=== PATIENT | male | born 1970 | race Caucasian/White ===

== ENCOUNTER 2024-02-17 16:04 | Emergency (ER) | payer MEDICAID, SELFPAY ==
[2024-02-17 16:09] VITALS: PULSE 81
[2024-02-17 16:36] VITALS: BP 128/75; PULSE 90; RESP 18; TEMP 37; O2SAT 98; BMI 16.7
--- NOTE | 2024-02-17 17:04 | EDRME_ITS ---
Rapid Medical Screening Exam [facility] Arrival date/time: 02/17/24 16:04 53-year-old female with past medical history of nephrostomy tube presents emergency department complaining of acute urinary retention and hematuria after accidentally removed Dumont catheter that was placed yesterday. Chief Complaint: Urogenital-Male Time Seen by Provider: 02/17/24 17:01 Vital signs: Vital Signs Temperature 98.6 F 02/17/24 16:36 Pulse Rate 90 02/17/24 16:36 Respiratory Rate 18 02/17/24 16:36 Blood Pressure 128/75 02/17/24 16:36 Pulse Oximetry (%) 98 02/17/24 16:36 Oxygen Delivery Method Room Air 02/17/24 16:36
[2024-02-17 17:33] LABS: Basophils % (Auto) 1 % (0-2.5); Eosinophils # (Auto) 0.3 Thou/mm3 (0.0-0.5); Eosinophils % (Auto) 5 % (0-10); Hematocrit 35.7 % (41.0-53.0); Hemoglobin 11.9 g/dL (13.5-16.0); Immature Granulocytes % (Auto) 0 % (0-0); Lymphocytes # (Auto) 2.5 Thou/mm3 (1.0-4.8); Lymphocytes % (Auto) 41 % (10-50); Mean Corpuscular HGB Conc 33.3 g/dl (31.0-37.0); Mean Corpuscular Hemoglobin 30.9 pg (25.0-35.0); Mean Corpuscular Volume 93 fL (80-100); Monocytes # (Auto) 0.7 Thou/mm3 (0.0-0.8); Monocytes % (Auto) 12 % (0-12); Neutrophils # (Auto) 2.6 Thou/mm3 (1.8-7.7); Neutrophils % (Auto) 43 % (37-80); Nucleated Red Blood Cell % 0 /100 WBC (0); Platelet Count 157 Thou/mm3 (140-440); RDW Standard Deviation 47.5 fL (35.1-43.9); Red Blood Count 3.85 Miln/mm3 (4.50-5.90); White Blood Count 6.2 Thou/mm3 (3.8-10.6)
[2024-02-17 17:48] LABS: Alanine Aminotransferase 15 U/L (10-49); Albumin, Serum 4.4 gm/dL (3.5-5.0); Albumin/Globulin Ratio 1.9 (1.2-2.2); Alkaline Phosphatase 84 U/L (46-116); Anion Gap 5 (7-16); Aspartate Amino Transferase 26 U/L (0-34); BUN/Creatinine Ratio 12 Ratio (12-20); Bilirubin,Total 0.3 mg/dL (0.3-1.2); Blood Urea Nitrogen 11 mg/dL (9-23); Calcium 9.1 mg/dL (8.3-10.6); Calcium (Corrected) 9.1 mg/dL (8.5-10.1); Carbon Dioxide 29.5 mMol/L (20.0-31.0); Chloride 108 mMol/L (98-107); Creatinine (Component) 0.9 mg/dL (0.6-1.3); Estimated Creatinine Clearance 72.2 mL/min (>60); Globulin 2.3 gm/dL (2.3-3.5); Glucose 93 mg/dL (74-106); Osmolality,Calculated 282 (275-295); Potassium 3.8 mMol/L (3.4-5.1); Sodium 142 mMol/L (136-145); Total Protein 6.7 gm/dL (5.7-8.2); eGFR > 60 See Note
[2024-02-17 17:58] LABS: Partial Thromboplastin Time 27.9 Seconds (22.0-36.0); Prothrombin Time 10.6 Seconds (9.0-12.2)
--- NOTE | 2024-02-17 23:05 | PC.NURSE ---
CALLED PATIENT IN THE LOBBY AND OUTSIDE, NO ANSWER RECEIVED.
--- NOTE | 2024-02-18 00:11 | PC.NURSE ---
PT CALLED BACK FROM LOBBY NO ANSWER
--- NOTE | 2024-02-18 00:50 | PC.NURSE ---
No answer when called from triage.
== END 2024-02-17 23:05 | disposition left against medical advice (07) ==
PROVIDERS: Emergency Provider Emergency Medicine; PCP Nurse Practitioner
DX: R33.9 Retention of urine, unspecified (principal); R31.9 Hematuria, unspecified; Z53.29 Procedure and treatment not carried out because of patient's decision for other reasons
CPT/HCPCS: 36415; 80053; 81001; 85025; 85610; 85730; 99281

== ENCOUNTER 2024-03-07 11:12 | Emergency (ER) | payer MEDICAID, SELFPAY ==
[2024-03-07 11:14] VITALS: BMI 18.1
[2024-03-07 11:23] VITALS: BP 113/75; PULSE 77; RESP 19; TEMP 36.8; O2SAT 97
--- NOTE | 2024-03-07 11:58 | EDNOTE_ITS ---
ED Back Injury Pain RME/HPI General Chief Complaint: Back Pain/Injury Stated Complaint: PAIN/SWELLING KIDNEY S/P SURGERY 02/12 Time Seen by Provider: 03/07/24 11:29 Arrival date/time: 03/07/24 11:12 RME / HPI RME / HPI Narrative: 54-year-old male patient with recent placement of ureteral stent came in for evaluation regarding pain to the right flank area for several days, associated with bilateral lower leg +1 edema. Patient denies any fever denies any vomiting. Patient also is asking if he can give him a dose of Ativan since he ran out of it and cannot refill the medication until March 12. He told me that he is feeling very anxious now. Denies any other complaints no medications taken prior travel. Related Data Home Medications ?Medication ?Instructions ?Recorded ?Confirmed lorazepam 2 mg tablet mg 12/10/23 12/10/23 Previous Rx's ?Medication ?Instructions ?Recorded naloxone 4 mg/actuation nasal 4 mg intranasal Q3M PRN opioid 11/30/23 spray (Narcan) overdose #2 ea cefdinir 300 mg capsule 300 mg PO BID #20 caps 01/11/24 ciprofloxacin HCl 500 mg tablet 500 mg PO BID #14 tabs 01/25/24 (Cipro) linezolid 600 mg tablet (Zyvox) 600 mg PO BID #14 tabs 02/15/24 lorazepam 2 mg tablet (Ativan) 2 mg PO BID PRN anxiety #10 tabs 03/07/24 nitrofurantoin 100 mg PO Q12H 7 days #14 caps 03/07/24 monohydrate/macrocrystals 100 mg capsule (Macrobid) Allergies Allergy/AdvReac Type Severity Reaction Status Date / Time onion Allergy Severe Vomiting Verified 03/07/24 11:16 Review of Systems Review of Systems Narrative Review of Systems: Review of system reviewed and within normal limits except mentioned in HPI ED Exam Narrative Physical exam: VITAL SIGNS: Reviewed. GENERAL APPEARANCE: Alert and interactive, follows commands, no acute distress, HEAD AND FACE: Non-traumatic. ENT: PERRL, pink conjunctivitis, eyelid no trauma, Mucous membrane moist. NECK: Supple, nontender, no nuchal rigidity. CHEST: No tenderness, no crepitus, no paradoxical movement, no retractions. LUNGS: Clear, well ventilated, symmetric, no rales, no wheezing, no ronchi, no stridor, good breath sounds bilaterally. HEART: Regular rate, regular rhythm, no murmur, no gallops. ABDOMEN: Soft, positive bowel sounds, nondistended, no guarding, nontender, no rebound, no masses, right flank tenderness RECTAL: Deferred. GENITAL: Deferred. NEUROLOGICAL: Gross motor function intact sensory function intact, Appropriate for age. MUSCULOSKELETAL: low back nontender, full range of motion. EXTREMITIES: Nontender, full range of motion. SKIN: Color pink, dry, no rash, no lacerations, no abrasions, no contusions. LYMPHATICS: Deferred. Course Quality Measures none Orders Category Date Time Status CBC [CBC] Stat Lab 03/07/24 12:40 Completed CMP [Comprehensive Metabolic Panel] Stat Lab 03/07/24 12:40 Completed UA, C/S IF [Urinalysis, C/S if Indicated] Stat Lab 03/07/24 13:55 Completed Urine Culture Stat Lab 03/07/24 13:55 Received Furosemide [Lasix] Med 03/07/24 12:15 Discontinued 20 mg PO X1 ONE LORazepam [Ativan] Med 03/07/24 11:57 Discontinued 2 mg PO X1 ONE Nitrofurantoin Macro [Macrobid] Med 03/07/24 15:49 Discontinued 100 mg PO X1 ONE Sodium Chloride 0.9% 1000 ml [Ns] 1,000 ml Med 03/07/24 15:04 Active IV 999 mls/hr Vital Signs Vital signs: Vital Signs Temperature 98.3 F 03/07/24 11:23 Pulse Rate 77 03/07/24 11:23 Respiratory Rate 19 03/07/24 11:23 Blood Pressure 113/75 03/07/24 11:23 Pulse Oximetry (%) 97 03/07/24 11:23 Oxygen Delivery Method Room Air 03/07/24 11:23 Back Pain / Injury MDM Narrative MDM Narrative:: 54-year-old male patient with recent placement of ureteral stent came in for evaluation regarding pain to the right flank area for several days, associated with bilateral lower leg +1 edema. Patient denies any fever denies any vomiting. Patient also is asking if he can give him a dose of Ativan since he ran out of it and cannot refill the medication until March 12. He told me that he is feeling very anxious now. Denies any other complaints no medications taken prior travel. Laboratory workup significant for mild UTI the rest of the labs unremarkable. Patient received IV fluids for hydration and p.o. Ativan. Currently patient is verbalized significant improvement of his anxiety. Patient was also given Macrobid. I gave him Macrobid since patient had multiple resistance of previous culture and sensitivity that was done in less than 1 month ago. Patient data External records reviewed:: None Clinical information provided by:: none Social determinants that could affect healthcare access:: none Patient has the following chronic illnesses:: anxiety How is presenting disease/condition affected by chronic disease/condition?: exacerbated by Evaluation data The following diagnostics were reviewed and interpreted by me:: lab results Lab and/or radiology exams considered but not ordered:: None Interpretation Summary: Laboratory workup significant for UTI. The rest of the labs unremarkable. Medications / Prescriptions Medications or Prescriptions considered but not ordered:: None Medication administrations:: Medication Administration History Sodium Chloride (Ns) 1,000 mls @ 999 mls/hr IV .Q1H1M ONE Stop: 03/07/24 16:04 Last Admin: 03/07/24 15:09 Dose: 999 mls/hr Documented By: EF Discontinued Medications Furosemide (Furosemide 20 Mg Tablet) 20 mg PO X1 ONE Stop: 03/07/24 12:16 Last Admin: 03/07/24 13:22 Dose: 20 mg Documented By: EF Lorazepam (Lorazepam 0.5 Mg Tablet) 2 mg PO X1 ONE Stop: 03/07/24 11:58 Last Admin: 03/07/24 12:47 Dose: 2 mg Documented By: EF Nitrofurantoin Macrocrystals (Nitrofurantoin Macro 100 Mg Capsule) 100 mg PO X1 ONE Stop: 03/07/24 15:50 IV fluids for hydration Macrobid, Ativan and Lasix Consultations Consultation(s) initiated? (list below): No Diagnosis Differential diagnosis back pain/injury: sciatica, pyelonephritis and other (UTI, anxiety) Most likely diagnosis given after review of the tests above:: UTI, anxiety Admission Indicated Admission indicated?: not indicated Explain why admission is indicated or not indicated:: Stable for discharge Admission Request Was there a request for admission?: No Disposition Plan Disposition Plan: Discharge Discharge Attestation Discharge Attestation: The patient was given an opportunity to ask questions and understood the discharge instructions. Discharge instructions specifically effects, indication s for sooner follow up or return to the emergency department, and the expected course of current diagnosis. Patient condition: Stable Discharge Plan Plan Patient Disposition: HOME (Self Care) Disposition Comment: stable Prescriptions/Referrals Prescriptions/Med Rec: New nitrofurantoin monohyd/m-cryst [Macrobid] 100 mg capsule 100 mg PO Q12H 7 Days Qty: 14 0RF Rx Instructions: must administer with a meal/food lorazepam [Ativan] 2 mg tablet 2 mg PO BID PRN (Reason: anxiety) Qty: 10 0RF No Action naloxone [Narcan] 4 mg/actuation spray,non-aerosol 4 mg intranasal Q3M PRN (Reason: opioid overdose) Qty: 2 0RF Rx Instructions: spray 1 dose into ONE nostril; alternate nostrils w each dose until help arrives lorazepam 2 mg tablet Patient Comments: 2 mg orally daily As Needed for anxiety for 5 days, Max Daily Dose: 2 tablets cefdinir 300 mg capsule 300 mg PO BID Qty: 20 0RF ciprofloxacin HCl [Cipro] 500 mg tablet 500 mg PO BID Qty: 14 0RF linezolid [Zyvox] 600 mg tablet 600 mg PO BID Qty: 14 0RF Referrals: Ana Tidwell FNP [Primary Care Provider] - In 1 week Problem List Clinical Impression: Anxiety, UTI (urinary tract infection) Patient/Caregiver Discharge Instructions Discharge Activity: activity as tolerated Education Materials: Understanding Urinary Tract ... Additional Instructions: Thank you for the opportunity for serving you today. You are stable for discharged . You are advised to: Follow-up with your PCP in 1 to 2 days Return to ED for worsening of symptoms Increase oral fluids Take medication as prescribed Print Language: Romanian Stand Alone Forms: Mena Award Info., Patient Portal Info Letter KAREN/FERNANDO Supervising Physician KAREN/FERNANDO Supervising Physician: MD Bautista
--- NOTE | 2024-03-07 12:22 | PC.NURSE ---
patient came in today for right sided flank pain patient mentioned he had a stent placed 02/13/24 and has been hurting ever since. patient states he has pain during voiding and feels he constantly has the urge to pee.
[2024-03-07 12:24] VITALS: BP 114/76; PULSE 71; RESP 16; TEMP 37.1; O2SAT 97
[2024-03-07] MEDS: LORazepam 0.5 MG TABLET 2 MG PO (12:47)
--- NOTE | 2024-03-07 12:51 | PC.NURSE ---
pharmacy called for lasix
[2024-03-07 12:54] LABS: Basophils % (Auto) 1 % (0-2.5); Eosinophils # (Auto) 0.2 Thou/mm3 (0.0-0.5); Eosinophils % (Auto) 4 % (0-10); Hematocrit 34.1 % (41.0-53.0); Hemoglobin 11.6 g/dL (13.5-16.0); Immature Granulocytes % (Auto) 0 % (0-0); Lymphocytes # (Auto) 1.2 Thou/mm3 (1.0-4.8); Lymphocytes % (Auto) 29 % (10-50); Mean Corpuscular Hemoglobin 30.6 pg (25.0-35.0); Mean Corpuscular Volume 90 fL (80-100); Monocytes # (Auto) 0.3 Thou/mm3 (0.0-0.8); Monocytes % (Auto) 7 % (0-12); Neutrophils # (Auto) 2.4 Thou/mm3 (1.8-7.7); Neutrophils % (Auto) 59 % (37-80); Nucleated Red Blood Cell % 0 /100 WBC (0); Platelet Count 198 Thou/mm3 (140-440); RDW Standard Deviation 45.6 fL (35.1-43.9); Red Blood Count 3.79 Miln/mm3 (4.50-5.90); White Blood Count 4.1 Thou/mm3 (3.8-10.6)
[2024-03-07 13:10] LABS: Alanine Aminotransferase 12 U/L (10-49); Albumin, Serum 4.3 gm/dL (3.5-5.0); Alkaline Phosphatase 85 U/L (46-116); Anion Gap 3 (7-16); Aspartate Amino Transferase 18 U/L (0-34); BUN/Creatinine Ratio 13 Ratio (12-20); Bilirubin,Total 0.6 mg/dL (0.3-1.2); Blood Urea Nitrogen 12 mg/dL (9-23); Calcium 9.5 mg/dL (8.3-10.6); Calcium (Corrected) 9.5 mg/dL (8.5-10.1); Carbon Dioxide 29.9 mMol/L (20.0-31.0); Chloride 107 mMol/L (98-107); Creatinine (Component) 0.9 mg/dL (0.6-1.3); Estimated Creatinine Clearance 77.3 mL/min (>60); Globulin 2.1 gm/dL (2.3-3.5); Glucose 103 mg/dL (74-106); Osmolality,Calculated 279 (275-295); Potassium 4.2 mMol/L (3.4-5.1); Sodium 140 mMol/L (136-145); Total Protein 6.4 gm/dL (5.7-8.2); eGFR > 60 See Note
[2024-03-07 13:22] VITALS: BP 97/68; PULSE 69
[2024-03-07] MEDS: Furosemide 20 MG TABLET PO (13:22)
[2024-03-07 14:00] VITALS: BP 103/71; PULSE 67; RESP 18; TEMP 36.4; O2SAT 98
[2024-03-07 14:01] LABS: Collection Type, Urine Clean Catch; Squamous Epithelial Cell,Urine 0 /hpf (0-5)
[2024-03-07 14:05] LABS: Bilirubin,Urine Negative (Negative); Blood,Urine 3+ (Negative); Color,Urine Lt-Yellow (Lt Yel-Yel); Glucose, Urine Negative (Negative); Ketones,Urine Negative (Negative); Leukocyte Esterase,Urine Positive (Negative); Nitrite,Urine Negative (Negative); PH,Urine 6.5 (5.0-7.0); Protein,Urine 1+ (Neg - Trace); RBC,Urine 110 /hpf (0-3); Specific Gravity,Urine 1.011 (1.001-1.035); Urobilinogen,Urine Negative mg/dL (0.0-1.0); WBC,Urine 13 /hpf (0-5)
[2024-03-07] MEDS: SODIUM CHLORIDE 0.9% 1000 ML 1,000 ML 999 ML IV (15:09)
[2024-03-07 15:31] LABS: Clarity,Urine Hazy (Clear/Hazy); Culture Indicated,Urine Yes
[2024-03-07] MEDS: NITROFURANTOIN MACRO 100 MG CAPSULE PO (15:56)
[2024-03-07 15:57] VITALS: BP 103/74; PULSE 73; RESP 16; TEMP 36.6; O2SAT 99
== END 2024-03-07 16:06 | disposition home or self-care (01) ==
PROVIDERS: Nurse Practitioner Family; Emergency Provider Emergency Medicine; PCP Nurse Practitioner
DX: N39.0 Urinary tract infection, site not specified (principal); F41.9 Anxiety disorder, unspecified
CPT/HCPCS: 36415; 80053; 81001; 85025; 87086; 96360; 99284; J7030; A9270

== ENCOUNTER 2024-03-09 05:01 | Emergency (ER) | payer MEDICAID, SELFPAY ==
[2024-03-09 05:32] VITALS: PULSE 76; RESP 16; O2SAT 98; BMI 17.8
[2024-03-09 05:57] VITALS: BP 124/80; PULSE 66; RESP 18; TEMP 36.7; O2SAT 99
--- NOTE | 2024-03-09 06:36 | PD.EDADULT ---
ED General RME/HPI General Chief complaint: General Adult/Misc Complain Stated complaint: LEFT SIDE NUMBNESS Time Seen by Provider: 03/09/24 06:33 Arrival date/time: 03/09/24 05:01 RME / HPI RME / HPI narrative: Patient is a 54 year old male presenting to the ED because ran out of his prescription Ativan 2mg 2 days ago and states he is feeling nervous, no reported withdrawal symptoms. Denies fevers, chills, nausea, vomiting, diarrhea, constipation. Denies pain at this time. History includes AFIB. Related Data Home Medications ?Medication ?Instructions ?Recorded ?Confirmed lorazepam 2 mg tablet mg 12/10/23 12/10/23 Previous Rx's ?Medication ?Instructions ?Recorded naloxone 4 mg/actuation nasal 4 mg intranasal Q3M PRN opioid 11/30/23 spray (Narcan) overdose #2 ea cefdinir 300 mg capsule 300 mg PO BID #20 caps 01/11/24 ciprofloxacin HCl 500 mg tablet 500 mg PO BID #14 tabs 01/25/24 (Cipro) linezolid 600 mg tablet (Zyvox) 600 mg PO BID #14 tabs 02/15/24 lorazepam 2 mg tablet (Ativan) 2 mg PO BID PRN anxiety #10 tabs 03/07/24 nitrofurantoin 100 mg PO Q12H 7 days #14 caps 03/07/24 monohydrate/macrocrystals 100 mg capsule (Macrobid) lorazepam 2 mg capsule,extended 2 mg PO QDAY #3 caps 03/09/24 release 24 hr Allergies Allergy/AdvReac Type Severity Reaction Status Date / Time onion Allergy Severe Vomiting Verified 03/07/24 11:16 Review of Systems Review of Systems Narrative Review of Systems: Gen: No fever, no chills, no weight loss EYES: No discharge, no visual changes, no pain HEENT: No ear pain, no congestion, no sore throat PULM: No shortness of breath, no cough, no congestion CV: No chest pain, no dyspnea on exertion, no palpitations GI: No nausea, no vomiting, no diarrhea, no pain, no constipation : No frequency, no urgency, no dysuria Musc/skel: No joint pain, no back pain Skin: No rash Psyc: +nervus. No hallucinations, no depression Heme/Lymph: No easy bleeding or bruising tendencies Neuro: No weakness, no headache Past Medical History Past Medical History NEUROLOGIC: Positive Migraine CARDIAC: Positive Atrial Fibrillation GASTROINTESTINAL: Positive Gastrointestinal Disorders and Crohn's Disease GENITOURINARY: Positive Genitourinary Disorders and Renal Disease PSYCHO/SOCIAL: Positive Depression and Anxiety OTHER HISTORY: Positive Autoimmune Disease and Down Syndrome Surgical History SURGICAL: Negative Cardiac Surgery, Endocrine Surgery, Thyroidectomy, Ear Surgery, Abdominal Surgery, Nephrectomy, Joint Replacement, Neurologic Surgery or Mastectomy Social History SMOKING STATUS: Current every day smoker SUBSTANCE USE: does not use ED Exam Narrative Physical exam: GEN. APPEARANCE: The patient is alert awake oriented X-3 in minimal distress, lying down comfortably, does not look ill/toxic. Patient has good eye contact. Patient is cooperative. VITALS: All vitals were reviewed and the pulse ox is 99% on room air which is normal according to my interpretation. HEENT: Normocephalic, atraumatic. Pupils are equal and reactive. Oral mucosa is moist. Patent Nares NECK: Supple, nontender, no thyromegaly, no meningismus, no JVD, no step offs CHEST: Symmetrical, atraumatic, and with equal expansion , Nontender on palpation no deformity and no crepitus. CARDIOVASCULAR: Heart regular rhythm no murmur or gallop rub or extra beats. LUNGS: Clear to auscultation bilaterally with symmetrical chest rise. No laboring tachypnea or wheezing. No intercostal subcostal retraction. No rales and no rhonchi. ABDOMEN: Soft, flat, nontender to palpation, no guarding or rebound tenderness. There are no abnormal masses palpated. Active and normal bowel sounds. EXTREMITIES: Nontender. No edema. No cyanosis. Patient is able to move all 4 extremities well, with full ROM and good CSM. SKIN: Warm and dry, no jaundice or rashes noted. MUSCULOSKELETAL: No lubar or midline bony tenderness. There is no CVA tenderness. No paraspinal muscle spasm or tenderness. NEURO: Patient is KELLEY x 4, Cranial nerves II through XII grossly intact. There is no focal neurologic deficits noted. GCS is 15, PNS and [employer] appear grossly intact. PSYCHIATRIC: Patient is in normal mood and affect, cooperative, no SI or HI or hallucinations. Course Quality Measures none Orders Category Date Time Status LORazepam [Ativan] Med 03/09/24 06:36 Discontinued 1 mg PO X1 ONE Vital Signs Vital signs: Vital Signs Temperature 98.1 F 03/09/24 05:57 Pulse Rate 66 03/09/24 05:57 Respiratory Rate 18 03/09/24 05:57 Blood Pressure 124/80 03/09/24 05:57 Pulse Oximetry (%) 99 03/09/24 05:57 Oxygen Delivery Method Room Air 03/09/24 05:57 [facility] Patient data External records reviewed:: [facility] previous records Clinical information provided by:: patient Social determinants that could affect healthcare access:: none Patient has the following chronic illnesses:: AFIB How is presenting disease/condition affected by chronic disease/condition?: uneffected by Evaluation data The following diagnostics were reviewed and interpreted by me:: other (specify) (no testing currently indicated) Lab and/or radiology exams considered but not ordered:: Basic lab work Interpretation Summary: see above Medications Medications considered but not ordered:: none Medication administrations:: Medication Administration History Discontinued Medications Lorazepam (Lorazepam 0.5 Mg Tablet) 1 mg PO X1 ONE Stop: 03/09/24 06:37 see above Consultations Consultation(s) initiated? (list below): No Diagnosis Differential Diagnosis ED Complaint MDM: anxiety, medication refill Most likely diagnosis given after review of the tests above:: Anxiety. Medication refill Admission Indicated Admission indicated?: not indicated Explain why admission is indicated or not indicated:: see above Admission Request Was there a request for admission?: No Disposition Plan Disposition Plan: Discharge Discharge Attestation Discharge Attestation: The patient and all family members were given an opportunity to ask questions and understood the discharge instructions. Discharge instructions specifically effects, indications for sooner follow up or return to the emergency department, and the expected course of current diagnosis. Patient condition: Stable Medical Decision Making Differential Diagnosis Differential Diagnosis: anxiety, medication refill Discharge Plan Plan Patient Disposition: HOME (Self Care) Patient condition on transfer: Stable Prescriptions/Referrals Prescriptions/Med Rec: New lorazepam 2 mg capsule,extended release 24hr 2 mg PO QDAY Qty: 3 0RF No Action naloxone [Narcan] 4 mg/actuation spray,non-aerosol 4 mg intranasal Q3M PRN (Reason: opioid overdose) Qty: 2 0RF Rx Instructions: spray 1 dose into ONE nostril; alternate nostrils w each dose until help arrives lorazepam 2 mg tablet Patient Comments: 2 mg orally daily As Needed for anxiety for 5 days, Max Daily Dose: 2 tablets cefdinir 300 mg capsule 300 mg PO BID Qty: 20 0RF ciprofloxacin HCl [Cipro] 500 mg tablet 500 mg PO BID Qty: 14 0RF linezolid [Zyvox] 600 mg tablet 600 mg PO BID Qty: 14 0RF nitrofurantoin monohyd/m-cryst [Macrobid] 100 mg capsule 100 mg PO Q12H 7 Days Qty: 14 0RF Rx Instructions: must administer with a meal/food lorazepam [Ativan] 2 mg tablet 2 mg PO BID PRN (Reason: anxiety) Qty: 10 0RF Problem List Clinical Impression: Medication refill Patient/Caregiver Discharge Instructions Discharge Activity: activity as tolerated Print Language: Italian Stand Alone Forms: [facility]ena Award Info., Patient Portal Info Letter
[2024-03-09 07:14] VITALS: BP 115/77; PULSE 63; RESP 18; TEMP 36.7; O2SAT 100
[2024-03-09] MEDS: LORazepam 0.5 MG TABLET 1 MG PO (07:15)
== END 2024-03-09 07:22 | disposition home or self-care (01) ==
LOC: SERX 07:35
PROVIDERS: Emergency Provider Emergency Medicine
DX: Z76.0 Encounter for issue of repeat prescription (principal); R45.0 Nervousness
CPT/HCPCS: 99283; A9270

== ENCOUNTER 2024-03-17 21:56 | Emergency (ER) | payer MEDICAID, SELFPAY ==
[2024-03-17 21:57] VITALS: BMI 18.1
[2024-03-17 22:22] VITALS: BP 113/78; PULSE 106; RESP 20; TEMP 37; O2SAT 98
--- NOTE | 2024-03-17 22:34 | PD.EDRME ---
Rapid Medical Screening Exam RME Arrival date/time: 03/17/24 21:56 54-year-old male with past medical history of kidney stones presents emergency department complaining of right flank pain that is been ongoing for several months. Chief Complaint: Back Pain/Injury Time Seen by Provider: 03/17/24 22:30 Vital signs: Vital Signs Temperature 98.6 F 03/17/24 22:22 Pulse Rate 106 H 03/17/24 22:22 Respiratory Rate 20 03/17/24 22:22 Blood Pressure 113/78 03/17/24 22:22 Pulse Oximetry (%) 98 03/17/24 22:22 Oxygen Delivery Method Room Air 03/17/24 22:22 Vital signs reviewed by provider: Yes
[2024-03-17] MEDS: HYDROcodone/APAP 5/325 TABLET 1 TAB PO (22:37)
[2024-03-17 23:19] LABS: Basophils % (Auto) 1 % (0-2.5); Eosinophils # (Auto) 0.5 Thou/mm3 (0.0-0.5); Eosinophils % (Auto) 8 % (0-10); Hematocrit 35.7 % (41.0-53.0); Hemoglobin 11.8 g/dL (13.5-16.0); Immature Granulocytes % (Auto) 0 % (0-0); Immature Granulocytes Auto 0.01 Thou/mm3 (0.00-0.00); Lymphocytes # (Auto) 1.8 Thou/mm3 (1.0-4.8); Lymphocytes % (Auto) 30 % (10-50); Mean Corpuscular HGB Conc 33.1 g/dl (31.0-37.0); Mean Corpuscular Hemoglobin 30.1 pg (25.0-35.0); Mean Corpuscular Volume 91 fL (80-100); Monocytes # (Auto) 0.6 Thou/mm3 (0.0-0.8); Monocytes % (Auto) 9 % (0-12); Neutrophils # (Auto) 3.1 Thou/mm3 (1.8-7.7); Neutrophils % (Auto) 52 % (37-80); Nucleated Red Blood Cell % 0 /100 WBC (0); Platelet Count 145 Thou/mm3 (140-440); RDW Standard Deviation 48.1 fL (35.1-43.9); Red Blood Count 3.92 Miln/mm3 (4.50-5.90)
[2024-03-17 23:41] LABS: Alanine Aminotransferase 18 U/L (10-49); Albumin, Serum 4.4 gm/dL (3.5-5.0); Albumin/Globulin Ratio 1.8 (1.2-2.2); Alkaline Phosphatase 92 U/L (46-116); Anion Gap 5 (7-16); Aspartate Amino Transferase 54 U/L (0-34); BUN/Creatinine Ratio 11 Ratio (12-20); Bilirubin,Total 0.3 mg/dL (0.3-1.2); Blood Urea Nitrogen 9 mg/dL (9-23); Calcium 9.8 mg/dL (8.3-10.6); Calcium (Corrected) 9.8 mg/dL (8.5-10.1); Carbon Dioxide 28.6 mMol/L (20.0-31.0); Chloride 106 mMol/L (98-107); Creatinine (Component) 0.8 mg/dL (0.6-1.3); Globulin 2.4 gm/dL (2.3-3.5); Glucose 92 mg/dL (74-106); Lipase 29 U/L (12-53); Osmolality,Calculated 278 (275-295); Potassium 4.3 mMol/L (3.4-5.1); Sodium 140 mMol/L (136-145); Total Protein 6.8 gm/dL (5.7-8.2); eGFR > 60 See Note
[2024-03-18] LABS: Collection Type, Urine Clean Catch; Squamous Epithelial Cell,Urine 0 /hpf (0-5)
[2024-03-18 00:28] LABS: Bilirubin,Urine Negative (Negative); Blood,Urine 3+ (Negative); Clarity,Urine Turbid (Clear/Hazy); Color,Urine Yellow (Lt Yel-Yel); Culture Indicated,Urine Yes; Glucose, Urine Negative (Negative); Ketones,Urine Negative (Negative); Leukocyte Esterase,Urine Positive (Negative); Nitrite,Urine Negative (Negative); PH,Urine 6.5 (5.0-7.0); Protein,Urine 2+ (Neg - Trace); RBC,Urine 2978 /hpf (0-3); Specific Gravity,Urine 1.024 (1.001-1.035); Urobilinogen,Urine Negative mg/dL (0.0-1.0); WBC,Urine 52 /hpf (0-5)
[2024-03-18 00:41] VITALS: BP 126/80; PULSE 96; RESP 17; TEMP 36.6; O2SAT 100
--- NOTE | 2024-03-18 01:25 | PC.NURSE ---
Assume care for this 54 year old male with chief of RLQ pain with hematuria x1 day. Pt reports that he got a right ureteric stent and a history of kindney stones. On assessment there is McBurney's point noted to the RLQ with active BS noted to all 4 quadrant. Pt is a GCS of 15, A&O X4. Pt was given update on plan of care, Call light within reach.
[2024-03-18 01:59] VITALS: BP 97/63; PULSE 72; RESP 18; TEMP 36.8; O2SAT 99
--- NOTE | 2024-03-18 02:05 | PD.EDBACK ---
ED Back Injury Pain RME/HPI General Chief Complaint: Back Pain/Injury Stated Complaint: RIGHT SIDE KIDNEY PAIN Time Seen by Provider: 03/17/24 22:30 Arrival date/time: 03/17/24 21:56 Limitations: no limitations RME / HPI RME / HPI Narrative: 03/17/24 21:56 54-year-old male with past medical history of kidney stones presents emergency department complaining of right flank pain that is been ongoing for several months. ----- Dr. Fam's Main ED Evaluation: 54yo male with a history of kidney stones with recent stent placement, aFib presents to the ED for a chief complaint of right-sided flank pain. He states his pain is stabbing in nature and rates it to his RUQ. He reports associated nausea and hematuria. He denies any vomiting, fever, chills, diarrhea or any other associated symptoms. He states he is here due to wanting his stent out. Patient states he is due soon to have his stent removed by Dr. Sutton. Related Data Home Medications ?Medication ?Instructions ?Recorded ?Confirmed lorazepam 2 mg tablet mg 12/10/23 12/10/23 Previous Rx's ?Medication ?Instructions ?Recorded naloxone 4 mg/actuation nasal 4 mg intranasal Q3M PRN opioid 11/30/23 spray (Narcan) overdose #2 ea cefdinir 300 mg capsule 300 mg PO BID #20 caps 01/11/24 ciprofloxacin HCl 500 mg tablet 500 mg PO BID #14 tabs 01/25/24 (Cipro) linezolid 600 mg tablet (Zyvox) 600 mg PO BID #14 tabs 02/15/24 lorazepam 2 mg tablet (Ativan) 2 mg PO BID PRN anxiety #10 tabs 03/07/24 lorazepam 2 mg capsule,extended 2 mg PO QDAY #3 caps 03/09/24 release 24 hr Allergies Allergy/AdvReac Type Severity Reaction Status Date / Time onion Allergy Severe Vomiting Verified 03/07/24 11:16 Review of Systems Review of Systems Systems Reviewed: All systems reviewed, normal except as documented Past Medical History Past Medical History NEUROLOGIC: Positive Migraine; Negative Neurological Disorders, Transient Ischemic Attacks (TIA) or Seizures CARDIAC: Positive Atrial Fibrillation; Negative Cardiac Disorders, Congestive Heart Failure or Hypertension RESPIRATORY: Negative Chronic Obstructive Pulmonary Disease (COPD) or Asthma GASTROINTESTINAL: Positive Gastrointestinal Disorders and Crohn's Disease GENITOURINARY: Positive Genitourinary Disorders, Renal Disease (right ureteral stent on 03/14/24) and Kidney Stones MUSCULOSKELETAL: Negative Musculoskeletal Disorders ENDOCRINE: Negative Diabetes Mellitus Type 1 or Diabetes Mellitus Type 2 HEMATOLOGIC: Negative Sickle Cell Disease PSYCHO/SOCIAL: Positive Depression and Anxiety OTHER HISTORY: Positive Autoimmune Disease and Down Syndrome; Negative Blood Transfusions, Anesthesia Reactions, Organ Transplant, MRSA or Cancer Surgical History SURGICAL: Negative Cardiac Surgery, Endocrine Surgery, Thyroidectomy, Ear Surgery, Abdominal Surgery, Nephrectomy, Joint Replacement, Neurologic Surgery, Mastectomy or Organ Transplant Social History SMOKING STATUS: Current every day smoker SUBSTANCE USE: does not use ED Exam General Limitations: Present no limitations General appearance: Present alert, in no apparent distress, cachectic and other (is initially resting comfortably, and is awaken easily) Head Head exam: Present atraumatic Eye Eye exam: Present normal appearance, PERRL and EOMI ENT ENT exam: Present normal exam, normal oropharynx and mucous membranes moist Neck Neck exam: Present normal inspection, full ROM and trachea midline Chest Chest inspection: Present normal inspection and symmetric chest wall rise Respiratory Respiratory exam: Present normal lung sounds bilaterally Cardiovascular Cardiovascular exam: Present regular rate, normal rhythm and normal heart sounds Abdominal Exam Abdominal exam: Present soft (when he puts his head back), guarding and normal bowel sounds; Absent rebound Extremities Exam Extremities exam: Present normal inspection and full ROM; Absent pedal edema Back Exam Back exam: Present normal inspection and full ROM; Absent CVA tenderness (R) or CVA tenderness (L) Neurological Exam Neurological exam: Present alert, oriented X3 and CN II-XII intact Psychiatric Psychiatric exam: Present normal affect and normal mood Skin Skin exam: Present warm, dry, intact and normal color Course Course Course Narrative: 0600: Care signed out to Dr. Mack (emergency physician). Past medical, surgical, social and family history reviewed. Vitals and home medications reviewed. Results and treatment plan discussed. They will assume the care of the patient at this time and will follow the patient, pending Dr. Walter's evaluation. Quality Measures none Orders Category Date Time Status Insert IV NOW Care 03/18/24 02:19 Active MRI Screening NOW Care 03/18/24 03:45 Completed MRI Screening NOW Care 03/18/24 03:46 Completed NPO NOW Care 03/18/24 05:11 Active Diet NPO (NOW) Diet 03/18/24 05:[address] abdomen pelvis w con Stat Exams 03/18/24 03:[address] abdomen pelvis wo con Stat Exams 03/18/24 02:13 Taken MR abdomen wo con Stat Exams 03/18/24 Stop Req CBC Stat Lab 03/17/24 22:40 Completed CMP [Comprehensive Metabolic Panel] Stat Lab 03/17/24 22:40 Completed Lipase Stat Lab 03/17/24 22:40 Completed Urinalysis, C/S if Indicated Stat Lab 03/17/24 23:22 Completed Urine Culture Stat Lab 03/17/24 23:22 Received HYDROcodone*/APAP 5/325 [[place] 5/325] Med 03/17/24 22:34 Discontinued 1 tab PO X1 ONE Piper/Tazo Inj [Zosyn Inj] 3.375 gm Med 03/18/24 05:01 Pending Sodium Chloride 0.9% (P) [Ns 0.9% (P)] 50 ml IV Q6HR Piper/Tazo Inj [Zosyn Inj] 3.375 gm Med 03/18/24 05:15 Active Sodium Chloride 0.9% (P) [Ns 0.9% (P)] 50 ml IV X1 Sodium Chloride 0.9% 1000 ml [Ns] 1,000 ml Med 03/18/24 02:06 Discontinued IV 999 mls/hr Sodium Chloride 0.9% 1000 ml [Ns] 1,000 ml Med 03/18/24 05:09 Active IV 999 mls/hr Vital Signs Vital signs: Vital Signs Temperature 98.6 F 03/17/24 22:22 Pulse Rate 106 H 03/17/24 22:22 Respiratory Rate 20 03/17/24 22:22 Blood Pressure 113/78 03/17/24 22:22 Pulse Oximetry (%) 98 03/17/24 22:22 Oxygen Delivery Method Room Air 03/17/24 22:22 Pulse ox is 98% on room air, which is normal according to my interpretation. Back Pain / Injury MDM Narrative MDM Narrative:: 0345: Patient has a hx of hydronephrosis and obstructive uropathy and is concerned for additional contrast. MRI ordered. However after the engineering technician parking came to evaluate the patient agrees to CT scan with contrast. Review of his chart shows that he has no previous history of renal insufficiency. 0500: Teleradiology called to report acute appendicitis. 0507: BP is currently 115/76. 0600: Signed out to Dr. Mack pending evaluation by Dr. Walter for acute appendicitis. Zosyn is ordered. Blood pressure 115/70. Patient is hemodynamically stable Patient data External records reviewed:: [facility] previous records (Per chart review, patient was seen here on 03/09/24 for a medication refill.) Clinical information provided by:: patient Social determinants that could affect healthcare access:: none Patient has the following chronic illnesses:: kidney stones, aFib How is presenting disease/condition affected by chronic disease/condition?: caused by Evaluation data The following diagnostics were reviewed and interpreted by me:: lab results and radiology exam(s) Lab and/or radiology exams considered but not ordered:: none Interpretation Summary: CBC is normal, CMP is normal, Lipase is normal, UA is positive for a UTI, according to my interpretation. ----- I have personally reviewed the radiology data and agree with the radiologist's interpretation below: [facility] Preliminary Report Draft Patient: LIONEL GARZA. Record#: [id number] Birthdate: 1970 Age/Sex: 54 / M [facility] Attending Dr: Ordering Physician: Date of Service: Procedure(s): Accession Number(s): cc: ~ CT scan of the abdomen and pelvis without intravenous contrast (axial sections with sagittal and coronal reformats) March 18, 2024 at 0241 hours Clinical History: History of right renal stent. Comparison: CT of November 28, 2023. Findings: The lung bases are clear. The liver, gallbladder, pancreas, spleen, and adrenals are unremarkable on this noncontrast study. Right JJ catheter from the renal pelvis to the urinary bladder. Mildly prominent right ureter wall. No evidence of hydronephrosis. No evidence of kidney or ureteral stones. No evidence of bowel obstruction. Thickening of the appendix measuring up to 0.8 cm associated with mild peripheral fat stranding, limited evaluation at this noncontrast study. There is no mesenteric or retroperitoneal adenopathy. The urinary bladder is unremarkable. There is no free fluid or free air. The osseous structures are unremarkable. Severe fecal loading throughout the colon. Pelvic phleboliths. No evidence of appendicitis. Impression: 1. Possible acute appendicitis, limited evaluation of this noncontrast study. Please, correlate clinically. 2. Severe fecal loading throughout the colon. 3. No evidence of kidney or ureteral stones. 4. Possible right ureteritis. Discussion Details: Results verbally communicated to : Dr Noris Benton at 03:32 AM 03/18/2024 Report Electronically Signed By: Anthony Cueto 03/18/2024 3:47:16 AM [EST] ----- [facility] Preliminary Report Draft Patient: LIONEL GARZA [facility]. Record#: [id number] Birthdate: 1970 Age/Sex: 54 / M Location: [facility] Attending Dr: Ordering Physician: Date of Service: Procedure(s): Accession Number(s): cc: ~ CT scan of the abdomen and pelvis with intravenous contrast (axial sections with sagittal and coronal reformats) March 18, 2024 0359 hours Clinical History: 54-yo possible appendicitis on CT w/o contrast Comparison: CT of March 18, 2024. Findings: The lung bases are clear. The liver, gallbladder, pancreas, spleen, and adrenals are unremarkable. Right JJ catheter from the renal pelvis to the urinary bladder. Mild thickening of the right ureter wall. No evidence of kidney or ureteral stones. No evidence of bowel obstruction. Thickening of the appendix measuring up to 1.1 cm associated with peripheral fat stranding, no perforation, no collections. There is no mesenteric or retroperitoneal adenopathy. The urinary bladder is unremarkable. There is no free fluid or free air. The osseous structures are unremarkable. Fecal loading. Impression: Acute appendicitis. Surgical consult is recommended. Fecal loading throughout the colon. Possible right ureteritis. Discussion Details: Results verbally communicated to : Dr. Roque at 04:55 AM 03/18/2024 Report Electronically Signed By: Anthony Cueto 03/18/2024 5:02:52 AM [EST] Medications / Prescriptions Medications or Prescriptions considered but not ordered:: none Medication administrations:: Medication Administration History Piperacillin Sod/Tazobactam (Sod 3.375 gm/ Sodium Chloride) 50 mls @ 100 mls/hr IV Q6HR MARILYNN Stop: 03/25/24 05:00 Piperacillin Sod/Tazobactam (Sod 3.375 gm/ Sodium Chloride) 50 mls @ 100 mls/hr IV X1 ONE Stop: 03/18/24 05:44 Last Admin: 03/18/24 05:23 Dose: 100 mls/hr Documented By: HANSEL Sodium Chloride (Ns) 1,000 mls @ 999 mls/hr IV .Q1H1M ONE Stop: 03/18/24 06:09 Last Admin: 03/18/24 05:23 Dose: 999 mls/hr Documented By: DB Discontinued Medications Hydrocodone Bitart/Acetaminophen (Hydrocodone/Apap 5/325 Tablet) 1 tab PO X1 ONE Stop: 03/17/24 22:35 Last Admin: 03/17/24 22:37 Dose: 1 tab Documented By: OA Sodium Chloride (Ns) 1,000 mls @ 999 mls/hr IV .Q1H1M ONE Stop: 03/18/24 03:06 Last Infusion: 03/18/24 03:54 Dose: Infused Documented By: Admin: 03/18/24 02:33 Dose: 999 mls/hr Documented By: HANSEL see above Consultations Consultation(s) initiated? (list below): No Diagnosis Differential diagnosis back pain/injury: other (acute on chronic persistent kidney stone, hematuria, complicated UTI, pain from anxiety, complication of Crohn's disease) Most likely diagnosis given after review of the tests above:: see below Admission Indicated Admission indicated?: not indicated Admission Request Was there a request for admission?: No Disposition Plan Disposition Plan: other (specify) (Signed out to Dr. Mack at [address] Walter's evaluation.) Critical Care Time Critical Care Time Critical Care Time: Yes Total Critical Care Time (min.): 35 Attestation: The high probability of sudden, clinically significant deterioration in the patient?s condition required the highest level of my preparedness to intervene urgently. The services I provided to this patient were to treat and/or prevent clinically significant deterioration. Services included the following: chart data review, reviewing nursing notes and/or old charts, documentation time, custom decorating consultant collaboration regarding findings and treatment options, medication orders and management, direct patient care, vital sign assessments and ordering, interpreting and reviewing diagnostic studies and lab tests. Aggregate critical care time includes only time during which I was engaged in work directly related to the patient?s care, as described above, whether at bedside or elsewhere in the Emergency Department. It did not include time spent performing other reported procedures or the services of residents, students, nurses or physician assistants. Discharge Plan Plan Patient Disposition: Admit Acute Care w/in Hospital Patient condition on transfer: Stable Prescriptions/Referrals Prescriptions/Med Rec: No Action naloxone [Narcan] 4 mg/actuation spray,non-aerosol 4 mg intranasal Q3M PRN (Reason: opioid overdose) Qty: 2 0RF Rx Instructions: spray 1 dose into ONE nostril; alternate nostrils w each dose until help arrives lorazepam 2 mg tablet Patient Comments: 2 mg orally daily As Needed for anxiety for 5 days, Max Daily Dose: 2 tablets cefdinir 300 mg capsule 300 mg PO BID Qty: 20 0RF ciprofloxacin HCl [Cipro] 500 mg tablet 500 mg PO BID Qty: 14 0RF linezolid [Zyvox] 600 mg tablet 600 mg PO BID Qty: 14 0RF lorazepam [Ativan] 2 mg tablet 2 mg PO BID PRN (Reason: anxiety) Qty: 10 0RF lorazepam 2 mg capsule,extended release 24hr 2 mg PO QDAY Qty: 3 0RF Referrals: No Primary/Family,Physician [Primary Care Provider] - In 1 week Problem List Clinical Impression: Acute appendicitis Patient/Caregiver Discharge Instructions Print Language: Stateless Stand Alone Forms: [facility]ena Award Info., Patient Portal Info Letter
--- NOTE | 2024-03-18 02:13 | XR_ITS ---
Examination: CT abdomen and pelvis without contrast. Coronal 3-D reconstructions. Sagittal 2-D reconstructions. Date and time of exam:March 18, 2024 0241 hrs. Comparison February 15, 2024 Indications: Right-sided flank pain today, stent placement February 13, 2024 Comparison: February 25, 2024 CTDI: vol (mGy): 4.49 DLP: (mGycm): 262 Technique: Axial images of the abdomen have been obtained, 3 mm slice thickness Intravenous contrast material has not been administered. Low dose protocols were performed. One or more of the following dose reduction techniques were used; automated exposure control, adjustment of the mA and/or KV according to patient size, use of iterative reconstruction technique. Findings: No focal liver or splenic lesions Contracted gallbladder No pancreatic mass Right ureteral stent satisfactory position with no significant hydronephrosis I do not visualize a definite inflamed appendix, no pericecal inflammatory change No bowel obstruction Intact urinary bladder No significant prostatomegaly Advanced degenerative disc disease L5-S1 Impression: Right ureteral stent satisfactory position with no significant hydronephrosis I do not visualize a definite inflamed appendix
[2024-03-18] MEDS: SODIUM CHLORIDE 0.9% 1000 ML 1,000 ML 999 ML IV ×2 (02:33→05:23)
--- NOTE | 2024-03-18 03:42 | XR_ITS ---
Examination: CT abdomen with intravenous contrast CT pelvis with intravenous contrast 2-D coronal reconstructions 2-D sagittal reconstructions Date and time of exam:March 18, 2024 at 0359 hrs. Comparison March 18, 2024 0242 hrs. Indications: Right lower abdominal pain beginning today. CTDI: vol (mGy) 134 DLP: (mGycm) 250 Technique: Multiple axial sections of the abdomen and pelvis have been obtained. 64 slice high-resolution scanner used. 3 mm axial sections have been obtained, post intravenous injection 60 cc Isovue-370 2-D sagittal, coronal reconstructions obtained. Low dose protocols were performed. One or more of the following dose reduction techniques were used; automated exposure control, adjustment of the mA and/or KV according to patient size, use of iterative reconstruction technique. Findings: No focal liver or splenic lesion No gallstones Right ureteral stent satisfactory position with no significant hydronephrosis Aorta normal size Abundant stool in the colon The appendix is partially visualized medial to the cecum, I cannot confirm definite periappendiceal inflammatory change I cannot confirm definite periappendiceal inflammatory change No bowel obstruction Moderate stool throughout the colon Intact urinary bladder No prostatomegaly Impression: Right ureteral stent satisfactory position The appendix is partially visualized medial to the cecum, I cannot confirm definite periappendiceal inflammatory change, the appearance should be clinically correlated
--- NOTE | 2024-03-18 03:48 | PRELIM_ITS ---
CT scan of the abdomen and pelvis without intravenous contrast (axial sections with sagittal and lili nal reformats) March 18, 2024 at 0241 hours Clinical History: History of right renal stent.Compari son: CT of November 28, 2023.Findings:The lung bases are clear.The liver, gallbladder, pancreas, spleen , and adrenals are unremarkable on this noncontrast study.Right JJ catheter from the renal pelvis to the urinary bladder. Mildly prominent right ureter wall.No evidence of hydronephrosis.No evidence of kidney or ureteral stones.No evidence of bowel obstruction. Thickening of the appendix measuring up t o 0.8 cm associated with mild peripheral fat stranding, limited evaluation at this noncontrast study. There is no mesenteric or retroperitoneal adenopathy.The urinary bladder is unremarkable. There is n o free fluid or free air.The osseous structures are unremarkable.Severe fecal loading throughout the colon.Pelvic phleboliths. No evidence of appendicitis.Impression:1. Possible acute appendicitis, limi karthikeyan evaluation of this noncontrast study. Please, correlate clinically.2. Severe fecal loading throug hout the colon.3. No evidence of kidney or ureteral stones.4. Possible right ureteritis.Discussion De tails: Results verbally communicated to : Dr Noris Benton at 03:32 AM 03/18/2024 Report Electronically Signed By: Anthony Cueto 03/18/2024 3:47:16 AM [EST]
[2024-03-18 04:00] VITALS: BP 109/72; PULSE 67; RESP 16; TEMP 37; O2SAT 99
--- NOTE | 2024-03-18 05:03 | PRELIM_ITS ---
CT scan of the abdomen and pelvis with intravenous contrast (axial sections with sagittal and coronal reformats) March 18, 2024 0359 hoursClinical History: 54-yo possible appendicitis on CT w/o contr astComparison: CT of March 18, 2024.Findings:The lung bases are clear.The liver, gallbladder, panc reas, spleen, and adrenals are unremarkable.Right JJ catheter from the renal pelvis to the urinary b ladder. Mild thickening of the right ureter wall. No evidence of kidney or ureteral stones.No evide nce of bowel obstruction.Thickening of the appendix measuring up to 1.1 cm associated with peripheral fat stranding, no perforation, no collections.There is no mesenteric or retroperitoneal adenopathy.T he urinary bladder is unremarkable. There is no free fluid or free air.The osseous structures are unr emarkable.Fecal loading.Impression:Acute appendicitis. Surgical consult is recommended.Fecal loading throughout the colon.Possible right ureteritis.Discussion Details: Results verbally communicated to : Dr. Roque at 04:55 AM 03/18/2024 Report Electronically Signed By: Anthony Cueto 03/18/2024 5: 02:52 AM [EST]
[2024-03-18] MEDS: PIPER/TAZO INJ 3.375 GM in SODIUM CHLORIDE 0.9% (P) 50 ML IV (05:23)
[2024-03-18 06:00] VITALS: BP 114/72; PULSE 76; RESP 17; TEMP 36.6; O2SAT 98
--- NOTE | 2024-03-18 06:39 | EDNOTE_ITS ---
Emergency Room Addendum Addendum Narrative: 0600: Care assumed from Dr. Roque, the previous shift emergency physician. Past medical, surgical, social and family history reviewed. Vitals and home medications reviewed. I will assume the care of the patient at this time, pending surgeon Dr. Walter to evaluate. Please refer to the emergency department record for history and examination from initial visit.? Nursing notes reviewed by me. Vital signs reviewed by me. [place] medical records reviewed by me. 0720: I spoke with radiologist Dr. Coronado. States CT's do not show acute appendicitis. 0800: Patient reports abdominal pain, mostly in the right upper to right lower quadrant, rating 4-6 out of 10. Reports history of Crohn's disease. On my examination, patient has mild-moderate tenderness to the RLQ with rebound, involuntary guarding. 0806: I called surgeon Dr. Walter, no answer. Left a voicemail. 0822: Surgeon Dr. Walter has evaluated the patient in the ED. States he reviewed the CT and his exam findings are not suggestive of appendicitis. Will order 2mg of Morphine and DC home.
[2024-03-18] MEDS: MORPHINE SULF INJ 10 MG/ML VIAL 2 MG IVP (08:29)
== END 2024-03-18 09:53 | disposition home or self-care (01) ==
PROVIDERS: Emergency Provider Emergency Medicine
DX: K35.80 Unspecified acute appendicitis (principal)
CPT/HCPCS: 36415; 74176; 74177; 80053; 81001; 83690; 85025; 87086; 96361; 96365; 99285; A4649; J2270; J2543; J7030; J7050; Q9967; A9270

== ENCOUNTER 2024-04-01 06:36 | Emergency (ER) | payer MEDICAID, SELFPAY ==
[2024-04-01 06:46] VITALS: BP 134/86; PULSE 63; RESP 17; TEMP 36.7; O2SAT 100
[2024-04-01 06:50] VITALS: PULSE 72; RESP 18; O2SAT 99; BMI 17.4
--- NOTE | 2024-04-01 06:58 | EKG_ITS ---
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
--- NOTE | 2024-04-01 08:34 | PD.EDRME ---
Rapid Medical Screening Exam RME Arrival date/time: 04/01/24 06:36 54-year-old male presents to the emergency dept today with complaints of palpitations today patient believes is secondary to being out of his Ativan Chief Complaint: Chest Pain Time Seen by Provider: 04/01/24 07:01 Vital signs: Vital Signs Temperature 98.0 F 04/01/24 06:46 Pulse Rate 63 04/01/24 06:46 Respiratory Rate 17 04/01/24 06:46 Blood Pressure 134/86 H 04/01/24 06:46 Pulse Oximetry (%) 100 04/01/24 06:46 Oxygen Delivery Method Room Air 04/01/24 06:46
== END 2024-04-01 09:03 | disposition left against medical advice (07) ==
PROVIDERS: Emergency Provider Emergency Medicine; PCP Nurse Practitioner Family
DX: R07.9 Chest pain, unspecified (principal); R00.2 Palpitations; Z53.29 Procedure and treatment not carried out because of patient's decision for other reasons
CPT/HCPCS: 80053; 84484; 85025; 93005; 99283

== ENCOUNTER 2024-06-13 19:55 | Emergency (ER) | payer MEDICAID, SELFPAY ==
[2024-06-13] VITALS (7 sets, daily range): BP systolic 130–146; BP diastolic 78–97; PULSE 68–90; RESP 10–18; TEMP 37.1; O2SAT 97–100; BMI 16.0
--- NOTE | 2024-06-13 20:12 | EKG_ITS ---
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
--- NOTE | 2024-06-13 20:25 | XR_ITS ---
Examination: CTA chest with intravenous contrast 2-D reconstructions 3-D reconstructions, vascular Date and time of exam: June 13, 2024 10:50 PM Indications: Onset chest pain today CTDI: vol (mGy) : 29th 2 DLP: (mGycm) 196 Technique: Multiple axial sections of the thorax have been obtained. 3 mm slice thickness, from below the hemidiaphragms to above the apices of the lungs. Mediastinal and lung density settings have been obtained. 2-D sagittal and coronal reconstructions. 3-D angiographic renderings, 3-D volume renderings, 3D post processing, vascular maximum intensity projections obtained. Contrast administered is 100 cc Isovue-370. Low dose protocols were performed. One or more of the following dose reduction techniques were used; automated exposure control, adjustment of the mA and/or KV according to patient size, use of iterative reconstruction technique. Findings: AP dimension ascending thoracic aorta 3.3 cm No pulmonary artery filling defects No paratracheal tracheobronchial or bronchopulmonary adenopathy No pneumonia or pulmonary edema or pleural disease No visualized liver or splenic lesion Contracted gallbladder Kidneys partially visualized no hydronephrosis Impression: Negative for pulmonary artery emboli No mediastinal lymphadenopathy,no pulmonary edema, pneumonia or pleural disease
--- NOTE | 2024-06-13 20:25 | XR_ITS ---
Examination: Duplex scan of the lower extremity, unilateral left Date and time of exam: June 13, [id number] hrs. Indications: Left leg swelling and pain 5 years renal stent 4 months ago Technique: Duplex scan of the extremity veins using B-mode/grayscale imaging and Doppler spectral analysis and color flow Attention is directed to internal echogenicity, compression and augmentation involving these veins, color flow assessment, spectral analysis Findings: Positive for acute deep vein thrombus left common femoral left popliteal left peroneal veins Impression: Positive for acute deep vein thrombus left common femoral left popliteal left peroneal veins
--- NOTE | 2024-06-13 20:25 | XR_ITS ---
Examination: AP chest single view Technique: AP portable upright chest single view Exam date and time: June 13, [id number] hrs. Indications: Chest pain today. Findings: Normal heart size Lungs are clear. The osseous structures are intact Impression: No active disease
--- NOTE | 2024-06-13 20:28 | EDNOTE_ITS ---
ED General RME/HPI General Chief complaint: Chest Pain Stated complaint: CHEST PAIN Time Seen by Provider: 06/13/24 20:14 Arrival date/time: 06/13/24 19:55 RME / HPI RME / HPI narrative: Patient is 54 years old male with past medical history of kidney stones with recent stent placement, aFib presented to the ED due to chest pain. He reports the pain started acutely today after ingestion of amphetamine. He reports that chest pain located in the middle of the chest and is dull in nature, reproduced by deep breathing or movement. He reports no drug abuse, alcohol use or tobacco smoking. He denies any fever, chills, shortness of breath, abdominal pain, difficulty urinating, blood per rectum or melena. He also reports severe anxiety and is chronically on Ativan at home. Related Data Home Medications ?Medication ?Instructions ?Recorded ?Confirmed lorazepam 2 mg tablet mg 12/10/23 12/10/23 Previous Rx's ?Medication ?Instructions ?Recorded naloxone 4 mg/actuation nasal 4 mg intranasal Q3M PRN opioid 11/30/23 spray (Narcan) overdose #2 ea cefdinir 300 mg capsule 300 mg PO BID #20 caps 01/10 ciprofloxacin HCl 500 mg tablet 500 mg PO BID #14 tabs 01/25/24 (Cipro) linezolid 600 mg tablet (Zyvox) 600 mg PO BID #14 tabs 02/15/24 lorazepam 2 mg tablet (Ativan) 2 mg PO BID PRN anxiety #10 tabs 03/07/24 lorazepam 2 mg capsule,extended 2 mg PO QDAY #3 caps 1 05/09/23 release 24 hr apixaban 5 mg (74 tabs) tablets in 5 mg PO BID #74 tab s 06/13/24 a dose pack (Eliquis DVT-PE Treat 30D Start) Allergies Allergy/AdvReac Type Severity Reaction Status Date / Time onion Allergy Severe Vomiting Verified 04/01/24 06:58 Review of Systems Review of Systems Systems Reviewed: All systems reviewed, normal except as documented ED Exam Narrative Physical exam: Gen: Well-developed disheveled male. HEENT: NCAT, PERRLA, EOMI, MMM, anicteric conjunctivae. CVS: normal S1 and S2. Regular tachycardia. No M/R/G. Resp: CTA B/L. No rhonchi, rales, crackles or wheezing. Abd: soft, non-tender, non-distended. BS+ in all 4 quadrants. MSK: Good ROM in BUE & BLE. No rash. Nonpitting edema BLE, Lt>Rt. chest is tender to palpation throughout. Neuro: CN II-XII grossly intact. Strength 5/5 in BUE & BLE. Alert and oriented x3. Psych: Appears anxious. Course Course Course Narrative: 2029 US was Positive for acute deep vein thrombus left common femoral left popliteal left peroneal veins. Enoxaparin 50 mg SC given. 2299 CTA showed no DVT. Quality Measures none Orders Category Date Time Status Bedside COVID-19 Antigen Test NOW Care 06/13/24 21:25 Active Bedside Influenza A&B Antigen Test NOW Care 06/13/24 21:[address] Screening NOW Care 06/13/24 20:26 Active EKG (ED ONLY) *Do not use* NOW Care 06/13/24 20:12 Completed IV [Insert IV] NOW Care 06/13/24 20:28 Active Notify provider NOW Care 06/13/24 21:[address] angio chest Stat Exams 06/13/24 20:25 Completed CXRP [XR chest 1V portable] Stat Exams 06/13/24 20:25 Completed EKG (ED Only) Stat Exams 06/13/24 20:12 Draft US venous duplex LE LT Stat Exams 06/13/24 20:25 Completed BNP [B-Type Natriuretic Peptide] Stat Lab 06/13/24 20:20 Completed CBC Stat Lab 06/13/24 20:20 Completed CMP [Comprehensive Metabolic Panel] Stat Lab 06/13/24 20:20 Completed D-Dimer Stat Lab 06/13/24 20:20 Completed Drug Screen,Urine Stat Lab 06/13/24 23:25 Completed Magnesium Stat Lab 06/13/24 20:20 Completed Partial Thromboplastin Time AM DRAW Lab 06/15/24 05:00 Ordered Phosphorous Stat Lab 06/13/24 20:20 Completed Prothrombin Time with INR AM DRAW Lab 06/15/24 05:00 Ordered TSH [Thyroid Stimulating Hormone] Stat Lab 06/13/24 20:20 Completed Troponin I Stat Lab 06/13/24 20:20 Completed Urinalysis Stat Lab 06/13/24 23:25 Completed Enoxaparin [Lovenox] Med 06/13/24 22:00 Active 50 mg SC BID Heparin Inj Med 06/13/24 21:47 Discontinued 4,150 unit IV X1 ONE Heparin/D5w 25K 250 ML Ivpb [Heparin in D5w Ivpb] Med 06/13/24 22:00 Discontinued 25,000 unit in 250 ml IV 18 units/kg/hr Vital Signs Vital signs: Vital Signs Temperature 98.7 F 06/13/24 19:57 Pulse Rate 85 06/13/24 19:57 Respiratory Rate 17 06/13/24 19:57 Blood Pressure 146/97 H 06/13/24 19:57 Pulse Oximetry (%) 99 06/13/24 19:57 Oxygen Delivery Method Room Air 06/13/24 19:57 Procedures -ED EKG Interpretation Sinus tachycardia: Date of EK06/13/24 Time of EK:16 Rate: 98 Interpretation: Reviewed by me EKG Impression: Sinus tachycardia MDM Patient data External records reviewed:: [facility] previous records and EMS form Clinical information provided by:: patient and EMS Social determinants that could affect healthcare access:: substance use Patient has the following chronic illnesses:: kidney stones with recent stent placement, aFib How is presenting disease/condition affected by chronic disease/condition?: u neffected by Evaluation data The following diagnostics were reviewed and interpreted by me:: lab results, radiology exam(s) and EKG tracing(s) Lab and/or radiology exams considered but not ordered:: CTAP Interpretation Summary: US was Positive for acute deep vein thrombus left common femoral left popliteal left peroneal veins. CTA showed no PE. Medications Medications considered but not ordered:: aspirin, statins Medication administrations:: Medication Administration History Enoxaparin Sodium (Enoxaparin Sod Inj 100 Mg/Ml Syringe) 50 mg SC BID [facility]; Protocol Stop: 06/27/24 21:59 Last Admin: 06/13/24 22:27 Dose: 50 mg Documented By: EDIL Discontinued Medications Heparin Sodium (Porcine) (Heparin Sod Inj 5000 Unit/Ml Vial) 4,150 unit 80 unit/kg (4150 unit) IV X1 ONE; Protocol Stop: 06/13/24 21:48 Last Admin: 06/13/24 22:31 Dose: Not Given Documented By: EDIL Non-Admin Reason: Discontinued Heparin Sodium/Dextrose (Heparin In D5w Ivpb) 25,000 unit in 250 mls @ 9.389 mls/hr IV .Q24H [facility]; Protocol Stop: 06/27/24 21:59 Enoxaparin 50 mg SC. Consultations Consultation(s) initiated? (list below): No Diagnosis Differential Diagnosis ED Complaint MDM: ACS, PE, anxiety reaction due to substance Most likely diagnosis given after review of the tests above:: Anxiety reaction Admission Indicated Admission indicated?: not indicated Explain why admission is indicated or not indicated:: Patient has DVT, PE was ruled out. He can continue treatment home. Admission Request Was there a request for admission?: No Disposition Plan Disposition Plan: Discharge Discharge Attestation Discharge Attestation: The patient and all family members were given an opportunity to ask questions and understood the discharge instructions. Discharge instructions specifically effects, indications for sooner follow up or return to the emergency department, and the expected course of current diagnosis. Patient condition: Stable Medical Decision Making MDM Narrative MDM Narrative: Patient presented complaining of anxiety and chest pain after ingesting of amphetamine. He was also found swelling of his left lower extremity which later was positive for DVT. Due to complaint of chest pain the workup was done including CTA and were negative. Patient will be discharged with [facility] outpatient. ACS was ruled out. Differential Diagnosis Differential Diagnosis: ACS, PE, anxiety reaction due to substance Lab Data 06/13/24 20:20 06/13/24 20:20 Labs: Lab Results 06/13/24 06/13/24 Range/Units 20:20 23:25 WBC 5.3 (3.8-10.6) Thou/mm3 RBC 3.74 L (4.50-5.90) Miln/mm3 Hgb 11.7 L (13.5-16.0) g/dL Hct 33.5 L (41.0-53.0) % MCV 90 (80-100) fL MCH 31.3 (25.0-35.0) pg MCHC 34.9 (31.0-37.0) g/dl RDW Std Deviation 46.3 H (35.1-43.9) fL Plt Count 153 (140-440) Thou/mm3 Neut % (Auto) 65 (37-80) % Lymph % (Auto) 20 (10-50) % [place] % (Auto) 13 H (0-12) % Eos % (Auto) 2 (0-10) % Baso % (Auto) 1 (0-2.5) % Neut # (Auto) 3.4 (1.8-7.7) Thou/mm3 Lymph # (Auto) 1.1 (1.0-4.8) Thou/mm3 [place] # (Auto) 0.7 (0.0-0.8) Thou/mm3 Eos # (Auto) 0.1 (0.0-0.5) Thou/mm3 Baso # (Auto) 0.0 (0.0-0.2) Thou/mm3 Immature Gran # (Auto) 0.01 H (0.00-0.00) Thou/mm3 Absolute Nucleated RBC 0.00 (0.00-0.00) Thou/mm3 Immature Gran % 0 (0-0) % Nucleated RBC % 0 (0) /100 WBC D-Dimer 516 (<600) ng/mL Sodium 144 (136-145) mMol/L Potassium 4.4 (3.4-5.1) mMol/L Chloride 107 (98-107) mMol/L Carbon Dioxide 26.1 (20.0-31.0) mMol/L Anion Gap 11 (7-16) BUN 11 (9-23) mg/dL Creatinine 0.8 (0.6-1.3) mg/dL Estim Creat Clear Calc 77.0 (>60) mL/min eGFR > 60 (60 - ) See Note BUN/Creatinine Ratio 14 (12-20) Ratio Glucose 98 (74-106) mg/dL Calculated Osmolality 286 (275-295) Calcium 9.3 (8.3-10.6) mg/dL Corrected Calcium 9.3 (8.5-10.1) mg/dL Phosphorus 2.7 (2.4-5.1) mg/dL Magnesium 2.0 (1.6-2.6) mg/dL Total Bilirubin 0.5 (0.3-1.2) mg/dL AST 65 H (0-34) U/L ALT 52 H (10-49) U/L Alkaline Phosphatase 143 H (46-116) U/L Troponin I < 0.002 (0.0-0.045) ng/mL B-Natriuretic Peptide < 20 (0-100) pg/mL Total Protein 6.7 (5.7-8.2) gm/dL Albumin 4.4 (3.5-5.0) gm/dL Globulin 2.3 (2.3-3.5) gm/dL Albumin/Globulin Ratio 1.9 (1.2-2.2) TSH 2.27 (0.55-4.78) uIU/mL Ur Collection Type Clean Catch Urine Color Yellow (Lt Yel-Yel) Urine Clarity Clear (Clear/Hazy) Urine pH 6.5 (5.0-7.0) Ur Specific [place] 1.038 H (1.001-1.035) Urine Protein Trace (Neg - Trace) Urine Glucose (UA) Negative (Negative) Urine Ketones 2+ A (Negative) Urine Blood 1+ A (Negative) Urine Nitrite Negative (Negative) Urine Bilirubin Negative (Negative) Urine Urobilinogen (Auto) Negative (0.0-1.0) mg/dL Ur Leukocyte Esterase Negative (Negative) Urine RBC 32 H (0-3) /hpf Urine WBC 1 (0-5) /hpf Ur Squamous Epith Cells < 1 (0-5) /hpf Urine Bacteria None (None) Urine Opiates Screen Negative (Negative) Urine Fentanyl Screen Negative (Negative) Ur Barbiturates Screen Negative (Negative) U Amphetamin/Meth Scrn Positive A (Negative) U Benzodiazepines Scrn Negative (Negative) U Cocaine Metab Screen Negative (Negative) U Marijuana (THC) Screen Negative (Negative) Discharge Plan Plan Patient Disposition: HOME (Self Care) Patient condition on transfer: Stable Prescriptions/Referrals Prescriptions/Med Rec: Perry Buckley DVT-PE Treat 30D Start 5 mg (74 tabs) tablets,dose pack 5 mg PO BID Qty: 74 0RF No Action naloxone [Narcan] 4 mg/actuation spray,non-aerosol 4 mg intranasal Q3M PRN (Reason: opioid overdose) Qty: 2 0RF Rx Instructions: spray 1 dose into ONE nostril; alternate nostrils w each dose until help arrives lorazepam 2 mg tablet Patient Comments: 2 mg orally daily As Needed for anxiety for 5 days, Max Daily Dose: 2 tablets cefdinir 300 mg capsule 300 mg PO BID Qty: 20 0RF ciprofloxacin HCl [Cipro] 500 mg tablet 500 mg PO BID Qty: 14 0RF linezolid [Zyvox] 600 mg tablet 600 mg PO BID Qty: 14 0RF lorazepam [Ativan] 2 mg tablet 2 mg PO BID PRN (Reason: anxiety) Qty: 10 0RF lorazepam 2 mg capsule,extended release 24hr 2 mg PO QDAY Qty: 3 0RF Referrals: No Primary/Family,Physician [Primary Care Provider] - In 1 week Problem List Clinical Impression: Anxiety, DVT (deep venous thrombosis) Patient/Caregiver Discharge Instructions Education Materials: ED Anxiety Reaction, ED Deep Vein Thrombosis (DVT) Additional Instructions: ED visit discharge recommendation: -avoid all illicit drugs including amphetamine. -start taking Eliquis as instructed for DVT. -Follow up with PCP within 1 week of discharge. Follow up liver function test with PCP. -return to the ED if symptoms recur or worsen. Print Language: Icelandic Stand Alone Forms: [facility] Award Info., Patient Portal Info Letter
[2024-06-13 21:04] LABS: Basophils % (Auto) 1 % (0-2.5); Eosinophils # (Auto) 0.1 Thou/mm3 (0.0-0.5); Eosinophils % (Auto) 2 % (0-10); Hematocrit 33.5 % (41.0-53.0); Hemoglobin 11.7 g/dL (13.5-16.0); Immature Granulocytes % (Auto) 0 % (0-0); Immature Granulocytes Auto 0.01 Thou/mm3 (0.00-0.00); Lymphocytes # (Auto) 1.1 Thou/mm3 (1.0-4.8); Lymphocytes % (Auto) 20 % (10-50); Mean Corpuscular HGB Conc 34.9 g/dl (31.0-37.0); Mean Corpuscular Hemoglobin 31.3 pg (25.0-35.0); Mean Corpuscular Volume 90 fL (80-100); Monocytes # (Auto) 0.7 Thou/mm3 (0.0-0.8); Monocytes % (Auto) 13 % (0-12); Neutrophils # (Auto) 3.4 Thou/mm3 (1.8-7.7); Neutrophils % (Auto) 65 % (37-80); Nucleated Red Blood Cell % 0 /100 WBC (0); Platelet Count 153 Thou/mm3 (140-440); RDW Standard Deviation 46.3 fL (35.1-43.9); Red Blood Count 3.74 Miln/mm3 (4.50-5.90); White Blood Count 5.3 Thou/mm3 (3.8-10.6)
[2024-06-13 21:53] LABS: Thyroid Stimulating Hormone 2.27 uIU/mL (0.55-4.78)
[2024-06-13 21:54] LABS: D-Dimer 516 ng/mL (<600)
[2024-06-13 21:55] LABS: B-Type Natriuretic Peptide < 20 pg/mL (0-100)
[2024-06-13 22:15] LABS: Anion Gap 11 (7-16); Blood Urea Nitrogen 11 mg/dL (9-23); Carbon Dioxide 26.1 mMol/L (20.0-31.0); Chloride 107 mMol/L (98-107); Creatinine (Component) 0.8 mg/dL (0.6-1.3); Potassium 4.4 mMol/L (3.4-5.1); Sodium 144 mMol/L (136-145)
[2024-06-13 22:16] LABS: Alanine Aminotransferase 52 U/L (10-49); Albumin, Serum 4.4 gm/dL (3.5-5.0); Albumin/Globulin Ratio 1.9 (1.2-2.2); Alkaline Phosphatase 143 U/L (46-116); Aspartate Amino Transferase 65 U/L (0-34); BUN/Creatinine Ratio 14 Ratio (12-20); Bilirubin,Total 0.5 mg/dL (0.3-1.2); Calcium 9.3 mg/dL (8.3-10.6); Calcium (Corrected) 9.3 mg/dL (8.5-10.1); Globulin 2.3 gm/dL (2.3-3.5); Glucose 98 mg/dL (74-106); Osmolality,Calculated 286 (275-295); Phosphorous 2.7 mg/dL (2.4-5.1); Total Protein 6.7 gm/dL (5.7-8.2); eGFR > 60 See Note
[2024-06-13] MEDS: ENOXAPARIN SOD INJ 100 MG/ML SYRINGE 50 MG SC (22:27)
[2024-06-13 22:31] LABS: Troponin I < 0.002 ng/mL (0.0-0.045)
[2024-06-13 23:36] LABS: Collection Type, Urine Clean Catch
--- NOTE | 2024-06-13 23:40 | PC.NURSE ---
Pt ambulated to BR without assistance. Steady gait. UA obtained.
[2024-06-13 23:46] LABS: Bilirubin,Urine Negative (Negative); Blood,Urine 1+ (Negative); Clarity,Urine Clear (Clear/Hazy); Color,Urine Yellow (Lt Yel-Yel); Glucose, Urine Negative (Negative); Ketones,Urine 2+ (Negative); Leukocyte Esterase,Urine Negative (Negative); Nitrite,Urine Negative (Negative); PH,Urine 6.5 (5.0-7.0); Protein,Urine Trace (Neg - Trace); RBC,Urine 32 /hpf (0-3); Specific Gravity,Urine 1.038 (1.001-1.035); Squamous Epithelial Cell,Urine < 1 /hpf (0-5); Urobilinogen,Urine Negative mg/dL (0.0-1.0); WBC,Urine 1 /hpf (0-5)
[2024-06-13 23:57] LABS: Amphetamine/Methamp Scrn,U Positive (Negative); Barbiturate Screen,Urine Negative (Negative); Benzodiazepines Screen,Urine Negative (Negative); Benzoylecgonine Screen, Ur Negative (Negative); Fentanyl Screen,Urine Negative (Negative); Opiate Screen,Urine Negative (Negative); THC Screen,Urine Negative (Negative)
[2024-06-14] VITALS: BP 142/90; PULSE 79; RESP 18; TEMP 36.8; O2SAT 99
== END 2024-06-14 00:21 | disposition home or self-care (01) ==
PROVIDERS: Emergency Medicine; Emergency Provider Student in an Organized Health Care Education/Training Program
DX: I82.412 Acute embolism and thrombosis of left femoral vein (principal); F41.9 Anxiety disorder, unspecified; R07.9 Chest pain, unspecified; R94.31 Abnormal electrocardiogram [ECG] [EKG]; I48.91 Unspecified atrial fibrillation
CPT/HCPCS: 36415; 71045; 71275; 80053; 80307; 81001; 83735; 83880; 84100; 84443; 84484; 85025; 85379; 87400; 87811; 93005; 93971; 96372; 99285; A4649; J1650; Q9967

== ENCOUNTER 2024-06-16 04:15 | Emergency (ER) | payer MEDICAID, SELFPAY ==
[2024-06-16] VITALS (10 sets, daily range): BP systolic 90–120; BP diastolic 58–80; PULSE 77–121; RESP 14–18; TEMP 36.4–37.1; O2SAT 95–100
--- NOTE | 2024-06-16 04:22 | EKG_ITS ---
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: : 1970 Requested By: Germán Yoo Order Number: [id number] Reading MD: Germán Yoo Measurements Intervals [place] Rate: 120 P: 75 IL: 155 QRS: 74 QRSD: 88 T: 265 QT: 282 QTc: 400 Interpretive Statements SINUS TACHYCARDIA ST DEVIATION AND MODERATE T-WAVE ABNORMALITY, CONSIDER ANTEROLATERAL ISCHEMIA [-0.1+ mV T-WAVE IN V3-V6] ST DEVIATION AND MODERATE T-WAVE ABNORMALITY, CONSIDER INFERIOR ISCHEMIA [-0.1+ mV T-WAVE IN II/aVF] Compared to ECG 06/13/2024 20:16:11 Possible ischemia now present Sinus rhythm no longer present T-wave abnormality still present /store/S0/[id number]/ecg/[id number].pdf
--- NOTE | 2024-06-16 04:23 | PD.EDRME ---
Rapid Medical Screening Exam RME Arrival date/time: 06/16/24 04:15 54-year-old male reports with complaints of taking an overdose amount of methamphetamines this afternoon Chief Complaint: Back Pain/Injury Vital signs: Vital Signs Temperature 97.6 F 06/16/24 04:19 Pulse Rate 121 H 06/16/24 04:19 Respiratory Rate 18 06/16/24 04:19 Blood Pressure 96/64 06/16/24 04:19 Pulse Oximetry (%) 96 06/16/24 04:19 Oxygen Delivery Method Room Air 06/16/24 04:19
--- NOTE | 2024-06-16 05:07 | EDNOTE_ITS ---
ED General RME/HPI General Chief complaint: Psychiatric Symptoms Stated complaint: BACK PAIN Time Seen by Provider: 06/16/24 04:32 Arrival date/time: 06/16/24 04:15 RME / HPI RME / HPI narrative: Patient is a 54 years old male reports with PMH of kidney stones with recent stent placement, Afib, meth use, recent diagnosis of DVT on Eliquis presented to the ED reporting he overdosed on methamphetamines this afternoon as an attempt to kill himself. He is not cooperative and declines work up. He reports ongoing back pain. No other history is obtainable from the patient. Related Data Home Medications ?Medication ?Instructions ?Recorded ?Confirmed lorazepam 2 mg tablet mg 12/10/23 12/10/23 Previous Rx's ?Medication ?Instructions ?Recorded naloxone 4 mg/actuation nasal 4 mg intranasal Q3M PRN opioid 11/30/23 spray (Narcan) overdose #2 ea cefdinir 300 mg capsule 300 mg PO BID #20 caps 01/10 ciprofloxacin HCl 500 mg tablet 500 mg PO BID #14 tabs 01/25/24 (Cipro) linezolid 600 mg tablet (Zyvox) 600 mg PO BID #14 tabs 02/15/24 lorazepam 2 mg tablet (Ativan) 2 mg PO BID PRN anxiety #10 tabs 03/07/24 lorazepam 2 mg capsule,extended 2 mg PO QDAY #3 caps 1 05/09/23 release 24 hr apixaban 5 mg (74 tabs) tablets in 5 mg PO BID #74 tab s 06/13/24 a dose pack (Eliquis DVT-PE Treat 30D Start) Allergies Allergy/AdvReac Type Severity Reaction Status Date / Time onion Allergy Severe Vomiting Verified 04/01/24 06:58 Review of Systems Review of Systems Systems Reviewed: All systems reviewed, normal except as documented ED Exam Narrative Physical exam: Gen: Well-developed disheveled male. HEENT: NCAT, PERRLA, EOMI, MMM, anicteric conjunctivae. CVS: normal S1 and S2. Regular tachycardia. No M/R/G. Resp: CTA B/L. No rhonchi, rales, crackles or wheezing. Abd: soft, non-tender, non-distended. BS+ in all 4 quadrants. MSK: Good ROM in BUE & BLE. No rash. Nonpitting edema BLE, Lt>Rt. Neuro: CN II-XII grossly intact. Strength 5/5 in BUE & BLE. Alert and oriented x3. Psych: Appears anxious. Course Quality Measures none Orders Category Date Time Status 179 Psychiatric Hold NOW Care 06/16/24 05:30 Ordered EKG (ED ONLY) *Do not use* NOW Care 06/16/24 04:22 Completed Consult to Cardiology Stat Cons 06/16/24 05:50 Ordered EKG (ED Only) Stat Exams 06/16/24 04:22 Draft Alcohol, Blood Medical Stat Lab 06/16/24 04:57 Received CBC Stat Lab 06/16/24 04:57 Completed CMP [Comprehensive Metabolic Panel] Stat Lab 06/16/24 04:57 Received Drug Screen,Urine Stat Lab 06/16/24 04:22 Ordered Mag [Magnesium] Stat Lab 06/16/24 04:57 Received Troponin I Stat Lab 06/16/24 04:57 Received Aspirin Med 06/16/24 05:48 Discontinued 325 mg PO X1 ONE Vital Signs Vital signs: Vital Signs Temperature 97.6 F 06/16/24 04:19 Pulse Rate 121 H 06/16/24 04:19 Respiratory Rate 18 06/16/24 04:19 Blood Pressure 96/64 06/16/24 04:19 Pulse Oximetry (%) 96 06/16/24 04:19 Oxygen Delivery Method Room Air 06/16/24 04:19 Procedures -ED EKG Interpretation #1: Date of EK06/16/24 Time of EK:58 Rate: 120 Interpretation: Reviewed by me EKG Impression: Sinus tachycardia Additional EKG comment: ST depression in II, III, aVF, V3, V4, V5, V6. [facility] Patient data External records reviewed:: [facility] previous records and EMS form Clinical information provided by:: patient and EMS Social determinants that could affect healthcare access:: substance use Patient has the following chronic illnesses:: kidney stones with recent stent placement, Afib, meth use How is presenting disease/condition affected by chronic disease/condition?: c aused by Evaluation data The following diagnostics were reviewed and interpreted by me:: lab results, radiology exam(s) and EKG tracing(s) Lab and/or radiology exams considered but not ordered:: CTA. Interpretation Summary: ST segment depression on EKG Medications Medications considered but not ordered:: heparin Medication administrations:: Medication Administration History Discontinued Medications Aspirin (Aspirin 325 Mg Tablet) 325 mg PO X1 ONE Stop: 06/16/24 05:49 Aspirin 325 mg Consultations Consultation(s) initiated? (list below): Yes Consultation #1 (Physician, Specialty, Details): Dr. Mojica, cardiology, NSTEMI Diagnosis Differential Diagnosis ED Complaint MDM: overdose, ACS, NSTEMI, trauma Most likely diagnosis given after review of the tests above:: Meth overdose, suicide attempt. Admission Indicated Admission indicated?: not indicated (pending work up) Explain why admission is indicated or not indicated:: Pending work up Admission Request Was there a request for admission?: No Disposition Plan Disposition Plan: other (specify) (passed to day shift) Medical Decision Making Differential Diagnosis Differential Diagnosis: overdose, ACS, NSTEMI, trauma Lab Data 06/16/24 04:57 06/16/24 04:57 Labs: Lab Results 06/16/24 Range/Units 04:57 WBC 3.1 L D (3.8-10.6) Thou/mm3 RBC 4.18 L (4.50-5.90) Miln/mm3 Hgb 12.7 L (13.5-16.0) g/dL Hct 37.6 L (41.0-53.0) % MCV 90 (80-100) fL MCH 30.4 (25.0-35.0) pg MCHC 33.8 (31.0-37.0) g/dl RDW Std Deviation 45.3 H (35.1-43.9) fL Plt Count 159 (140-440) Thou/mm3 Neut % (Auto) 92 H (37-80) % Lymph % (Auto) 5 L (10-50) % [place] % (Auto) 1 (0-12) % Eos % (Auto) 1 (0-10) % Baso % (Auto) 0 (0-2.5) % Neut # (Auto) 2.8 (1.8-7.7) Thou/mm3 Lymph # (Auto) 0.2 L (1.0-4.8) Thou/mm3 [place] # (Auto) 0.0 (0.0-0.8) Thou/mm3 Eos # (Auto) 0.0 (0.0-0.5) Thou/mm3 Baso # (Auto) 0.0 (0.0-0.2) Thou/mm3 Immature Gran # (Auto) 0.01 H (0.00-0.00) Thou/mm3 Absolute Nucleated RBC 0.00 (0.00-0.00) Thou/mm3 Immature Gran % 0 (0-0) % Nucleated RBC % 0 (0) /100 WBC Discharge Plan Prescriptions/Referrals Prescriptions/Med Rec: No Action naloxone [Narcan] 4 mg/actuation spray,non-aerosol 4 mg intranasal Q3M PRN (Reason: opioid overdose) Qty: 2 0RF Rx Instructions: spray 1 dose into ONE nostril; alternate nostrils w each dose until help arrives lorazepam 2 mg tablet Patient Comments: 2 mg orally daily As Needed for anxiety for 5 days, Max Daily Dose: 2 tablets cefdinir 300 mg capsule 300 mg PO BID Qty: 20 0RF ciprofloxacin HCl [Cipro] 500 mg tablet 500 mg PO BID Qty: 14 0RF linezolid [Zyvox] 600 mg tablet 600 mg PO BID Qty: 14 0RF lorazepam [Ativan] 2 mg tablet 2 mg PO BID PRN (Reason: anxiety) Qty: 10 0RF lorazepam 2 mg capsule,extended release 24hr 2 mg PO QDAY Qty: 3 0RF Eliquis DVT-PE Treat 30D Start 5 mg (74 tabs) tablets,dose pack 5 mg PO BID Qty: 74 0RF Referrals: No Primary/Family,Physician [Primary Care Provider] - In 1 week Problem List Clinical Impression: Methamphetamine intoxication, Suicidal overdose Patient/Caregiver Discharge Instructions Print Language: Iraqi Attestation Attestation At 6 AM on 06/16/2024, the care of the patient was transferred to Dr. MOORE. Ricardo Randall MD
[2024-06-16 05:09] LABS: Basophils % (Auto) 0 % (0-2.5); Eosinophils % (Auto) 1 % (0-10); Hematocrit 37.6 % (41.0-53.0); Hemoglobin 12.7 g/dL (13.5-16.0); Immature Granulocytes % (Auto) 0 % (0-0); Immature Granulocytes Auto 0.01 Thou/mm3 (0.00-0.00); Lymphocytes # (Auto) 0.2 Thou/mm3 (1.0-4.8); Lymphocytes % (Auto) 5 % (10-50); Mean Corpuscular HGB Conc 33.8 g/dl (31.0-37.0); Mean Corpuscular Hemoglobin 30.4 pg (25.0-35.0); Mean Corpuscular Volume 90 fL (80-100); Monocytes % (Auto) 1 % (0-12); Neutrophils # (Auto) 2.8 Thou/mm3 (1.8-7.7); Neutrophils % (Auto) 92 % (37-80); Nucleated Red Blood Cell % 0 /100 WBC (0); Platelet Count 159 Thou/mm3 (140-440); RDW Standard Deviation 45.3 fL (35.1-43.9); Red Blood Count 4.18 Miln/mm3 (4.50-5.90); White Blood Count 3.1 Thou/mm3 (3.8-10.6)
--- NOTE | 2024-06-16 05:55 | XR_ITS ---
Examination: AP chest single view Technique: AP portable upright chest single view Exam date and time: June 16, 2024 0506 hrs. Comparison June 13, 2024 Indications: Chest pain today. Findings: Normal heart size Mild vascular congestion. No lobar pneumonia or pulmonary edema Impression: Mild vascular congestion
[2024-06-16 06:07] LABS: Alanine Aminotransferase 36 U/L (10-49); Albumin, Serum 4.4 gm/dL (3.5-5.0); Albumin/Globulin Ratio 1.8 (1.2-2.2); Alcohol, Blood Medical < 3.0 mg/dL (0-10.0); Alkaline Phosphatase 153 U/L (46-116); Anion Gap 9 (7-16); Aspartate Amino Transferase 35 U/L (0-34); BUN/Creatinine Ratio 9 Ratio (12-20); Blood Urea Nitrogen 12 mg/dL (9-23); Calcium 9.8 mg/dL (8.3-10.6); Calcium (Corrected) 9.8 mg/dL (8.5-10.1); Carbon Dioxide 29.6 mMol/L (20.0-31.0); Chloride 103 mMol/L (98-107); Creatinine (Component) 1.3 mg/dL (0.6-1.3); Globulin 2.5 gm/dL (2.3-3.5); Glucose 113 mg/dL (74-106); Magnesium 1.6 mg/dL (1.6-2.6); Osmolality,Calculated 283 (275-295); Potassium 3.4 mMol/L (3.4-5.1); Sodium 142 mMol/L (136-145); Total Protein 6.9 gm/dL (5.7-8.2); Troponin I < 0.002 ng/mL (0.0-0.045); eGFR > 60 See Note
[2024-06-16] MEDS: Aspirin 325 MG TABLET PO (06:18)
[2024-06-16] MEDS: MAGNESIUM OXIDE 400 MG TABLET PO (06:26)
--- NOTE | 2024-06-16 07:24 | EDNOTE_ITS ---
Emergency Room Addendum Addendum Narrative: 0600: Care assumed from Dr. Randall, the previous shift emergency physician. Past medical, surgical, social and family history reviewed. Vitals and home medications reviewed. I will assume the care of the patient at this time, pending mental health evaluation. Please refer to the emergency department record for history and examination from initial visit.? Physical exam by me shows patient under no acute distress at this time. 0953: Mental health placed the patient on a 5150-hold, pending psychiatric placement. The patient was placed in ED observation care at 06/16/2024 at 0600 hours. The patient was placed in ED observation care initially pending pending mental health evaluation but now because of undifferentiated decompensated behavioral health evaluation, no behavioral health bed available. The patients past medical history, social history, and family history were reviewed. The plan of care will include serial examinations. While in ED observation the patient will have access to water, food, and p ersonal hygiene. If the patient takes home medication(s), they will be continued in ED observation. 1800: Patient was signed out to Dr. Roque. Past medical, surgical, social and family history reviewed. Vitals and home medications reviewed. Results and treatment plan discussed. They will assume the care of the patient at this time and will follow the patient, pending psychiatric placement. ED observation care ended at 06/16/2024 at 1800 hours.
--- NOTE | 2024-06-16 07:40 | PC.NURSE ---
PHARMACY CALLED REGARDING PT'S KCL LIQUID PO MEDICATION; ED PYXIS CURRENTLY OUT OF STOVK; PER PHARMACY, WILL COME RESTOCK IT SOON.
[2024-06-16] MEDS: POTASSIUM CHLORIDE 10% 20 MEQ/15 ML UDC 40 MEQ PO (08:05)
[2024-06-16 09:29] LABS: Troponin I < 0.020 ng/mL (0.0-0.045)
[2024-06-16 09:42] LABS: Amphetamine/Methamp Scrn,U Positive (Negative); Barbiturate Screen,Urine Negative (Negative); Benzodiazepines Screen,Urine Negative (Negative); Benzoylecgonine Screen, Ur Negative (Negative); Fentanyl Screen,Urine Negative (Negative); Opiate Screen,Urine Negative (Negative); THC Screen,Urine Negative (Negative)
--- NOTE | 2024-06-16 09:59 | PC.CC ---
Patient is a 54 year-old male BIBA for back pain and mental health evaluation. ASW-Jacqueline made [id number] contact with patient to complete assessment. ASW?s introduced self, role, and reason for assessment to patient. ASW disclosed limits of confidentiality as well. Patient appeared alert and oriented to self, place, and situation. Patient made poor eye contact during assessment. Patient mood appeared depressed throughout assessment; his behavior appeared disinhibited with flat affect. Thought process was linear and organized. Patient reports yesterday he attempted to OD on methamphetamine with the intention of dying. Patient reports he would reattempt as he continues to have suicidal ideations but did not disclose plan. Patient has had several suicide attempts in the past as an adolescent but none as an adult. Patient reports visual and auditory hallucinations on occasion with seeing and hearing ?Director Of Spa And Guest Experience everywhere I go.? Patient is connected to [facility] ([facility]) psychiatrist Dr. Adams. Patient is prescribed Ativan 2mg 3x/day. Patient has a mental health diagnosis of Major Depressive Disorder. Patient stated he has been placed on multiple 5150-holds but was not able to provide the last time he was placed. Patient provided verbal consent to make contact with his , Alanna Uribe for collateral information. Alanna confirmed patient has a diagnosis of Major Depressive Disorder which he has had for multiple years. She reports the patient stays in bed ?most of the time.? She reports that in the 14 years they have been together he had never attempted suicide until yesterday. Per , she feels that patient needs psychiatric help. Patient?s expressed concern of patient?s depression. Alanna reports the patient is connected to Psychiatrist, Dr. Adams at [facility]. Upon clinical consultation with COMMUNITY HEALTH PROGRAM COORDINATOR, Cary Jaeger patient will be placed on a 5150-hold for Danger to Self. Patient's 1798 will be credited. ASW provided update information of discharge plan to LPS facility to Dr. Prado, security guard dispatcher Kathy, and bedside KELLEN Carrington. ASW provided advisement to patient of 5150-hold. ASW to send referral via [facility] to LPS facilities.
--- NOTE | 2024-06-16 19:51 | PD.EDADDENDU ---
Emergency Room Addendum <Colin Javier - Last Filed: 06/16/24 20:14> Addendum Narrative: 1800: Care assumed from the previous shift emergency physician. Past medical, surgical, social and family history reviewed. Vitals and home medications reviewed. I will assume the care of the patient at this time, pending psychiatric placement. Please refer to the emergency department record for history and examination from initial visit. Physical exam by me shows patient under no acute distress at this time. The patient was continues in ED observation care at 06/16/2024 at 1800 hours. The patient was placed in ED observation care initially pending pending mental health evaluation but now because of undifferentiated decompensated behavioral health evaluation, no behavioral health bed available. The patients past medical history, social history, and family history were reviewed. The plan of care will include serial examinations. While in ED observation the patient will have access to water, food, and personal hygiene. If the patient takes home medication(s), they will be continued in ED observation. 0600: Patient was signed out to [facility] provider. Past medical, surgical, social and family history reviewed. Vitals and home medications reviewed. Results and treatment plan discussed. They will assume the care of the patient at this time and will follow the patient, pending psychiatric placement. ED observation care ended at 06/17/2024 at 0600 hours. <Kellen Roque MD - Last Filed: 06/17/24 06:39> Addendum Narrative: 1800: Care assumed from the previous shift emergency physician. Past medical, surgical, social and family history reviewed. Vitals and home medications reviewed. I will assume the care of the patient at this time, pending psychiatric placement. Please refer to the emergency department record for history and examination from initial visit. Physical exam by me shows patient under no acute distress at this time. Patient is resting comfortably. It was noted that the patient's Eliquis had not been restarted for left lower extremity DVT.. I have restarted his Eliquis The patient was continues in ED observation care at 06/16/2024 at 1800 hours. The patient was placed in ED observation care initially pending pending mental health evaluation but now because of undifferentiated decompensated behavioral health evaluation, no behavioral health bed available. The patients past medical history, social history, and family history were reviewed. The plan of care will include serial examinations. While in ED observation the patient will have access to water, food, and personal hygiene. If the patient takes home medication(s), they will be continued in ED observation. 0600: Patient was signed out to [facility]. Past medical, surgical, social and family history reviewed. Vitals and home medications reviewed. Results and treatment plan discussed. They will assume the care of the patient at this time and will follow the patient, pending psychiatric placement. ED observation care ended at 06/17/2024 at 0600 hours. Attestation <Colin Javier - Last Filed: 06/16/24 20:14> Attestation Scribe Attestation: I, Trudy Javier, am scribing for and in the presence of Dr. Roque. Provider Notation: Although this document has been carefully reviewed, there may still be some phonetic and other typographical errors. These errors are purely grammatical due to imperfections in the software program and should not be construed in any way to compromise the substance of the patient's medical care during this visit.
[2024-06-17 03:13] VITALS: BP 108/46; PULSE 85; RESP 18; TEMP 36.9; O2SAT 97
[2024-06-17 05:46] VITALS: BP 101/56; PULSE 115; RESP 17; TEMP 36.7; O2SAT 98
[2024-06-17 06:01] VITALS: BP 101/56; PULSE 115
[2024-06-17] MEDS: METOPROLOL TARTRATE 25 MG TABLET PO (06:01)
[2024-06-17] MEDS: ACETAMINOPHEN 500 MG TABLET 1000 MG PO (06:11)
[2024-06-17] MEDS: APIXABAN 2.5 MG TABLET 10 MG PO (06:12)
--- NOTE | 2024-06-17 10:57 | PD.EDADDENDU ---
Emergency Room Addendum <Eliana Krishna - Last Filed: 06/17/24 10:58> Addendum Narrative: 0600: Care assumed from Dr. Roque , the previous shift emergency physician. Past medical, surgical, social and family history reviewed. Vitals and home medications reviewed. Results and treatment plan discussed. The patient was placed in ED observation care at 0600 06/17/24, pending LPS facility placement. Please refer to the emergency department record for history and examination.? While in ED observation the pt will have access to water, food, and personal hygiene. If the pt takes home medication(s), they will be continued in ED observation. <Brian Flanagan MD - Last Filed: 06/17/24 11:40> Addendum Narrative: 0600: Care assumed from Dr. Roque , the previous shift emergency physician. Past medical, surgical, social and family history reviewed. Vitals and home medications reviewed. Results and treatment plan discussed. The patient was placed in ED observation care at 0600 06/17/24, pending LPS facility placement. Please refer to the emergency department record for history and examination.? While in ED observation the pt will have access to water, food, and personal hygiene. If the pt takes home medication(s), they will be continued in ED observation. This morning patient was reevaluated he is alert awake cooperative he is got no pain in his left leg where the recent DVT was diagnosed. They restarted his Eliquis here and then I am informed that [facility] is just excepted this patient.
--- NOTE | 2024-06-17 11:31 | PC.SS ---
Addendum [facility] by [facility] 06/17/24 13:08: Patient's spouse Alanna Uribe [phone] contacted and informed of patient transporting to [facility]. Addendum entered by [facility] 06/17/24 12:46: KELLEN Laura informed of requested Nurse to Nurse contact to be completed by 1400. [facility] [phone]. Addendum entered by [facility] 06/17/24 12:07: [facility] contacted for transport setup, ETA for transport 1400. Dr. Flanagan and RN Dianne informed. Original Note: SS contacted by [facility], Keisha stated they can accept patient by 1500. Accept[address]. Woodard and patient will be received in the [facility], [address] [place] [address]. Transportation setup pending. Nurse to nurse requested to be completed by 1400 .
[2024-06-17 12:19] VITALS: BP 101/64; PULSE 76; RESP 17; TEMP 36.7; O2SAT 97
== END 2024-06-17 14:04 ==
PROVIDERS: Emergency Medicine; Physician Assistant; Emergency Provider Emergency Medicine
DX: T43.652A Poisoning by methamphetamines intentional self-harm, initial encounter (principal); I48.91 Unspecified atrial fibrillation; F15.129 Other stimulant abuse with intoxication, unspecified
CPT/HCPCS: 51701; 36415; 71045; 80053; 80307; 80320; 83735; 84484; 85025; 90839; 93005; 96127; 99285; A9270; G0480

== ENCOUNTER 2024-07-05 19:47 | Emergency (ER) | payer MEDICAID, SELFPAY ==
[2024-07-05 19:50] VITALS: BP 115/74; PULSE 98; RESP 17; TEMP 37; O2SAT 98
[2024-07-05 20:06] VITALS: PULSE 99; O2SAT 98; BMI 16.0
--- NOTE | 2024-07-05 20:24 | EKG_ITS ---
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
--- NOTE | 2024-07-05 20:31 | XR_ITS ---
Examination: PA chest single view TECHNIQUE: Upright PA chest single view. Some daytime, July 05, [id number] hours INDICATIONS: Chest pain beginning today FINDINGS: Normal heart size Lungs are clear. Osseous structures are intact IMPRESSION: No active disease
--- NOTE | 2024-07-05 20:32 | PD.EDRME ---
Rapid Medical Screening Exam [facility] Arrival date/time: 07/05/24 19:47 54M with history of Crohn's disease (not on medication) and psych/drug use presents to ED with 2 days of generalized weakness, as well as some lower chest/upper ab pain, and possibly L flank pain. Patient recently had a R-sided kidney stone and a DVT diagnosis in E. Chief Complaint: Weakness Vital signs: Vital Signs Temperature 98.6 F 07/05/24 19:50 Pulse Rate 98 07/05/24 19:50 Respiratory Rate 17 07/05/24 19:50 Blood Pressure 115/74 07/05/24 19:50 Pulse Oximetry (%) 98 07/05/24 19:50 Oxygen Delivery Method Room Air 07/05/24 19:50
[2024-07-05 21:05] LABS: Basophils % (Auto) 0 % (0-2.5); Eosinophils # (Auto) 0.2 Thou/mm3 (0.0-0.5); Eosinophils % (Auto) 3 % (0-10); Hematocrit 37.1 % (41.0-53.0); Hemoglobin 12.7 g/dL (13.5-16.0); Immature Granulocytes % (Auto) 0 % (0-0); Immature Granulocytes Auto 0.02 Thou/mm3 (0.00-0.00); Lymphocytes # (Auto) 2.3 Thou/mm3 (1.0-4.8); Lymphocytes % (Auto) 32 % (10-50); Mean Corpuscular HGB Conc 34.2 g/dl (31.0-37.0); Mean Corpuscular Hemoglobin 30.8 pg (25.0-35.0); Mean Corpuscular Volume 90 fL (80-100); Monocytes # (Auto) 0.5 Thou/mm3 (0.0-0.8); Monocytes % (Auto) 7 % (0-12); Neutrophils # (Auto) 4.1 Thou/mm3 (1.8-7.7); Neutrophils % (Auto) 58 % (37-80); Nucleated Red Blood Cell % 0 /100 WBC (0); Platelet Count 247 Thou/mm3 (140-440); RDW Standard Deviation 47.3 fL (35.1-43.9); Red Blood Count 4.13 Miln/mm3 (4.50-5.90); White Blood Count 7.2 Thou/mm3 (3.8-10.6)
[2024-07-05 21:13] LABS: INR 1.1 (0.9-1.3); Partial Thromboplastin Time 25.9 Seconds (22.0-36.0); Prothrombin Time 11.6 Seconds (9.0-12.2)
[2024-07-05 21:15] LABS: B-Type Natriuretic Peptide 27 pg/mL (0-100)
[2024-07-05 21:17] LABS: Alanine Aminotransferase 15 U/L (10-49); Albumin, Serum 4.5 gm/dL (3.5-5.0); Albumin/Globulin Ratio 1.7 (1.2-2.2); Alkaline Phosphatase 84 U/L (46-116); Anion Gap 6 (7-16); Aspartate Amino Transferase 20 U/L (0-34); BUN/Creatinine Ratio 18 Ratio (12-20); Bilirubin,Total 0.5 mg/dL (0.3-1.2); Blood Urea Nitrogen 14 mg/dL (9-23); Calcium 9.8 mg/dL (8.3-10.6); Calcium (Corrected) 9.8 mg/dL (8.5-10.1); Carbon Dioxide 33.2 mMol/L (20.0-31.0); Chloride 102 mMol/L (98-107); Creatinine (Component) 0.8 mg/dL (0.6-1.3); Globulin 2.7 gm/dL (2.3-3.5); Glucose 106 mg/dL (74-106); Lipase 28 U/L (12-53); Magnesium 2.4 mg/dL (1.6-2.6); Osmolality,Calculated 281 (275-295); Potassium 3.8 mMol/L (3.4-5.1); Sodium 141 mMol/L (136-145); Total Protein 7.2 gm/dL (5.7-8.2); Troponin I < 0.002 ng/mL (0.0-0.045); eGFR > 60 See Note
[2024-07-05 22:31] LABS: Collection Type, Urine Clean Catch
[2024-07-05 22:35] LABS: Bilirubin,Urine Negative (Negative); Blood,Urine 2+ (Negative); Clarity,Urine Clear (Clear/Hazy); Color,Urine Yellow (Lt Yel-Yel); Glucose, Urine Negative (Negative); Hyaline Casts,Urine < 1 /hpf (0-1); Ketones,Urine Negative (Negative); Leukocyte Esterase,Urine Negative (Negative); Nitrite,Urine Negative (Negative); PH,Urine 6.5 (5.0-7.0); Protein,Urine Negative (Neg - Trace); RBC,Urine 85 /hpf (0-3); Specific Gravity,Urine 1.021 (1.001-1.035); Squamous Epithelial Cell,Urine < 1 /hpf (0-5); Urobilinogen,Urine Negative mg/dL (0.0-1.0); WBC,Urine 6 /hpf (0-5)
[2024-07-06 01:38] VITALS: BP 102/68; PULSE 115; RESP 18; TEMP 36.6; O2SAT 98
--- NOTE | 2024-07-06 01:39 | EDNOTE_ITS ---
ED Weakness RME/HPI General Chief complaint: Weakness Stated complaint: GENERALIZED WEAKNESS Arrival date/time: 07/05/24 19:47 Limitations: no limitations RME / HPI RME / HPI Narrative: 07/05/24 19:47 54M with history of Crohn's disease (not on medication) and psych/drug use presents to ED with 2 days of generalized weakness, as well as some lower chest/upper ab pain, and possibly L flank pain. Patient recently had a R-sided kidney stone and a DVT diagnosis in E. ------- Dr. Roque's Main ED Evaluation: 54yo male with a history of aFib, chronic pain BIBA from home presents to the ED for a chief complaint of generalized body swelling x 1 day. Patient states he's had generalized swelling thoughout his whole body, reporting he feels twice my size . Patient states he has a history of chronic pain and is being seen by a specialist. He denies any chest pain, shortness of breath or any other associated symptoms. Patient is supposed to be on blood thinners, but never picked up his prescription. Related Data Home Medications ?Medication ?Instructions ?Recorded ?Confirmed lorazepam 2 mg tablet mg 12/10/23 12/10/23 Previous Rx's ?Medication ?Instructions ?Recorded naloxone 4 mg/actuation nasal 4 mg intranasal Q3M PRN opioid 11/30/23 spray (Narcan) overdose #2 ea cefdinir 300 mg capsule 300 mg PO BID #20 caps 01/10 ciprofloxacin HCl 500 mg tablet 500 mg PO BID #14 tabs 01/25/24 (Cipro) linezolid 600 mg tablet (Zyvox) 600 mg PO BID #14 tabs 02/15/24 lorazepam 2 mg tablet (Ativan) 2 mg PO BID PRN anxiety #10 tabs 03/07/24 lorazepam 2 mg capsule,extended 2 mg PO QDAY #3 caps 1 05/09/23 release 24 hr apixaban 5 mg (74 tabs) tablets in 5 mg PO BID #74 tab s 06/13/24 a dose pack (Eliquis DVT-PE Treat 30D Start) Allergies Allergy/AdvReac Type Severity Reaction Status Date / Time onion Allergy Severe Vomiting Verified 04/01/24 06:58 Review of Systems Review of Systems Systems Reviewed: All systems reviewed, normal except as documented Past Medical History Past Medical History NEUROLOGIC: Positive Migraine; Negative Neurological Disorders, Transient Ischemic Attacks (TIA) or Seizures CARDIAC: Positive Cardiac Disorders and Atrial Fibrillation; Negative Congestive Heart Failure or Hypertension RESPIRATORY: Negative Chronic Obstructive Pulmonary Disease (COPD) or Asthma GASTROINTESTINAL: Positive Gastrointestinal Disorders and Crohn's Disease GENITOURINARY: Positive Genitourinary Disorders, Renal Disease and Kidney Stones MUSCULOSKELETAL: Negative Musculoskeletal Disorders ENDOCRINE: Negative Diabetes Mellitus Type 1 or Diabetes Mellitus Type 2 HEMATOLOGIC: Negative Sickle Cell Disease PSYCHO/SOCIAL: Positive Depression and Anxiety OTHER HISTORY: Positive Autoimmune Disease and Down Syndrome; Negative Blood Transfusions, Anesthesia Reactions, Organ Transplant, MRSA or Cancer Surgical History SURGICAL: Negative Cardiac Surgery, Endocrine Surgery, Thyroidectomy, Ear Surgery, Abdominal Surgery, Nephrectomy, Joint Replacement, Neurologic Surgery, Mastectomy or Organ Transplant Social History SMOKING STATUS: Current some day smoker SUBSTANCE USE: does not use ED Exam General Limitations: Present no limitations General appearance: Present alert, in no apparent distress and other (standing, on his phone) Head Head exam: Present atraumatic Eye Eye exam: Present normal appearance, PERRL and EOMI ENT ENT exam: Present normal exam, normal oropharynx and mucous membranes moist Neck Neck exam: Present normal inspection, full ROM and trachea midline Chest Chest inspection: Present normal inspection and symmetric chest wall rise Respiratory Respiratory exam: Present normal lung sounds bilaterally Cardiovascular Cardiovascular exam: Present regular rate, normal rhythm and normal heart sounds Abdominal Exam Abdominal exam: Present soft and normal bowel sounds Extremities Exam Extremities exam: Present normal inspection and full ROM Back Exam Back exam: Present normal inspection and full ROM Neurological Exam Neurological exam: Present alert, oriented X3 and CN II-XII intact Psychiatric Psychiatric exam: Present normal affect and normal mood Skin Skin exam: Present warm, dry, intact and normal color Course Course Course Narrative: CXR is ordered for determining the etiology of weakness. Quality Measures none Orders Category Date Time Status EKG (ED ONLY) *Do not use* NOW Care 07/05/24 20:24 Completed EKG (ED Only) Stat Exams 07/05/24 20:24 Draft XR chest 1V portable Stat Exams 07/05/24 20:31 Completed B-Type Natriuretic Peptide Stat Lab 07/05/24 20:46 Completed CBC Stat Lab 07/05/24 20:46 Completed Comprehensive Metabolic Panel Stat Lab 07/05/24 20:46 Completed Lipase Stat Lab 07/05/24 20:46 Completed Magnesium Stat Lab 07/05/24 20:46 Completed Partial Thromboplastin Time Stat Lab 07/05/24 20:46 Completed Prothrombin Time with INR Stat Lab 07/05/24 20:46 Completed Troponin I Stat Lab 07/05/24 20:46 Completed Urinalysis Stat Lab 07/05/24 22:04 Completed Enoxaparin [Lovenox] Med 07/06/24 02:15 Discontinued 50 mg SC X1 ONE Vital Signs Vital signs: Vital Signs Temperature 98.6 F 07/05/24 19:50 Pulse Rate 98 07/05/24 19:50 Respiratory Rate 17 07/05/24 19:50 Blood Pressure 115/74 07/05/24 19:50 Pulse Oximetry (%) 98 07/05/24 19:50 Oxygen Delivery Method Room Air 07/05/24 19:50 Weakness Patient data External records reviewed:: [facility] previous records (Per chart review, patient was seen here on 06/16/24 for methamphetamine intoxication.) Clinical information provided by:: patient Social determinants that could affect healthcare access:: substance use (history of methamphetamine abuse) Patient has the following chronic illnesses:: aFib How is presenting disease/condition affected by chronic disease/condition?: uneffected by Evaluation data The following diagnostics were reviewed and interpreted by me:: lab results, radiology exam(s) and EKG tracing(s) Lab and/or radiology exams considered but not ordered:: none Interpretation Summary: CBC is normal, PT and INR are normal, PTT is normal, CMP is normal, BNP is no rmal, Troponin is normal, UA is unremarkable, according to my interpretation. EKG done at 2035, NSR, rate of 93, normal axis, normal axis, poor R wave progression in V2 and V3, no acute ST or T wave changes, no STEMI, according to my interpretation. [facility] Report Signed Patient: LIONEL GARZA [facility]. Record#: [id number] Birthdate: 1970 Age/Sex: 54 / M Location: [facility] Attending Dr: Ordering Physician: Naga Bronson PA-C Date of Service: 07/05/24 Procedure(s): XR chest 1V portable Accession Number(s): [id number] cc: Gilson Coronado MD; Naga Bronson PA-C~ Examination: PA chest single view TECHNIQUE: Upright PA chest single view. Some daytime, July 05, 20243 hours INDICATIONS: Chest pain beginning today FINDINGS: Normal heart size Lungs are clear. Osseous structures are intact IMPRESSION: No active disease Dictated By: Gilson Coronado MD Signed By: <Electronically signed by Gilson Coronado MD in OV> 07/05/24 2119 Medications / Prescriptions Medications or Prescriptions considered but not ordered:: none Medication administrations:: Medication Administration History Discontinued Medications Enoxaparin Sodium (Enoxaparin Sod Inj 100 Mg/Ml Syringe) 50 mg SC X1 ONE Stop: 07/06/24 02:16 Last Admin: 07/06/24 02:10 Dose: 50 mg Documented By: AC see above, if any Consultations Consultation(s) initiated? (list below): No Diagnosis Weakness Differential Diagnosis: other (drug use, medication noncompliance, chronic pain syndrome, DVT, psychiatric disorder) Most likely diagnosis given after review of the tests above:: see clinical impression below Admission Indicated Admission indicated?: not indicated Admission Request Was there a request for admission?: No Disposition Plan Disposition Plan: Discharge Discharge Attestation Discharge Attestation: The patient and all family members were given an opportunity to ask questions and understood the discharge instructions. Discharge instructions specifically effects, indications for sooner follow up or return to the emergency department, and the expected course of current diagnosis. Patient condition: Stable Discharge Plan Plan Patient Disposition: HOME (Self Care) Patient condition on transfer: Stable Prescriptions/Referrals Prescriptions/Med Rec: No Action naloxone [Narcan] 4 mg/actuation spray,non-aerosol 4 mg intranasal Q3M PRN (Reason: opioid overdose) Qty: 2 0RF Rx Instructions: spray 1 dose into ONE nostril; alternate nostrils w each dose until help arrives lorazepam 2 mg tablet Patient Comments: 2 mg orally daily As Needed for anxiety for 5 days, Max Daily Dose: 2 tablets cefdinir 300 mg capsule 300 mg PO BID Qty: 20 0RF ciprofloxacin HCl [Cipro] 500 mg tablet 500 mg PO BID Qty: 14 0RF linezolid [Zyvox] 600 mg tablet 600 mg PO BID Qty: 14 0RF lorazepam [Ativan] 2 mg tablet 2 mg PO BID PRN (Reason: anxiety) Qty: 10 0RF lorazepam 2 mg capsule,extended release 24hr 2 mg PO QDAY Qty: 3 0RF Eliquis DVT-PE Treat 30D Start 5 mg (74 tabs) tablets,dose pack 5 mg PO BID Qty: 74 0RF Referrals: Paramjit Alcantara[facility] [Primary Care Provider] - In 1 week Problem List Clinical Impression: Hx of medication noncompliance Patient/Caregiver Discharge Instructions Additional Instructions: We have confirmed that your prescription went to your pharmacy as you requested. Please go and pick it up today and start the medications. Return to emergency department for worsening symptoms, or any other concerns. Print Language: Malagasy Stand Alone Forms: [facility] Award Info., Patient Portal Info Letter
[2024-07-06] MEDS: ENOXAPARIN SOD INJ 100 MG/ML SYRINGE 50 MG SC (02:10)
== END 2024-07-06 02:15 | disposition home or self-care (01) ==
PROVIDERS: Physician Assistant; Emergency Provider Emergency Medicine; PCP Family Medicine
DX: R53.1 Weakness (principal); T45.516A Underdosing of anticoagulants, initial encounter; Z91.148 Patient's other noncompliance with medication regimen for other reason; I48.91 Unspecified atrial fibrillation; R07.9 Chest pain, unspecified; R94.31 Abnormal electrocardiogram [ECG] [EKG]
CPT/HCPCS: 36415; 71045; 80053; 81001; 83690; 83735; 83880; 84484; 85025; 85610; 85730; 96372; 99283; J1650

== ENCOUNTER 2024-07-08 13:42 | Emergency (ER) | payer MEDICAID, SELFPAY ==
[2024-07-08 13:44] VITALS: BMI 16.0
[2024-07-08 13:56] VITALS: BP 113/78; PULSE 110; RESP 18; TEMP 36.9; O2SAT 97
--- NOTE | 2024-07-08 14:12 | PD.EDRME ---
Rapid Medical Screening Exam [facility] Arrival date/time: 07/08/24 13:42 54-year-old male presents to the emergency department today stating that he has not yet picked up his Eliquis patient was here requesting an injection rather than taking the Eliquis Patient reports that he has abdominal pain Explained to the patient that as he does have a prescription for Eliquis he should not have an issue picking this up at the pharmacy Chief Complaint: General Adult/Misc Complain Time Seen by Provider: 07/08/24 13:52 Vital signs: Vital Signs Temperature 98.4 F 07/08/24 13:56 Pulse Rate 110 H 07/08/24 13:56 Respiratory Rate 18 07/08/24 13:56 Blood Pressure 113/78 07/08/24 13:56 Pulse Oximetry (%) 97 07/08/24 13:56 Oxygen Delivery Method Room Air 07/08/24 13:56
== END 2024-07-08 17:25 | disposition left against medical advice (07) ==
LOC: SERX 14:17
PROVIDERS: Emergency Provider Emergency Medicine; PCP Specialist
DX: R10.9 Unspecified abdominal pain (principal); Z53.29 Procedure and treatment not carried out because of patient's decision for other reasons
CPT/HCPCS: 99281

== ENCOUNTER 2024-07-11 23:10 | Emergency (ER) | payer MEDICAID, SELFPAY ==
[2024-07-11 23:21] VITALS: BP 150/89; PULSE 70; RESP 19; TEMP 36.9; O2SAT 99
[2024-07-11 23:22] VITALS: BMI 20.3
[2024-07-12 01:54] VITALS: BP 126/79; PULSE 55; RESP 15; TEMP 36.4; O2SAT 99
--- NOTE | 2024-07-12 04:51 | PD.EDRME ---
Rapid Medical Screening Exam [facility] Arrival date/time: 07/11/24 23:10 Chief Complaint: General Adult/Misc Complain Time Seen by Provider: 07/12/24 02:06 Vital signs: Vital Signs Temperature 98.5 F 07/11/24 23:21 Pulse Rate 70 07/11/24 23:21 Respiratory Rate 19 07/11/24 23:21 Blood Pressure 150/89 H 07/11/24 23:21 Pulse Oximetry (%) 99 07/11/24 23:21 Oxygen Delivery Method Room Air 07/11/24 23:21 RME Narrative: 54yo male BIBA from home presents to the ED for a chief complaint of visual hallucinations. Patient states he was hallucinating police across the street because I was being investigated .
[2024-07-12 05:08] LABS: Basophils % (Auto) 1 % (0-2.5); Eosinophils # (Auto) 0.3 Thou/mm3 (0.0-0.5); Eosinophils % (Auto) 6 % (0-10); Hematocrit 35.6 % (41.0-53.0); Hemoglobin 11.6 g/dL (13.5-16.0); Immature Granulocytes % (Auto) 0 % (0-0); Lymphocytes # (Auto) 2.2 Thou/mm3 (1.0-4.8); Lymphocytes % (Auto) 49 % (10-50); Mean Corpuscular HGB Conc 32.6 g/dl (31.0-37.0); Mean Corpuscular Hemoglobin 30.6 pg (25.0-35.0); Mean Corpuscular Volume 94 fL (80-100); Monocytes # (Auto) 0.6 Thou/mm3 (0.0-0.8); Monocytes % (Auto) 13 % (0-12); Neutrophils # (Auto) 1.5 Thou/mm3 (1.8-7.7); Neutrophils % (Auto) 32 % (37-80); Nucleated Red Blood Cell % 0 /100 WBC (0); Platelet Count 156 Thou/mm3 (140-440); RDW Standard Deviation 49.1 fL (35.1-43.9); Red Blood Count 3.79 Miln/mm3 (4.50-5.90); White Blood Count 4.5 Thou/mm3 (3.8-10.6)
[2024-07-12 06:16] LABS: Acetaminophen < 2.0 mcg/mL (10.0-20.0); Alcohol, Blood Medical < 3.0 mg/dL (0-10.0); Anion Gap 4 (7-16); BUN/Creatinine Ratio 9 Ratio (12-20); Blood Urea Nitrogen 8 mg/dL (9-23); Calcium 8.9 mg/dL (8.3-10.6); Carbon Dioxide 31.6 mMol/L (20.0-31.0); Chloride 104 mMol/L (98-107); Creatinine (Component) 0.9 mg/dL (0.6-1.3); Estimated Creatinine Clearance 89.2 mL/min (>60); Glucose 82 mg/dL (74-106); Osmolality,Calculated 276 (275-295); Potassium 4.1 mMol/L (3.4-5.1); Salicylate < 3.0 mg/dL; Sodium 140 mMol/L (136-145); Thyroid Stimulating Hormone 0.69 uIU/mL (0.55-4.78); eGFR > 60 See Note
--- NOTE | 2024-07-12 07:15 | EDNOTE_ITS ---
ED Psych RME/HPI General Chief Complaint: General Adult/Misc Complain Stated Complaint: AMS, HALLUCINATING Time Seen by Provider: 07/12/24 02:06 Arrival date/time: 07/11/24 23:10 RME / HPI RME / HPI Narrative: 54yo male MARY from home presents to the ED for a chief complaint of visual hallucinations. Patient states he was hallucinating police across the street because I was being investigated . DR. PAZ MAIN ED EVALUATION: 54 year old male with past medical history significant for kidney stones with recent stent placement, atrial fibrillation, DVT on Eliquis, methamphetamine abuse presents to the Emergency Department MARY with complaint of visual hallucinations at home. Patient states he last used methamphetamine yesterday. No suicidal ideation or homicidal ideation. No other complaints at this time. Related Data Home Medications ?Medication ?Instructions ?Recorded ?Confirmed lorazepam 2 mg tablet mg 12/10/23 12/10/23 Previous Rx's ?Medication ?Instructions ?Recorded naloxone 4 mg/actuation nasal 4 mg intranasal Q3M PRN opioid 11/30/23 spray (Narcan) overdose #2 ea cefdinir 300 mg capsule 300 mg PO BID #20 caps 01/10 ciprofloxacin HCl 500 mg tablet 500 mg PO BID #14 tabs 01/25/24 (Cipro) linezolid 600 mg tablet (Zyvox) 600 mg PO BID #14 tabs 02/15/24 lorazepam 2 mg tablet (Ativan) 2 mg PO BID PRN anxiety #10 tabs 03/07/24 lorazepam 2 mg capsule,extended 2 mg PO QDAY #3 caps 1 05/09/23 release 24 hr apixaban 5 mg (74 tabs) tablets in 5 mg PO BID #74 tab s 06/13/24 a dose pack (Eliquis DVT-PE Treat 30D Start) Allergies Allergy/AdvReac Type Severity Reaction Status Date / Time onion Allergy Severe Vomiting Verified 07/12/24 01:00 Review of Systems Review of Systems Systems Reviewed: All systems reviewed, normal except as documented Narrative Review of Systems: GEN: No fever, no chills, no weight loss EYES: No discharge, no visual changes, no pain HEENT: No ear pain, no congestion, no sore throat PULM: No shortness of breath, no cough, no congestion CV: No chest pain, no dyspnea on exertion, no palpitations GI: No nausea, no vomiting, no diarrhea, no pain, no constipation : No frequency, no urgency and no dysuria MUSC/SKEL: No joint pain, no back pain SKIN: No rash PSYCH: + visual hallucinations, no depression, no suicidal ideation, no homicidal ideation HEME/LYMPH: No easy bleeding or bruising tendencies NEURO: No weakness, no headache Past Medical History Past Medical History NEUROLOGIC: Positive Migraine CARDIAC: Positive Cardiac Disorders and Atrial Fibrillation GASTROINTESTINAL: Positive Gastrointestinal Disorders and Crohn's Disease GENITOURINARY: Positive Genitourinary Disorders, Renal Disease and Kidney Stones PSYCHO/SOCIAL: Positive Depression and Anxiety OTHER HISTORY: Positive Autoimmune Disease and Down Syndrome Social History SMOKING STATUS: Unknown if ever smoked SUBSTANCE USE: methamphetamine ALCOHOL: Never ED Exam Narrative Physical exam: GENERAL APPEARANCE: AxOx4, generally well-appearing, no acute distress. HEENT: NC, AT. MMM. EOMI, clear conjunctiva, oropharynx clear. NECK: Supple without lymphadenopathy. No stiffness or restricted ROM. HEART: Normal rate and regular rhythm, normal S1/S1, no m/r/g LUNGS: CTAB, moving air well. No crackles or wheezes are heard. ABDOMEN: Soft, nontender, nondistended with good bowel sounds heard. BACK: No midline C/T/L spine pain or deformity, No CVAT, no obvious deformity. EXTREMITIES: Without cyanosis, clubbing or edema. MUSCULOSKELETAL: FROM of all major joints, no chest tenderness NEUROLOGICAL: Grossly nonfocal. Alert and oriented, moving all 4 extremities. CN not formally tested but appear grossly intact. Observed to ambulate with normal gait. Skin: Warm and dry without any rash. Course Quality Measures none Orders Category Date Time Status Fingerstick [Bedside Blood Glucose] NOW Care 07/12/24 04:18 Active Acetaminophen Stat Lab 07/12/24 04:50 Completed Alcohol, Blood Medical Stat Lab 07/12/24 04:50 Completed Basic Metabolic Panel Stat Lab 07/12/24 04:50 Completed CBC Stat Lab 07/12/24 04:50 Completed Drug Screen,Urine Stat Lab 07/12/24 04:33 Ordered Free T4 (Free Thyroxine) Stat Lab 07/12/24 04:50 Completed Salicylate Stat Lab 07/12/24 04:50 Completed TSH [Thyroid Stimulating Hormone] Stat Lab 07/12/24 04:50 Completed Vital Signs Vital signs: Vital Signs Temperature 98.5 F 07/11/24 23:21 Pulse Rate 70 07/11/24 23:21 Respiratory Rate 19 07/11/24 23:21 Blood Pressure 150/89 H 07/11/24 23:21 Pulse Oximetry (%) 99 07/11/24 23:21 Oxygen Delivery Method Room Air 07/11/24 23:21 Psych MDM Narrative MDM Narrative:: Donna Russell am scribing for and in the presence of Dr. Paz. Patient data External records reviewed:: EMS form Clinical information provided by:: patient and EMS Social determinants that could affect healthcare access:: substance use (methamphetamine) Patient has the following chronic illnesses:: kidney stones with recent stent placement, atrial fibrillation, DVT on Eliquis, methamphetamine abuse How is presenting disease/condition affected by chronic disease/condition?: exacerbated by Evaluation data The following diagnostics were reviewed and interpreted by me:: lab results Lab and/or radiology exams considered but not ordered:: none Interpretation Summary: Positive for methamphetamine. Medications / Prescriptions Medications or Prescriptions considered but not ordered:: none Medication administrations:: see above if any Consultations Consultation(s) initiated? (list below): No Diagnosis Psych Differential Diagnosis: acute psychosis, drug-induced psychotic disorder and other (methamphetamine abuse) Most likely diagnosis given after review of the tests above:: Methamphetamine abuse Admission Indicated Admission indicated?: not indicated Admission Request Was there a request for admission?: No Disposition Plan Disposition Plan: Discharge Discharge Attestation Discharge Attestation: The patient and all family members were given an opportunity to ask questions and understood the discharge instructions. Discharge instructions specifically effects, indications for sooner follow up or return to the emergency department, and the expected course of current diagnosis. Patient condition: Stable Discharge Plan Plan Patient Disposition: HOME (Self Care) Prescriptions/Referrals Prescriptions/Med Rec: No Action naloxone [Narcan] 4 mg/actuation spray,non-aerosol 4 mg intranasal Q3M PRN (Reason: opioid overdose) Qty: 2 0RF Rx Instructions: spray 1 dose into ONE nostril; alternate nostrils w each dose until help arrives lorazepam 2 mg tablet Patient Comments: 2 mg orally daily As Needed for anxiety for 5 days, Max Daily Dose: 2 tablets cefdinir 300 mg capsule 300 mg PO BID Qty: 20 0RF ciprofloxacin HCl [Cipro] 500 mg tablet 500 mg PO BID Qty: 14 0RF linezolid [Zyvox] 600 mg tablet 600 mg PO BID Qty: 14 0RF lorazepam [Ativan] 2 mg tablet 2 mg PO BID PRN (Reason: anxiety) Qty: 10 0RF lorazepam 2 mg capsule,extended release 24hr 2 mg PO QDAY Qty: 3 0RF Eliquis DVT-PE Treat 30D Start 5 mg (74 tabs) tablets,dose pack 5 mg PO BID Qty: 74 0RF Referrals: Katie Schafer PA-C [Primary Care Provider] - In 1 week Problem List Clinical Impression: Methamphetamine abuse Patient/Caregiver Discharge Instructions Education Materials: ED Drug Abuse Additional Instructions: Stop using methamphetamines for better health. You can follow-up with your PMD or [facility] when you feel ready for drug and or alcohol rehabilitation. Print Language: Yoruba Stand Alone Forms: [facility] Award Info., Patient Portal Info Letter
[2024-07-12 08:04] VITALS: BP 119/75; PULSE 72; RESP 18; TEMP 36.7; O2SAT 95
== END 2024-07-12 08:04 | disposition home or self-care (01) ==
PROVIDERS: Emergency Medicine; Emergency Provider Emergency Medicine; PCP Specialist
DX: F15.10 Other stimulant abuse, uncomplicated (principal); Z87.442 Personal history of urinary calculi; I48.91 Unspecified atrial fibrillation
CPT/HCPCS: 36415; 80048; 80307; 80320; 80329; 84439; 84443; 85025; 99283; G0480

== ENCOUNTER 2024-07-15 00:25 | Emergency (ER) | payer MEDICAID, SELFPAY ==
[2024-07-15 00:35] VITALS: BP 154/93; PULSE 67; RESP 16; TEMP 36.4; O2SAT 100
[2024-07-15 00:43] VITALS: PULSE 83; RESP 19; O2SAT 99; BMI 16.0
--- NOTE | 2024-07-15 00:45 | PD.EDPSYCH ---
ED Psych RME/HPI General Chief Complaint: Psychiatric Symptoms Stated Complaint: ANXIETY Time Seen by Provider: 07/15/24 00:45 Arrival date/time: 07/15/24 00:25 RME / HPI RME / HPI Narrative: This section includes all my notes and documentations, including HPI, PE, and ED course. Ricardo Randall MD HPI: 54-year-old male here for psychiatric evaluation. He admits to using intravenous methamphetamine regularly. He called EMS because of the intravenous methamphetamine use. He denies thoughts of hurting himself or others. But he wants help because using intravenous methamphetamine is related to organizations, including possibly FBI, wanting to hurt him. He denies hallucinations. He reports having diagnoses of depression and anxiety and panic disorder. His prescription medications include Ativan. Reports no history of schizophrenia diagnosis. He reports no fever or chills or bodyaches or malaise. No other complaints. ROS: All negative except as documented in HPI. Physical Exam: General: Alert and oriented. Flat affect noted. Eyes: Conjunctivae and lids clear. EOMI. PERRL. ENT: No nasal congestion. Neck: Supple. Heart: RRR. Lungs: No respiratory distress. Good air movement. No rhonchi, wheezing, rales. Abdomen: Soft and nontender. Back: No CVA tenderness. Skin: Warm and dry. Beatty of intravenous drug use noted in both arms, varying in size and shape, with no obvious signs of cellulitis. Neuro: Alert and oriented X 3. Cranial Nerves II-XII grossly intact. No peripheral motor deficits. I reviewed all diagnostic test results. Blood tests and urine tests unremarkable, except positive UDS for methamphetamine. At this point, diagnoses include acute psychosis and intravenous methamphetamine use. Patient is medically cleared for psychiatric evaluation, including by our ED rn progressive care unit. At 6 AM on 07/15/24, the care of the patient was transferred to Dr. MOORE. Ricardo Randall MD Related Data Home Medications ?Medication ?Instructions ?Recorded ?Confirmed lorazepam 2 mg tablet mg 12/10/23 12/10/23 Previous Rx's ?Medication ?Instructions ?Recorded naloxone 4 mg/actuation nasal 4 mg intranasal Q3M PRN opioid 11/30/23 spray (Narcan) overdose #2 ea cefdinir 300 mg capsule 300 mg PO BID #20 caps 01/11/24 ciprofloxacin HCl 500 mg tablet 500 mg PO BID #14 tabs 01/25/24 (Cipro) linezolid 600 mg tablet (Zyvox) 600 mg PO BID #14 tabs 02/15/24 lorazepam 2 mg tablet (Ativan) 2 mg PO BID PRN anxiety #10 tabs 03/07/24 lorazepam 2 mg capsule,extended 2 mg PO QDAY #3 caps 03/09/24 release 24 hr apixaban 5 mg (74 tabs) tablets in 5 mg PO BID #74 tabs 06/13/24 a dose pack (Eliquis DVT-PE Treat 30D Start) Allergies Allergy/AdvReac Type Severity Reaction Status Date / Time onion Allergy Severe Vomiting Verified 07/12/24 01:00 Course Quality Measures none Orders Category Date Time Status 1799 [1799 Psychiatric Hold] NOW Care 07/15/24 01:30 Ordered Referral Psych Eval Stat Cons 07/15/24 03:10 Ordered Acetaminophen Stat Lab 07/15/24 01:46 Completed Alcohol, Blood Medical Stat Lab 07/15/24 01:46 Completed Blood Culture (Lab) Stat Lab 07/15/24 01:40 Received CBC Stat Lab 07/15/24 01:46 Completed CMP [Comprehensive Metabolic Panel] Stat Lab 07/15/24 01:46 Completed CRP [C-Reactive Protein] Stat Lab 07/15/24 01:46 Completed Drug Screen,Urine Stat Lab 07/15/24 02:06 Completed ESR [Sed Rate (ESR)] Stat Lab 07/15/24 01:46 Completed Free T4 (Free Thyroxine) Stat Lab 07/15/24 01:46 Completed Lactate (Lactic Acid) Stat Lab 07/15/24 01:46 Completed Magnesium Stat Lab 07/15/24 01:46 Completed Procalcitonin Stat Lab 07/15/24 01:46 Completed Salicylate Stat Lab 07/15/24 01:46 Completed TSH [Thyroid Stimulating Hormone] Stat Lab 07/15/24 01:46 Completed UA, C/S IF [Urinalysis, C/S if Indicated] Stat Lab 07/15/24 02:06 Completed Vital Signs Vital signs: Vital Signs Temperature 97.6 F 07/15/24 00:35 Pulse Rate 67 07/15/24 00:35 Respiratory Rate 16 07/15/24 00:35 Blood Pressure 154/93 H 07/15/24 00:35 Pulse Oximetry (%) 100 07/15/24 00:35 Oxygen Delivery Method Room Air 07/15/24 00:35 Psych Patient data External records reviewed:: [facility] previous records Clinical information provided by:: patient and EMS Social determinants that could affect healthcare access:: mental health Patient has the following chronic illnesses:: Intravenous methamphetamine use How is presenting disease/condition affected by chronic disease/condition?: exacerbated by Evaluation data The following diagnostics were reviewed and interpreted by me:: lab results Lab and/or radiology exams considered but not ordered:: None Interpretation Summary: Unremarkable except UDS positive for methamphetamine. Medications / Prescriptions Medications or Prescriptions considered but not ordered:: None Medication administrations:: None Consultations Consultation(s) initiated? (list below): No Diagnosis Psych Differential Diagnosis: acute psychosis, chronic schizophrenia, suicidal ideation, bipolar disorder, depression, drug-induced psychotic disorder and acute anxiety Most likely diagnosis given after review of the tests above:: Acute psychosis and intravenous use Admission Indicated Admission indicated?: not indicated Explain why admission is indicated or not indicated:: No psychiatric service here Admission Request Was there a request for admission?: No Disposition Plan Disposition Plan: other (specify) (Care of the patient was transferred to Dr. MOORE.) Discharge Plan Prescriptions/Referrals Prescriptions/Med Rec: No Action naloxone [Narcan] 4 mg/actuation spray,non-aerosol 4 mg intranasal Q3M PRN (Reason: opioid overdose) Qty: 2 0RF Rx Instructions: spray 1 dose into ONE nostril; alternate nostrils w each dose until help arrives lorazepam 2 mg tablet Patient Comments: 2 mg orally daily As Needed for anxiety for 5 days, Max Daily Dose: 2 tablets cefdinir 300 mg capsule 300 mg PO BID Qty: 20 0RF ciprofloxacin HCl [Cipro] 500 mg tablet 500 mg PO BID Qty: 14 0RF linezolid [Zyvox] 600 mg tablet 600 mg PO BID Qty: 14 0RF lorazepam [Ativan] 2 mg tablet 2 mg PO BID PRN (Reason: anxiety) Qty: 10 0RF lorazepam 2 mg capsule,extended release 24hr 2 mg PO QDAY Qty: 3 0RF Eliquis DVT-PE Treat 30D Start 5 mg (74 tabs) tablets,dose pack 5 mg PO BID Qty: 74 0RF Referrals: Ana Tidwell FNP [Primary Care Provider] - In 1 week Problem List Clinical Impression: Acute psychosis, Methamphetamine abuse, IVDU (intravenous drug user) Patient/Caregiver Discharge Instructions Print Language: Nigerien
[2024-07-15 01:53] LABS: Lactate (Lactic Acid) 0.8 mMol/L (0.4-2.0)
[2024-07-15 01:56] LABS: Basophils % (Auto) 0 % (0-2.5); Eosinophils # (Auto) 0.2 Thou/mm3 (0.0-0.5); Eosinophils % (Auto) 2 % (0-10); Hematocrit 35.2 % (41.0-53.0); Hemoglobin 11.8 g/dL (13.5-16.0); Immature Granulocytes % (Auto) 0 % (0-0); Immature Granulocytes Auto 0.02 Thou/mm3 (0.00-0.00); Lymphocytes # (Auto) 0.9 Thou/mm3 (1.0-4.8); Lymphocytes % (Auto) 9 % (10-50); Mean Corpuscular HGB Conc 33.5 g/dl (31.0-37.0); Mean Corpuscular Hemoglobin 30.9 pg (25.0-35.0); Mean Corpuscular Volume 92 fL (80-100); Monocytes # (Auto) 0.5 Thou/mm3 (0.0-0.8); Monocytes % (Auto) 5 % (0-12); Neutrophils # (Auto) 9.4 Thou/mm3 (1.8-7.7); Neutrophils % (Auto) 85 % (37-80); Nucleated Red Blood Cell % 0 /100 WBC (0); Platelet Count 171 Thou/mm3 (140-440); RDW Standard Deviation 48.9 fL (35.1-43.9); Red Blood Count 3.82 Miln/mm3 (4.50-5.90)
[2024-07-15 02:03] LABS: Sed Rate (ESR) 4 mm/hr (0-20)
[2024-07-15 02:21] LABS: Collection Type, Urine Clean Catch; Squamous Epithelial Cell,Urine 0 /hpf (0-5)
[2024-07-15 02:30] LABS: Acetaminophen < 2.0 mcg/mL (10.0-20.0); Alanine Aminotransferase 21 U/L (10-49); Albumin, Serum 4.1 gm/dL (3.5-5.0); Albumin/Globulin Ratio 1.7 (1.2-2.2); Alcohol, Blood Medical < 3.0 mg/dL (0-10.0); Alkaline Phosphatase 86 U/L (46-116); Anion Gap 7 (7-16); Aspartate Amino Transferase 30 U/L (0-34); BUN/Creatinine Ratio 11 Ratio (12-20); Bilirubin,Total 0.5 mg/dL (0.3-1.2); Blood Urea Nitrogen 9 mg/dL (9-23); C-Reactive Protein < 0.5 mg/dL (0.0-0.9); Calcium 8.9 mg/dL (8.3-10.6); Calcium (Corrected) 8.9 mg/dL (8.5-10.1); Chloride 108 mMol/L (98-107); Creatinine (Component) 0.8 mg/dL (0.6-1.3); Free T4 (Free Thyroxine) 1.29 ng/dL (0.89-1.76); Globulin 2.4 gm/dL (2.3-3.5); Glucose 87 mg/dL (74-106); Osmolality,Calculated 286 (275-295); Potassium 4.3 mMol/L (3.4-5.1); Procalcitonin 0.06 ng/ml (0.0-0.49); Salicylate < 3.0 mg/dL; Sodium 145 mMol/L (136-145); Thyroid Stimulating Hormone 0.93 uIU/mL (0.55-4.78); Total Protein 6.5 gm/dL (5.7-8.2); eGFR > 60 See Note
[2024-07-15 02:30] LABS: Bilirubin,Urine Negative (Negative); Blood,Urine Negative (Negative); Clarity,Urine Clear (Clear/Hazy); Color,Urine Yellow (Lt Yel-Yel); Culture Indicated,Urine Not Indicated; Glucose, Urine Negative (Negative); Ketones,Urine Trace (Negative); Leukocyte Esterase,Urine Positive (Negative); Nitrite,Urine Negative (Negative); Protein,Urine Trace (Neg - Trace); RBC,Urine 8 /hpf (0-3); WBC,Urine 9 /hpf (0-5)
[2024-07-15 02:56] LABS: Amphetamine/Methamp Scrn,U Positive (Negative); Barbiturate Screen,Urine Negative (Negative); Benzodiazepines Screen,Urine Negative (Negative); Benzoylecgonine Screen, Ur Negative (Negative); Fentanyl Screen,Urine Negative (Negative); Opiate Screen,Urine Negative (Negative); THC Screen,Urine Negative (Negative)
[2024-07-15 06:01] VITALS: BP 118/67; PULSE 86; RESP 16; TEMP 36.8; O2SAT 99
--- NOTE | 2024-07-15 06:26 | PD.EDADDENDU ---
Emergency Room Addendum Addendum Narrative: 0600: Care assumed from Dr. Randall, the previous shift emergency physician. Past medical, surgical, social and family history reviewed. Vitals and home medications reviewed. I will assume the care of the patient at this time. Please refer to the emergency department record for history and examination from initial visit.? The patient was placed in ED observation care at 07/15/2024 at 0600 hours. The patient was placed in ED observation care pending behavioral health evaluation. The patients past medical history, social history, and family history were reviewed. The plan of care will include serial examinations. While in ED observation the patient will have access to water, food, and personal hygiene. If the patient takes home medication(s), they will be continued in ED observation. Physical exam by me shows patient under no acute distress at this time. 1321: Mental health cleared the patient. Safety plan in place with support from his , Alanna and follow up appointment to mental health services, including resources. Patient will be discharged. 1350: Patient discharged with safety plan. ED observation care ended at 07/15/2024 at 0600 hours. Diagnoses: Acute psychosis Methamphetamine abuse IVDU (intravenous drug user)
[2024-07-15 07:56] VITALS: BP 128/77; PULSE 72; RESP 18; TEMP 36.7; O2SAT 979
[2024-07-15 10:07] VITALS: BP 132/83; PULSE 79; RESP 18; TEMP 36.9; O2SAT 97
[2024-07-15 12:18] VITALS: BP 153/83; PULSE 74; RESP 18; TEMP 36.9; O2SAT 98
--- NOTE | 2024-07-15 13:22 | PC.SS ---
Patient is a 54 year-old male BIBA for a mental health evaluation. Amarilis made [id number] contact with patient to complete assessment. ASW?s introduced self, role, and reason for assessment to patient. ASW disclosed limits of confidentiality to the patient. Patient appeared alert and oriented to self, place, and situation. Patient made proper eye contact during assessment. Patient was able to engage in assessment appropriately. Patient's thought process was linear and organized. Patient appeared well kempt. Patient reports he was BIBA as he was having a reaction and not feeling well. Patient denies that he was using methamphetamine, although toxicology report is positive for methamphetamine. Patient is denying SI and HI. Patient denying audio hallucinations. 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 Patient informs he receives support from his , Alanna who lives in the home with him. Patient informs he is independent with ADL's and reports no use of DME in the home. Additionally, patient's Dubois Scale screening is noted as low risk. Patient is connected to [facility] with psychiatrist Dr. Adams. Patient is prescribed Ativan 2mg 3x/day. Patient reports having a mental health diagnosis of Major Depressive Disorder and Generalized Anxiety Disorder. Patient stated he has been placed on multiple 5150-holds. Most recent in June 2024 for SI. Patient would be willing to safety plan with his Alanna. Patient willing to follow up with mental health provider and reports being receptive to resources. Patient provided verbal consent to make contact with his , Alanna Uribe for collateral information. Alanna confirms the patient has a diagnosis of Major Depressive Disorder which he has had for multiple years. She reports the patient stays in bed most of the day. She reports that in the 15 years they have been together he had never attempted suicide until the last time he was placed on a hold. 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 Alanna informs I'm not sure what drug however is aware there is some kind of substance being taken. Per Alanna, she informs there have been no recent changes in patient's behavior, patient appears to be at baseline, in regards to statements of university president following him. Alanna informs although patient is up at night, he sleeps during the day which is normal behavior from the patient, per . Per Alanna she would be willing to safety plan with the patient if needed. Alanna confirms there are no firearms or accessible weapons in the home. Upon clinical consultation with RAHUL, Megan Galvin, the patient can be cleared with a safety plan with support from his , Alanna and follow up appointment to mental health services, including resources. ASW notified bed side KELLEN Merritt. Patient to follow up with the [facility] on 07/24/24 at 9am. Patient and were both provided with the information and explained the importance of attending the appointment. Patient was provided with resources including crisis contact information, mental health providers, substance use resources and the local authorities contacts in case of an emergency. Patient's , Alanna to provide support for the next 72 hrs and Alanna confirms there are no firearms or accessible weapons in the home. Alanna informs she is able to provide transportation on behalf of the patient upon return home.
--- NOTE | 2024-07-15 14:08 | PC.NURSE ---
CLEARED BY PLANNING ENGINEER AND 1798 HOLD REVOLKED
== END 2024-07-15 14:22 | disposition home or self-care (01) ==
PROVIDERS: Emergency Provider Emergency Medicine; PCP Nurse Practitioner
DX: F23 Brief psychotic disorder (principal); F15.10 Other stimulant abuse, uncomplicated; F41.0 Panic disorder [episodic paroxysmal anxiety]; F32.A Depression, unspecified
CPT/HCPCS: 36415; 80053; 80307; 80320; 80329; 81001; 83605; 83735; 84145; 84439; 84443; 85025; 85652; 86140; 87040; 96127; 99284; G0480

== ENCOUNTER 2024-07-15 20:34 | Inpatient (IN) | payer MEDICAID, SELFPAY ==
[2024-07-15] VITALS (15 sets, daily range): BP systolic 81–161; BP diastolic 48–106; PULSE 74–94; RESP 9–40; TEMP 37.1; O2SAT 95–100; BMI 17.2
--- NOTE | 2024-07-15 20:54 | XR_ITS ---
Examination: AP chest single view Technique one AP portable supine chest single view Exam date and time: July 15, 2024 2151 hrs. Indications: Hypoxic respiratory failure postintubation today. Comparison: June 27, 2024 Findings: Normal heart size No pneumonia or pulmonary edema Tracheal tube tip 7.9 cm above paola Orogastric tube sidehole at the GE junction Impression: Tracheal tube tip 7.9 cm above paola Advance the orogastric tube 7 cm
--- NOTE | 2024-07-15 20:54 | EKG_ITS ---
[facility] Test Date: 2024-07-15 Pat Name: LIONEL GARZA Department: Room: - Gender: Male General Service Officer: : 1970 Requested By: Deshaun Weber Order Number: [id number] Reading MD: Deshaun Weber Measurements Intervals [place] Rate: 82 P: MD: QRS: 80 QRSD: 106 T: 70 QT: 398 QTc: 466 Interpretive Statements SUPRAVENTRICULAR RHYTHM ABNORMAL RHYTHM ECG Compared to ECG 07/05/2024 20:36:05 Supraventricular rhythm now present Sinus rhythm no longer present T-wave abnormality no longer present /store/S0/[id number]/[id number].pdf
[2024-07-15] MEDS: SODIUM CHLORIDE 0.9% 1000 ML 1,000 ML 999 ML IV ×2 (21:00→21:15)
--- NOTE | 2024-07-15 21:07 | EDNOTE_ITS ---
ED Overdose RME/HPI General Chief Complaint: Overdose Stated Complaint: HOLD Time Seen by Provider: 07/15/24 21:07 Arrival date/time: 07/15/24 20:34 RME / HPI RME / HPI Narrative: This section includes all my notes and documentations, including HPI, PE, and ED course. Ricardo Randall MD HPI: 54-year-old male here to be evaluated for possible OD. called EMS reporting he ingested a bottle of amitriptyline, possibly 90 pills. He is a known IV methamphetamine user. I took care of him yesterday. I placed him on emergency hold for acute psychosis. Patient is not able to give us any history due to decreased mental status. is not present. Yesterday, his UDS was negative except for methamphetamine. ROS: Cannot obtain any history from the patient due to current clinical condition. Physical Exam: General: No responsiveness. Eyes: Conjunctivae and lids clear. EOMI. PERRL. ENT: No signs of trauma. Neck: Supple. Heart: RRR. Lungs: No respiratory distress. Good air movement. No rhonchi, wheezing, rales. Abdomen: Soft. Skin: Warm and dry. Beatty of IV usage diffusely in the left arm and right arm, varying in size and shape and age. Neuro: GCS 3. I reviewed all diagnostic test results. My interpretation of the EKG is sinus rhythm with no acute ST?T changes. Trial of Narcan and flumazenil with no improvement. Made decision to intubate, see procedure note. I discussed the case with our ICU service. About the presentation and exam and diagnostics and treatments here. And need of further care in the hospital. Will accept the patient. Ricardo Randall MD Related Data Home Medications ?Medication ?Instructions ?Recorded ?Confirmed lorazepam 2 mg tablet mg 12/10/23 12/10/23 Previous Rx's ?Medication ?Instructions ?Recorded naloxone 4 mg/actuation nasal 4 mg intranasal Q3M PRN opioid 11/30/23 spray (Narcan) overdose #2 ea cefdinir 300 mg capsule 300 mg PO BID #20 caps 01/10 ciprofloxacin HCl 500 mg tablet 500 mg PO BID #14 tabs 01/25/24 (Cipro) linezolid 600 mg tablet (Zyvox) 600 mg PO BID #14 tabs 02/15/24 lorazepam 2 mg tablet (Ativan) 2 mg PO BID PRN anxiety #10 tabs 03/07/24 lorazepam 2 mg capsule,extended 2 mg PO QDAY #3 caps 1 05/09/23 release 24 hr apixaban 5 mg (74 tabs) tablets in 5 mg PO BID #74 tab s 06/13/24 a dose pack (Eliquis DVT-PE Treat 30D Start) Allergies Allergy/AdvReac Type Severity Reaction Status Date / Time onion Allergy Severe Vomiting Verified 07/12/24 01:00 Course Quality Measures none Orders Category Date Time Status COVID-19 Screening Questionnaire NOW Care 07/15/24 21:38 Active Decision to Admit X1 Care 07/15/24 21:38 Active EKG (ED ONLY) *Do not use* NOW Care 07/15/24 20:54 Completed EKG (ED ONLY) *Do not use* NOW Care 07/15/24 22:26 Active [place] to [place] Routine Care 07/15/24 21:21 Ordered Insert NG / OG tube NOW Care 07/15/24 21:21 Active Intubation NOW Care 07/15/24 21:39 Completed Saline [Insert IV] NOW Care 07/15/24 21:21 Active Urinary Catheter QS Care 07/15/24 20:54 Active EKG (ED Only) Stat Exams 07/15/24 20:54 Draft EKG (ED Only) Stat Exams 07/15/24 22:25 Draft XR abdomen 1V Stat Exams 07/15/24 21:52 Taken XR chest 1V post procedure Stat Exams 07/15/24 20:54 Completed ABG [Arterial Blood Gas] Stat Lab 07/15/24 21:39 Completed ABG [Arterial Blood Gas] Stat Lab 07/15/24 21:39 Ordered Acetaminophen Stat Lab 07/15/24 21:37 Completed Alcohol, Blood Medical Stat Lab 07/15/24 21:37 Completed Ammonia Stat Lab 07/15/24 21:37 Completed Amylase Stat Lab 07/15/24 21:37 Completed B-Type Natriuretic Peptide Stat Lab 07/15/24 21:37 Completed Beta Hydroxybutyrate Stat Lab 07/15/24 21:37 Completed Bilirubin,Direct Stat Lab 07/15/24 21:37 Completed CBC Stat Lab 07/15/24 21:37 Completed Comprehensive Metabolic Panel Stat Lab 07/15/24 21:37 Completed Creatine Kinase Stat Lab 07/15/24 21:37 Completed Drug Screen,Urine Stat Lab 07/15/24 20:54 Ordered LDH (Lactate Dehydrogenase) Stat Lab 07/15/24 21:37 Completed Lactate (Lactic Acid) Stat Lab 07/15/24 21:37 Completed Lipase Stat Lab 07/15/24 21:37 Completed Magnesium Stat Lab 07/15/24 21:37 Completed Partial Thromboplastin Time Stat Lab 07/15/24 21:37 Completed Prothrombin Time with INR Stat Lab 07/15/24 21:37 Completed Troponin I Stat Lab 07/15/24 21:37 Completed Urinalysis Stat Lab 07/15/24 20:54 Ordered Etomidate Inj [Amidate Inj] Med 07/15/24 21:28 Discontinued 10 mg IVP X1 ONE Etomidate Inj [Amidate Inj] Med 07/15/24 21:02 Discontinued 20 mg .ROUTE .STK-MED ONE Etomidate Inj [Amidate Inj] Med 07/15/24 21:22 Discontinued 20 mg IVP X1 ONE NALOXONE INJ (Syringe) [Narcan Inj (Syringe)] Med 07/15/24 20:55 Discontinued 2 mg .ROUTE .STK-MED ONE Ondansetron Inj [Zofran Inj] Med 07/15/24 21:23 Discontinued 4 mg IV X1 ONE POTASSIUM CHL 10 mEq IVPB [Kcl Ivpb] Med 07/15/24 22:30 Active 10 meq in 100 ml IV Q1H Pantoprazole Inj [Protonix Inj] Med 07/15/24 22:24 Discontinued 40 mg IV X1 ONE Propofol 1,000 mg Ivpb [Diprivan Ivpb] Med 07/15/24 21:23 Discontinued 1,000 mg in 100 ml IV 5 mcg/kg/min Propofol 1,000 mg Ivpb [Diprivan Ivpb] Med 07/15/24 21:33 Active 1,000 mg in 100 ml IV 5 mcg/kg/min Rocuronium Inj [Zemuron Inj] Med 07/15/24 21:18 Discontinued 100 mg .ROUTE .STK-MED ONE Rocuronium Inj [Zemuron Inj] Med 07/15/24 21:28 Discontinued 50 mg IVP X1 ONE Sodium Bicarb 8.4% 50ml Vial* Med 07/15/24 21:50 Discontinued 50 meq IV X1 ONE Sodium Chloride 0.9% 1000 ml [Ns] 1,000 ml Med 07/15/24 20:55 Discontinued IV 999 mls/hr Sodium Chloride 0.9% 1000 ml [Ns] 1,000 ml Med 07/15/24 21:23 Discontinued IV 999 mls/hr Succinylcholine Inj [Anectine Inj] Med 07/15/24 21:22 Discontinued 100 mg IV X1 ONE Succinylcholine Inj [Anectine Inj] Med 07/15/24 21:03 Discontinued 200 mg .ROUTE .STK-MED ONE activated charcoaL [Actidose-Aqua] Med 07/15/24 22:24 Discontinued 25 gm PO X1 ONE flumazeniL [Romazicon Inj] Med 07/15/24 20:59 Discontinued 1 mg .ROUTE .STK-MED ONE Volume Ventilator Stat RT 07/15/24 Active Vital Signs Vital signs: Vital Signs Temperature 98.7 F 07/15/24 20:45 Pulse Rate 94 07/15/24 20:45 Respiratory Rate 12 07/15/24 20:45 Blood Pressure 107/71 07/15/24 20:45 Pulse Oximetry (%) 95 07/15/24 20:45 Oxygen Delivery Method Room Air 07/15/24 20:45 Procedures -ED Intubation Time out performed: Yes sedative: Etomidate Mg Given: 20 paralytic: Succinylcholine Mg Given: 100 Laryngoscope: Ying Assist Device Used: other (GlideScope) ET Tube Size: 7.5 ET Tube Uncuffed: Yes Tube Secured Depth (cm): 23 Tube Secured Location: lips Tube Placement Confirmation: visualized tube passing through cords, equal breath sounds bilaterally, no breath sounds over epigastrium and confirmation by capnometry Patient Tolerated Procedure: well Intubation Complications: none Overdose Patient data External records reviewed:: [facility] previous records and EMS form Clinical information provided by:: EMS Social determinants that could affect healthcare access:: substance use Patient has the following chronic illnesses:: Substance abuse How is presenting disease/condition affected by chronic disease/condition?: exacerbated by Evaluation data The following diagnostics were reviewed and interpreted by me:: lab results, radiology exam(s) and EKG tracing(s) Lab and/or radiology exams considered but not ordered:: None Interpretation Summary: Overdose Medications / Prescriptions Medications or Prescriptions considered but not ordered:: None Medication administrations:: Medication Administration History Propofol (Diprivan Ivpb) 1,000 mg in 100 mls @ 1.497 mls/hr IV .Q24H PRN; Protocol PRN Reason: Per Protocol Stop: 08/14/24 21:32 Last Admin: 07/15/24 21:55 Dose: 5 mcg/kg/min, 1.497 mls/hr Documented By: EDIL Co-signed By: BRYCE Potassium Chloride (Kcl Ivpb) 10 meq in 100 mls @ 100 mls/hr IV Q1H MARILYNN Stop: 07/16/24 00:29 Discontinued Medications Charcoal (Activated Charcoal 25 Gm/120 Ml Tube) 25 gm PO X1 ONE Stop: 07/15/24 22:25 Etomidate (Etomidate Inj 2 Mg/Ml Vial 10 Ml) Confirm Administered Dose 20 mg .ROUTE .STK-MED ONE Stop: 07/15/24 21:03 Last Admin: 07/15/24 21:16 Dose: 20 mg Documented By: EDIL Etomidate (Etomidate Inj 2 Mg/Ml Vial 10 Ml) 20 mg IVP X1 ONE Stop: 07/15/24 21:23 Etomidate (Etomidate Inj 2 Mg/Ml Vial 10 Ml) 10 mg IVP X1 ONE Stop: 07/15/24 21:29 Flumazenil (Flumazenil Inj 0.1 Mg/Ml Vial 10 Ml) Confirm Administered Dose 1 mg .ROUTE .STK-MED ONE Stop: 07/15/24 21:00 Sodium Chloride (Ns) 1,000 mls @ 999 mls/hr IV .Q1H1M ONE Stop: 07/15/24 21:55 Last Admin: 07/15/24 21:00 Dose: 999 mls/hr Documented By: EDIL Propofol (Diprivan Ivpb) 1,000 mg in 100 mls @ 1.497 mls/hr IV .Q24H PRN; Protocol PRN Reason: Per Protocol Stop: 08/14/24 21:22 Sodium Chloride (Ns) 1,000 mls @ 999 mls/hr IV .Q1H1M ONE Stop: 07/15/24 22:23 Last Admin: 07/15/24 21:15 Dose: 999 mls/hr Documented By: EDIL Naloxone HCl (Naloxone Inj 1 Mg/Ml Syringe 2 Ml) Confirm Administered Dose 2 mg .ROUTE .STK-MED ONE Stop: 07/15/24 20:56 Last Admin: 07/15/24 21:08 Dose: 2 mg Documented By: EDIL Ondansetron HCl (Ondansetron Inj 2 Mg/Ml Inj 2 Ml) 4 mg IV X1 ONE; Protocol Stop: 07/15/24 21:24 Last Admin: 07/15/24 22:12 Dose: 4 mg Documented By: EDIL Pantoprazole Sodium (Pantoprazole Inj 40 Mg Vial) 40 mg IV X1 ONE Stop: 07/15/24 22:25 Rocuronium [place] (Rocuronium Inj 10 Mg/Ml Vial 10 Ml) 50 mg IVP X1 ONE Stop: 07/15/24 21:29 Last Admin: 07/15/24 21:32 Dose: 50 mg Documented By: EDIL Co-signed By: ELEN Rocuronium [place] (Rocuronium Inj 10 Mg/Ml Vial 10 Ml) Confirm Administered Dose 100 mg .ROUTE .STK-MED ONE Stop: 07/15/24 21:19 Sodium Bicarbonate (Sodium Bicarb Inj 8.4% 1 Meq/Ml 50 Ml Vial) 50 meq IV X1 ONE Stop: 07/15/24 21:51 Last Admin: 07/15/24 22:12 Dose: 50 meq Documented By: EDIL Succinylcholine Chloride (Succinylcholine Inj 20 Mg/Ml Vial 10 Ml) Confirm Administered Dose 200 mg .ROUTE .STK-MED ONE Stop: 07/15/24 21:04 Succinylcholine Chloride (Succinylcholine Inj 20 Mg/Ml Vial 10 Ml) 100 mg IV X1 ONE Stop: 07/15/24 21:23 Last Admin: 07/15/24 21:17 Dose: 100 mg Documented By: EDIL See chart Consultations Consultation(s) initiated? (list below): No Diagnosis Overdose Differential Diagnosis: cocaine intoxication, suicide attempt by multiple drug overdose, poisoning by opiate or related narcotic, drug overdose, acetaminophen overdose and accidental drug ingestion Most likely diagnosis given after review of the tests above:: Overdose Admission Indicated Admission indicated?: indicated Explain why admission is indicated or not indicated:: Overdose Admission Request Was there a request for admission?: Yes Admission Attestation Admission request attestation: Discussed case with with ICU service regarding admission. Discussed patients ED course, exam findings, labs, and radiology results. The cardiology technologist [agrees] to accept the patient for admission. Disposition Plan Disposition Plan: Admit Critical Care Time Critical Care Time Critical Care Time: Yes Total Critical Care Time (min.): 36 Attestation: Due to a high probability of clinically significant, life threatening deterioration, the patient required my highest level of preparedness to intervene emergently and I personally spent this critical care time directly and personally managing the patient. This critical care time included obtaining a history; examining the patient; ordering and review of studies; arranging urgent treatment with development of a management plan; evaluation of patient's response to treatment; frequent reassessment; and discussions with family and other providers. It was exclusive of separately billable procedures and treating other patients and teaching time. Ricardo Randall MD Discharge Plan Plan Patient Disposition: Admit Acute Care w/in Hospital Prescriptions/Referrals Prescriptions/Med Rec: No Action naloxone [Narcan] 4 mg/actuation spray,non-aerosol 4 mg intranasal Q3M PRN (Reason: opioid overdose) Qty: 2 0RF Rx Instructions: spray 1 dose into ONE nostril; alternate nostrils w each dose until help arrives lorazepam 2 mg tablet Patient Comments: 2 mg orally daily As Needed for anxiety for 5 days, Max Daily Dose: 2 tablets cefdinir 300 mg capsule 300 mg PO BID Qty: 20 0RF ciprofloxacin HCl [Cipro] 500 mg tablet 500 mg PO BID Qty: 14 0RF linezolid [Zyvox] 600 mg tablet 600 mg PO BID Qty: 14 0RF lorazepam [Ativan] 2 mg tablet 2 mg PO BID PRN (Reason: anxiety) Qty: 10 0RF lorazepam 2 mg capsule,extended release 24hr 2 mg PO QDAY Qty: 3 0RF Eliquis DVT-PE Treat 30D Start 5 mg (74 tabs) tablets,dose pack 5 mg PO BID Qty: 74 0RF Problem List Clinical Impression: Overdose Patient/Caregiver Discharge Instructions Print Language: Indonesian Stand Alone Forms: [facility]ena Award Info., Patient Portal Info Letter
[2024-07-15] MEDS: NALOXONE INJ 1 MG/ML SYRINGE 2 ML 2 MG IV (21:08)
[2024-07-15] MEDS: ETOMIDATE INJ 2 MG/ML VIAL 10 ML 20 MG IVP (21:16)
[2024-07-15] MEDS: SUCCINYLCHOLINE INJ 20 MG/ML VIAL 10 ML 100 MG IV (21:17)
--- NOTE | 2024-07-15 21:24 | PC.CC ---
Addendum entered by Jacqueline Boggs 07/15/24 23:39: ASWJacqueline rescinded patient's 5150-hold as he is being medically admitted. Original Note: Patient is a 54 year-old male who presents to the hospital for intentional overdose on a 5150-hold for Danger to Self by PPD. Upon being medically cleared patient will have a mental health evaluation. MARIANNEW sent email to Care Integration team for mental health evaluation upon medical clearance.
[2024-07-15] MEDS: ROCURONIUM INJ 10 MG/ML VIAL 10 ML 50 MG IVP (21:32)
[2024-07-15 21:44] LABS: Base Excess -1 (-3-3); HCO3 26 mEq/L (20-26); Inspired Oxygen, FIO2 100 %; O2 Saturation 101 % (91-98); PCO2 50 mmHg (32.0-48.0); PO2 558 mmHg (83-108); pH, Arterial 7.33 (7.35-7.45)
[2024-07-15 21:48] LABS: Allen Test Performed/OK; Puncture Site Right Radial
--- NOTE | 2024-07-15 21:52 | XR_ITS ---
Examination: Abdomen AP single view Technique: AP portable supine abdomen, single view Exam date and time: July 15, 20249 hrs. Indications: Abdominal pain this week. Findings: Opaque bottle dose in the pelvis, 9 cm, 6 cm, which may be in the rectum Moderate air and stool throughout the colon No obstruction Impression: Foreign bodies project in the pelvis
[2024-07-15 21:54] LABS: Basophils % (Auto) 0 % (0-2.5); Eosinophils % (Auto) 1 % (0-10); Hematocrit 30.6 % (41.0-53.0); Hemoglobin 10.3 g/dL (13.5-16.0); Immature Granulocytes % (Auto) 0 % (0-0); Immature Granulocytes Auto 0.01 Thou/mm3 (0.00-0.00); Lymphocytes % (Auto) 24 % (10-50); Mean Corpuscular HGB Conc 33.7 g/dl (31.0-37.0); Mean Corpuscular Hemoglobin 30.9 pg (25.0-35.0); Mean Corpuscular Volume 92 fL (80-100); Monocytes # (Auto) 0.4 Thou/mm3 (0.0-0.8); Monocytes % (Auto) 11 % (0-12); Neutrophils # (Auto) 2.6 Thou/mm3 (1.8-7.7); Neutrophils % (Auto) 65 % (37-80); Nucleated Red Blood Cell % 0 /100 WBC (0); Platelet Count 123 Thou/mm3 (140-440); RDW Standard Deviation 48.6 fL (35.1-43.9); Red Blood Count 3.33 Miln/mm3 (4.50-5.90); White Blood Count 4.1 Thou/mm3 (3.8-10.6)
[2024-07-15] MEDS: PROPOFOL 1,000 MG IVPB 1,000 MG/100 ML VIAL 1.497 MG IV (21:55)
[2024-07-15 22:07] LABS: INR 1.1 (0.9-1.3); Partial Thromboplastin Time 27.3 Seconds (22.0-36.0); Prothrombin Time 12.3 Seconds (9.0-12.2)
[2024-07-15 22:08] LABS: Ammonia < 10 uMol/L (11-32); B-Type Natriuretic Peptide 78 pg/mL (0-100)
[2024-07-15 22:10] LABS: Acetaminophen < 2.0 mcg/mL (10.0-20.0); Alanine Aminotransferase 16 U/L (10-49); Albumin, Serum 3.5 gm/dL (3.5-5.0); Albumin/Globulin Ratio 1.8 (1.2-2.2); Alcohol, Blood Medical < 3.0 mg/dL (0-10.0); Alkaline Phosphatase 71 U/L (46-116); Amylase 24 U/L (30-118); Anion Gap 7 (7-16); Aspartate Amino Transferase 21 U/L (0-34); BUN/Creatinine Ratio 10 Ratio (12-20); Bilirubin,Direct 0.2 mg/dL (0.0-0.3); Bilirubin,Total 0.6 mg/dL (0.3-1.2); Blood Urea Nitrogen 8 mg/dL (9-23); Calcium 7.9 mg/dL (8.3-10.6); Calcium (Corrected) 8.3 mg/dL (8.5-10.1); Carbon Dioxide 26.8 mMol/L (20.0-31.0); Chloride 111 mMol/L (98-107); Creatine Kinase 145 U/L (34-171); Creatinine (Component) 0.8 mg/dL (0.6-1.3); Estimated Creatinine Clearance 73.6 mL/min (>60); Glucose 83 mg/dL (74-106); LDH (Lactate Dehydrogenase) 182 U/L (120-246); Lipase 21 U/L (12-53); Magnesium 1.8 mg/dL (1.6-2.6); Osmolality,Calculated 286 (275-295); Potassium 3.4 mMol/L (3.4-5.1); Sodium 145 mMol/L (136-145); Total Protein 5.5 gm/dL (5.7-8.2); Troponin I < 0.002 ng/mL (0.0-0.045); eGFR > 60 See Note
[2024-07-15] MEDS: SODIUM BICARB INJ 8.4% 1 mEq/ML 50 ML VIAL 50 MEQ IV (22:12)
[2024-07-15] MEDS: ONDANSETRON INJ 2 MG/ML INJ 2 ML 4 MG IV (22:12)
--- NOTE | 2024-07-15 22:25 | EKG_ITS ---
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
[2024-07-15 22:39] LABS: Collection Type, Urine Clean Catch; Squamous Epithelial Cell,Urine 0 /hpf (0-5)
[2024-07-15 23:02] LABS: Amphetamine/Methamp Scrn,U Positive (Negative); Barbiturate Screen,Urine Negative (Negative); Benzodiazepines Screen,Urine Negative (Negative); Benzoylecgonine Screen, Ur Negative (Negative); Fentanyl Screen,Urine Negative (Negative); Opiate Screen,Urine Negative (Negative); THC Screen,Urine Negative (Negative)
[2024-07-15] MEDS: POTASSIUM CHL 10 mEq IVPB 10 MEQ/100 ML BAG 100 MEQ IV (23:08)
[2024-07-15] MEDS: activated charcoaL 25 GM/120 ML TUBE PO ×2 (23:10→23:27)
[2024-07-15] MEDS: PANTOPRAZOLE INJ 40 MG VIAL IV (23:10)
[2024-07-15 23:36] LABS: Base Excess 5 (-3-3); HCO3 30 mEq/L (20-26); Inspired Oxygen, FIO2 65 %; O2 Saturation 101 % (91-98); PCO2 45 mmHg (32.0-48.0); PO2 336 mmHg (83-108); pH, Arterial 7.43 (7.35-7.45)
[2024-07-15 23:45] LABS: Allen Test Performed/OK; Puncture Site Right Radial
--- NOTE | 2024-07-15 23:53 | EKG_ITS ---
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
[2024-07-16] VITALS (64 sets, daily range): BP systolic 108–177; BP diastolic 70–104; PULSE 72–97; RESP 6–35; TEMP 36.1–37.3; O2SAT 97–100; BMI 18.6
[2024-07-16 00:02] LABS: Bilirubin,Urine Negative (Negative); Blood,Urine Negative (Negative); Clarity,Urine Clear (Clear/Hazy); Color,Urine Colorless (Lt Yel-Yel); Glucose, Urine Negative (Negative); Ketones,Urine Negative (Negative); Leukocyte Esterase,Urine Negative (Negative); Nitrite,Urine Negative (Negative); Protein,Urine Negative (Neg - Trace); RBC,Urine < 1 /hpf (0-3); Specific Gravity,Urine 1.005 (1.001-1.035); Urobilinogen,Urine Negative mg/dL (0.0-1.0); WBC,Urine 2 /hpf (0-5)
--- NOTE | 2024-07-16 00:05 | PD.HHHP ---
Documentation for date of: 07/16/24 HPI - Hospitalist History of Present Illness History of present illness: Source: ER CC: Reported amitriptyline overdose HPI: The patient is a 54 yr old male. Past medical history is significant for Crohn's disease, left lower extremity DVT, methamphetamine use, depression. The patient presents with altered mental status, reportedly awake but became unresponsive in the ED and was subsequently intubated. The patient was brought in by ambulance after his told them that the patient ingested an bottle of amitriptyline containing about 90 pills at around 715-730 p.m. Onset of symptom is 1 hour. The patient was discharged from the same ER this morning following evaluation for depressive symptomsl Patient tested positive for methamphetamine.. Pertinent negatives no vomiting no diarrhea reported. Patient has depression was seen this morning in the ED and was released following behavioral health clearance. During my evaluation, there were no family members around. History obtain from ED personnel and [facility] records.There was no recent procedures and no change in medications. No use of OTC medications There was no recent travel and no sick contacts. No recent trauma or falls. Patient lives at home here in [place]. Patient is FULL CODE. Poison control was called. The patient was given 25 g of activated charcoal. Abdominal x-ray showed foreign body in the anorectal area. Patient also received sodium bicarb 1 ampoule x 1 dose. EKG showed prolonged QRS of 116 ms. Repeat EKG after bicarb showed QRS of 108 ms. Potassium was replenished. Poison control was called recommended additional 25 g of activated charcoal, serial EKG, as needed bicarb for prolongation of QRS more than 120 ms. He also recommended GI evaluation for removal of foreign body in the anorectal region. Past medical history: Crohn's disease, hydronephrosis, left lower extremity DVT, depression Surgical history: Ureteral stent placement Personal history: non smoker, non ETOH drinker, + drug use. Family history: no diabetes, no hypertension, no heart disease, no cancer. Immunization: Review of Systems Review of Systems ROS Unobtainable: unobtainable due to mental status and due to endotracheal tube Meds Home Medications and Allergies Home Medications ?Medication ?Instructions ?Recorded ?Confirmed ?Type lorazepam 2 mg tablet mg 12/10/23 12/10/23 History Allergies Allergy/AdvReac Type Severity Reaction Status Date / Time onion Allergy Severe Vomiting Verified 07/12/24 01:00 Exam Vital Signs Temp Pulse Resp BP Pulse Ox O2 Del Method FiO2 98.7 F 81 18 161/101 H 100 Mechanical Ventilation 65 07/15/24 20:45 07/15/24 22:45 07/15/24 22:45 07/15/24 22:45 07/15/24 22:45 07/15/24 22:45 07/15/24 21:45 Gen: Sedated: Intubated Skin: warm, good turgor, no rash HEENT: NCAT, SHARON, no nasoaural discharge, moist mucous membranes Neck: supple, no JVD, no thyromegaly Lungs: clear to auscultation CV: regular rate and rhythm, no murmurs, no edema Abd: soft and non tender, normoactive bowel sounds : no CVA tenderness Ext: no calf tenderness. Neuro: Sedated, and respond Psych: Unobtainable Results - Hospitalist Labs Diagrams: 07/15/24 21:37 07/15/24 21:37 Labs: Short CBC 07/15/24 Range/Units 21:37 WBC 4.1 D (3.8-10.6) Thou/mm3 Hgb 10.3 L (13.5-16.0) g/dL Hct 30.6 L (41.0-53.0) % Plt Count 123 L D (140-440) Thou/mm3 BMP 07/15/24 21:37 Sodium 145 Potassium 3.4 D Chloride 111 H Carbon Dioxide 26.8 BUN 8 L Creatinine 0.8 Glucose 83 Calcium 7.9 L Cardiac Enzymes 07/15/24 Range/Units 21:37 Total Creatine Kinase 145 (34-171) U/L Troponin I < 0.002 (0.0-0.045) ng/mL Liver Function 07/15/24 Range/Units 21:37 Total Bilirubin 0.6 (0.3-1.2) mg/dL Direct Bilirubin 0.2 (0.0-0.3) mg/dL AST 21 (0-34) U/L ALT 16 (10-49) U/L Alkaline Phosphatase 71 (46-116) U/L Albumin 3.5 D (3.5-5.0) gm/dL Urine 07/15/24 Range/Units 21:30 Urine Color Colorless A (Lt Yel-Yel) Urine Clarity Clear (Clear/Hazy) Urine pH 7.0 (5.0-7.0) Ur Specific [place] 1.005 (1.001-1.035) Urine Protein Negative (Neg - Trace) Urine Glucose (UA) Negative (Negative) ABG Interpretation ABG results: 07/15/24 07/15/24 21:39 23:30 ABG pH 7.33 L 7.43 D ABG pCO2 50 H 45 ABG pO2 558 H 336 H D ABG HCO3 26 30 H ABG O2 Saturation 101 H 101 H ABG Base Excess -1 5 H Assessment & Plan -Hospitalist Patient Synopsis 54-year-old male patient with depression, anxiety, history of Crohn's disease, left lower extremity DVT, ureteral stent was brought in by ambulance tonight after said that he ingested an bottle of amitriptyline about 90 tablets. The patient became confused. He is inactive methamphetamine user. The patient eventually became lethargic and unresponsive in the ED according to the RN. He was subsequently intubated. 1. Intentional drug overdose with tricyclic antidepressant amitriptyline -The patient as mentioned was intubated started on propofol. No seizures were noted during his initial stay in the ED -The patient is not tachycardic but he has prolonged QRS of 116. Sodium bicarb IV push given x 1. Repeat EKG showed a QRS of 108 heart rate in the 80s. -activated charcoal was given via NG tube 25 g then repeated another 25 g via NG tube -Monitor cardiac rhythm. Give sodium bicarb every 2 hours as indicated for QRS greater than 120 ms -Continue propofol to to minimize or control seizures. -Check potassium level, pH especially after additional doses of sodium bicarb. - seizure precaution 2. Mechanical ventilation -The patient was intubated for airway protection since he became obtunded and later unresponsive in the ED according to the RN. -Chest x-ray showed no pneumothorax. Tracheostomy tube in good position. NG tube as described. 3. History of Crohn's disease -Patient is not taking any medication no report of GI bleed 4. Left lower extremity DVT -Unclear if patient is taking anticoagulants as prescribed 5. History of ureteral stents history of hydronephrosis 5. History of hydronephrosis -The patient has ureteral stent 6. Anorectal foreign body - GI consulted for removal of foreigh body. Notified Dr. Rodriguez will see patient 7.. Acute encephalopathy - became obtunded then unresponsive in ED. Most likley due to ingested substance, TCA, methamphatamine, - supportive treatment - social serevices eval when awake. 8. Methamphetamine use - monitor vitals, supportive treatment - director social service eval. 9. Hypertension - initially hypertensive in ER. RN said he was hypotensive earlier when he arrived. CODE STATUS: Full code Quality Measures Quality Measures none
[2024-07-16] MEDS: RINGERS LACTATED 1000 ML 1,000 ML 125 ML IV ×3 (00:15→15:51)
[2024-07-16] MEDS: POTASSIUM CHL 10 mEq IVPB 10 MEQ/100 ML BAG 100 MEQ IV ×4 (00:24→11:42)
--- NOTE | 2024-07-16 00:27 | PC.NURSE ---
pt tolerating vent well. VS are stable.
--- NOTE | 2024-07-16 01:50 | PC.NURSE ---
Report called to ENERGY TRADER. pt to ICU with RT and RN on vent on monitor.
--- NOTE | 2024-07-16 03:24 | PC.NURSE ---
Poison control called for updates on pt, RN gave current vitals and most recent EKG findings.Poison control asked for serial EKGS to be completed q4 on patient. Poison control referral number [id number]
[2024-07-16 04:33] LABS: Base Excess 6 (-3-3); HCO3 32 mEq/L (20-26); Inspired Oxygen, FIO2 30 %; O2 Saturation 86 % (91-98); PCO2 47 mmHg (32.0-48.0); pH, Arterial 7.43 (7.35-7.45)
[2024-07-16 04:37] LABS: Allen Test Performed/OK; PO2 48 mmHg (83-108); Puncture Site Right Radial
[2024-07-16 05:41] LABS: Basophils % (Auto) 0 % (0-2.5); Eosinophils # (Auto) 0.2 Thou/mm3 (0.0-0.5); Eosinophils % (Auto) 3 % (0-10); Hematocrit 35.8 % (41.0-53.0); Immature Granulocytes % (Auto) 0 % (0-0); Lymphocytes # (Auto) 1.3 Thou/mm3 (1.0-4.8); Lymphocytes % (Auto) 23 % (10-50); Mean Corpuscular HGB Conc 33.5 g/dl (31.0-37.0); Mean Corpuscular Hemoglobin 30.9 pg (25.0-35.0); Mean Corpuscular Volume 92 fL (80-100); Monocytes # (Auto) 0.7 Thou/mm3 (0.0-0.8); Monocytes % (Auto) 12 % (0-12); Neutrophils # (Auto) 3.7 Thou/mm3 (1.8-7.7); Neutrophils % (Auto) 63 % (37-80); Nucleated Red Blood Cell % 0 /100 WBC (0); Platelet Count 132 Thou/mm3 (140-440); Red Blood Count 3.88 Miln/mm3 (4.50-5.90)
[2024-07-16 05:44] LABS: White Blood Count 5.5 Thou/mm3 (3.8-10.6)
[2024-07-16 05:57] LABS: Anion Gap 5 (7-16); BUN/Creatinine Ratio 9 Ratio (12-20); Blood Urea Nitrogen 6 mg/dL (9-23); Calcium 8.6 mg/dL (8.3-10.6); Chloride 109 mMol/L (98-107); Creatinine (Component) 0.7 mg/dL (0.6-1.3); Estimated Creatinine Clearance 84.1 mL/min (>60); Glucose 78 mg/dL (74-106); Osmolality,Calculated 283 (275-295); Potassium 3.2 mMol/L (3.4-5.1); Sodium 144 mMol/L (136-145); eGFR > 60 See Note
--- NOTE | 2024-07-16 06:00 | EKG_ITS ---
[facility] Test Date: 2024-07-16 Pat Name: LIONEL GARZA [facility] Male Mains And Service Supervisor: KARLA : 1970 Requested By: Lon Weber Order Number: [id number] Reading MD: Lon Weber Measurements Intervals [place] Rate: 75 P: 66 NV: 160 QRS: 83 QRSD: 101 T: 81 QT: 400 QTc: 448 Interpretive Statements SINUS RHYTHM SEPTAL MYOCARDIAL INFARCTION , OF INDETERMINATE AGE Compared to ECG 07/16/2024 03:48:33 No significant changes /store/S0/[id number]/[id number].pdf
--- NOTE | 2024-07-16 06:55 | XR_ITS ---
Examination: AP chest single view Technique: Portable sitting AP chest single view Exam date and time: July 16, 2024 0725 hrs. Comparison July 15, 2024 Indications: Hypoxic respiratory failure, postintubation Findings: Normal heart size. No aspiration pneumonia, negative for pulmonary edema Endotracheal tube tip 8 cm above paola Orogastric tube sidehole is at the GE junction Impression: No aspiration pneumonia Endotracheal tube tip 8 cm above paola Advance the orogastric tube 5 cm
[2024-07-16 07:15] LABS: Allen Test Not Performed; Base Excess 6 (-3-3); HCO3 30 mEq/L (20-26); Inspired Oxygen, FIO2 30 %; O2 Saturation 100 % (91-98); PCO2 41 mmHg (32.0-48.0); PO2 120 mmHg (83-108); Puncture Site Right Radial; pH, Arterial 7.47 (7.35-7.45)
[2024-07-16] MEDS: ENOXAPARIN SOD INJ 40 MG/0.4 ML SYRINGE SC (08:39)
[2024-07-16] MEDS: Sodium Bicarb 8.4% 50ml Vial* 88.23 MEQ in DEXTROSE 5%-WATER 500 ML 100 MEQ IV ×2 (09:41→15:37)
--- NOTE | 2024-07-16 11:52 | PC.SS ---
Update: Patient currently intubated. Patient is off of sedation. No feeding at present time. Patient will require mental evaluation once medical clearance achieved.
--- NOTE | 2024-07-16 12:00 | EKG_ITS ---
[facility] Test Date: 2024-07-16 Pat Name: LIONEL GARZA Department: Room: [facility] Gender: Male Airways Control Specialist: KARLA : 1970 Requested By: Lon Weber Order Number: [id number] Reading MD: Lon Weber Measurements Intervals [place] Rate: 91 P: 83 GA: 167 QRS: 81 QRSD: 85 T: 83 QT: 339 QTc: 418 Interpretive Statements SINUS RHYTHM NONSPECIFIC T-WAVE ABNORMALITY Compared to ECG 07/16/2024 07:53:03 T-wave abnormality now present Myocardial infarct finding no longer present /store/S0/[id number]/[id number]
--- NOTE | 2024-07-16 12:42 | PC.SS ---
ORGAN ASSEMBLER conducted phone contact with the patient?s spouse, Alanna Uribe to conduct initial assessment.? Patient currently in ICU, intubated.? Patient admitted due to ingesting an bottle of amitriptyline containing about 90 pills.? Spouse reports that the patient possesses a diagnosis of Major Depressive Disorder.? The patient is aligned with the [facility].? Treating psychiatrist is Dr. Adams.? Spouse could not recall prescribed psychotropic medication.? Patient seen in ED on 07-15-24 for psychiatric evaluation.? Patient released home to spouse with safety plan in place.? Patient?s spouse reports event 1st time patient has engaged in self-harm behavior.? Spouse reports patient admitted to [facility] for suicidal ideation.? In addition spouse reports that the patient has initiated methamphetamine use approximately 1 month ago.? Patient?s toxicology report upon admission positive for methamphetamine.? Patient does not utilize DME to assist with ambulation.? Patient does not utilize home oxygen.? Patient is independent with ADL completion.? Patient?s surrogate medical decision maker is spouse, Alanna Uribe.? Patient is not aligned with [facility] [facility].? Patient is not employed due to disability.? Dr. Moya is the patient?s PCP.? Patient?s pain management overseen by Chloe Vásquez Cha.? Patient utilizes [facility] for medication services.? Patient?s spouse informed that once patient is medically cleared crisis evaluation will be conducted.? Results of crisis evaluation will determine discharge option.? Patient?s spouse acknowledged discharge plan dependent on results of crisis evaluation.? human services instructor will discuss discharge needs at an appropriate future time.? No further intervention required at this time, social sciences research scientist will be available to address any further concerns.? Next of Kin: Alanna Uribe D/C Plan: Pending
--- NOTE | 2024-07-16 13:36 | PC.DIETICIAN ---
Nutrition Prescription: 1) If oral intake is feasible after extubation: consider Regular/vegetarian diet (adjust food/liquids consistency as needed). Initiate clear diet when appropriate and advance to solids. 2) If EN is initiated, consider: Trophic feeds of Vital 1.2 at 20 ml/hr via OG tube. Water flushes of 30 ml every 4 hrs. Once more stable, advance 10 ml every 8 hrs to goal rate of 50ml/hr x 24 hrs. Thank you!
--- NOTE | 2024-07-16 13:59 | PD.RESPRO ---
Documentation for date of: 07/16/24 Subjective Subjective Interval history: The patient is a 54 yr old male. Past medical history is significant for Crohn's disease, left lower extremity DVT, methamphetamine use, depression. The patient presents with altered mental status, reportedly awake but became unresponsive in the ED and was subsequently intubated. The patient was brought in by ambulance after his told them that the patient ingested an bottle of amitriptyline containing about 90 pills at around 715-730 p.m. Onset of symptom is 1 hour. The patient was discharged from the same ER this morning following evaluation for depressive symptomsl Patient tested positive for methamphetamine.. Pertinent negatives no vomiting no diarrhea reported. Patient has depression was seen this morning in the ED and was released following behavioral health clearance. During my evaluation, there were no family members around. History obtain from ED personnel and [facility] records.There was no recent procedures and no change in medications. No use of OTC medications There was no recent travel and no sick contacts. No recent trauma or falls. Patient lives at home here in [place]. Patient is FULL CODE. Poison control was called. The patient was given 25 g of activated charcoal. Abdominal x-ray showed foreign body in the anorectal area. Patient also received sodium bicarb 1 ampoule x 1 dose. EKG showed prolonged QRS of 116 ms. Repeat EKG after bicarb showed QRS of 108 ms. Potassium was replenished. Poison control was called recommended additional 25 g of activated charcoal, serial EKG, as needed bicarb for prolongation of QRS more than 120 ms. He also recommended GI evaluation for removal of foreign body in the anorectal region. 07/16/2024: Patient was seen and examined at bedside this morning. Patient still mechanically ventilated and sedated. Turned propofol off, but patient became agitated therefore it was placed again. Patient's QRS not prolonged in the latest EKG at 16:07. Started sodium bicarb drip, will discontinue after GI flexible sigmoidoscopy. Poison control following, have asked to monitor Magnesium and VBG q4h. Called patient's and updated on patient's condition. She gave consent for flexible sigmoidoscopy. Exam Vital Signs Temp Pulse Resp BP Pulse Ox O2 Del Method FiO2 96.9 F 83 22 H 134/91 H 100 Mechanical Ventilation 30 07/16/24 12:00 07/16/24 12:00 07/16/24 12:00 07/16/24 12:00 07/16/24 12:00 07/16/24 00:58 07/16/24 12:00 Narrative Exam General: Mechanically ventilated and sedated Eyes: Pupils are reactive, Anicteric Ears: No visible ear discharge Nose: No visible nasal discharge. Mouth/Throat: Moist mucous membranes, no redness, no lesions. Neck: Neck supple, no cervical lymphadenopathy. Lungs: Clear BAR to auscultation and percussion, No accessory muscle use. Cardio: Normal S1/S2, regular rhythm, no murmurs, no JVD Abdomen: Soft, no palpable masses, peristalsis present Extremities: Symmetrical, no significant deformities, no peripheral edema, peripheral pulses presents. Skin: No rashes, no lesions, warm to touch. Neuro: Mechanically ventilated and sedated Objective Labs 07/18/24 04:27 07/18/24 04:27 Labs: Laboratory Results - last 24 hr 07/15/24 07/15/24 07/15/24 21:30 21:37 21:39 WBC 4.1 D RBC 3.33 L Hgb 10.3 L Hct 30.6 L MCV 92 MCH 30.9 MCHC 33.7 RDW Std Deviation 48.6 H Plt Count 123 L D Neut % (Auto) 65 Lymph % (Auto) 24 [place] % (Auto) 11 Eos % (Auto) 1 Baso % (Auto) 0 Neut # (Auto) 2.6 Lymph # (Auto) 1.0 [place] # (Auto) 0.4 Eos # (Auto) 0.0 Baso # (Auto) 0.0 Immature Gran # (Auto) 0.01 H Absolute Nucleated RBC 0.00 Immature Gran % 0 Nucleated RBC % 0 PT 12.3 H INR 1.1 APTT 27.3 Puncture Site Right Radial ABG pH 7.33 L ABG pCO2 50 H ABG pO2 558 H ABG HCO3 26 ABG O2 Saturation 101 H ABG Base Excess -1 FiO2 100 Sodium 145 Potassium 3.4 D Chloride 111 H Carbon Dioxide 26.8 Anion Gap 7 BUN 8 L Creatinine 0.8 Estim Creat Clear Calc 73.6 eGFR > 60 BUN/Creatinine Ratio 10 L Glucose 83 Calculated Osmolality 286 Lactic Acid 2.0 Calcium 7.9 L Corrected Calcium 8.3 L Magnesium 1.8 Total Bilirubin 0.6 Direct Bilirubin 0.2 AST 21 ALT 16 Alkaline Phosphatase 71 Ammonia < 10 L Lactate Dehydrogenase 182 Total Creatine Kinase 145 Troponin I < 0.002 B-Natriuretic Peptide 78 Total Protein 5.5 L Albumin 3.5 D Globulin 2.0 L Albumin/Globulin Ratio 1.8 Amylase 24 L Lipase 21 Beta-Hydroxybutyrate/Acetoacetate 0.0 Ur Collection Type Clean Catch Urine Color Colorless A Urine Clarity Clear Urine pH 7.0 Ur Specific [place] 1.005 Urine Protein Negative Urine Glucose (UA) Negative Urine Ketones Negative Urine Blood Negative Urine Nitrite Negative Urine Bilirubin Negative Urine Urobilinogen (Auto) Negative Ur Leukocyte Esterase Negative Urine RBC < 1 Urine WBC 2 Ur Squamous Epith Cells 0 Urine Bacteria None Urine Opiates Screen Negative Urine Fentanyl Screen Negative Acetaminophen < 2.0 L Ur Barbiturates Screen Negative U Amphetamin/Meth Scrn Positive A U Benzodiazepines Scrn Negative U Cocaine Metab Screen Negative U Marijuana (THC) Screen Negative Ethyl Alcohol < 3.0 07/15/24 07/16/24 07/16/24 23:30 04:22 04:48 WBC 5.5 RBC 3.88 L Hgb 12.0 L Hct 35.8 L MCV 92 MCH 30.9 MCHC 33.5 RDW Std Deviation 49.0 H Plt Count 132 L Neut % (Auto) 63 Lymph % (Auto) 23 [place] % (Auto) 12 Eos % (Auto) 3 Baso % (Auto) 0 Neut # (Auto) 3.7 Lymph # (Auto) 1.3 [place] # (Auto) 0.7 Eos # (Auto) 0.2 Baso # (Auto) 0.0 Immature Gran # (Auto) 0.00 Absolute Nucleated RBC 0.00 Immature Gran % 0 Nucleated RBC % 0 PT INR APTT Puncture Site Right Radial Right Radial ABG pH 7.43 D 7.43 ABG pCO2 45 47 ABG pO2 336 H D 48 L* D ABG HCO3 30 H 32 H ABG O2 Saturation 101 H 86 L ABG Base Excess 5 H 6 H FiO2 65 30 Sodium 144 Potassium 3.2 L Chloride 109 H Carbon Dioxide 30.0 Anion Gap 5 L BUN 6 L Creatinine 0.7 Estim Creat Clear Calc 84.1 eGFR > 60 BUN/Creatinine Ratio 9 L Glucose 78 Calculated Osmolality 283 Lactic Acid Calcium 8.6 Corrected Calcium Magnesium 2.0 Total Bilirubin Direct Bilirubin AST ALT Alkaline Phosphatase Ammonia Lactate Dehydrogenase Total Creatine Kinase Troponin I B-Natriuretic Peptide Total Protein Albumin Globulin Albumin/Globulin Ratio Amylase Lipase Beta-Hydroxybutyrate/Acetoacetate Ur Collection Type Urine Color Urine Clarity Urine pH Ur Specific [place] Urine Protein Urine Glucose (UA) Urine Ketones Urine Blood Urine Nitrite Urine Bilirubin Urine Urobilinogen (Auto) Ur Leukocyte Esterase Urine RBC Urine WBC Ur Squamous Epith Cells Urine Bacteria Urine Opiates Screen Urine Fentanyl Screen Acetaminophen Ur Barbiturates Screen U Amphetamin/Meth Scrn U Benzodiazepines Scrn U Cocaine Metab Screen U Marijuana (THC) Screen Ethyl Alcohol 07/16/24 07:00 WBC RBC Hgb Hct MCV MCH MCHC RDW Std Deviation Plt Count Neut % (Auto) Lymph % (Auto) [place] % (Auto) Eos % (Auto) Baso % (Auto) Neut # (Auto) Lymph # (Auto) [place] # (Auto) Eos # (Auto) Baso # (Auto) Immature Gran # (Auto) Absolute Nucleated RBC Immature Gran % Nucleated RBC % PT INR APTT Puncture Site Right Radial ABG pH 7.47 H ABG pCO2 41 ABG pO2 120 H D ABG HCO3 30 H ABG O2 Saturation 100 H ABG Base Excess 6 H FiO2 30 Sodium Potassium Chloride Carbon Dioxide Anion Gap BUN Creatinine Estim Creat Clear Calc eGFR BUN/Creatinine Ratio Glucose Calculated Osmolality Lactic Acid Calcium Corrected Calcium Magnesium Total Bilirubin Direct Bilirubin AST ALT Alkaline Phosphatase Ammonia Lactate Dehydrogenase Total Creatine Kinase Troponin I B-Natriuretic Peptide Total Protein Albumin Globulin Albumin/Globulin Ratio Amylase Lipase Beta-Hydroxybutyrate/Acetoacetate Ur Collection Type Urine Color Urine Clarity Urine pH Ur Specific [place] Urine Protein Urine Glucose (UA) Urine Ketones Urine Blood Urine Nitrite Urine Bilirubin Urine Urobilinogen (Auto) Ur Leukocyte Esterase Urine RBC Urine WBC Ur Squamous Epith Cells Urine Bacteria Urine Opiates Screen Urine Fentanyl Screen Acetaminophen Ur Barbiturates Screen U Amphetamin/Meth Scrn U Benzodiazepines Scrn U Cocaine Metab Screen U Marijuana (THC) Screen Ethyl Alcohol ABG Interpretation ABG results: 07/15/24 07/15/24 07/16/24 21:39 23:30 04:22 ABG pH 7.33 L 7.43 D 7.43 ABG pCO2 50 H 45 47 ABG pO2 558 H 336 H D 48 L* D ABG HCO3 26 30 H 32 H ABG O2 Saturation 101 H 101 H 86 L ABG Base Excess -1 5 H 6 H 07/16/24 07:00 ABG pH 7.47 H ABG pCO2 41 ABG pO2 120 H D ABG HCO3 30 H ABG O2 Saturation 100 H ABG Base Excess 6 H Quality Measures Quality Measures none Assessment & Plan Assessment Current Active Medications: Generic Name Dose Route Start Last Admin Trade Name Freq PRN Reason Stop Dose Admin Enoxaparin Sodium 40 mg 07/16/24 09:00 07/16/24 08:39 Enoxaparin Sod Inj 40 Mg/0.4 Ml Syringe SC 07/30/24 08:59 40 mg QDAY MARILYNN Administration Lactated Ringer's 1,000 mls @ 125 mls/hr 07/15/24 23:45 07/16/24 08:33 Lactated Ringers IV 08/14/24 23:44 125 mls/hr .Q8H MARILYNN Administration Sodium Bicarbonate 88.23 meq/ 588.23 mls @ 100 mls/hr 07/16/24 08:42 07/16/24 09:41 Dextrose IV 08/15/24 08:41 100 mls/hr .[id number] MARILYNN Administration Plan 54-year-old male with past medical history of chron's disease, left lower extremity DVT, depression, hydronephrosis s/p ureteral stent, and polysubstance use was admitted to the ICU on 07/16/2024 after intentional TCA overdose. 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 Patient was eventually intubated Currently on propofol Will continue to wean off propofol as tolerated CVS: #Prolonged QRS Patient's QRS initially was 116 This was most likely due to amitriptyline overdose Patient was started on sodium bicarb pushes as well as bicarb drip afterwards. Heart patient's electrolytes were repleted as necessary Latest EKG at 1607 today showed a QRS of 85 Will continue with sodium bicarb onto tonight. Will get serial magnesium's every 4 hours and EKGs as well #Hypertension Patient was hypotensive in the ED, but afterwards became normotensive. Will continue to monitor for now and will not start any antihypertensive medication for now. Respiratory: #Mechanically ventilated Patient was intubated for airway protection as his GCS was 3 when he came in Will get daily chest x-rays Renal: #Hypokalemia Patient's potassium was 3.2 today Will continue to replete as necessary GI: #Foreign body in rectum Abdominal x-ray showed foreign body in the pelvis These foreign bodies appear to be pill bottles GI was consulted for flexible sigmoidoscopy Will consider general surgery consult if foreign bodies are not able to be taken out while flexible sigmoidoscopy #Hx of Crohn's disease Stable Heme: #Normocytic normochromic anemia Patient came in with hemoglobin of 10.3 and is currently 12 today Continue to monitor Psych: #Psychosis #TCA overdose #Intentional drug overdose #Suicidal attempt #Hx of depression Patient was previously in the ER before being admitted to the ICU and he was cleared by mental health. Patient was found to have ingested around 90 pills of amitriptyline Patient does have a history of depression and polysubstance use Patient currently sedated and mechanically ventilated Poison control is following the case and initially gave 50 g of activated charcoal Will continue sodium bicarb drip until after GI procedure is done Will replete electrolytes as necessary Will continue to monitor for cardiac arrhythmias Will slowly wean off sedation Hospital Maintenance: Diet: NPO DVT ppx: heparin GI ppx: Pantoprazole IV lines: PIV Dumont: suprapubic Code status: Full Dispo: ICU for TCA overdose Case disclosed with Attending Dr. Mona Tsai PGY1 Attending Provider Attestation/Addendum Patient seen and examined with above resident, Galen Tsai MD. I agree with the findings, assessment, and plan of care as documented except for any differences below. Patient remains hemodynamically stable post TCA overdose. Continuous telemetry monitoring. For QRS prolongation and prolonged QTc. We have initiated a sodium bicarb drip after initial bolus. Patient is doing well from a hemodynamic standpoint but does continue to have 2 large pill bottles notably appear to be Without any release of substance. However we will await endoscopy later today by GI to extract after which we can plan for SAT/SBT. A spontaneous awake trial was done today which showed the patient's mentation was intact without any presence of seizure activity. Patient remains afebrile without evidence of underlying infection. Patient's family was updated of bedside on plan of care and continued be appreciative. Patient will remain in the ICU overnight awaiting potential extubation tomorrow after today's procedure. Total critical care time: I personally spent 30 minutes for review of physiologic parameters, directing plan of care, coordination of care with other specialist, and counseling patient's family at bedside. This is exclusive of time spent teaching housestaff performing separate billable procedures. Patient continues to require critical care services for TCA overdose and acute respiratory failure, unspecified. Remains at significant risk for further morbidity and mortality warranting close monitoring and care only available in the ICU.
[2024-07-16] MEDS: PROPOFOL 1,000 MG IVPB 1,000 MG/100 ML VIAL 1.62 MG IV (14:19)
--- NOTE | 2024-07-16 16:00 | EKG_ITS ---
[facility] Test Date: 2024-07-16 Pat Name: LIONEL GARZA Department: Room: [facility] Gender: Male Senior Financial Consultant: DORIAN : 1970 Requested By: Lon Weber Order Number: [id number] Reading MD: Lon Weber Measurements Intervals [place] Rate: 86 P: 71 MD: 153 QRS: 78 QRSD: 98 T: 76 QT: 381 QTc: 456 Interpretive Statements SINUS RHYTHM NONSPECIFIC T-WAVE ABNORMALITY Compared to ECG 07/16/2024 16:07:14 No significant changes /store/S0/[id number]
[2024-07-16 16:19] LABS: Base Excess, Venous 6 (-3-3); O2 Saturation, Venous 100 % (96-97); PCO2, Venous 34 mmHg (36-56); PO2, Venous 121 mmHg (15-58); pH, Venous 7.53 (7.33-7.66)
--- NOTE | 2024-07-16 16:30 | PC.NURSE ---
Received a call at 9:32 AM from Mayito at poison control regarding an update on the patients condition. He instructed to watch the patients pH and if the pH is over 7.55 then consider treating the patient with hypertonic saline instead of sodium bicarbonate.
--- NOTE | 2024-07-16 16:34 | PC.NURSE ---
Received a call from poison control and spoke with Rasheed. Per Rasheed it would be advisable to have the patient on serial VBG and Mag labs while the bicarbonate is running to monitor both pH and potassium/magnesium levels. was notified of the poison control centers recommendations.
--- NOTE | 2024-07-16 16:36 | PC.NURSE ---
A new EKG was obtained on the patient at approximately 1620. Poison control was contacted at 1625 to give an update regarding the new EKG information. This nurse spoke with Kimberly at poison control who took the information regarding the EKG. She gave a recommendation to stop the sodium bicarbonate drip after the patient has a procedure to remove a foreign body, as seen in X-ray. was notified of poison controls recommendations.
[2024-07-16 16:37] LABS: Magnesium 1.7 mg/dL (1.6-2.6)
--- NOTE | 2024-07-16 17:14 | PD.RESCONSUL ---
HPI Data of Consult Requesting Physician: Lon Villalta MD Admitting Provider: Lon Villalta MD Attending Provider: Lon Villalta MD Primary Care Provider: Carole Moya MD Consult Narrative Reason for consult: Foreign body in rectum, Crohn's disease History of present illness: 54-year-old male with past medical history of Crohn's disease, chronic pain, meth use disorder previously on methadone/Suboxone, polysubstance use disorder, left lower extremity DVT, nephrolithiasis status post right nephrostomy tube placement presented to the ED on 07/15/2024 after he was found by his unresponsive. Patient's stated that the patient ingested an bottle of amitriptyline which contained roughly 90 pills around 7:30 PM on 07/15. In the ED, patient tested positive for methamphetamine but was quickly intubated to protect his airway. Of note, patient was recently seen in the emergency room on 07/12 for acute psychosis and meth use. Patient was placed on a psychiatric hold but was released once mental health had cleared the patient and resources were provided. Patient is currently intubated and sedated in the ICU. Imaging findings were pertinent for an abdominal x-ray which showed an opaque bottle in the pelvis, likely in the rectum with moderate air and stool throughout the colon but no obstruction. Per chart review, patient not on any medications for Crohn's disease nor does he follow a agent producer as an outpatient basis. Medical history: As stated above Surgical history: None charted Allergies: NKDA Medications: As listed Family history: Patient denies any family history of colorectal, lung, liver cancer Social history: Patient has history of smoking tobacco, 5-pack-year, history of methamphetamine use disorder, moderate alcohol consumption ROS: All 12 systems assessed and the patient denies unless otherwise stated in HPI cc:: cc: Lon Villalta MD Exam Vital Signs Temp Pulse Resp BP Pulse Ox O2 Del Method FiO2 96.9 F 86 22 H 137/93 H 100 Mechanical Ventilation 30 07/16/24 12:00 07/16/24 16:00 07/16/24 16:00 07/16/24 16:00 07/16/24 16:00 07/16/24 00:58 07/16/24 16:00 Narrative Exam Physical Exam: GENERAL: NAD, intubated & sedated. HEENT: NC/AT. Moist mucosa. PERRLA/EOMI. CARDIO: Heart RRR, no obvious murmurs, no JVD. PULM: Mechanical breath sounds heard throughout. Lungs CTA B/L. GI: Abdomen soft, NT/ND, +BS. SKIN/MSK/EXT: No wounds/discoloration/rashes/edema/amputations noted. +Pedal pulses present B/L. NEURO: Oriented x0. RASS score (-2) - being weaned off Results Labs 07/16/24 04:48 07/16/24 16:11 Labs: Short CBC 07/15/24 07/16/24 Range/Units 21:37 04:48 WBC 4.1 D 5.5 (3.8-10.6) Thou/mm3 Hgb 10.3 L 12.0 L (13.5-16.0) g/dL Hct 30.6 L 35.8 L (41.0-53.0) % Plt Count 123 L D 132 L (140-440) Thou/mm3 BMP 07/15/24 07/16/24 21:37 04:48 Sodium 145 144 Potassium 3.4 D 3.2 L Chloride 111 H 109 H Carbon Dioxide 26.8 30.0 BUN 8 L 6 L Creatinine 0.8 0.7 Glucose 83 78 Calcium 7.9 L 8.6 Cardiac Enzymes 07/15/24 Range/Units 21:37 Total Creatine Kinase 145 (34-171) U/L Troponin I < 0.002 (0.0-0.045) ng/mL Liver Function 07/15/24 Range/Units 21:37 Total Bilirubin 0.6 (0.3-1.2) mg/dL Direct Bilirubin 0.2 (0.0-0.3) mg/dL AST 21 (0-34) U/L ALT 16 (10-49) U/L Alkaline Phosphatase 71 (46-116) U/L Albumin 3.5 D (3.5-5.0) gm/dL Urine 07/15/24 Range/Units 21:30 Urine Color Colorless A (Lt Yel-Yel) Urine Clarity Clear (Clear/Hazy) Urine pH 7.0 (5.0-7.0) Ur Specific [place] 1.005 (1.001-1.035) Urine Protein Negative (Neg - Trace) Urine Glucose (UA) Negative (Negative) ABG Interpretation ABG results: 07/15/24 07/15/24 07/16/24 21:39 23:30 04:22 ABG pH 7.33 L 7.43 D 7.43 ABG pCO2 50 H 45 47 ABG pO2 558 H 336 H D 48 L* D ABG HCO3 26 30 H 32 H ABG O2 Saturation 101 H 101 H 86 L ABG Base Excess -1 5 H 6 H VBG pH VBG pCO2 VBG pO2 VBG Base Excess 07/16/24 07/16/24 07:00 16:11 ABG pH 7.47 H ABG pCO2 41 ABG pO2 120 H D ABG HCO3 30 H ABG O2 Saturation 100 H ABG Base Excess 6 H VBG pH 7.53 VBG pCO2 34 L VBG pO2 121 H VBG Base Excess 6 H Quality Measures Quality Measures none Medications Home Medications and Allergies Home Medications ?Medication ?Instructions ?Recorded ?Confirmed ?Type lorazepam 2 mg tablet mg 12/10/23 12/10/23 History Allergies Allergy/AdvReac Type Severity Reaction Status Date / Time onion Allergy Severe Vomiting Verified 07/12/24 01:00 Visit Medications Enoxaparin Sodium (Enoxaparin Sod Inj 40 Mg/0.4 Ml Syringe) 40 mg SC QDAY [facility] Stop: 07/30/24 08:59 Last Admin: 07/16/24 08:39 Dose: 40 mg Lactated Ringer's (Lactated Ringers) 1,000 mls @ 125 mls/hr IV .Q8H MARILYNN Stop: 08/14/24 23:44 Last Admin: 07/16/24 15:51 Dose: 125 mls/hr Sodium Bicarbonate 88.23 meq/ (Dextrose) 588.23 mls @ 100 mls/hr IV .Q5H53M MARILYNN Stop: 08/15/24 08:41 Last Admin: 07/16/24 15:37 Dose: 100 mls/hr Propofol (Diprivan Ivpb) 1,000 mg in 100 mls @ 1.62 mls/hr IV .Q24H PRN; Protocol PRN Reason: PER PROTOCOL Stop: 08/15/24 14:12 Last Titration: 07/16/24 16:50 Dose: 20 mcg/kg/min, 6.48 mls/hr Discontinued Medications Charcoal (Activated Charcoal 25 Gm/120 Ml Tube) 25 gm PO X1 ONE Stop: 07/15/24 22:25 Last Admin: 07/15/24 23:10 Dose: 25 gm Charcoal (Activated Charcoal 25 Gm/120 Ml Tube) 25 gm PO X1 ONE Stop: 07/15/24 23:15 Last Admin: 07/15/24 23:27 Dose: 25 gm Etomidate (Etomidate Inj 2 Mg/Ml Vial 10 Ml) 20 mg IVP X1 ONE Stop: 07/15/24 21:23 Last Admin: 07/15/24 21:16 Dose: 20 mg Etomidate (Etomidate Inj 2 Mg/Ml Vial 10 Ml) 10 mg IVP X1 ONE Stop: 07/15/24 21:29 Last Admin: 07/15/24 23:56 Dose: Not Given Sodium Chloride (Ns) 1,000 mls @ 999 mls/hr IV .Q1H1M ONE Stop: 07/15/24 21:55 Last Infusion: 07/15/24 22:05 Dose: Infused Propofol (Diprivan Ivpb) 1,000 mg in 100 mls @ 1.497 mls/hr IV .Q24H PRN; Protocol PRN Reason: Per Protocol Stop: 08/14/24 21:22 Sodium Chloride (Ns) 1,000 mls @ 999 mls/hr IV .Q1H1M ONE Stop: 07/15/24 22:23 Last Infusion: 07/15/24 22:20 Dose: Infused Propofol (Diprivan Ivpb) 1,000 mg in 100 mls @ 1.497 mls/hr IV .Q24H PRN; Protocol PRN Reason: Per Protocol Stop: 08/14/24 21:32 Last Titration: 07/16/24 08:51 Dose: 0 mcg/kg/min, 0 mls/hr Potassium Chloride (Kcl Ivpb) 10 meq in 100 mls @ 100 mls/hr IV Q1H MARILYNN Stop: 07/16/24 00:29 Last Admin: 07/16/24 00:24 Dose: 100 mls/hr Naloxone HCl 2 mg/ Dextrose 500 mls @ 10 mls/hr IV .Q24H MARILYNN Stop: 08/14/24 23:44 Last Admin: 07/15/24 23:37 Dose: Not Given Potassium Chloride (Kcl Ivpb) 10 meq in 100 mls @ 100 mls/hr IV Q1H MARILYNN Stop: 07/16/24 11:17 Last Admin: 07/16/24 11:42 Dose: 100 mls/hr Naloxone HCl (Naloxone Inj 1 Mg/Ml Syringe 2 Ml) 2 mg IV X1 ONE Stop: 07/15/24 23:58 Last Admin: 07/15/24 21:08 Dose: 2 mg Ondansetron HCl (Ondansetron Inj 2 Mg/Ml Inj 2 Ml) 4 mg IV X1 ONE; Protocol Stop: 07/15/24 21:24 Last Admin: 07/15/24 22:12 Dose: 4 mg Pantoprazole Sodium (Pantoprazole Inj 40 Mg Vial) 40 mg IV X1 ONE Stop: 07/15/24 22:25 Last Admin: 07/15/24 23:10 Dose: 40 mg Rocuronium [place] (Rocuronium Inj 10 Mg/Ml Vial 10 Ml) 50 mg IVP X1 ONE Stop: 07/15/24 21:29 Last Admin: 07/15/24 21:32 Dose: 50 mg Sodium Bicarbonate (Sodium Bicarb Inj 8.4% 1 Meq/Ml 50 Ml Vial) 50 meq IV X1 ONE Stop: 07/15/24 21:51 Last Admin: 07/15/24 22:12 Dose: 50 meq Succinylcholine Chloride (Succinylcholine Inj 20 Mg/Ml Vial 10 Ml) 100 mg IV X1 ONE Stop: 07/15/24 21:23 Last Admin: 07/15/24 21:17 Dose: 100 mg Assessment & Plan Plan #Foreign body in rectum Per HPI, patient has ingestion of amitriptyline pill bottle as stated by the patient's who found the patient unconscious Abdominal x-ray on 07/15/2024 shows: Opaque bottle dose in the pelvis, 9 cm, 6 cm, which may be in the rectum. Moderate air and stool throughout the colon. No obstruction Consent obtained for flexible sigmoidoscopy in order to remove foreign object from the rectum Plan: Two pill bottles successfully removed via flexible sigmoidoscopy #Crohn's disease As stated from past HPI and EMR, patient has history of Crohn's disease Patient not on any induction or maintenance medications for Crohn disease and there is no mention of gastroenterology follow-up outpatient Plan: Once the patient is extubated, obtain a CDAI score in order to interpret severity of disease Will consider colonoscopy while the patient is inpatient Monitor for perianal abscess and fistula formation since the patient as above findings of foreign body Recommend outpatient follow-up with gastroenterology #Acute encephalopathy #Prolonged QRS #Hypertension #Hypokalemia #Normocytic normochromic anemia #Psychosis #TCA overdose #Intentional drug overdose #Suicidal attempt #Depression Rest of medical problems to be managed by the ICU team Thank you very much for the opportunity to participate in the care of this patient. Attending Provider Attestation/Addendum 07.16.24 Patient evaluated And examined Went over the care plan with the resident physician Will proceed with flexible sigmoidoscopy with endoscopic removal of the foreign body which I believe 2 large bottles patient inserted into the rectum This seems to be quite large 9 cm x 6 cm The child is going to be getting the polypectomy snare around it and then pulling it out Consent was obtained Will proceed with the procedure
[2024-07-16] MEDS: PANTOPRAZOLE INJ 40 MG VIAL IV (17:48)
--- NOTE | 2024-07-16 18:00 | EKG_ITS ---
[facility] Test Date: 2024-07-16 Pat Name: LIONEL GARZA [facility] Customs Agent: JAMES : 1970 Requested By: Lon Weber Order Number: [id number] Reading MD: Lon Weber Measurements Intervals [place] Rate: 73 P: 72 ID: [id number] QRS: 81 QRSD: 103 T: 74 QT: 413 QTc: 458 Interpretive Statements SINUS RHYTHM SEPTAL MYOCARDIAL INFARCTION , OF INDETERMINATE AGE Compared to ECG 07/15/2024 23:47:20 Myocardial infarct finding now present /store/S0/[id number].pdf
[2024-07-16 18:04] LABS: Potassium 4.1 mMol/L (3.4-5.1)
--- NOTE | 2024-07-16 19:20 | PC.NURSE ---
Medication bottles retrieved during flexible sigmoidoscopy sent to pharmacy due to controlled substances being present. Meds were picked up by pharmacy technology instructor Jeff.
[2024-07-16] MEDS: PROPOFOL 1,000 MG IVPB 1,000 MG/100 ML VIAL 9.72 MG IV (21:10)
[2024-07-16 21:16] LABS: Base Excess, Venous 5 (-3-3); O2 Saturation, Venous 89 % (96-97); PCO2, Venous 47 mmHg (36-56); PO2, Venous 56 mmHg (15-58); pH, Venous 7.41 (7.33-7.66)
[2024-07-16 21:41] LABS: Magnesium 1.6 mg/dL (1.6-2.6)
[2024-07-17] VITALS (21 sets, daily range): BP systolic 135–156; BP diastolic 92–101; PULSE 72–98; RESP 15–25; TEMP 36.2–37.4; O2SAT 90–100; BMI 18.9
--- NOTE | 2024-07-17 | EKG_ITS ---
[facility] Test Date: 2024-07-17 Pat Name: LIONEL GARZA Department: Room: [facility] Gender: Male Maintenance Carpenter: DORIAN : 1970 Requested By: Lon Weber Order Number: [id number] Reading MD: Lon Weber Measurements Intervals [place] Rate: 89 P: 71 MT: 151 QRS: 77 QRSD: 94 T: 89 QT: 378 QTc: 462 Interpretive Statements SINUS RHYTHM MINIMAL ST DEPRESSION Compared to ECG 07/16/2024 19:29:35 ST (T wave) deviation now present T-wave abnormality no longer present /store/S0/[id number]/[id number]
[2024-07-17 01:23] LABS: Alanine Aminotransferase 21 U/L (10-49); Albumin, Serum 3.6 gm/dL (3.5-5.0); Albumin/Globulin Ratio 1.6 (1.2-2.2); Alkaline Phosphatase 71 U/L (46-116); Anion Gap 15 (7-16); Aspartate Amino Transferase 36 U/L (0-34); BUN/Creatinine Ratio 7 Ratio (12-20); Bilirubin,Total 0.6 mg/dL (0.3-1.2); Blood Urea Nitrogen 5 mg/dL (9-23); Calcium (Corrected) 9.3 mg/dL (8.5-10.1); Chloride 111 mMol/L (98-107); Creatinine (Component) 0.7 mg/dL (0.6-1.3); Estimated Creatinine Clearance 91.1 mL/min (>60); Globulin 2.3 gm/dL (2.3-3.5); Glucose 91 mg/dL (74-106); Osmolality,Calculated 287 (275-295); Sodium 146 mMol/L (136-145); Total Protein 5.9 gm/dL (5.7-8.2); eGFR > 60 See Note
[2024-07-17] MEDS: PROPOFOL 1,000 MG IVPB 1,000 MG/100 ML VIAL 12.96 MG IV (02:02)
--- NOTE | 2024-07-17 03:43 | PC.NURSE ---
spoke with poison control to see if serial ekg's and abg's are still needed. They recommended to stop serial ekg's and abg's and regular am abgs are good and one morning ekg this am.
[2024-07-17 04:44] LABS: Base Excess 5 (-3-3); HCO3 29 mEq/L (20-26); Inspired Oxygen, FIO2 40 %; O2 Saturation 98 % (91-98); PCO2 44 mmHg (32.0-48.0); PO2 92 mmHg (83-108); pH, Arterial 7.44 (7.35-7.45)
[2024-07-17 04:49] LABS: Puncture Site Site Not Noted
[2024-07-17] MEDS: DEXTROSE 50%-WATER INJ 50 ML SYRINGE 25 ML IV (05:17)
[2024-07-17 05:57] LABS: Basophils % (Auto) 0 % (0-2.5); Eosinophils # (Auto) 0.1 Thou/mm3 (0.0-0.5); Eosinophils % (Auto) 0 % (0-10); Hematocrit 36.3 % (41.0-53.0); Hemoglobin 11.9 g/dL (13.5-16.0); Immature Granulocytes % (Auto) 1 % (0-0); Immature Granulocytes Auto 0.08 Thou/mm3 (0.00-0.00); Lymphocytes # (Auto) 0.6 Thou/mm3 (1.0-4.8); Lymphocytes % (Auto) 4 % (10-50); Mean Corpuscular HGB Conc 32.8 g/dl (31.0-37.0); Mean Corpuscular Hemoglobin 31.1 pg (25.0-35.0); Mean Corpuscular Volume 95 fL (80-100); Monocytes # (Auto) 0.6 Thou/mm3 (0.0-0.8); Monocytes % (Auto) 5 % (0-12); Neutrophils # (Auto) 11.8 Thou/mm3 (1.8-7.7); Neutrophils % (Auto) 90 % (37-80); Nucleated Red Blood Cell % 0 /100 WBC (0); Platelet Count 121 Thou/mm3 (140-440); RDW Standard Deviation 50.3 fL (35.1-43.9); Red Blood Count 3.83 Miln/mm3 (4.50-5.90); White Blood Count 13.2 Thou/mm3 (3.8-10.6)
--- NOTE | 2024-07-17 06:00 | EKG_ITS ---
[facility] Test Date: 2024-07-17 Pat Name: LIONEL GARZA [facility] Hog Tender: EVONNE : 1970 Requested By: Lon Weber Order Number: [id number] Reading MD: Lon Weber Measurements Intervals [place] Rate: 81 P: 82 PA: 152 QRS: 84 QRSD: 87 T: 88 QT: 370 QTc: 430 Interpretive Statements SINUS RHYTHM POSSIBLE ANTERIOR MYOCARDIAL INFARCTION , OF INDETERMINATE AGE Compared to ECG 07/17/2024 01:58:26 Myocardial infarct finding now present ST (T wave) deviation no longer present /store/S0/[id number]/[id number].pdf
[2024-07-17 06:26] LABS: Anion Gap 9 (7-16); BUN/Creatinine Ratio 9 Ratio (12-20); Blood Urea Nitrogen 6 mg/dL (9-23); Calcium 8.2 mg/dL (8.3-10.6); Carbon Dioxide 28.4 mMol/L (20.0-31.0); Chloride 105 mMol/L (98-107); Creatinine (Component) 0.7 mg/dL (0.6-1.3); Estimated Creatinine Clearance 92.3 mL/min (>60); Glucose 84 mg/dL (74-106); Magnesium 1.6 mg/dL (1.6-2.6); Osmolality,Calculated 279 (275-295); Potassium 3.5 mMol/L (3.4-5.1); Sodium 142 mMol/L (136-145); eGFR > 60 See Note
--- NOTE | 2024-07-17 07:02 | XR_ITS ---
Examination: AP chest single view Technique one AP portable semiupright chest single view Exam date and time: July 17, 2024 0725 hrs. Comparison July 16, 2024 Indications: Hypoxic respiratory failure this week post intubation Findings: Normal heart size Moderate vascular congestion. No lobar pneumonia Orogastric tube sidehole is near the GE junction Endotracheal tube tip 6.1 above paola Impression: Moderate vascular congestion Advance the orogastric tube 3 cm
[2024-07-17] MEDS: PANTOPRAZOLE INJ 40 MG VIAL IV (08:37)
[2024-07-17] MEDS: ENOXAPARIN SOD INJ 40 MG/0.4 ML SYRINGE SC (08:38)
[2024-07-17] MEDS: CALCIUM GLUCONATE 10% INJ 1 GM/10 ML VIAL IV (09:20)
--- NOTE | 2024-07-17 10:44 | PC.SS ---
Update. Patient has been extubated today. Patient is alert. Family at bedside. Patient has 1:[address]
--- NOTE | 2024-07-17 12:28 | PC.NURSE ---
HARSHIL FROM POISON CONTROL CALLED, UPDATE GIVEN. POISON CONTROL RELEASED THE PATIENT AND STATED IF THERE IS ANYTHING ELSE THAT THE MD NEEDED TO GIVE THEM A CALL.
--- NOTE | 2024-07-17 13:09 | PD.RESPRO ---
Documentation for date of: 07/17/24 Subjective Subjective Interval history: The patient is a 54 yr old male. Past medical history is significant for Crohn's disease, left lower extremity DVT, methamphetamine use, depression. The patient presents with altered mental status, reportedly awake but became unresponsive in the ED and was subsequently intubated. The patient was brought in by ambulance after his told them that the patient ingested an bottle of amitriptyline containing about 90 pills at around 715-730 p.m. Onset of symptom is 1 hour. The patient was discharged from the same ER this morning following evaluation for depressive symptomsl Patient tested positive for methamphetamine.. Pertinent negatives no vomiting no diarrhea reported. Patient has depression was seen this morning in the ED and was released following behavioral health clearance. During my evaluation, there were no family members around. History obtain from ED personnel and [facility] records.There was no recent procedures and no change in medications. No use of OTC medications There was no recent travel and no sick contacts. No recent trauma or falls. Patient lives at home here in [place]. Patient is FULL CODE. Poison control was called. The patient was given 25 g of activated charcoal. Abdominal x-ray showed foreign body in the anorectal area. Patient also received sodium bicarb 1 ampoule x 1 dose. EKG showed prolonged QRS of 116 ms. Repeat EKG after bicarb showed QRS of 108 ms. Potassium was replenished. Poison control was called recommended additional 25 g of activated charcoal, serial EKG, as needed bicarb for prolongation of QRS more than 120 ms. He also recommended GI evaluation for removal of foreign body in the anorectal region. 07/16/2024: Patient was seen and examined at bedside this morning. Patient still mechanically ventilated and sedated. Turned propofol off, but patient became agitated therefore it was placed again. Patient's QRS not prolonged in the latest EKG at 16:07. Started sodium bicarb drip, will discontinue after GI flexible sigmoidoscopy. Poison control following, have asked to monitor Magnesium and VBG q4h. Called patient's and updated on patient's condition. She gave consent for flexible sigmoidoscopy. 07/17/2024: Patient was seen and examined at bedside this morning. Last night GI did a flexible sigmoidoscopy and removal of 2 bottles of pills successfully. Patient was successfully extubated today after spontaneous breathing trial RSBI of 42 and negative of -21. At the patient woke up today after being extubated he stated that he had placed the 2 bottles of pills in his rectum because he thought that he was can go to present since he had been positive for meth and thought he was going to go to care home for that therefore he needed to sneak the pills into care home. Will restart patient's suboxone. Will call patient's primary care physicians to see what medication was patient on to manage his pain while minimizing risk for this incidence again. Patient stable at this time therefore will be downgraded to medical floors. Exam Vital Signs Temp Pulse Resp BP Pulse Ox O2 Del Method FiO2 97.1 F 95 19 141/99 H 94 L Mechanical Ventilation 40 07/17/24 12:00 07/17/24 12:00 07/17/24 12:00 07/17/24 12:00 07/17/24 12:00 07/17/24 06:00 07/17/24 07:57 Narrative Exam General: A/O x3, thin and in no acute distress Eyes: PERRL, EOMI. Anicteric, vision grossly intact. Ears: No ear pain, no ear discharge, Hearing grossly intact. Nose: No nasal discharge. Mouth/Throat: Dry mucous membranes, no redness, no lesions. Neck: Neck supple, non-tender, no cervical lymphadenopathy. Lungs: Clear BAR to auscultation and percussion, No accessory muscle use. Cardio: Normal S1/S2, regular rhythm, no murmurs, no JVD Abdomen: Soft, mild generalized tenderness, no palpable masses, peristalsis present, no guarding or rebound. Extremities: Symmetrical, no significant deformities, no peripheral edema , non-tender, peripheral pulses presents. Skin: No rashes, no lesions, warm to touch. Neuro: No focal neurological deficits. Psych: Slowed speech, avoidant, flat affect Objective Labs 07/18/24 04:27 07/18/24 04:27 Labs: Laboratory Results - last 24 hr 07/16/24 07/16/24 07/16/24 16:11 20:43 20:45 WBC RBC Hgb Hct MCV MCH MCHC RDW Std Deviation Plt Count Neut % (Auto) Lymph % (Auto) [place] % (Auto) Eos % (Auto) Baso % (Auto) Neut # (Auto) Lymph # (Auto) [place] # (Auto) Eos # (Auto) Baso # (Auto) Immature Gran # (Auto) Absolute Nucleated RBC Immature Gran % Nucleated RBC % Puncture Site ABG pH ABG pCO2 ABG pO2 ABG HCO3 ABG O2 Saturation ABG Base Excess VBG pH 7.53 7.41 VBG pCO2 34 L 47 D VBG pO2 121 H 56 D VBG O2 Sat (Ashly) 100 H 89 L D VBG Base Excess 6 H 5 H FiO2 Sodium 146 H Potassium 4.1 D 4.0 Chloride 111 H Carbon Dioxide 20.0 Anion Gap 15 BUN 5 L Creatinine 0.7 Estim Creat Clear Calc 91.1 eGFR > 60 BUN/Creatinine Ratio 7 L Glucose 91 Calculated Osmolality 287 Calcium 9.0 Corrected Calcium 9.3 Magnesium 1.7 1.6 Total Bilirubin 0.6 AST 36 H ALT 21 Alkaline Phosphatase 71 Total Protein 5.9 Albumin 3.6 Globulin 2.3 Albumin/Globulin Ratio 1.6 07/17/24 07/17/24 04:20 04:43 WBC 13.2 H D RBC 3.83 L Hgb 11.9 L Hct 36.3 L MCV 95 MCH 31.1 MCHC 32.8 RDW Std Deviation 50.3 H Plt Count 121 L Neut % (Auto) 90 H Lymph % (Auto) 4 L [place] % (Auto) 5 Eos % (Auto) 0 Baso % (Auto) 0 Neut # (Auto) 11.8 H Lymph # (Auto) 0.6 L [place] # (Auto) 0.6 Eos # (Auto) 0.1 Baso # (Auto) 0.0 Immature Gran # (Auto) 0.08 H Absolute Nucleated RBC 0.00 Immature Gran % 1 H Nucleated RBC % 0 Puncture Site Site Not Noted ABG pH 7.44 ABG pCO2 44 ABG pO2 92 D ABG HCO3 29 H ABG O2 Saturation 98 ABG Base Excess 5 H VBG pH VBG pCO2 VBG pO2 VBG O2 Sat (Ashly) VBG Base Excess FiO2 40 Sodium 142 Potassium 3.5 D Chloride 105 Carbon Dioxide 28.4 Anion Gap 9 BUN 6 L Creatinine 0.7 Estim Creat Clear Calc 92.3 eGFR > 60 BUN/Creatinine Ratio 9 L Glucose 84 Calculated Osmolality 279 Calcium 8.2 L Corrected Calcium Magnesium 1.6 Total Bilirubin AST ALT Alkaline Phosphatase Total Protein Albumin Globulin Albumin/Globulin Ratio ABG Interpretation ABG results: 07/15/24 07/15/24 07/16/24 21:39 23:30 04:22 ABG pH 7.33 L 7.43 D 7.43 ABG pCO2 50 H 45 47 ABG pO2 558 H 336 H D 48 L* D ABG HCO3 26 30 H 32 H ABG O2 Saturation 101 H 101 H 86 L ABG Base Excess -1 5 H 6 H VBG pH VBG pCO2 VBG pO2 VBG Base Excess 07/16/24 07/16/24 07/16/24 07:00 16:11 20:45 ABG pH 7.47 H ABG pCO2 41 ABG pO2 120 H D ABG HCO3 30 H ABG O2 Saturation 100 H ABG Base Excess 6 H VBG pH 7.53 7.41 VBG pCO2 34 L 47 D VBG pO2 121 H 56 D VBG Base Excess 6 H 5 H 07/17/24 04:20 ABG pH 7.44 ABG pCO2 44 ABG pO2 92 D ABG HCO3 29 H ABG O2 Saturation 98 ABG Base Excess 5 H VBG pH VBG pCO2 VBG pO2 VBG Base Excess Quality Measures Quality Measures none Assessment & Plan Assessment Current Active Medications: Generic Name Dose Route Start Last Admin Trade Name Freq PRN Reason Stop Dose Admin Enoxaparin Sodium 40 mg 07/16/24 09:00 07/17/24 08:38 Enoxaparin Sod Inj 40 Mg/0.4 Ml Syringe SC 07/30/24 08:59 40 mg QDAY MARILYNN Administration Pantoprazole Sodium 40 mg 07/16/24 17:30 07/17/24 08:37 Pantoprazole Inj 40 Mg Vial IV 08/15/24 17:29 40 mg QDAY MARILYNN Administration Plan 54-year-old male with past medical history of chron's disease, left lower extremity DVT, depression, hydronephrosis s/p ureteral stent, and polysubstance use on suboxone was admitted to the ICU on 07/16/2024 after intentional TCA overdose. 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 Extubated and off sedation on 07/17/2024 Patient AO x 2 to say CVS: #Prolonged QRS, resolved Patient's QRS initially was 116 This was most likely due to amitriptyline overdose Patient was started on sodium bicarb pushes as well as bicarb drip afterwards. Morning EKG today showed QRS of 87 No need for further serial EKGs Monitor and replete electrolytes as necessary #Hypertension Patient was hypotensive in the ED, but afterwards became normotensive. Will continue to monitor for now and will not start any antihypertensive medication for now. Respiratory: #Mechanically ventilated Extubated 07/17/2024 Renal: #Hypokalemia, resolved Patient's potassium was 3.5 today Will continue to replete as necessary #Hypocalcemia Calcium 8.2 Gave 1 g of IV calcium today GI: #Foreign body in rectum, resolved Abdominal x-ray showed foreign body in the pelvis These foreign bodies appear to be pill bottles GI was consulted for flexible sigmoidoscopy GI was able to successfully remove patient's pill bottles last night by flexible sigmoidoscopy #Hx of Crohn's disease Stable Heme: #Normocytic normochromic anemia Hemoglobin today 11.9 Psych: #Psychosis #TCA overdose #Intentional drug overdose #Suicidal attempt #Hx of depression Patient was previously in the ER before being admitted to the ICU and he was cleared by mental [facility]. Patient was found to have ingested around 90 pills of amitriptyline Patient does have a history of depression and polysubstance use Patient currently sedated and mechanically ventilated Poison control is following the case and initially gave 50 g of activated charcoal Off sedation and AO x 3 One-to-one sitter Started patient's suboxone Will discuss with patient's primary care physician about the need of chronic pain medication and amitriptyline. Hospital Maintenance: Diet: Regular DVT ppx: heparin GI ppx: Pantoprazole IV lines: PIV Dumont: suprapubic Code status: Full Dispo: Downgrade to medical floors Case disclosed with Attending Dr. Mona Tsai PGY1 Attending Provider Attestation/Addendum Patient seen and examined with above resident, Galen Tsai MD. I agree with the findings, assessment, and plan of care as documented except for any differences below. Patient with significant improvement in mentation. He is also status post flexible sigmoidoscopy with removal of multiple pill bottles. Vitals suggest the presence of Dilaudid and another unknown pill which is still being investigated by our pharmacy for identification. Patient's mentation has returned back to baseline during spontaneous awake trial and he tolerated SBT well with RSBI less than 50. Patient successfully weaned off mechanical ventilation back to nasal cannula. Patient remains on close monitoring with sitter secondary to likely suicide attempt. Patient remains hemodynamically stable. No need for IV antibiotics. Patient with normalization of QRS and now that he is post removal of bottles, sodium bicarbonate drip was stopped overnight. Patient remained stable for transfer to medicine feng for ongoing management awaiting clearance from psych/crisis team. I did agree with resumption of his home Suboxone. Will hold off on any additional agents at this time. We will contact his primary care providers given his frequent need for opiates and Suboxone so that they are aware of his potential suicide attempt. Total critical care time: I personally spent 30 minutes for review of physiologic parameters, directing plan of care throughout the day, coordination of care with other subspecialists, and counseling patient at bedside. This is exclusive of time spent teaching housestaff performing any separate billable procedures. Patient continued require critical care services for acute hypoxic respiratory failure and TCA overdose. He remains at significant risk for further morbidity and mortality warranting close monitoring and care only available in the intensive care unit.
--- NOTE | 2024-07-17 14:39 | ESPR_ITS ---
Documentation for date of: 07/17/24 Subjective Subjective Interval history: Patient was downgraded from ICU today. Signout received by Dr. Viramontes. Patient was examined at bedside. Denies any major complaints. Alert and oriented x 3. Voice is barely audible. He was extubated today. Last night GI did a flexible sigmoidoscopy and removed the 2 bottles of pills successfully. Patient's Suboxone was resumed. He will undergo crisis evaluation due to the suicide attempt. Labs reviewed showing leukocytosis 13, platelets 121. Will continue to closely monitor. Exam Vital Signs Temp Pulse Resp BP Pulse Ox O2 Del Method FiO2 97.1 F 95 19 141/99 H 94 L Mechanical Ventilation 40 07/17/24 12:00 07/17/24 12:00 07/17/24 12:00 07/17/24 12:00 07/17/24 12:00 07/17/24 06:00 07/17/24 07:57 Narrative Exam General: Middle aged male, unkempt, thin, No acute distress, cooperative HEENT: NCAT, No JVD noted. Mucosa moist. Pupils are equal and reactive to light bilaterally Cardiovascular: Normal S1 and S2. Regular rate and rhythm. Respiratory: Lungs are clear to auscultation bilaterally. No wheezing or crackles heard. Abdomen: Soft, nontender, not distended, normal bowel sounds. Skin: Warm to touch, dry, no rashes noted Musculoskeletal: No gross injuries. Able to move all 4 extremities. No pitting edema Neuro: Alert and oriented x3. No focal neuro deficits. Psych: Slowed speech, avoidant, flat affect Objective Labs 07/18/24 04:27 07/18/24 04:27 Labs: Laboratory Results - last 24 hr 07/16/24 07/16/24 07/16/24 16:11 20:43 20:45 WBC RBC Hgb Hct MCV MCH MCHC RDW Std Deviation Plt Count Neut % (Auto) Lymph % (Auto) [place] % (Auto) Eos % (Auto) Baso % (Auto) Neut # (Auto) Lymph # (Auto) [place] # (Auto) Eos # (Auto) Baso # (Auto) Immature Gran # (Auto) Absolute Nucleated RBC Immature Gran % Nucleated RBC % Puncture Site ABG pH ABG pCO2 ABG pO2 ABG HCO3 ABG O2 Saturation ABG Base Excess VBG pH 7.53 7.41 VBG pCO2 34 L 47 D VBG pO2 121 H 56 D VBG O2 Sat (Ash[place]) 100 H 89 L D VBG Base Excess 6 H 5 H FiO2 Sodium 146 H Potassium 4.1 D 4.0 Chloride 111 H Carbon Dioxide 20.0 Anion Gap 15 BUN 5 L Creatinine 0.7 Estim Creat Clear Calc 91.1 eGFR > 60 BUN/Creatinine Ratio 7 L Glucose 91 Calculated Osmolality 287 Calcium 9.0 Corrected Calcium 9.3 Magnesium 1.7 1.6 Total Bilirubin 0.6 AST 36 H ALT 21 Alkaline Phosphatase 71 Total Protein 5.9 Albumin 3.6 Globulin 2.3 Albumin/Globulin Ratio 1.6 07/17/24 07/17/24 04:20 04:43 WBC 13.2 H D RBC 3.83 L Hgb 11.9 L Hct 36.3 L MCV 95 MCH 31.1 MCHC 32.8 RDW Std Deviation 50.3 H Plt Count 121 L Neut % (Auto) 90 H Lymph % (Auto) 4 L [place] % (Auto) 5 Eos % (Auto) 0 Baso % (Auto) 0 Neut # (Auto) 11.8 H Lymph # (Auto) 0.6 L [place] # (Auto) 0.6 Eos # (Auto) 0.1 Baso # (Auto) 0.0 Immature Gran # (Auto) 0.08 H Absolute Nucleated RBC 0.00 Immature Gran % 1 H Nucleated RBC % 0 Puncture Site Site Not Noted ABG pH 7.44 ABG pCO2 44 ABG pO2 92 D ABG HCO3 29 H ABG O2 Saturation 98 ABG Base Excess 5 H VBG pH VBG pCO2 VBG pO2 VBG O2 Sat (Ashly) VBG Base Excess FiO2 40 Sodium 142 Potassium 3.5 D Chloride 105 Carbon Dioxide 28.4 Anion Gap 9 BUN 6 L Creatinine 0.7 Estim Creat Clear Calc 92.3 eGFR > 60 BUN/Creatinine Ratio 9 L Glucose 84 Calculated Osmolality 279 Calcium 8.2 L Corrected Calcium Magnesium 1.6 Total Bilirubin AST ALT Alkaline Phosphatase Total Protein Albumin Globulin Albumin/Globulin Ratio ABG Interpretation ABG results: 07/15/24 07/15/24 07/16/24 21:39 23:30 04:22 ABG pH 7.33 L 7.43 D 7.43 ABG pCO2 50 H 45 47 ABG pO2 558 H 336 H D 48 L* D ABG HCO3 26 30 H 32 H ABG O2 Saturation 101 H 101 H 86 L ABG Base Excess -1 5 H 6 H VBG pH VBG pCO2 VBG pO2 VBG Base Excess 07/16/24 07/16/24 07/16/24 07:00 16:11 20:45 ABG pH 7.47 H ABG pCO2 41 ABG pO2 120 H D ABG HCO3 30 H ABG O2 Saturation 100 H ABG Base Excess 6 H VBG pH 7.53 7.41 VBG pCO2 34 L 47 D VBG pO2 121 H 56 D VBG Base Excess 6 H 5 H 07/17/24 04:20 ABG pH 7.44 ABG pCO2 44 ABG pO2 92 D ABG HCO3 29 H ABG O2 Saturation 98 ABG Base Excess 5 H VBG pH VBG pCO2 VBG pO2 VBG Base Excess Quality Measures Quality Measures none Assessment & Plan Assessment Current Active Medications: Generic Name Dose Route Start Last Admin Trade Name Freq PRN Reason Stop Dose Admin Enoxaparin Sodium 40 mg 07/16/24 09:00 07/17/24 08:38 Enoxaparin Sod Inj 40 Mg/0.4 Ml Syringe SC 07/30/24 08:59 40 mg QDAY MARILYNN Administration Pantoprazole Sodium 40 mg 07/16/24 17:30 07/17/24 08:37 Pantoprazole Inj 40 Mg Vial IV 08/15/24 17:29 40 mg QDAY MARILYNN Administration Plan 54-year-old male with past medical history of chron's disease, left lower extremity DVT, depression, hydronephrosis s/p ureteral stent, and polysubstance use on suboxone was admitted to the ICU on 07/16/2024 after intentional TCA overdose. He was extubated on 07/17 and downgraded to floors. #TCA overdose #Suicide attempt #Hx of depression #Polysubstance drug abuse Patient was admitted overnight on 07/16/2024 after he had taken around 90 pills of amitriptyline. Debated on 07/16. Was given charcoal and sodium bicarb. Extubated on 07/17/2024 Per chart review, patient has been prescribed 8 mg of hydromorphone for unknown reason ?Crisis evaluation ? One-on-one sitter ?Resumed Suboxone BID ?Avoid any other opioids at this time ?Contact PCP for additional information on patient's history ?Patient is not able to leave AMA #Hx of Crohn's disease #Normocytic normochromic anemia #Acute encephalopathy #Prolonged QRS, resolved #Hypokalemia, resolved #Hypocalcemia #Foreign body in rectum, resolved Hospital Maintenance: Diet: Regular DVT ppx: heparin GI ppx: none indicated IV lines: PIV Code status: Full Dispo: Downgrade to medical floors, suicide attempt The patient's management plan was discussed with my attending physician Dr. Hedrick. Sakina Kothari, PGY-1 Attending Provider Attestation/Addendum I reviewed labs, imaging, EKG, home medications and prior available records. Face to face evaluation was performed by me. I have personally examined the patient and discussed assessment and plan with the IM team. I reviewed the resident note and agree with the plan with exceptions as below. TCA overdose Acute encephalopathy Acute hypoxic respiratory failure Suicidal ideation Foreign body in anus Thrombocytopenia Depression with anxiety Methamphetamine abuse Opiate abuse History of chron's disease History of DVT S/p extubation. He was downgraded from the ICU Status post active charcoal and sodium bicarbonate Subsequent EKG showed normal sinus rhythm with no pertinent changes Monitor WBC and platelet level Resume home Suboxone Xanax as needed for withdrawal symptoms/anxiety Crisis team evaluation after medical stability
--- NOTE | 2024-07-17 15:16 | PC.SS ---
Patient has been downgraded to Med/Surg. Patient will require crisis evaluation upon medical clearance.
[2024-07-17] MEDS: ALPRazoLAM 0.25 MG TABLET PO (18:29)
--- NOTE | 2024-07-17 22:27 | PD.IMPROG ---
Documentation for date of: 07/17/24 Subjective Subjective Interval history: Patient doing better after removal of the foreign body from the rectum Exam Vital Signs Temp Pulse Resp BP Pulse Ox O2 Del Method FiO2 97.1 F 90 20 150/92 H 96 Mechanical Ventilation 40 07/17/24 12:00 07/17/24 20:00 07/17/24 15:00 07/17/24 15:00 07/17/24 15:00 07/17/24 06:00 07/17/24 07:57 Objective Labs 07/17/24 04:43 07/17/24 04:43 Labs: Laboratory Results - last 24 hr 07/16/24 07/17/24 07/17/24 20:43 04:20 04:43 WBC 13.2 H D RBC 3.83 L Hgb 11.9 L Hct 36.3 L MCV 95 MCH 31.1 MCHC 32.8 RDW Std Deviation 50.3 H Plt Count 121 L Neut % (Auto) 90 H Lymph % (Auto) 4 L [place] % (Auto) 5 Eos % (Auto) 0 Baso % (Auto) 0 Neut # (Auto) 11.8 H Lymph # (Auto) 0.6 L [place] # (Auto) 0.6 Eos # (Auto) 0.1 Baso # (Auto) 0.0 Immature Gran # (Auto) 0.08 H Absolute Nucleated RBC 0.00 Immature Gran % 1 H Nucleated RBC % 0 Puncture Site Site Not Noted ABG pH 7.44 ABG pCO2 44 ABG pO2 92 D ABG HCO3 29 H ABG O2 Saturation 98 ABG Base Excess 5 H FiO2 40 Sodium 146 H 142 Potassium 4.0 3.5 D Chloride 111 H 105 Carbon Dioxide 20.0 28.4 Anion Gap 15 9 BUN 5 L 6 L Creatinine 0.7 0.7 Estim Creat Clear Calc 91.1 92.3 eGFR > 60 > 60 BUN/Creatinine Ratio 7 L 9 L Glucose 91 84 Calculated Osmolality 287 279 Calcium 9.0 8.2 L Corrected Calcium 9.3 Magnesium 1.6 Total Bilirubin 0.6 AST 36 H ALT 21 Alkaline Phosphatase 71 Total Protein 5.9 Albumin 3.6 Globulin 2.3 Albumin/Globulin Ratio 1.6 Impressions Impression: Status post removal of the foreign body from the rectum 2 large bottles of medication endoscopically taken out Continue present management ABG Interpretation ABG results: 0407/15/24 07/16/24 21:39 23:30 04:22 ABG pH 7.33 L 7.43 D 7.43 ABG pCO2 50 H 45 47 ABG pO2 558 H 336 H D 48 L* D ABG HCO3 26 30 H 32 H ABG O2 Saturation 101 H 101 H 86 L ABG Base Excess -1 5 H 6 H VBG pH VBG pCO2 VBG pO2 VBG Base Excess 07/16/24 07/16/24 07/16/24 07:00 16:11 20:45 ABG pH 7.47 H ABG pCO2 41 ABG pO2 120 H D ABG HCO3 30 H ABG O2 Saturation 100 H ABG Base Excess 6 H VBG pH 7.53 7.41 VBG pCO2 34 L 47 D VBG pO2 121 H 56 D VBG Base Excess 6 H 5 H 07/17/24 04:20 ABG pH 7.44 ABG pCO2 44 ABG pO2 92 D ABG HCO3 29 H ABG O2 Saturation 98 ABG Base Excess 5 H VBG pH VBG pCO2 VBG pO2 VBG Base Excess Assessment & Plan Time Spent With Patient Time: Total time spent is greater than 50% in coordination of care (as documented) at patient's floor/unit and/or counseling patient:
[2024-07-18] VITALS (9 sets, daily range): BP systolic 96–136; BP diastolic 63–85; PULSE 84–94; RESP 16–18; TEMP 36.6–37; O2SAT 91–96; BMI 18.9; BMI 13.0
[2024-07-18 05:24] LABS: Basophils % (Auto) 0 % (0-2.5); Eosinophils # (Auto) 0.2 Thou/mm3 (0.0-0.5); Eosinophils % (Auto) 2 % (0-10); Hematocrit 32.4 % (41.0-53.0); Immature Granulocytes % (Auto) 1 % (0-0); Immature Granulocytes Auto 0.08 Thou/mm3 (0.00-0.00); Lymphocytes # (Auto) 0.8 Thou/mm3 (1.0-4.8); Lymphocytes % (Auto) 6 % (10-50); Mean Corpuscular Hemoglobin 31.1 pg (25.0-35.0); Mean Corpuscular Volume 92 fL (80-100); Monocytes # (Auto) 0.6 Thou/mm3 (0.0-0.8); Monocytes % (Auto) 5 % (0-12); Neutrophils # (Auto) 10.7 Thou/mm3 (1.8-7.7); Neutrophils % (Auto) 86 % (37-80); Nucleated Red Blood Cell % 0 /100 WBC (0); Platelet Count 122 Thou/mm3 (140-440); RDW Standard Deviation 47.7 fL (35.1-43.9); Red Blood Count 3.54 Miln/mm3 (4.50-5.90); White Blood Count 12.4 Thou/mm3 (3.8-10.6)
[2024-07-18 05:45] LABS: Alanine Aminotransferase 194 U/L (10-49); Albumin, Serum 3.2 gm/dL (3.5-5.0); Albumin/Globulin Ratio 1.5 (1.2-2.2); Alkaline Phosphatase 83 U/L (46-116); Anion Gap 6 (7-16); Aspartate Amino Transferase 162 U/L (0-34); BUN/Creatinine Ratio 16 Ratio (12-20); Blood Urea Nitrogen 11 mg/dL (9-23); Calcium 8.1 mg/dL (8.3-10.6); Calcium (Corrected) 8.7 mg/dL (8.5-10.1); Carbon Dioxide 28.9 mMol/L (20.0-31.0); Chloride 100 mMol/L (98-107); Creatinine (Component) 0.7 mg/dL (0.6-1.3); Estimated Creatinine Clearance 92.3 mL/min (>60); Globulin 2.1 gm/dL (2.3-3.5); Glucose 95 mg/dL (74-106); Magnesium 1.6 mg/dL (1.6-2.6); Osmolality,Calculated 269 (275-295); Sodium 135 mMol/L (136-145); Total Protein 5.3 gm/dL (5.7-8.2); eGFR > 60 See Note
[2024-07-18] MEDS: ALPRazoLAM 0.25 MG TABLET PO ×2 (06:29→20:48)
[2024-07-18] MEDS: ENOXAPARIN SOD INJ 40 MG/0.4 ML SYRINGE SC (08:31)
[2024-07-18] MEDS: PANTOPRAZOLE INJ 40 MG VIAL IV (08:38)
[2024-07-18] MEDS: PROPRANOLOL 10 MG TABLET PO (09:52)
--- NOTE | 2024-07-18 10:45 | XR_ITS ---
Examination: Abdomen sonogram, Limited Date and time of exam: July 18, 2024 1158 hrs. Indications: Elevated liver function tests on laboratory examination today Technique: Real-time herring scale transabdominal sonographic images of the upper abdomen obtained. Findings: Contracted gallbladder, no gallstones Normal gallbladder wall 0.24 cm Common bile duct enlarged 14 mm no definite stones Pancreatic head 2.1 Liver 15.5 cm lobular contour fatty infiltration no dilated hepatic veins Normal hepatopedal portal venous flow Patent IVC Impression: Negative for cholelithiasis Abnormally enlarged common bile duct measuring up to 14 mm, consider MRCP follow-up to exclude common bile duct stones and/or stricture
--- NOTE | 2024-07-18 10:46 | PD.RESPRO ---
Documentation for date of: 07/18/24 Subjective Subjective Interval history: Patient examined at bedside. No events overnight. No major complaints. Denies suicidal ideation at this time. Labs significant for transaminitis AST 162, ALT 194. Abdominal exam benign. Will order hepatitis pannel and liver u/s for evaluation. Continue to monitor. Continue 1:1 sitter, Xanax 0.25mg PRN for anxiety, crisis eval pending. Exam Vital Signs Temp Pulse Resp BP Pulse Ox O2 Del Method O2 Flow Rate 98.1 F 94 16 101/70 95 Nasal Cannula 3 07/18/24 08:00 07/18/24 09:52 07/18/24 08:00 07/18/24 09:52 07/18/24 08:00 07/18/24 08:00 07/18/24 08:00 FiO2 40 07/17/24 07:57 Narrative Exam General: Middle aged male, unkempt, thin, No acute distress, cooperative HEENT: NCAT, No JVD noted. Mucosa moist. Pupils are equal and reactive to light bilaterally Cardiovascular: Normal S1 and S2. Regular rate and rhythm. Respiratory: Lungs are clear to auscultation bilaterally. No wheezing or crackles heard. Abdomen: Soft, nontender, not distended, normal bowel sounds. Skin: Warm to touch, dry, no rashes noted Musculoskeletal: No gross injuries. Able to move all 4 extremities. No pitting edema Neuro: Alert and oriented x3. No focal neuro deficits. Psych: Slowed speech, avoidant, flat affect Objective Labs 07/18/24 04:27 07/18/24 04:27 Labs: Laboratory Results - last 24 hr 07/18/24 04:27 WBC 12.4 H RBC 3.54 L Hgb 11.0 L Hct 32.4 L MCV 92 MCH 31.1 MCHC 34.0 RDW Std Deviation 47.7 H Plt Count 122 L Neut % (Auto) 86 H Lymph % (Auto) 6 L [place] % (Auto) 5 Eos % (Auto) 2 Baso % (Auto) 0 Neut # (Auto) 10.7 H Lymph # (Auto) 0.8 L [place] # (Auto) 0.6 Eos # (Auto) 0.2 Baso # (Auto) 0.0 Immature Gran # (Auto) 0.08 H Absolute Nucleated RBC 0.00 Immature Gran % 1 H Nucleated RBC % 0 Sodium 135 L Potassium 4.0 D Chloride 100 Carbon Dioxide 28.9 Anion Gap 6 L BUN 11 Creatinine 0.7 Estim Creat Clear Calc 92.3 eGFR > 60 BUN/Creatinine Ratio 16 Glucose 95 Calculated Osmolality 269 L Calcium 8.1 L Corrected Calcium 8.7 Magnesium 1.6 Total Bilirubin 1.0 AST 162 H ALT 194 H Alkaline Phosphatase 83 Total Protein 5.3 L Albumin 3.2 L Globulin 2.1 L Albumin/Globulin Ratio 1.5 ABG Interpretation ABG results: 07/15/24 07/15/24 07/16/24 21:39 23:30 04:22 ABG pH 7.33 L 7.43 D 7.43 ABG pCO2 50 H 45 47 ABG pO2 558 H 336 H D 48 L* D ABG HCO3 26 30 H 32 H ABG O2 Saturation 101 H 101 H 86 L ABG Base Excess -1 5 H 6 H VBG pH VBG pCO2 VBG pO2 VBG Base Excess 07/16/24 07/16/24 07/16/24 07:00 16:11 20:45 ABG pH 7.47 H ABG pCO2 41 ABG pO2 120 H D ABG HCO3 30 H ABG O2 Saturation 100 H ABG Base Excess 6 H VBG pH 7.53 7.41 VBG pCO2 34 L 47 D VBG pO2 121 H 56 D VBG Base Excess 6 H 5 H 07/17/24 04:20 ABG pH 7.44 ABG pCO2 44 ABG pO2 92 D ABG HCO3 29 H ABG O2 Saturation 98 ABG Base Excess 5 H VBG pH VBG pCO2 VBG pO2 VBG Base Excess Quality Measures Quality Measures none Assessment & Plan Assessment Current Active Medications: Generic Name Dose Route Start Last Admin Trade Name Freq PRN Reason Stop Dose Admin Alprazolam 0.25 mg 07/17/24 18:11 07/18/24 06:29 Alprazolam 0.25 Mg Tablet PO 07/22/24 20:59 0.25 mg BID PRN Administration anxiety or agitation Buprenorphine- 0 ea 07/17/24 21:00 07/18/24 08:31 Naloxone 8-2 Mg Film SL 08/16/24 20:59 1 film BID MARILYNN Administration Enoxaparin Sodium 40 mg 07/16/24 09:00 07/18/24 08:31 Enoxaparin Sod Inj 40 Mg/0.4 Ml Syringe SC 07/30/24 08:59 40 mg QDAY AMRILYNN Administration Pantoprazole Sodium 40 mg 07/16/24 17:30 07/18/24 08:38 Pantoprazole Inj 40 Mg Vial IV 08/15/24 17:29 40 mg QDAY MARILYNN Administration Propranolol HCl 10 mg 07/18/24 09:15 07/18/24 09:52 Propranolol 10 Mg Tablet PO 08/17/24 09:14 10 mg DAILY MARILYNN Administration Plan 54-year-old male with past medical history of chron's disease, left lower extremity DVT, depression, hydronephrosis s/p ureteral stent, and polysubstance use on suboxone was admitted to the ICU on 07/16/2024 after intentional TCA overdose. He was extubated on 07/17 and downgraded to floors. #TCA overdose #Suicide attempt #Hx of depression #Polysubstance drug abuse Patient was admitted overnight on 07/16/2024 after he had taken around 90 pills of amitriptyline. Debated on 07/16. Was given charcoal and sodium bicarb. Extubated on 07/17/2024 Per chart review, patient has been prescribed 8 mg of hydromorphone for unknown reason ?Crisis evaluation ? One-on-one sitter ?Resumed Suboxone BID ?Avoid any other opioids at this time ?Contact PCP for additional information on patient's history ?Patient is not able to leave AMA #Hx of Crohn's disease #Normocytic normochromic anemia #Acute encephalopathy #Prolonged QRS, resolved #Hypokalemia, resolved #Hypocalcemia #Foreign body in rectum, resolved Hospital Maintenance: Diet: Regular, vegetarian DVT ppx: heparin GI ppx: none indicated IV lines: PIV Code status: Full Dispo: Downgrade to medical floors, suicide attempt, hep panne/liver us pending The patient's management plan was discussed with my attending physician Dr. Hedrick. Sakina Kothari, PGY-1 Attending Provider Attestation/Addendum I reviewed labs, imaging, EKG, home medications and prior available records. Face to face evaluation was performed by me. I have personally examined the patient and discussed assessment and plan with the IM team. I reviewed the resident note and agree with the plan with exceptions as below. TCA overdose Acute encephalopathy, resolved Acute hypoxic respiratory failure, resolved Suicidal ideation Foreign body in anus Thrombocytopenia Depression with anxiety Methamphetamine abuse Opiate abuse History of chron's disease History of DVT Transaminitis, new complication Patient was extubated and downgraded from ICU Status post active charcoal and sodium bicarbonate Subsequent EKG showed normal sinus rhythm with no pertinent changes Monitor WBC and platelet level Resume home Suboxone Xanax as needed for withdrawal symptoms/anxiety as a short-term therapy only Counseled the patient regarding the importance of avoiding illicit drug use Ordered hepatitis panel and liver ultrasound Crisis team evaluation after medical stability
[2024-07-18 11:48] LABS: Hepatitis A Antibody IgM Non Reactive (Non React); Hepatitis B Core Antibody IgM Non Reactive (Non React); Hepatitis B Surface Antigen Non Reactive (Non React); Hepatitis C Antibody Non Reactive (Non React)
[2024-07-18] MEDS: ACETAMINOPHEN 325 MG TABLET PO (13:43)
--- NOTE | 2024-07-18 15:13 | PC.SS ---
Addendum entered by TIO Medeiros 07/18/24 15:46: Attempted contact with patient's , Alanna Uribe , she was unavailable and voicemail box was full. Patient currently sleeping at this time with 1:1 sitter present. Original Note: Rounding note: hep panne/liver us pending, patient experiencing withdrawal symptoms. Patient to be evaluated upon medical clearance.
--- NOTE | 2024-07-18 17:35 | PC.SS ---
ASW met with patient and patient's , Alanna at bed side to discuss what transpired after patient discharged from the hospital Monday as a safety plan had been established with mental health resources and support. Patient informed his perspective on the situation and stated he felt he was being arrested by [employer] and to be taken to group home for methamphetamine use. Per patient, he believes he was in a state of psychosis once he returned back home. Patient informs he ingested that many pills and the pill bottles in his rectum because he feared to be withdrawn away from his antidepressant medications in group home if arrested. Patient was asked if his intention was to end his life by displaying this behavior and he stated he was unsure and that his recollection of the event was poor. Today, the patient is denying being suicidal or feeling any kind of suicidal ideation. During this encounter, the patient appeared to be alert and oriented to self, place and situation. Patient was able to make proper eye contact and properly engaged during discussion. The patient did not appear to be responding to stimuli during this contact. Patient appeared to be well rested and observed to be eating an ice cream sandwich. Patient's , Alanna then shared her perspective of the situation and informed that the patient had ingested multiple pills on Monday evening and later told her you better call the hospital . Alanna shares the patient then disclosed he took multiple pills and laid on the floor, she then reported she contacted EMS and patient was brought into the the Emergency Department. Alanna states that she was in the living room of their home when this happened, she denies that the patient was left alone. Per Alanna, prior to patient's ingestion of pills, their grandson, Rasheed of 22-23yrs of age had come by their home and Rasheed and the patient had an argument about patient's guitar instrument being found to be scratched upon his return to the home. Alanna states some heated words were said between them, however no physical aggression involved. Alanna states Rasheed and the patient talked and resolved the issue and Rasheed left their home shortly after. Per Alanna she believes this incident had caused some stress to the patient as he had just been released from the hospital. Alanna also states the patient began to believe he was going to be arrested for methamphetamine use, which is unclear why he believed that to be true to her. Patient and patient's Alanna were both explained that upon medical clearance, the patient would be re-evaluated for a crisis mental health evaluation to determine a disposition plan that could lead to a psychiatric hold vs safety plan. Both parties verbalized understanding and did not have any further questions at this time.
--- NOTE | 2024-07-18 19:58 | PD.IMPROG ---
Documentation for date of: 07/18/24 Subjective Subjective Interval history: Patient evaluated hemoglobin hematocrit 11.0 32.4 and WBC count of 12.4 and a platelet count of 122,000 Exam Vital Signs Temp Pulse Resp BP Pulse Ox O2 Del Method O2 Flow Rate 98.6 F 84 17 105/65 93 L Nasal Cannula 1 07/18/24 16:00 07/18/24 16:00 07/18/24 16:00 07/18/24 16:00 07/18/24 16:00 07/18/24 16:00 07/18/24 16:00 FiO2 40 07/18/24 12:00 Objective Labs 07/18/24 04:27 07/18/24 04:27 Labs: Laboratory Results - last 24 hr 07/18/24 04:27 WBC 12.4 H RBC 3.54 L Hgb 11.0 L Hct 32.4 L MCV 92 MCH 31.1 MCHC 34.0 RDW Std Deviation 47.7 H Plt Count 122 L Neut % (Auto) 86 H Lymph % (Auto) 6 L [place] % (Auto) 5 Eos % (Auto) 2 Baso % (Auto) 0 Neut # (Auto) 10.7 H Lymph # (Auto) 0.8 L [place] # (Auto) 0.6 Eos # (Auto) 0.2 Baso # (Auto) 0.0 Immature Gran # (Auto) 0.08 H Absolute Nucleated RBC 0.00 Immature Gran % 1 H Nucleated RBC % 0 Sodium 135 L Potassium 4.0 D Chloride 100 Carbon Dioxide 28.9 Anion Gap 6 L BUN 11 Creatinine 0.7 Estim Creat Clear Calc 92.3 eGFR > 60 BUN/Creatinine Ratio 16 Glucose 95 Calculated Osmolality 269 L Calcium 8.1 L Corrected Calcium 8.7 Magnesium 1.6 Total Bilirubin 1.0 AST 162 H ALT 194 H Alkaline Phosphatase 83 Total Protein 5.3 L Albumin 3.2 L Globulin 2.1 L Albumin/Globulin Ratio 1.5 Hepatitis A IgM Ab Non Reactive Hep Bs Antigen Non Reactive Hep B Core IgM Ab Non Reactive Hepatitis C Antibody Non Reactive Impressions Impression: Status post removal of the foreign body rectum Mild transaminitis Most likely will resolve Hepatitis panel ordered by the internal medicine team I will wait for the results ABG Interpretation ABG results: 07/15/24 07/15/24 07/16/24 21:39 23:30 04:22 ABG pH 7.33 L 7.43 D 7.43 ABG pCO2 50 H 45 47 ABG pO2 558 H 336 H D 48 L* D ABG HCO3 26 30 H 32 H ABG O2 Saturation 101 H 101 H 86 L ABG Base Excess -1 5 H 6 H VBG pH VBG pCO2 VBG pO2 VBG Base Excess 07/16/24 07/16/24 07/16/24 07:00 16:11 20:45 ABG pH 7.47 H ABG pCO2 41 ABG pO2 120 H D ABG HCO3 30 H ABG O2 Saturation 100 H ABG Base Excess 6 H VBG pH 7.53 7.41 VBG pCO2 34 L 47 D VBG pO2 121 H 56 D VBG Base Excess 6 H 5 H 07/17/24 04:20 ABG pH 7.44 ABG pCO2 44 ABG pO2 92 D ABG HCO3 29 H ABG O2 Saturation 98 ABG Base Excess 5 H VBG pH VBG pCO2 VBG pO2 VBG Base Excess Assessment & Plan Time Spent With Patient Time: Total time spent is greater than 50% in coordination of care (as documented) at patient's floor/unit and/or counseling patient:
[2024-07-19] VITALS (9 sets, daily range): BP systolic 95–116; BP diastolic 57–82; PULSE 77–108; RESP 13–17; TEMP 36.9–37.2; O2SAT 92–99; BMI 18.8; BMI 13.0
[2024-07-19 06:00] LABS: Alanine Aminotransferase 134 U/L (10-49); Albumin, Serum 3.1 gm/dL (3.5-5.0); Albumin/Globulin Ratio 1.4 (1.2-2.2); Alkaline Phosphatase 114 U/L (46-116); Anion Gap 5 (7-16); Aspartate Amino Transferase 76 U/L (0-34); BUN/Creatinine Ratio 13 Ratio (12-20); Bilirubin,Total 0.5 mg/dL (0.3-1.2); Blood Urea Nitrogen 9 mg/dL (9-23); Calcium 8.2 mg/dL (8.3-10.6); Calcium (Corrected) 8.9 mg/dL (8.5-10.1); Carbon Dioxide 30.3 mMol/L (20.0-31.0); Chloride 101 mMol/L (98-107); Creatinine (Component) 0.7 mg/dL (0.6-1.3); Estimated Creatinine Clearance 91.9 mL/min (>60); Globulin 2.2 gm/dL (2.3-3.5); Glucose 129 mg/dL (74-106); Magnesium 1.7 mg/dL (1.6-2.6); Osmolality,Calculated 272 (275-295); Potassium 3.7 mMol/L (3.4-5.1); Sodium 136 mMol/L (136-145); Total Protein 5.3 gm/dL (5.7-8.2); eGFR > 60 See Note
--- NOTE | 2024-07-19 07:47 | PC.NURSE ---
Day of pt admit, Verbal order was givenb to me by Ricardo Friend. [email or web address] img IV. Med was pulled up. Not given due to decision to Intubate. Med was waisted.
[2024-07-19] MEDS: PROPRANOLOL 10 MG TABLET PO ×2 (08:18→21:05)
[2024-07-19] MEDS: PANTOPRAZOLE INJ 40 MG VIAL IV (08:19)
[2024-07-19] MEDS: ENOXAPARIN SOD INJ 40 MG/0.4 ML SYRINGE SC (08:19)
[2024-07-19] MEDS: ALPRazoLAM 0.25 MG TABLET PO ×2 (08:23→20:57)
--- NOTE | 2024-07-19 08:35 | XR_ITS ---
MRI abdomen, without contrast. MRCP Date and time of exam: July 19, 2024 1319 hrs. Indications: Elevated transaminase on left are examination this week, with dilated common bile duct on ultrasound examination of the abdomen yesterday Technique: Multiple axial and coronal images of the abdomen have been obtained with the Siemens 1.5T MRI scanner. Images obtained included T1 weighted transverse images, T2-weighted transverse images, T2-weighted transverse images fat-suppressed, T2 weighted haste fat suppressed transverse images, T1 weighted images, in and out of phase images, T2-weighted coronal images, breath hold, T2 weighted haze coronal images as well as T2 weighted coronal thick slab images, MRCP. Findings: Hepatomegaly 17 cm, 28 mm anterior liver cyst No gallstones identified Common hepatic duct 13 mm Common bile duct 6 mm no stone in the common bile duct noted Spleen is not enlarged Mild ascites No bowel obstruction Aorta normal size No hydronephrosis Impression: Mild hepatomegaly Enlarged common hepatic duct 13 mm, no common hepatic or common bile duct stones noted No bowel obstruction No hydronephrosis Negative for splenomegaly
[2024-07-19] MEDS: BusPIRone HCL 5 MG TABLET 10 MG PO (09:34)
--- NOTE | 2024-07-19 10:39 | PC.SS ---
Follow up note: MRCP ordered. Pt will require crises evaluation at tx.
--- NOTE | 2024-07-19 14:21 | PD.ADDPROG ---
Addendum Progress Note Addendum Date of report being addended: 07/19/24 Narrative: Attending's attestation: I reviewed labs, imaging, EKG, home medications and prior available records. Face to face evaluation was performed by me. I have personally examined the patient and discussed assessment and plan with the IM team. I reviewed the resident note and agree with the plan with exceptions as below. TCA overdose Acute encephalopathy, resolved Acute hypoxic respiratory failure, resolved Suicidal ideation Foreign body in anus Thrombocytopenia Depression with anxiety Methamphetamine abuse Opiate abuse History of chron's disease History of DVT Transaminitis Patient was extubated and downgraded from ICU Status post active charcoal and sodium bicarbonate Subsequent EKG showed normal sinus rhythm with no pertinent changes Monitor WBC and platelet level: Stable Resume home Suboxone Started the patient on escitalopram for his anxiety/depression. He mentioned that his home buspirone is not working Counseled the patient regarding the importance of avoiding illicit drug use, including long-term benzodiazepines Ordered hepatitis panel and liver ultrasound: Hepatitis panel is negative. Ultrasound showed possible common bile duct dilation. Ordered MRCP LFTs are downtrending Crisis team evaluation after medical stability
--- NOTE | 2024-07-19 14:34 | PD.RESPRO ---
Documentation for date of: 07/19/24 Subjective Subjective Interval history: Liver enzymes downtrending. Patient underwent MRCP as there was concern for common bile duct obstruction, results showed hepatic duct 13 mm, common bile duct 6 mm, no common hepatic or common bile duct stones. Patient started on citalopram 10 mg daily and home med propranolol 10 mg 3 times daily restarted. Patient will need crisis clearance prior to discharge to home with home health. Exam Vital Signs Temp Pulse Resp BP Pulse Ox O2 Del Method O2 Flow Rate 98.5 F 85 16 102/72 92 L Nasal Cannula 3 07/19/24 12:08 07/19/24 12:08 07/19/24 12:08 07/19/24 12:08 07/19/24 12:08 07/19/24 12:07/19/24 12:08 FiO2 40 07/18/24 12:00 Narrative Exam General: Middle aged male, unkempt, thin, No acute distress, cooperative HEENT: NCAT, No JVD noted. Mucosa moist. Pupils are equal and reactive to light bilaterally Cardiovascular: Normal S1 and S2. Regular rate and rhythm. Respiratory: Lungs are clear to auscultation bilaterally. No wheezing or crackles heard. Abdomen: Soft, nontender, not distended, normal bowel sounds. Skin: Warm to touch, dry, no rashes noted Musculoskeletal: No gross injuries. Able to move all 4 extremities. No pitting edema Neuro: Alert and oriented x3. No focal neuro deficits. Psych: Slowed speech, avoidant, flat affect Objective Labs 07/20/24 04:50 07/20/24 04:50 Labs: Laboratory Results - last 24 hr 07/19/24 04:45 Sodium 136 Potassium 3.7 Chloride 101 Carbon Dioxide 30.3 Anion Gap 5 L BUN 9 Creatinine 0.7 Estim Creat Clear Calc 91.9 eGFR > 60 BUN/Creatinine Ratio 13 Glucose 129 H Calculated Osmolality 272 L Calcium 8.2 L Corrected Calcium 8.9 Magnesium 1.7 Total Bilirubin 0.5 D AST 76 H ALT 134 H Alkaline Phosphatase 114 D Total Protein 5.3 L Albumin 3.1 L Globulin 2.2 L Albumin/Globulin Ratio 1.4 ABG Interpretation ABG results: 07/15/24 07/15/24 07/16/24 21:39 23:30 04:22 ABG pH 7.33 L 7.43 D 7.43 ABG pCO2 50 H 45 47 ABG pO2 558 H 336 H D 48 L* D ABG HCO3 26 30 H 32 H ABG O2 Saturation 101 H 101 H 86 L ABG Base Excess -1 5 H 6 H VBG pH VBG pCO2 VBG pO2 VBG Base Excess 07/16/24 07/16/24 07/16/24 07:00 16:11 20:45 ABG pH 7.47 H ABG pCO2 41 ABG pO2 120 H D ABG HCO3 30 H ABG O2 Saturation 100 H ABG Base Excess 6 H VBG pH 7.53 7.41 VBG pCO2 34 L 47 D VBG pO2 121 H 56 D VBG Base Excess 6 H 5 H 07/17/24 04:20 ABG pH 7.44 ABG pCO2 44 ABG pO2 92 D ABG HCO3 29 H ABG O2 Saturation 98 ABG Base Excess 5 H VBG pH VBG pCO2 VBG pO2 VBG Base Excess Quality Measures Quality Measures none Assessment & Plan Assessment Current Active Medications: Generic Name Dose Route Start Last Admin Trade Name Freq PRN Reason Stop Dose Admin Alprazolam 0.25 mg 07/17/24 18:11 07/19/24 08:23 Alprazolam 0.25 Mg Tablet PO 07/22/24 20:59 0.25 mg BID PRN Administration anxiety or agitation Buprenorphine- 0 ea 07/17/24 21:00 07/19/24 08:20 Naloxone 8-2 Mg Film SL 08/16/24 20:59 1 film BID MARILYNN Administration Enoxaparin Sodium 40 mg 07/16/24 09:00 07/19/24 08:19 Enoxaparin Sod Inj 40 Mg/0.4 Ml Syringe SC 07/30/24 08:59 40 mg QDAY MARILYNN Administration Escitalopram Oxalate 10 mg 07/19/24 10:30 07/19/24 11:22 Escitalopram Oxalate 10 Mg Tablet PO 08/18/24 10:29 Not Given QDAY MARILYNN Pantoprazole Sodium 40 mg 07/16/24 17:30 07/19/24 08:19 Pantoprazole Inj 40 Mg Vial IV 08/15/24 17:29 40 mg QDAY MARILYNN Administration Propranolol HCl 10 mg 07/19/24 14:00 07/19/24 13:19 Propranolol 10 Mg Tablet PO 05/11/25 13:59 Not Given TID MARILYNN Plan 54-year-old male with past medical history of chron's disease, left lower extremity DVT, depression, hydronephrosis s/p ureteral stent, and polysubstance use on suboxone was admitted to the ICU on 07/16/2024 after intentional TCA overdose. He was extubated on 07/17 and downgraded to floors. #TCA overdose #Suicide attempt #Polysubstance drug abuse Patient was admitted overnight on 07/16/2024 after he had taken around 90 pills of amitriptyline. Debated on 07/16. Was given charcoal and sodium bicarb. Extubated on 07/17/2024 Per chart review, patient has been prescribed 8 mg of hydromorphone for unknown reason ? Pending crisis clearance ? One-on-one sitter ? Avoid any other opioids at this time #Hx of depression #Anxiety - Start Escitalopram 10 mg Qday - Start Propranolol 10 mg TID - Continue Alprazolam 0.25 mg PRN BID #Hx of Crohn's disease Currently no flare-up -Follow up outpatient #Normocytic normochromic anemia - Follow up CBC - Transfuse of HgB < 7 #Foreign body in rectum, resolved Health Maintenance Dispo: Patient admitted for TCA overdose, suicide attempt, need crisis clearance Diet: Vegeterian DVT/PPx: None GI ppx: Protonix Lines: PIV Code Status: Full Code This patient care was discussed with my attending Dr. Ryley Sanchez MD PGY-2 Disclaimer: Minor errors in marketing project manager may be present since this note was dictated by speech recognition software. Attending Provider Attestation/Addendum I reviewed labs, imaging, EKG, home medications and prior available records. Face to face evaluation was performed by me. I have personally examined the patient and discussed assessment and plan with the IM team. I reviewed the resident note and agree with the plan with exceptions as below. See my addendum for the same date of service
--- NOTE | 2024-07-19 19:41 | PD.IMPROG ---
Documentation for date of: 07/19/24 Subjective Subjective Interval history: Status post removal of the foreign body from the rectum Doing well Exam Vital Signs Temp Pulse Resp BP Pulse Ox O2 Del Method O2 Flow Rate 98.4 F 81 14 111/75 99 Nasal Cannula 3 07/19/24 16:00 07/19/24 16:00 07/19/24 16:00 07/19/24 16:00 07/19/24 16:00 07/19/24 16:00 07/19/24 16:00 FiO2 40 07/18/24 12:00 Objective Labs 07/18/24 04:27 07/19/24 04:45 Labs: Laboratory Results - last 24 hr 07/19/24 04:45 Sodium 136 Potassium 3.7 Chloride 101 Carbon Dioxide 30.3 Anion Gap 5 L BUN 9 Creatinine 0.7 Estim Creat Clear Calc 91.9 eGFR > 60 BUN/Creatinine Ratio 13 Glucose 129 H Calculated Osmolality 272 L Calcium 8.2 L Corrected Calcium 8.9 Magnesium 1.7 Total Bilirubin 0.5 D AST 76 H ALT 134 H Alkaline Phosphatase 114 D Total Protein 5.3 L Albumin 3.1 L Globulin 2.2 L Albumin/Globulin Ratio 1.4 Impressions Impression: Status post removal of a foreign body from the rectum doing well continue present management ABG Interpretation ABG results: 07/15/24 07/15/24 07/16/24 21:39 23:30 04:22 ABG pH 7.33 L 7.43 D 7.43 ABG pCO2 50 H 45 47 ABG pO2 558 H 336 H D 48 L* D ABG HCO3 26 30 H 32 H ABG O2 Saturation 101 H 101 H 86 L ABG Base Excess -1 5 H 6 H VBG pH VBG pCO2 VBG pO2 VBG Base Excess 07/16/24 07/16/24 07/16/24 07:00 16:11 20:45 ABG pH 7.47 H ABG pCO2 41 ABG pO2 120 H D ABG HCO3 30 H ABG O2 Saturation 100 H ABG Base Excess 6 H VBG pH 7.53 7.41 VBG pCO2 34 L 47 D VBG pO2 121 H 56 D VBG Base Excess 6 H 5 H 07/17/24 04:20 ABG pH 7.44 ABG pCO2 44 ABG pO2 92 D ABG HCO3 29 H ABG O2 Saturation 98 ABG Base Excess 5 H VBG pH VBG pCO2 VBG pO2 VBG Base Excess Assessment & Plan Time Spent With Patient Time: Total time spent is greater than 50% in coordination of care (as documented) at patient's floor/unit and/or counseling patient:
[2024-07-20] VITALS (9 sets, daily range): BP systolic 90–118; BP diastolic 62–75; PULSE 68–88; RESP 15–17; TEMP 36.3–36.8; O2SAT 95–98; BMI 17.8
--- NOTE | 2024-07-20 00:34 | PC.NURSE ---
pt complaining of headache, Dr. Farley was made aware. new orders for pt, see MAR.
[2024-07-20] MEDS: ACETAMINOPHEN 325 MG TABLET 650 MG PO (01:05)
[2024-07-20] MEDS: PROPRANOLOL 10 MG TABLET PO ×3 (06:01→21:14)
[2024-07-20 06:08] LABS: Basophils % (Auto) 0 % (0-2.5); Eosinophils # (Auto) 0.4 Thou/mm3 (0.0-0.5); Eosinophils % (Auto) 5 % (0-10); Hematocrit 33.5 % (41.0-53.0); Hemoglobin 10.9 g/dL (13.5-16.0); Immature Granulocytes % (Auto) 0 % (0-0); Immature Granulocytes Auto 0.02 Thou/mm3 (0.00-0.00); Lymphocytes # (Auto) 1.4 Thou/mm3 (1.0-4.8); Lymphocytes % (Auto) 18 % (10-50); Mean Corpuscular HGB Conc 32.5 g/dl (31.0-37.0); Mean Corpuscular Hemoglobin 30.4 pg (25.0-35.0); Mean Corpuscular Volume 93 fL (80-100); Monocytes # (Auto) 0.9 Thou/mm3 (0.0-0.8); Monocytes % (Auto) 11 % (0-12); Neutrophils # (Auto) 5.2 Thou/mm3 (1.8-7.7); Neutrophils % (Auto) 66 % (37-80); Nucleated Red Blood Cell % 0 /100 WBC (0); Platelet Count 145 Thou/mm3 (140-440); RDW Standard Deviation 48.2 fL (35.1-43.9); Red Blood Count 3.59 Miln/mm3 (4.50-5.90)
[2024-07-20 06:10] LABS: Alanine Aminotransferase 100 U/L (10-49); Albumin, Serum 3.1 gm/dL (3.5-5.0); Albumin/Globulin Ratio 1.4 (1.2-2.2); Alkaline Phosphatase 124 U/L (46-116); Anion Gap 6 (7-16); Aspartate Amino Transferase 42 U/L (0-34); BUN/Creatinine Ratio 10 Ratio (12-20); Bilirubin,Total 0.3 mg/dL (0.3-1.2); Blood Urea Nitrogen 6 mg/dL (9-23); Calcium 7.9 mg/dL (8.3-10.6); Calcium (Corrected) 8.6 mg/dL (8.5-10.1); Carbon Dioxide 31.7 mMol/L (20.0-31.0); Chloride 103 mMol/L (98-107); Creatinine (Component) 0.6 mg/dL (0.6-1.3); Estimated Creatinine Clearance 110.9 mL/min (>60); Globulin 2.2 gm/dL (2.3-3.5); Glucose 109 mg/dL (74-106); Magnesium 1.9 mg/dL (1.6-2.6); Osmolality,Calculated 279 (275-295); Potassium 3.5 mMol/L (3.4-5.1); Sodium 141 mMol/L (136-145); Total Protein 5.3 gm/dL (5.7-8.2); eGFR > 60 See Note
[2024-07-20] MEDS: ALPRazoLAM 0.25 MG TABLET PO ×2 (06:11→21:13)
--- NOTE | 2024-07-20 06:16 | PC.NURSE ---
angela to give xanax 0.[address] Kirk.
[2024-07-20] MEDS: ENOXAPARIN SOD INJ 40 MG/0.4 ML SYRINGE SC (08:50)
[2024-07-20] MEDS: PANTOPRAZOLE INJ 40 MG VIAL IV (08:51)
[2024-07-20] MEDS: ESCITALOPRAM OXALATE 10 MG TABLET PO (08:51)
[2024-07-20] MEDS: POTASSIUM CHLORIDE 20 mEq TABCR 40 MEQ PO (09:31)
--- NOTE | 2024-07-20 14:20 | ESDS_ITS ---
<Statement entered by Orlando Amin MD - 07/25/24 12:01> Patient seen and examined at bedside with resident. Agree with assessment and plan as dictated below. Patient cleared from medicine standpoint for discharge, however discharge held up by crisis after patient not deemed safe to return home. Currently awaiting transfer to psych facility for temporary stay and remi Verma MD Planned Discharge Date 07/20/24 DS: Providers Provider Date of admission: 07/15/24 23:48 Primary care physician: Carole Moya MD Admitting Provider: Lon Villalta MD Attending Provider on Admission: Waylon Hedrick MD Consults: 07/15/24 23:59 Consult to Gastroenterology Stat Comment: foreign body anorectal aarea. Consulting Provider: Sai Rodriguez 07/18/24 09:10 Referral Physical Therapy Routine Comment: Physician Instructions: Instructions: Suicide attempt with TCA overdose. s/p extubation, pending crisis eval Thank you Attending Provider on DC: Gopal Sanchez MD Discharging Provider: Gopal Sanchez MD DS: Diagnosis Problem List Completed Was Problem List Reviewed/Reconciled?: Yes Hospital Course Hospital Course Hospital course: Mr Wharton a 54 years old male patient with significant medical history for depression, methamphetamine use, DVT and Crohn's disease was brought in to ED on 07/18/24 for altered mental status. Per , patient ingested an bottle of amitriptyline containing about 90 pills. Poison control was contacted, patient was given activated charcoal. In ED patient became unresponsive and was subsequently intubated. EKG showed prolonged QRS and thus was given bicarb. Abdominal indicated foregin body in the anorectal region. GI Dr. Rodriguez was consulted and foreign body (2 bottles of pills) was successfully removed. Over time, patient was extubated and was stable to be transferred to regular floor. Liver enzymes improved and patient was cleared by Crisis team to be discharged home on new anxiety/depression medication. Patient was advised to follow up with PCP and psychiatrist within x1 week of hospital discharge. Discharge summary was reviewed with my attending Dr. Amin. Gopal Sanchez, PGY-2 #TCA overdose #Suicide attempt #Polysubstance drug abuse #Foreign body in rectum #Hx of depression #Anxiety #Hx of Crohn's disease Status at Discharge Overall status at discharge: patient is progressing back to baseline Time Spent with Patient Time attestation: Total time spent providing and/or coordinating discharge services: Time spent: Greater than 30 minutes Exam Vital Signs Temp Pulse Resp BP Pulse Ox O2 Del Method O2 Flow Rate 97.6 F 82 16 118/75 98 Room Air 2 07/20/24 12:00 07/20/24 14:02 07/20/24 12:00 07/20/24 14:02 07/20/24 12:00 07/20/24 12:00 07/20/24 08:00 FiO2 40 07/18/24 12:00 Narrative Exam General: Middle aged male, unkempt, thin, No acute distress, cooperative HEENT: NCAT, No JVD noted. Mucosa moist. Pupils are equal and reactive to light bilaterally Cardiovascular: Normal S1 and S2. Regular rate and rhythm. Respiratory: Lungs are clear to auscultation bilaterally. No wheezing or crackles heard. Abdomen: Soft, nontender, not distended, normal bowel sounds. Skin: Warm to touch, dry, no rashes noted Musculoskeletal: No gross injuries. Able to move all 4 extremities. No pitting edema Neuro: Alert and oriented x3. No focal neuro deficits. Discharge Plan Plan Patient Disposition: Home w/HOME HEALTH Prescriptions/Referrals Prescriptions/Med Rec: New propranolol 10 mg Tablet 10 mg PO TID 30 Days Qty: 90 1RF escitalopram oxalate 10 mg Tablet 10 mg PO QDAY 30 Days Qty: 30 2RF Continued naloxone [Narcan] 4 mg/actuation spray,non-aerosol 4 mg intranasal Q3M PRN (Reason: opioid overdose) Qty: 2 0RF Rx Instructions: spray 1 dose into ONE nostril; alternate nostrils w each dose until help arrives Marcio DVT-PE Treat 30D Start 5 mg (74 tabs) tablets,dose pack 5 mg PO BID Qty: 74 0RF Held lorazepam 2 mg capsule,extended release 24hr 2 mg PO QDAY Qty: 3 0RF Hold Instructions: Resume on 08/03/24. Discontinued lorazepam 2 mg tablet Patient Comments: 2 mg orally daily As Needed for anxiety for 5 days, Max Daily Dose: 2 tablets cefdinir 300 mg capsule 300 mg PO BID Qty: 20 0RF ciprofloxacin HCl [Cipro] 500 mg tablet 500 mg PO BID Qty: 14 0RF linezolid [Zyvox] 600 mg tablet 600 mg PO BID Qty: 14 0RF lorazepam [Ativan] 2 mg tablet 2 mg PO BID PRN (Reason: anxiety) Qty: 10 0RF Referrals: Carole Moya MD [Primary Care Provider] - Patient/Caregiver Discharge Instructions Other Discharge Activity Instructions:: See your primary care physician within x1 week of discharge See your psychiatrist within x1 week of discharge Stop home med Ativan until you see your doctor Stop taking home med Zyvox 600 mg Start new medication Escitalopram 10 mg as prescribed Start propranolol 10 mg TID as prescribed Education Materials: Addiction Recovery Counseling, ED Drug Abuse, Depression and Suicide Print Language: Maldivian Stand Alone Forms: [facility] Award Info., Patient Portal Info Letter Discharge Order Discharge Orders: Discharge (Routine); Ordered 07/20/24 Ordered By: Gopal Sanchez Quality Discharge Quality Measures VTE prophylaxis
--- NOTE | 2024-07-20 16:47 | PC.SS ---
Pt is alert and oriented to person, time, and situation. Pt is alert and able to make eye contact and answer appropriately to questions being asked. Pt was not responding to any stimuli during this contact and appeared to be well-rested. Today patient is denying being suicidal or feeling any kind of suicide ideation. Client feels that there is something physiological with his mental health stating that he has had left side swelling for some time and since the swelling the psychosis has begun. In most recent event, client states he had a few ativan pills left and he was looking for a needle as his plan was to make the ativan go into liquid form. He went out to get a needle when a marcy provided him with a baggie; client felt he heard the police and swallowed the baggie; client realized a short time later that the baggie was meth; client stated he went home and drank a cup of bleach to vomit the baggie; he vomited but it was too late as the meth had gotten into his system. It was a short time later he thought the police were coming to take him to [facility] and he grabbed the pills taking a couple of handfuls and stated ?you are not taking me alive.? Client has had negative experience with police in lockup where inmates are ?made fun of? while they are detoxing and he did not want that experience When client started to stumble around and the pills got into his system he realized he did not want to and told his to call 12-09-. Client states the reason for the S/I was he thought the ankle patch molder were there and he did not want to go back to [facility]. Client has hx of taking methadone stating it was for pain management due to kidney; he was taking methadone for about 10 years; then switched over to suboxone as this was not as addictive/wanted to lessen the dependence of methadone Client has been 5150 in previous hospitalizations believes this as about 2-3 months ago; client went to [facility] before; client recalls he was there for a few days (no more than a week); client does not feel he needs a psychiatric hospital stating he has his and dog to live for. Client states that although he does not have ativan as he was suppose to see the Dr. Ortiz on 07/18/2024 to get refills the medication; he plans to reschedule this visit Client states his is a trauma psychologist and when he was affiliated with [facility] he saw a therapist there for a few times then they ?closed out his case? telling him he does not need therapy; however he continued to see Dr. Adams from [facility] who is the psychiatrist; Dr Adams did not want to provide medications of ativan as this was being done by Dr. Ortiz When asked what would be different this time client stated that now that he has a good feeling his psychosis is affiliated with his physiological that if he feels ?panicky? about his swelling he will seek medical attention for the swelling Client is willing to seek therapy with [facility] and get reaffliated; client gave permission for SW to speak with his spouse. Spoke with Alanna Prior to client leaving house he was frustrated with feeling tired of feeling crappy; client went out of the house to look for street drugs and this was unusual for him as in the 15-years she has known him there has not been any use of substances. After he took the substances, Alanna observed client getting paranoid and he thought he was going to [facility] and felt that people were surveying him; Alanna reported this as being new as he has not had this happen before and feels it is strongly associated with the taking of the street drugs Alanna has observed pt not taking his medications correctly as he will take more for the anxiety than what is prescribed. Alanna states that she believes he is out of antidepressants and what likely contributed to the recent event
--- NOTE | 2024-07-20 16:51 | PC.SS ---
Pt is alert and oriented to person, time, and situation. Pt is alert and able to make eye contact and answer appropriately to questions being asked. Pt was not responding to any stimuli during this contact and appeared to be well-rested. Today patient is denying being suicidal or feeling any kind of suicide ideation. Client feels that there is something physiological with his mental health stating that he has had left side swelling for some time and since the swelling the psychosis has begun. In most recent event, client states he had a few ativan pills left and he was looking for a needle as his plan was to make the ativan go into liquid form. He went out to get a needle when a marcy provided him with a baggie; client felt he heard the police and swallowed the baggie; client realized a short time later that the baggie was meth; client stated he went home and drank a cup of bleach to vomit the baggie; he vomited but it was too late as the meth had gotten into his system. It was a short time later he thought the police were coming to take him to senior care and he grabbed the pills taking a couple of handfuls and stated ?you are not taking me alive.? Client has had negative experience with police in lockup where inmates are ?made fun of? while they are detoxing and he did not want that experience When client started to stumble around and the pills got into his system he realized he did not want to and told his to call 12-09-. Client states the reason for the S/I was he thought the lead material handler were there and he did not want to go back to [facility]. Client has hx of taking methadone stating it was for pain management due to kidney; he was taking methadone for about 10 years; then switched over to suboxone as this was not as addictive/wanted to lessen the dependence of methadone Client has been 5150 in previous hospitalizations believes this as about 2-3 months ago; client went to [facility] before; client recalls he was there for a few days (no more than a week); client does not feel he needs a psychiatric hospital stating he has his and dog to live for. Client states that although he does not have ativan as he was suppose to see the Dr. Ortiz on 07/18/2024 to get refills the medication; he plans to reschedule this visit Client states his is a trauma psychologist and when he was affiliated with [facility] he saw a therapist there for a few times then they ?closed out his case? telling him he does not need therapy; however he continued to see Dr. Adams from [facility] who is the psychiatrist; Dr Adams did not want to provide medications of ativan as this was being done by Dr. Ortiz When asked what would be different this time client stated that now that he has a good feeling his psychosis is affiliated with his physiological that if he feels ?panicky? about his swelling he will seek medical attention for the swelling Client is willing to seek therapy with [facility] and get reaffliated; client gave permission for SW to speak with his spouse. Spoke with Alanna Prior to client leaving house he was frustrated with feeling tired of feeling crappy; client went out of the house to look for street drugs and this was unusual for him as in the 15-years she has known him there has not been any use of substances. After he took the substances, Alanna observed client getting paranoid and he thought he was going to senior care and felt that people were surveying him; Alanna reported this as being new as he has not had this happen before and feels it is strongly associated with the taking of the street drugs Alanna has observed pt not taking his medications correctly as he will take more for the anxiety than what is prescribed. Alanna states that she believes he is out of antidepressants and what likely contributed to the recent event
--- NOTE | 2024-07-20 17:32 | PD.IMPROG ---
Documentation for date of: 07/20/24 Subjective Subjective Interval history: Doing well post removal of the rectal foreign bodies Agree with discharge planning Exam Vital Signs Temp Pulse Resp BP Pulse Ox O2 Del Method O2 Flow Rate 98.2 F 78 17 105/67 96 Room Air 2 07/20/24 16:00 07/20/24 16:00 07/20/24 16:00 07/20/24 16:00 07/20/24 16:00 07/20/24 16:00 07/20/24 08:00 FiO2 40 07/18/24 12:00 Objective Labs 07/20/24 04:50 07/20/24 04:50 Labs: Laboratory Results - last 24 hr 07/20/24 04:50 WBC 8.0 RBC 3.59 L Hgb 10.9 L Hct 33.5 L MCV 93 MCH 30.4 MCHC 32.5 RDW Std Deviation 48.2 H Plt Count 145 Neut % (Auto) 66 Lymph % (Auto) 18 Bulloch % (Auto) 11 Eos % (Auto) 5 Baso % (Auto) 0 Neut # (Auto) 5.2 Lymph # (Auto) 1.4 Bulloch # (Auto) 0.9 H Eos # (Auto) 0.4 Baso # (Auto) 0.0 Immature Gran # (Auto) 0.02 H Absolute Nucleated RBC 0.00 Immature Gran % 0 Nucleated RBC % 0 Sodium 141 Potassium 3.5 Chloride 103 Carbon Dioxide 31.7 H Anion Gap 6 L BUN 6 L Creatinine 0.6 Estim Creat Clear Calc 110.9 eGFR > 60 BUN/Creatinine Ratio 10 L Glucose 109 H Calculated Osmolality 279 Calcium 7.9 L Corrected Calcium 8.6 Magnesium 1.9 Total Bilirubin 0.3 AST 42 H ALT 100 H Alkaline Phosphatase 124 H Total Protein 5.3 L Albumin 3.1 L Globulin 2.2 L Albumin/Globulin Ratio 1.4 Impressions Impression: Status post removal of the 2 large medicine bottles endoscopically from the rectum doing well agree with discharge planning ABG Interpretation ABG results: 07/15/24 07/15/24 07/16/24 21:39 23:30 04:22 ABG pH 7.33 L 7.43 D 7.43 ABG pCO2 50 H 45 47 ABG pO2 558 H 336 H D 48 L* D ABG HCO3 26 30 H 32 H ABG O2 Saturation 101 H 101 H 86 L ABG Base Excess -1 5 H 6 H VBG pH VBG pCO2 VBG pO2 VBG Base Excess 07/16/24 07/16/24 07/16/24 07:00 16:11 20:45 ABG pH 7.47 H ABG pCO2 41 ABG pO2 120 H D ABG HCO3 30 H ABG O2 Saturation 100 H ABG Base Excess 6 H VBG pH 7.53 7.41 VBG pCO2 34 L 47 D VBG pO2 121 H 56 D VBG Base Excess 6 H 5 H 07/17/24 04:20 ABG pH 7.44 ABG pCO2 44 ABG pO2 92 D ABG HCO3 29 H ABG O2 Saturation 98 ABG Base Excess 5 H VBG pH VBG pCO2 VBG pO2 VBG Base Excess Assessment & Plan Time Spent With Patient Time: Total time spent is greater than 50% in coordination of care (as documented) at patient's floor/unit and/or counseling patient:
--- NOTE | 2024-07-20 19:52 | PC.NURSE ---
Dr. Allred was made aware about the bladder scan results from day shift RN, suggested to do in-an-out cath but pt refused and sated that he wants to wait an see if he can pee on his own. aware and okay with pt's decision.
[2024-07-21] VITALS (9 sets, daily range): BP systolic 95–131; BP diastolic 62–88; PULSE 70–86; RESP 10–18; TEMP 36.2–36.7; O2SAT 94–97; BMI 17.8
[2024-07-21] MEDS: PROPRANOLOL 10 MG TABLET PO ×3 (05:27→22:06)
[2024-07-21 06:11] LABS: Basophils % (Auto) 0 % (0-2.5); Eosinophils # (Auto) 0.3 Thou/mm3 (0.0-0.5); Eosinophils % (Auto) 5 % (0-10); Hematocrit 34.6 % (41.0-53.0); Hemoglobin 11.2 g/dL (13.5-16.0); Immature Granulocytes % (Auto) 0 % (0-0); Immature Granulocytes Auto 0.02 Thou/mm3 (0.00-0.00); Lymphocytes # (Auto) 1.8 Thou/mm3 (1.0-4.8); Lymphocytes % (Auto) 25 % (10-50); Mean Corpuscular HGB Conc 32.4 g/dl (31.0-37.0); Mean Corpuscular Hemoglobin 30.9 pg (25.0-35.0); Mean Corpuscular Volume 96 fL (80-100); Monocytes # (Auto) 0.8 Thou/mm3 (0.0-0.8); Monocytes % (Auto) 11 % (0-12); Neutrophils # (Auto) 4.2 Thou/mm3 (1.8-7.7); Neutrophils % (Auto) 59 % (37-80); Nucleated Red Blood Cell % 0 /100 WBC (0); Platelet Count 185 Thou/mm3 (140-440); RDW Standard Deviation 49.4 fL (35.1-43.9); Red Blood Count 3.62 Miln/mm3 (4.50-5.90); White Blood Count 7.2 Thou/mm3 (3.8-10.6)
[2024-07-21 06:39] LABS: Alanine Aminotransferase 97 U/L (10-49); Albumin, Serum 3.3 gm/dL (3.5-5.0); Albumin/Globulin Ratio 1.4 (1.2-2.2); Alkaline Phosphatase 139 U/L (46-116); Anion Gap 6 (7-16); Aspartate Amino Transferase 49 U/L (0-34); BUN/Creatinine Ratio 8 Ratio (12-20); Bilirubin,Total 0.3 mg/dL (0.3-1.2); Blood Urea Nitrogen < 5 mg/dL (9-23); Calcium 8.3 mg/dL (8.3-10.6); Calcium (Corrected) 8.9 mg/dL (8.5-10.1); Carbon Dioxide 31.5 mMol/L (20.0-31.0); Chloride 101 mMol/L (98-107); Creatinine (Component) 0.6 mg/dL (0.6-1.3); Estimated Creatinine Clearance 110.8 mL/min (>60); Globulin 2.3 gm/dL (2.3-3.5); Glucose 93 mg/dL (74-106); Magnesium 1.9 mg/dL (1.6-2.6); Osmolality,Calculated 272 (275-295); Potassium 4.3 mMol/L (3.4-5.1); Sodium 138 mMol/L (136-145); Total Protein 5.6 gm/dL (5.7-8.2); eGFR > 60 See Note
[2024-07-21] MEDS: ACETAMINOPHEN 325 MG TABLET 650 MG PO ×2 (08:01→14:27)
[2024-07-21] MEDS: ESCITALOPRAM OXALATE 10 MG TABLET PO (08:01)
[2024-07-21] MEDS: ENOXAPARIN SOD INJ 40 MG/0.4 ML SYRINGE SC (08:01)
[2024-07-21] MEDS: PANTOPRAZOLE 40 MG TABLET PO (08:01)
[2024-07-21] MEDS: ALPRazoLAM 0.25 MG TABLET PO ×2 (08:01→17:18)
--- NOTE | 2024-07-21 08:59 | PC.SS ---
Late Entry SS sent referral to LPS facilities via [facility]
--- NOTE | 2024-07-21 08:59 | PCS.ST ---
SS faxed LPS Facilities referral for pt
--- NOTE | 2024-07-21 12:10 | ESPR_ITS ---
Documentation for date of: 07/21/24 Subjective Subjective Interval history: Patient examined at bedside. No events overnight. No major complaints. Denies suicidal ideation at this time. Transaminitis improving. Abdominal exam benign. Liver u/s and MRCP negative for acute stones/blockage. Continue to monitor. Continue 1:1 sitter, Xanax 0.25mg PRN for anxiety, crisis eval pending. Possibly transfer to [facility]. Exam Vital Signs Temp Pulse Resp BP Pulse Ox O2 Del Method O2 Flow Rate 97.7 F 75 10 L 124/79 97 Room Air 2 07/21/24 08:00 07/21/24 08:00 07/21/24 08:00 07/21/24 08:00 07/21/24 08:00 07/21/24 08:00 07/20/24 08:00 FiO2 40 07/18/24 12:00 Narrative Exam General: Middle aged male, unkempt, thin, No acute distress, cooperative HEENT: NCAT, No JVD noted. Mucosa moist. Pupils are equal and reactive to light bilaterally Cardiovascular: Normal S1 and S2. Regular rate and rhythm. Respiratory: Lungs are clear to auscultation bilaterally. No wheezing or crackles heard. Abdomen: Soft, nontender, not distended, normal bowel sounds. Skin: Warm to touch, dry, no rashes noted Musculoskeletal: No gross injuries. Able to move all 4 extremities. No pitting edema Neuro: Alert and oriented x3. No focal neuro deficits. Psych: tangential speech, avoids eye contact Objective Labs 07/21/24 04:45 07/21/24 04:45 Labs: Laboratory Results - last 24 hr 07/21/24 04:45 WBC 7.2 RBC 3.62 L Hgb 11.2 L Hct 34.6 L MCV 96 MCH 30.9 MCHC 32.4 RDW Std Deviation 49.4 H Plt Count 185 D Neut % (Auto) 59 Lymph % (Auto) 25 [place] % (Auto) 11 Eos % (Auto) 5 Baso % (Auto) 0 Neut # (Auto) 4.2 Lymph # (Auto) 1.8 [place] # (Auto) 0.8 Eos # (Auto) 0.3 Baso # (Auto) 0.0 Immature Gran # (Auto) 0.02 H Absolute Nucleated RBC 0.00 Immature Gran % 0 Nucleated RBC % 0 Sodium 138 Potassium 4.3 D Chloride 101 Carbon Dioxide 31.5 H Anion Gap 6 L BUN < 5 L Creatinine 0.6 Estim Creat Clear Calc 110.8 eGFR > 60 BUN/Creatinine Ratio 8 L Glucose 93 Calculated Osmolality 272 L Calcium 8.3 Corrected Calcium 8.9 Magnesium 1.9 Total Bilirubin 0.3 AST 49 H ALT 97 H Alkaline Phosphatase 139 H Total Protein 5.6 L Albumin 3.3 L Globulin 2.3 Albumin/Globulin Ratio 1.4 ABG Interpretation ABG results: 07/15/24 07/15/24 07/16/24 21:39 23:30 04:22 ABG pH 7.33 L 7.43 D 7.43 ABG pCO2 50 H 45 47 ABG pO2 558 H 336 H D 48 L* D ABG HCO3 26 30 H 32 H ABG O2 Saturation 101 H 101 H 86 L ABG Base Excess -1 5 H 6 H VBG pH VBG pCO2 VBG pO2 VBG Base Excess 07/16/24 07/16/24 07/16/24 07:00 16:11 20:45 ABG pH 7.47 H ABG pCO2 41 ABG pO2 120 H D ABG HCO3 30 H ABG O2 Saturation 100 H ABG Base Excess 6 H VBG pH 7.53 7.41 VBG pCO2 34 L 47 D VBG pO2 121 H 56 D VBG Base Excess 6 H 5 H 07/17/24 04:20 ABG pH 7.44 ABG pCO2 44 ABG pO2 92 D ABG HCO3 29 H ABG O2 Saturation 98 ABG Base Excess 5 H VBG pH VBG pCO2 VBG pO2 VBG Base Excess Quality Measures Quality Measures VTE prophylaxis Assessment & Plan Assessment Current Active Medications: Generic Name Dose Route Start Last Admin Trade Name Navinq PRN Reason Stop Dose Admin Acetaminophen 650 mg 07/20/24 00:45 07/21/24 08:01 Acetaminophen 325 Mg Tablet PO 08/19/24 00:44 650 mg Q6HR PRN Administration Fever >101 and/or Pain 1-3 Alprazolam 0.25 mg 07/17/24 18:11 07/21/24 08:01 Alprazolam 0.25 Mg Tablet PO 07/22/24 20:59 0.25 mg BID PRN Administration anxiety or agitation Buprenorphine- 0 ea 07/17/24 21:00 07/21/24 09:15 Naloxone 8-2 Mg Film SL 08/16/24 20:59 1 film BID MARILYNN Administration Enoxaparin Sodium 40 mg 07/16/24 09:00 07/21/24 08:01 Enoxaparin Sod Inj 40 Mg/0.4 Ml Syringe SC 07/30/24 08:59 40 mg QDAY MARILYNN Administration Escitalopram Oxalate 10 mg 07/19/24 10:30 07/21/24 08:01 Escitalopram Oxalate 10 Mg Tablet PO 08/18/24 10:29 10 mg QDAY MARILYNN Administration Pantoprazole Sodium 40 mg 07/21/24 09:00 07/21/24 08:01 Pantoprazole 40 Mg Tablet PO 08/20/24 08:59 40 mg QDAY MARILYNN Administration Propranolol HCl 10 mg 07/19/24 14:00 07/21/24 05:27 Propranolol 10 Mg Tablet PO 08/18/24 13:59 10 mg TID MARILYNN Administration Plan 54-year-old male with past medical history of chron's disease, left lower extremity DVT, depression, hydronephrosis s/p ureteral stent, and polysubstance use on suboxone was admitted to the ICU on 07/16/2024 after intentional TCA overdose. He was extubated on 07/17 and downgraded to floors. #TCA overdose #Suicide attempt #Polysubstance drug abuse Patient was admitted overnight on 07/16/2024 after he had taken around 90 pills of amitriptyline. Debated on 07/16. Was given charcoal and sodium bicarb. Extubated on 07/17/2024 Per chart review, patient has been prescribed 8 mg of hydromorphone for unknown reason ? Pending crisis clearance ? One-on-one sitter ? Avoid any other opioids at this time -attempting to transfer patient to [facility] for further psych treatment -continue Suboxone BID #Transaminitis ALT, AST improving. Benign physical exam. Liver u/s 07/18/24 and MRCP 07/19/24 negative for stones/CBD obstruction but has enlarged CBD. -continue to monitor #Hx of depression #Anxiety - Start Escitalopram 10 mg Qday - Start Propranolol 10 mg TID - Continue Alprazolam 0.25 mg PRN BID #Hx of Crohn's disease Currently no flare-up -Follow up outpatient #Normocytic normochromic anemia - Follow up CBC - Transfuse of HgB < 7 #Foreign body in rectum, resolved Health Maintenance Dispo: Patient admitted for TCA overdose, suicide attempt, need crisis clearance Diet: Vegeterian DVT/PPx: None GI ppx: Protonix Lines: PIV Code Status: Full Code This patient care was discussed with my attending Dr. Ryley Kothari, PGY1
--- NOTE | 2024-07-21 13:50 | PD.IMPROG ---
Documentation for date of: 07/21/24 Subjective Subjective Interval history: Doing well status post removal of the foreign body from the rectum Exam Vital Signs Temp Pulse Resp BP Pulse Ox O2 Del Method O2 Flow Rate 97.7 F 70 10 L 124/79 97 Room Air 2 07/21/24 08:00 07/21/24 12:00 07/21/24 08:00 07/21/24 08:00 07/21/24 08:00 07/21/24 08:00 07/20/24 08:00 FiO2 40 07/18/24 12:00 Objective Labs 07/21/24 04:45 07/21/24 04:45 Labs: Laboratory Results - last 24 hr 07/21/24 04:45 WBC 7.2 RBC 3.62 L Hgb 11.2 L Hct 34.6 L MCV 96 MCH 30.9 MCHC 32.4 RDW Std Deviation 49.4 H Plt Count 185 D Neut % (Auto) 59 Lymph % (Auto) 25 [place] % (Auto) 11 Eos % (Auto) 5 Baso % (Auto) 0 Neut # (Auto) 4.2 Lymph # (Auto) 1.8 [place] # (Auto) 0.8 Eos # (Auto) 0.3 Baso # (Auto) 0.0 Immature Gran # (Auto) 0.02 H Absolute Nucleated RBC 0.00 Immature Gran % 0 Nucleated RBC % 0 Sodium 138 Potassium 4.3 D Chloride 101 Carbon Dioxide 31.5 H Anion Gap 6 L BUN < 5 L Creatinine 0.6 Estim Creat Clear Calc 110.8 eGFR > 60 BUN/Creatinine Ratio 8 L Glucose 93 Calculated Osmolality 272 L Calcium 8.3 Corrected Calcium 8.9 Magnesium 1.9 Total Bilirubin 0.3 AST 49 H ALT 97 H Alkaline Phosphatase 139 H Total Protein 5.6 L Albumin 3.3 L Globulin 2.3 Albumin/Globulin Ratio 1.4 Impressions Impression: Status post removal of the foreign body from the rectum doing well Continue current management ABG Interpretation ABG results: 07/15/24 07/15/24 07/16/24 21:39 23:30 04:22 ABG pH 7.33 L 7.43 D 7.43 ABG pCO2 50 H 45 47 ABG pO2 558 H 336 H D 48 L* D ABG HCO3 26 30 H 32 H ABG O2 Saturation 101 H 101 H 86 L ABG Base Excess -1 5 H 6 H VBG pH VBG pCO2 VBG pO2 VBG Base Excess 07/16/24 07/16/24 07/16/24 07:00 16:11 20:45 ABG pH 7.47 H ABG pCO2 41 ABG pO2 120 H D ABG HCO3 30 H ABG O2 Saturation 100 H ABG Base Excess 6 H VBG pH 7.53 7.41 VBG pCO2 34 L 47 D VBG pO2 121 H 56 D VBG Base Excess 6 H 5 H 07/17/24 04:20 ABG pH 7.44 ABG pCO2 44 ABG pO2 92 D ABG HCO3 29 H ABG O2 Saturation 98 ABG Base Excess 5 H VBG pH VBG pCO2 VBG pO2 VBG Base Excess Assessment & Plan Time Spent With Patient Time: Total time spent is greater than 50% in coordination of care (as documented) at patient's floor/unit and/or counseling patient:
--- NOTE | 2024-07-21 20:04 | PC.NURSE ---
called Dr. Roque regarding patient requesting dose of xanax as patient is feeling anxious and restless, patient received a one time dose of xanax at around 1730 this afternoon, per doctor will put in order for one time dose of xanax.
[2024-07-21] MEDS: ALPRazoLAM 0.25 MG TABLET 0.5 MG PO (20:23)
[2024-07-22] VITALS (8 sets, daily range): BP systolic 94–124; BP diastolic 59–81; PULSE 65–84; RESP 16–18; TEMP 36.1–36.9; O2SAT 91–97; BMI 17.8
[2024-07-22] MEDS: ACETAMINOPHEN 325 MG TABLET 650 MG PO (01:57)
[2024-07-22] MEDS: PROPRANOLOL 10 MG TABLET PO ×2 (06:31→13:53)
[2024-07-22] MEDS: SENNA TABLET 1 TAB PO (06:31)
[2024-07-22] MEDS: ENOXAPARIN SOD INJ 40 MG/0.4 ML SYRINGE SC (08:20)
[2024-07-22] MEDS: PANTOPRAZOLE 40 MG TABLET PO (08:21)
[2024-07-22] MEDS: ALPRazoLAM 0.25 MG TABLET PO (08:27)
--- NOTE | 2024-07-22 09:17 | PC.SS ---
Follow up note: Per physicians pt is on 5150 hold.
--- NOTE | 2024-07-22 10:15 | PC.CC ---
0918-DIESEL LOCOMOTIVE CRANE OPERATORJoao spoke with Dawna from [facility] and was told that as of now, there is no open beds. However, lyric writer was advised to fax packet as they will conduct their roundings at 1000 and will review the packet. Packet was faxed at 0940. [phone]- DIESEL LOCOMOTIVE CRANE OPERATORJoao Malloy contacted [facility] and was advised there are no open beds. Oil Lease Broker was advised to fax the packet to [facility] and they will contact lyric writer if pt will be considered. Packet faxed to [facility] at 1000.
--- NOTE | 2024-07-22 10:47 | PC.CC ---
1032-CLINICAL PROGRAM CONSULTANT Joao Bowser contacted [facility] and spoke with Jacob at Intake. Jacob informed ghost writer that she can only take my contact information and pts name at this time and another Intake provider will call this ghost writer back. As of this writing, [facility] intake has not returned the call. EOC 1040.
--- NOTE | 2024-07-22 11:04 | PD.RESPRO ---
Documentation for date of: 07/22/24 Subjective Subjective Interval history: Patient examined at bedside. No events overnight. Daily blood draws stopped. No active thoughts of suicide. Attempting to transfer patient to psych facility. Exam Vital Signs Temp Pulse Resp BP Pulse Ox O2 Del Method O2 Flow Rate 98.4 F 82 18 119/81 97 Room Air 2 07/22/24 07:56 07/22/24 08:00 07/22/24 07:56 07/22/24 07:56 07/22/24 07:56 07/22/24 07:56 07/20/24 08:00 FiO2 40 07/18/24 12:00 Narrative Exam General: Middle aged male, unkempt, thin, No acute distress, cooperative HEENT: NCAT, No JVD noted. Mucosa moist. Pupils are equal and reactive to light bilaterally Cardiovascular: Normal S1 and S2. Regular rate and rhythm. Respiratory: Lungs are clear to auscultation bilaterally. No wheezing or crackles heard. Abdomen: Soft, nontender, not distended, normal bowel sounds. Skin: Warm to touch, dry, no rashes noted Musculoskeletal: No gross injuries. Able to move all 4 extremities. No pitting edema Neuro: Alert and oriented x3. No focal neuro deficits. Psych: tangential speech, avoids eye contact Objective Labs 07/21/24 04:45 07/21/24 04:45 ABG Interpretation ABG results: 07/15/24 07/15/24 07/16/24 21:39 23:30 04:22 ABG pH 7.33 L 7.43 D 7.43 ABG pCO2 50 H 45 47 ABG pO2 558 H 336 H D 48 L* D ABG HCO3 26 30 H 32 H ABG O2 Saturation 101 H 101 H 86 L ABG Base Excess -1 5 H 6 H VBG pH VBG pCO2 VBG pO2 VBG Base Excess 07/16/24 07/16/24 07/16/24 07:00 16:11 20:45 ABG pH 7.47 H ABG pCO2 41 ABG pO2 120 H D ABG HCO3 30 H ABG O2 Saturation 100 H ABG Base Excess 6 H VBG pH 7.53 7.41 VBG pCO2 34 L 47 D VBG pO2 121 H 56 D VBG Base Excess 6 H 5 H 07/17/24 04:20 ABG pH 7.44 ABG pCO2 44 ABG pO2 92 D ABG HCO3 29 H ABG O2 Saturation 98 ABG Base Excess 5 H VBG pH VBG pCO2 VBG pO2 VBG Base Excess Quality Measures Quality Measures VTE prophylaxis Assessment & Plan Assessment Current Active Medications: Generic Name Dose Route Start Last Admin Trade Name Freq PRN Reason Stop Dose Admin Acetaminophen 650 mg 07/20/24 00:45 07/22/24 01:57 Acetaminophen 325 Mg Tablet PO 08/19/24 00:44 650 mg Q6HR PRN Administration Fever >101 and/or Pain 1-3 Alprazolam 0.25 mg 07/17/24 18:11 07/22/24 08:27 Alprazolam 0.25 Mg Tablet PO 07/22/24 20:59 0.25 mg BID PRN Administration anxiety or agitation Buprenorphine- 0 ea 07/17/24 21:00 07/22/24 08:20 Naloxone 8-2 Mg Film SL 08/16/24 20:59 1 film BID MARILYNN Administration Enoxaparin Sodium 40 mg 07/16/24 09:00 07/22/24 08:20 Enoxaparin Sod Inj 40 Mg/0.4 Ml Syringe SC 07/30/24 08:59 40 mg QDAY MARILYNN Administration Escitalopram Oxalate 10 mg 07/19/24 10:30 07/22/24 08:23 Escitalopram Oxalate 10 Mg Tablet PO 08/18/24 10:29 Not Given QDAY MARILYNN Pantoprazole Sodium 40 mg 07/21/24 09:00 07/22/24 08:21 Pantoprazole 40 Mg Tablet PO 08/20/24 08:59 40 mg QDAY MARILYNN Administration Polyethylene Glycol 17 gm 07/22/24 03:55 Polyethylene Glycol 17 Gm Packet PO 08/21/24 08:59 QDAY PRN constipation Protocol Propranolol HCl 10 mg 07/19/24 14:00 07/22/24 06:31 Propranolol 10 Mg Tablet PO 08/18/24 13:59 10 mg TID MARILYNN Administration Sennosides 1 tab 07/22/24 03:55 07/22/24 06:31 Senna Tablet PO 08/21/24 03:54 1 tab QDAY PRN Administration CONSTIPATION Protocol Plan 54-year-old male with past medical history of chron's disease, left lower extremity DVT, depression, hydronephrosis s/p ureteral stent, and polysubstance use on suboxone was admitted to the ICU on 07/16/2024 after intentional TCA overdose. He was extubated on 07/17 and downgraded to floors. #TCA overdose #Suicide attempt #Polysubstance drug abuse Patient was admitted overnight on 07/16/2024 after he had taken around 90 pills of amitriptyline. Debated on 07/16. Was given charcoal and sodium bicarb. Extubated on 07/17/2024 Per chart review, patient has been prescribed 8 mg of hydromorphone for unknown reason ? Pending crisis clearance ? One-on-one sitter ? Avoid any other opioids at this time -attempting to transfer patient to [facility] for further psych treatment -continue Suboxone BID #Transaminitis ALT, AST improving. Benign physical exam. Liver u/s 07/18/24 and MRCP 07/19/24 negative for stones/CBD obstruction but has enlarged CBD. -continue to monitor #Hx of depression #Anxiety - Start Escitalopram 10 mg Qday - Start Propranolol 10 mg TID - Continue Alprazolam 0.25 mg PRN BID #Hx of Crohn's disease Currently no flare-up -Follow up outpatient #Normocytic normochromic anemia - Follow up CBC - Transfuse of HgB < 7 #Foreign body in rectum, resolved Health Maintenance Dispo: Patient admitted for TCA overdose, suicide attempt, need crisis clearance Diet: Vegeterian DVT/PPx: None GI ppx: Protonix Lines: PIV Code Status: Full Code This patient care was discussed with my attending Dr. Fleming. Sakina Kothari, PGY1
--- NOTE | 2024-07-22 11:12 | PC.CC ---
1107- ANALYTICS ANALYST Joao Bowser contacted [facility] @ [phone] and spoke with Cinthya at Intake regarding open beds. Cinthya informed health science writer that there will be open beds soon and to fax the packet; health science writer faxed packet at [phone]. EOC 1110.
--- NOTE | 2024-07-22 11:55 | PC.SS ---
SS follow up note; SS sent referral to all LPS facilities via [facility].
--- NOTE | 2024-07-22 13:19 | PC.CC ---
3188-TIO Bowser received a call from [facility] Dawna from Intake who reported the pt has been accepted. NURSE TO NURSE requested time at 1900 call [phone]. Physical arrival is requested for 1999. Accepting provider is Dr. Woodard, Room [facility] 2. EOC. 1243. TIO Bowser to arrange transportation. Attending provider is aware of acceptance.
--- NOTE | 2024-07-22 14:10 | PC.CC ---
1330-FOREIGN DIPLOMAT Joao Bowser arranged transportation for pt via [facility] and spoke with [facility] [phone]. Pts facesheet and transportation sheet was signed by Attending provider and faxed/received by [facility]. Pt is ready now and completed packet is in pts chart. EMS will transport pt at 1930, but may arrive at 1900. Pt will arrive at [facility] at 2000.
--- NOTE | 2024-07-22 15:46 | PC.NURSE ---
Telephone order to discontinue cognos report developer per Dr. Bello related to patient refusing cognos report developer.
[2024-07-22] MEDS: LORazepam 0.5 MG TABLET 1 MG PO (15:50)
--- NOTE | 2024-07-22 17:00 | ESDS_ITS ---
Planned Discharge Date 07/22/24 DS: Providers Provider Date of admission: 07/15/24 23:48 Primary care physician: Carole Moya MD Admitting Provider: Lon Villalta MD Attending Provider on Admission: Wojciech Fleming DO Consults: 07/15/24 23:59 Consult to Gastroenterology Stat Comment: foreign body anorectal aarea. Consulting Provider: Sai Rodriguez 07/18/24 09:10 Referral Physical Therapy Routine Comment: Physician Instructions: Instructions: Suicide attempt with TCA overdose. s/p extubation, pending crisis eval Thank you 07/22/24 11:26 Referral Psych Eval Stat Comment: Attending Provider on DC: Wojciech Fleming DO Discharging Provider: Wojciech Fleming DO DS: Diagnosis Problem List Completed Was Problem List Reviewed/Reconciled?: Yes Hospital Course Hospital Course Hospital course: Reason for hospitalization: suicide attempt, TCA OD Karishma Wharton is 54 yr male with PMH of Crohn's disease, DVT, methamphetamine use, and depression who presented to [facility] ED on 07/16/24 due to altered mental status, reportedly awake but became unresponsive in the ED. He was subsequently intubated. The patient was brought in by ambulance after his stated that patient ingested an bottle of amitriptyline containing about 90 pills. Utox was positive for methamphetamines. Poison control was called. The patient was given 25 g of activated charcoal and sodium bicarb after Ekg showed mildly prolonged QRS interval. Abdominal x-ray showed Opaque bottle dose in the pelvi s, 9 cm, 6 cm in the rectum. GI Dr. Rodriguez was consulted for removal of foreign body in the anorectal region. He was admited for treatment of OD and suicidal evaluation. On admission night, flexible sigmoidoscopy done and removed 2 bottles of pills successfully. He was extubated on 07/17. Patient stated that he had placed the bottles in his rectum thinking he was going to be sent [facility] positive utox. He was attempting to smuggle the bottles. Patient had 1:1 sitter during hospitalization and denied thoughts of suicide daily. He was placed on 5150. Patient will be transferred to [facility] today for further psych eval. Recommendations were given as below. Discharge Recommendations: See your primary care physician within x1 week of discharge See your psychiatrist within x1 week of discharge Stop home med Ativan until you see your doctor Stop taking home med Zyvox 600 mg Start new medication Escitalopram 10 mg as prescribed Start propranolol 10 mg TID as prescribed Hospital Diagnoses: #TCA overdose #Suicide attempt #Polysubstance drug abuse #Transaminitis #Hx of depression #Anxiety #Hx of Crohn's disease #Normocytic normochromic anemia #Foreign body in rectum, resolved The patient's management plan was discussed with my attending physician Dr. Fleming. Sakina Kothari MD, PGY-1 Time spent discussing smoking cessation with patient: more than 10 minutes Status at Discharge Cognitive/behavioral status at discharge: Poor eye contact, aware of events but has some random speech. Time Spent with Patient Time attestation: Total time spent providing and/or coordinating discharge services: Time spent: Greater than 30 minutes Exam Vital Signs Temp Pulse Resp BP Pulse Ox O2 Del Method O2 Flow Rate 97.6 F 77 18 124/78 97 Room Air 2 07/22/24 15:53 07/22/24 15:53 07/22/24 15:53 07/22/24 15:53 07/22/24 15:53 07/22/24 15:53 07/20/24 08:00 FiO2 40 07/18/24 12:00 Narrative Exam General: Middle aged male, unkempt, thin, No acute distress, cooperative HEENT: NCAT, No JVD noted. Mucosa moist. Pupils are equal and reactive to light bilaterally Cardiovascular: Normal S1 and S2. Regular rate and rhythm. Respiratory: Lungs are clear to auscultation bilaterally. No wheezing or crackles heard. Abdomen: Soft, nontender, not distended, normal bowel sounds. Skin: Warm to touch, dry, no rashes noted Musculoskeletal: No gross injuries. Able to move all 4 extremities. No pitting edema Neuro: Alert and oriented x3. No focal neuro deficits. Psych: tangential speech, avoids eye contact Discharge Plan Plan Patient Disposition: [facility] Facility Patient condition on transfer: Stable Prescriptions/Referrals Prescriptions/Med Rec: New propranolol 10 mg Tablet 10 mg PO TID 30 Days Qty: 90 1RF escitalopram oxalate 10 mg Tablet 10 mg PO QDAY 30 Days Qty: 30 2RF Continued naloxone [Narcan] 4 mg/actuation spray,non-aerosol 4 mg intranasal Q3M PRN (Reason: opioid overdose) Qty: 2 0RF Rx Instructions: spray 1 dose into ONE nostril; alternate nostrils w each dose until help arrives Marcio DVT-PE Treat 30D Start 5 mg (74 tabs) tablets,dose pack 5 mg PO BID Qty: 74 0RF Held lorazepam 2 mg capsule,extended release 24hr 2 mg PO QDAY Qty: 3 0RF Hold Instructions: Resume on 08/03/24. Discontinued lorazepam 2 mg tablet Patient Comments: 2 mg orally daily As Needed for anxiety for 5 days, Max Daily Dose: 2 tablets cefdinir 300 mg capsule 300 mg PO BID Qty: 20 0RF ciprofloxacin HCl [Cipro] 500 mg tablet 500 mg PO BID Qty: 14 0RF linezolid [Zyvox] 600 mg tablet 600 mg PO BID Qty: 14 0RF lorazepam [Ativan] 2 mg tablet 2 mg PO BID PRN (Reason: anxiety) Qty: 10 0RF Referrals: Carole Moya MD [Primary Care Provider] - Patient/Caregiver Discharge Instructions Other Discharge Activity Instructions:: See your primary care physician within x1 week of discharge See your psychiatrist within x1 week of discharge Stop home med Ativan until you see your doctor Stop taking home med Zyvox 600 mg Start new medication Escitalopram 10 mg as prescribed Start propranolol 10 mg TID as prescribed Education Materials: Addiction Recovery Counseling, ED Drug Abuse, Depression and Suicide Print Language: Hungarian Stand Alone Forms: [facility]ena Award Info., Patient Portal Info Letter Discharge Order Discharge Orders: Discharge (Routine); Ordered 07/20/24 Ordered By: Gopal Sanchez Quality Discharge Quality Measures VTE prophylaxis Attestestation MD Attestation I have discussed and was present for the essential components of the discharge history, physical examination, diagnosis, and discharge treatment plan with the resident. I agree with the patient's discharge care as documented by the resident and amended herein by me. Son Fleming DO. Patient to be transferred to [facility] for inpatient psych evaluation, further workup and treatment plan. Although this document has been carefully reviewed, there may still be some phonetic and other typographical errors. These errors are purely grammatical due to imperfections in the software program and should not be construed in any way to compromise the substance of the patient's medical care during this visit.
--- NOTE | 2024-07-22 17:36 | PD.IMPROG ---
Documentation for date of: 07/22/24 Subjective Subjective Interval history: Doing well post removal of the rectal foreign body I agree with the discharge planning Patient can be followed by the PCP Exam Vital Signs Temp Pulse Resp BP Pulse Ox O2 Del Method O2 Flow Rate 97.6 F 77 18 124/78 97 Room Air 2 07/22/24 15:53 07/22/24 15:53 07/22/24 15:53 07/22/24 15:53 07/22/24 15:53 07/22/24 15:53 07/20/24 08:00 FiO2 40 07/18/24 12:00 Objective Labs 07/21/24 04:45 07/21/24 04:45 Impressions Impression: Status post removal of the rectal foreign body doing well agree with discharge planning ABG Interpretation ABG results: 07/15/24 07/15/24 07/16/24 21:39 23:30 04:22 ABG pH 7.33 L 7.43 D 7.43 ABG pCO2 50 H 45 47 ABG pO2 558 H 336 H D 48 L* D ABG HCO3 26 30 H 32 H ABG O2 Saturation 101 H 101 H 86 L ABG Base Excess -1 5 H 6 H VBG pH VBG pCO2 VBG pO2 VBG Base Excess 07/16/24 07/16/24 07/16/24 07:00 16:11 20:45 ABG pH 7.47 H ABG pCO2 41 ABG pO2 120 H D ABG HCO3 30 H ABG O2 Saturation 100 H ABG Base Excess 6 H VBG pH 7.53 7.41 VBG pCO2 34 L 47 D VBG pO2 121 H 56 D VBG Base Excess 6 H 5 H 07/17/24 04:20 ABG pH 7.44 ABG pCO2 44 ABG pO2 92 D ABG HCO3 29 H ABG O2 Saturation 98 ABG Base Excess 5 H VBG pH VBG pCO2 VBG pO2 VBG Base Excess Assessment & Plan Time Spent With Patient Time: Total time spent is greater than 50% in coordination of care (as documented) at patient's floor/unit and/or counseling patient:
--- NOTE | 2024-07-22 19:09 | PC.NURSE ---
Telephone report given to KELLEN Ingram at [facility]. Ambulance personnel ETA [id number].
== END 2024-07-22 19:26 | DRG 817 ==
LOC: SERX 21:54 → SERHOLD 07-16 00:23 → S2SX 07-16 01:46 → S3SX 07-17 16:02
PROVIDERS: Registered Nurse General Practice; Specialist; Student in an Organized Health Care Education/Training Program; Admitting Provider Internal Medicine; Emergency Provider Emergency Medicine; PCP Hospitalist; Visit Provider Student in an Organized Health Care Education/Training Program
PROC: 0DJD8ZZ Inspection of Lower Intestinal Tract, Via Natural or Artificial Opening Endoscopic (ICD-10-PCS; CPT 45330; 2024-07-16 18:00)
DX: T43.012A Poisoning by tricyclic antidepressants, intentional self-harm, initial encounter (principal); T18.5XXA Foreign body in anus and rectum, initial encounter; K50.90 Crohn's disease, unspecified, without complications; Z86.718 Personal history of other venous thrombosis and embolism; G93.40 Encephalopathy, unspecified; F41.9 Anxiety disorder, unspecified; F32.A Depression, unspecified; I10 Essential (primary) hypertension; I95.9 Hypotension, unspecified; F15.10 Other stimulant abuse, uncomplicated; F23 Brief psychotic disorder; J96.01 Acute respiratory failure with hypoxia; E83.51 Hypocalcemia; E87.6 Hypokalemia; G89.29 Other chronic pain; F11.10 Opioid abuse, uncomplicated; D72.829 Elevated white blood cell count, unspecified; D64.9 Anemia, unspecified; W44.9XXA Unspecified foreign body entering into or through a natural orifice, initial encounter; Z87.891 Personal history of nicotine dependence; Z93.6 Other artificial openings of urinary tract status; K64.1 Second degree hemorrhoids; D69.6 Thrombocytopenia, unspecified
CPT/HCPCS: 36415; 36600; 71045; 74018; 76705; 80048; 80053; 80074; 80307; 80320; 80329; 81001; 82010; 82140; 82150; 82248; 82550; 82803; 83605; 83615; 83690; 83735; 83880; 84132; 84484; 85025; 85610; 85730; 87081; 93005; 93225; 94002; 94003; 94762; 96361; 96365; 96374; 96375; 97162; 99291; J0330; J0612; J1650; J2310; J2405; J2470; J2704; J3480; J3490; J7030; J7060; J7120; S8037; 74181; A9270; G0480

== ENCOUNTER 2024-08-03 22:02 | Emergency (ER) | payer MEDICAID, SELFPAY ==
[2024-08-03 22:11] VITALS: BP 121/75; PULSE 127; RESP 19; TEMP 36.3; O2SAT 97; BMI 15.3
[2024-08-03 22:14] VITALS: PULSE 130; O2SAT 97
[2024-08-04 00:57] VITALS: BP 95/62; PULSE 99; RESP 18; TEMP 36.6; O2SAT 98
--- NOTE | 2024-08-04 01:03 | EDNOTE_ITS ---
ED Chest Pain RME/HPI General Chief Complaint: Chest Pain Stated Complaint: CHEST PAIN Source: patient, EMS, RN notes reviewed and old records reviewed Arrival date/time: 08/03/24 22:02 Mode of arrival: EMS Limitations: no limitations RME / HPI RME / HPI narrative: DR. POP MAIN ED EVALUATION: 54 y/o male presents to ED c/o sudden, intermittent tight chest pain s/p methamphetamine use x approximately 24 hours ago. -P MHx: Migraine, Atrial Fibrillation, Crohn's Disease, Renal Disease, Kidney Stones, Depression, Anxiety, Down Syndrome, smoking and methamphetamine use -P Social Hx: Methamphetamine use, Smoking Patient reports tight chest pain unable to quatify pain/. Patient denies nausea, diarrhea or any other associated symptoms or aggravating factors. No modifying factors, no radiation, no migration. No pain reported overall. Denies taking Eliquis. PMHx: Migraine, Atrial Fibrillation, Crohn's Disease, Renal Disease, Kidney Stones, Depression, Anxiety, Down Syndrome Medications: Denies taking Eliquis Social history: smoking and methamphetamine use PCP: Dr. Ana Tidwell Related Data Previous Rx's ?Medication ?Instructions ?Recorded naloxone 4 mg/actuation nasal 4 mg intranasal Q3M PRN opioid 11/30/23 spray (Narcan) overdose #2 ea lorazepam 2 mg capsule,extended 2 mg PO QDAY #3 caps 1 05/09/23 release 24 hr Held on 07/20/24. Instructions: Resume on 08/03/24. apixaban 5 mg (74 tabs) tablets in 5 mg PO BID #74 tab s 06/13/24 a dose pack (Eliquis DVT-PE Treat 30D Start) escitalopram oxalate 10 mg tablet 10 mg PO QDAY 30 day s #30 tabs 07/20/24 propranolol 10 mg tablet 10 mg PO TID 30 days #90 tab s 07/20/24 amoxicillin 875 mg-potassium 1 tab PO Q12H #14 tabs clavulanate 125 mg tablet Allergies Allergy/AdvReac Type Severity Reaction Status Date / Time onion Allergy Severe Vomiting Verified 07/12/24 01:00 Review of Systems Review of Systems Systems Reviewed: All systems reviewed, normal except as documented Narrative Review of Systems: PULM: No shortness of breath CV: + Chest pain, tightness GI: No nausea, no diarrhea Past Medical History Past Medical History NEUROLOGIC: Positive Migraine CARDIAC: Positive Cardiac Disorders and Atrial Fibrillation GASTROINTESTINAL: Positive Gastrointestinal Disorders and Crohn's Disease GENITOURINARY: Positive Genitourinary Disorders, Renal Disease and Kidney Stones PSYCHO/SOCIAL: Positive Depression and Anxiety OTHER HISTORY: Positive Autoimmune Disease and Down Syndrome Social History SMOKING STATUS: Current some day smoker SUBSTANCE USE: methamphetamine ED Exam Narrative Physical exam: GENERAL: In general the patient wakes easily, appears tired, in an emergency department gurney. HEAD/EYES/EARS/NOSE/THROAT: normo-cephalic, atraumatic, mucus membranes are moist. CARDIOVASCULAR: regular rate and regular rhythm, no murmurs, heart sounds are not distant, strong pulses in all four extremities that are equal and symmetric bilateral upper and lower extremities, normal capillary refill. CHEST/PULMONARY: normal chest rise and fall no accessory muscle use. Thin chest wall, ribs showing. EXTREMITY: no pedal edema SKIN: not pale PSYCH: calm, follows some commands General Limitations: Present no limitations Course Course Course Narrative: Labs pending. Quality Measures none Orders Category Date Time Status CT Screening NOW Care 08/04/24 01:48 Completed EKG (ED ONLY) *Do not use* NOW Care 08/03/24 22:[address] angio chest Stat Exams 08/04/24 01:48 Taken EKG (ED Only) Stat Exams 08/03/24 22:27 Ordered CBC Stat Lab 08/04/24 02:06 Completed CMP [Comprehensive Metabolic Panel] Stat Lab 08/04/24 02:06 Completed Drug Screen,Urine Stat Lab 08/04/24 02:10 Completed PT [Prothrombin Time with INR] Stat Lab 08/04/24 02:06 Completed PTT [Partial Thromboplastin Time] Stat Lab 08/04/24 02:06 Completed Urinalysis, C/S if Indicated Stat Lab 08/04/24 02:10 Completed Urine Culture Stat Lab 08/04/24 02:10 Received Amoxicillin/Pot Clav 875 [Augmentin 875] Med 08/04/24 03:55 Discontinued 1 tab PO X1 ONE Sodium Chloride 0.9% 1000 ml [Ns] 1,000 ml Med 08/04/24 01:48 Discontinued IV 999 mls/hr Reevaluation(s) Reevaluation #1: HR 99 Time: 02:08 Vital Signs Vital signs: Vital Signs Temperature 97.4 F 08/03/24 22:11 Pulse Rate 127 H 08/03/24 22:11 Respiratory Rate 19 08/03/24 22:11 Blood Pressure 121/75 08/03/24 22:11 Pulse Oximetry (%) 97 08/03/24 22:11 Oxygen Delivery Method Room Air 08/03/24 22:11 Procedures -ED EKG Interpretation #1: Date of EK08/03/24 Time of EK:05 Rate: 129 Interpretation: Interpreted by me Additional EKG comment: Sinus tachycardia, 129 BPM, poor baseline V2, V3, no ST elevation, older EKG with normal sinus rhythm. Chest Pain MDM Narrative MDM Narrative:: Scribe Attestation: Maria Esther Russell, am scribing for and in the presence of Dr. Fam. Provider Notation: Although this document has been carefully reviewed, there may still be some phonetic and other typographical errors. These errors are purely grammatical due to imperfections in the software program and should not be construed in any way to compromise the substance of the patient's medical care during this visit. 54 y/o male presents to ED c/o sudden, intermittent tight chest pain s/p methamphetamine use. EDC: DDX: See below Patient data External records reviewed:: [facility] previous records (Reviewed prior ED records from 07/15/2024. Patient was seen for overdose.) and EMS form Clinical information provided by:: patient and EMS Social determinants that could affect healthcare access:: substance use (Unknown if homeless) Patient has the following chronic illnesses:: Migraine, Atrial Fibrillation, Crohn's Disease, Renal Disease, Kidney Stones, Depression, Anxiety, Down Syndrome, smoking and methamphetamine use How is presenting disease/condition affected by chronic disease/condition?: exacerbated by Evaluation data The following diagnostics were reviewed and interpreted by me:: EKG tracing(s) Lab and/or radiology exams considered but not ordered:: None Interpretation Summary: Chest CTA: Findings: There is no filling defect in the pulmonary artery to suggest pulmonary thromboembolism. No pericardial effusion is seen. No pleural effusion. The heart size is normal. Main pulmonary artery caliber is normal. There is no mediastinal, hilar, or axillary adenopathy. No aortic aneurysm or dissection. No pneumothorax. No acute osseous process. The chest wall is unremarkable. Multinodular goiter. Nonobstructing right renal calculi. Nodular bilateral pulmonary infltrates. Impression: No evidence of pulmonary thromboembolism. Bilateral pneumonia. Medications / Prescriptions Medications or Prescriptions considered but not ordered:: None Medication administrations:: Medication Administration History Discontinued Medications Amoxicillin/Clavulanate Potassium (Amoxicillin/Pot Clav 875 Tablet) 1 tab PO X1 ONE Stop: 08/04/24 03:56 Last Admin: 08/04/24 04:02 Dose: 1 tab Documented By: SUNITHA Sodium Chloride (Ns) 1,000 mls @ 999 mls/hr IV .Q1H1M ONE Stop: 08/04/24 02:48 Last Infusion: 08/04/24 03:18 Dose: Infused Documented By: Admin: 08/04/24 01:57 Dose: 999 mls/hr Documented By: EF See above if any Consultations Consultation(s) initiated? (list below): No Diagnosis Chest Pain Differential Diagnosis: chest pain and other (PE vs Dehydration vs Electrolyte abnormality vs Pneumonia vs Non-STEMI) Most likely diagnosis given after review of the tests above:: Chest pain, Communityr acquired Pneumonia Admission Indicated Admission indicated?: not indicated Explain why admission is indicated or not indicated:: No significant findings indicative of admission at this time. Admission Request Was there a request for admission?: No Disposition Plan Disposition Plan: Discharge Discharge Attestation Discharge Attestation: The patient and all family members were given an opportunity to ask questions and understood the discharge instructions. Discharge instructions specifically effects, indications for sooner follow up or return to the emergency department, and the expected course of current diagnosis. Patient condition: Stable Discharge Plan Plan Patient Disposition: HOME (Self Care) Patient condition on transfer: Stable Prescriptions/Referrals Prescriptions/Med Rec: New amoxicillin-pot clavulanate 875-125 mg tablet 1 tab PO Q12H Qty: 14 0RF No Action naloxone [Narcan] 4 mg/actuation spray,non-aerosol 4 mg intranasal Q3M PRN (Reason: opioid overdose) Qty: 2 0RF Rx Instructions: spray 1 dose into ONE nostril; alternate nostrils w each dose until help arrives propranolol 10 mg Tablet 10 mg PO TID 30 Days Qty: 90 1RF escitalopram oxalate 10 mg Tablet 10 mg PO QDAY 30 Days Qty: 30 2RF lorazepam 2 mg capsule,extended release 24hr 2 mg PO QDAY Qty: 3 0RF Eliquis DVT-PE Treat 30D Start 5 mg (74 tabs) tablets,dose pack 5 mg PO BID Qty: 74 0RF Referrals: Ana Tidwell FNP [Primary Care Provider] - In 1 week Problem List Clinical Impression: Chest pain, Community acquired pneumonia Patient/Caregiver Discharge Instructions Education Materials: Treating Pneumonia, ED Chest Pain, Noncardiac Additional Instructions: DISCHARGE INSTRUCTIONS Even though you have been discharged from the Emergency Department, there are several things that you should do to ensure that you receive proper care: 1. DO READ your discharge instructions as these contain important information concerning your medical care. 2. If medication has been prescribed for your condition, fill the prescription as soon as possible and follow the directions on the medication. 3. RETURN AT ONCE TO THE EMERGENCY DEPARTMENT if you have any problems or concerns. These include but are not limited to fever, worsening pain(belly, chest, head, etc?), worsening shortness of breath, uncontrollable bleeding, inability to tolerate food and water, or any condition that makes you question your well-being. Also, if your symptoms do not improve in the next 12-24 hours, return to the ER or seek medical care immediately. 4. Be sure to follow up with your regular physician or specialist as instructed at discharge as this is the best way to ensure that you receive the very best of care. If you do not have a primary care physician, please contact a physician group and make an appointment. 5. Please visit [employer] for coupons regarding your prescriptions. It is a free service for you to use and can help reduce the cost of your medication. We would like to thank you for coming today and our hope is that we served you and your family well during your stay Print Language: Nicarag[place] Stand Alone Forms: [facility] Award Info., Patient Portal Info Letter
--- NOTE | 2024-08-04 01:48 | XR_ITS ---
Examination: CTA chest with intravenous contrast 2-D reconstructions 3-D reconstructions, vascular Date and time of exam: August 04, 2024 at 0232 hours INDICATIONS: Chest pain shortness of breath today CTDI: vol (mGy) 7.68 DLP: (mGycm) 300 Technique: Multiple axial sections of the thorax have been obtained. 3 mm slice thickness, from below the hemidiaphragms to above the apices of the lungs. Mediastinal and lung density settings have been obtained. 2-D sagittal and coronal reconstructions. 3-D angiographic renderings, 3-D volume renderings, 3D post processing, vascular maximum intensity projections obtained. Contrast administered is 100 cc Isovue 370. Low dose protocols were performed. One or more of the following dose reduction techniques were used; automated exposure control, adjustment of the mA and/or KV according to patient size, use of iterative reconstruction technique. Findings: Right thyromegaly with multiple thyroid nodules No thoracic aortic aneurysmal dilatation Pulmonary artery segments are not enlarged No pulmonary artery emboli No paratracheal tracheobronchial or bronchopulmonary adenopathy At least 10 subcentimeter pulmonary nodules throughout the lungs, the largest 6 mm Nodular infiltrate in the right lower lobe Subcentimeter right renal calculi and no hydronephrosis. Impression : Negative for pulmonary artery emboli Suspicious for nodular pneumonia right lower lobe, recommend follow-up chest imaging Also recommend 6 month follow-up CT chest to document stability of multiple subcentimeter pulmonary nodules throughout the lungs Nonobstructing multiple right renal calculi
[2024-08-04] MEDS: SODIUM CHLORIDE 0.9% 1000 ML 1,000 ML 999 ML IV (01:57)
[2024-08-04 02:14] LABS: Collection Type, Urine Voided; Squamous Epithelial Cell,Urine 0 /hpf (0-5)
[2024-08-04 02:15] LABS: Basophils # (Auto) 0.1 Thou/mm3 (0.0-0.2); Basophils % (Auto) 1 % (0-2.5); Eosinophils % (Auto) 0 % (0-10); Hematocrit 31.7 % (41.0-53.0); Hemoglobin 10.8 g/dL (13.5-16.0); Immature Granulocytes % (Auto) 0 % (0-0); Immature Granulocytes Auto 0.01 Thou/mm3 (0.00-0.00); Lymphocytes # (Auto) 1.4 Thou/mm3 (1.0-4.8); Lymphocytes % (Auto) 18 % (10-50); Mean Corpuscular HGB Conc 34.1 g/dl (31.0-37.0); Mean Corpuscular Hemoglobin 31.1 pg (25.0-35.0); Mean Corpuscular Volume 91 fL (80-100); Monocytes # (Auto) 0.7 Thou/mm3 (0.0-0.8); Monocytes % (Auto) 10 % (0-12); Neutrophils # (Auto) 5.3 Thou/mm3 (1.8-7.7); Neutrophils % (Auto) 71 % (37-80); Nucleated Red Blood Cell % 0 /100 WBC (0); Platelet Count 241 Thou/mm3 (140-440); RDW Standard Deviation 48.7 fL (35.1-43.9); Red Blood Count 3.47 Miln/mm3 (4.50-5.90); White Blood Count 7.5 Thou/mm3 (3.8-10.6)
[2024-08-04 02:19] LABS: Bilirubin,Urine Negative (Negative); Blood,Urine Negative (Negative); Clarity,Urine Clear (Clear/Hazy); Color,Urine Yellow (Lt Yel-Yel); Glucose, Urine Negative (Negative); Ketones,Urine 1+ (Negative); Leukocyte Esterase,Urine Positive (Negative); Nitrite,Urine Negative (Negative); PH,Urine 6.5 (5.0-7.0); Protein,Urine Trace (Neg - Trace); RBC,Urine 12 /hpf (0-3); Specific Gravity,Urine 1.027 (1.001-1.035); Urobilinogen,Urine Negative mg/dL (0.0-1.0); WBC,Urine 53 /hpf (0-5)
[2024-08-04 02:20] LABS: Culture Indicated,Urine Yes
[2024-08-04 02:28] LABS: INR 1.1 (0.9-1.3); Partial Thromboplastin Time 29.5 Seconds (22.0-36.0); Prothrombin Time 11.8 Seconds (9.0-12.2)
[2024-08-04 02:32] LABS: Alanine Aminotransferase 20 U/L (10-49); Albumin, Serum 4.1 gm/dL (3.5-5.0); Albumin/Globulin Ratio 1.6 (1.2-2.2); Alkaline Phosphatase 98 U/L (46-116); Anion Gap 8 (7-16); Aspartate Amino Transferase 21 U/L (0-34); BUN/Creatinine Ratio 27 Ratio (12-20); Bilirubin,Total 0.7 mg/dL (0.3-1.2); Blood Urea Nitrogen 16 mg/dL (9-23); Calcium 8.6 mg/dL (8.3-10.6); Calcium (Corrected) 8.6 mg/dL (8.5-10.1); Carbon Dioxide 26.2 mMol/L (20.0-31.0); Chloride 104 mMol/L (98-107); Creatinine (Component) 0.6 mg/dL (0.6-1.3); Estimated Creatinine Clearance 98.2 mL/min (>60); Globulin 2.6 gm/dL (2.3-3.5); Glucose 103 mg/dL (74-106); Osmolality,Calculated 276 (275-295); Potassium 3.8 mMol/L (3.4-5.1); Sodium 138 mMol/L (136-145); Total Protein 6.7 gm/dL (5.7-8.2); eGFR > 60 See Note
[2024-08-04 02:32] LABS: Amphetamine/Methamp Scrn,U Positive (Negative); Barbiturate Screen,Urine Negative (Negative); Benzodiazepines Screen,Urine Negative (Negative); Benzoylecgonine Screen, Ur Negative (Negative); Fentanyl Screen,Urine Negative (Negative); Opiate Screen,Urine Negative (Negative); THC Screen,Urine Negative (Negative)
--- NOTE | 2024-08-04 03:21 | PRELIM_ITS ---
CT angiogram of the chest aorta with intravenous contrast (axial sections with sagittal and coronal reformats) August 04, 2024 at 0232 hours Clinical History: Chest pain. Comparison: No prior study is available for comparison. Findings: There is no filling defect in the pulmonary artery divisions to suggest pulmonary thromboembolism. No pericardial effusion is seen. No pleural effusion. The heart size is normal. Main pulmonary artery caliber is normal. There is no mediastinal, hilar or axillary adenopathy. No aortic aneurysm or dissection. No pneumothorax. No acute osseous process. The chest wall is unremarkable. Multinodular goiter. Nonobstructing right renal calculi. Nodular bilateral pulmonary infiltrates. Impression: No evidence of pulmonary thromboembolism. Bilateral pneumonia. Report Electronically Signed By: Haja Mcdaniel 08/04/2024 3:20:28 AM [EST]
[2024-08-04 04:01] VITALS: BP 135/84; PULSE 108; RESP 14; TEMP 36.6; O2SAT 100
[2024-08-04] MEDS: AMOXICILLIN/POT CLAV 875 TABLET 1 TAB PO (04:02)
== END 2024-08-04 04:07 | disposition home or self-care (01) ==
PROVIDERS: Emergency Provider Emergency Medicine; PCP Nurse Practitioner
DX: J18.9 Pneumonia, unspecified organism (principal); I48.91 Unspecified atrial fibrillation; R00.0 Tachycardia, unspecified; F17.210 Nicotine dependence, cigarettes, uncomplicated
CPT/HCPCS: 36415; 71275; 80053; 80307; 81001; 85025; 85610; 85730; 87086; 93005; 96360; 99285; A4649; J7030; Q9967; A9270

== ENCOUNTER 2024-08-05 12:11 | Inpatient (IN) | payer MEDICAID, SELFPAY ==
[2024-08-05] VITALS (27 sets, daily range): BP systolic 88–118; BP diastolic 54–78; PULSE 61–94; RESP 8–32; TEMP 35.9–37; O2SAT 97–100; BMI 18.3
[2024-08-05] MEDS: NALOXONE INJ 1 MG/ML SYRINGE 2 ML 2 MG IV ×2 (11:54→11:59)
[2024-08-05] MEDS: ONDANSETRON INJ 2 MG/ML INJ 2 ML 4 MG IV (12:00)
[2024-08-05] MEDS: NALOXONE INJ 1 MG/ML SYRINGE 2 ML 4 MG IV (12:07)
[2024-08-05] MEDS: ETOMIDATE INJ 2 MG/ML VIAL 10 ML 20 MG IVP (12:10)
[2024-08-05 12:15] LABS: Lactate (Lactic Acid) 0.8 mMol/L (0.4-2.0)
--- NOTE | 2024-08-05 12:16 | EDNOTE_ITS ---
Altered Mental Status RME/HPI General Chief Complaint: Overdose Stated Complaint: AMS Arrival date/time: 08/05/24 12:11 RME / HPI RME / HPI narrative: DR. PRADO MAIN ED EVALUATION: 54 year old male presents to the Emergency Department [facility] from home with complaint of altered mental status/ overdose. No history obtainable from the patient due to altered mentation. Per EMS, patient was found at home unresponsive on the floor. EMS reported that called after she found him on the floor unresponsive and thinks he overdosed on his medication buspirone. Blood glucose at 1213 hours here was 90. At 215PM, the nurse reported that saw the patient take 30 pills of buspirone and 42 pills of gabapentin at about 1230 hours. -PMHx: Migraine, Atrial Fibrillation, Crohn's Disease, Renal Disease, Kidney Stones, Depression, Anxiety, Down Syndrome, smoking and methamphetamine use -Social Hx: Methamphetamine use, Smoking Related Data Home Medications ?Medication ?Instructions ?Recorded ?Confirmed buspirone 10 mg tablet mg 08/05/24 Previous Rx's ?Medication ?Instructions ?Recorded naloxone 4 mg/actuation nasal 4 mg intranasal Q3M PRN opioid 11/30/23 spray (Narcan) overdose #2 ea lorazepam 2 mg capsule,extended 2 mg PO QDAY #3 caps 1 05/09/23 release 24 hr Held on 07/20/24. Instructions: Resume on 08/03/24. apixaban 5 mg (74 tabs) tablets in 5 mg PO BID #74 tab s 06/13/24 a dose pack (PrePayMe DVT-PE Treat 30D Start) escitalopram oxalate 10 mg tablet 10 mg PO QDAY 30 day s #30 tabs 07/20/24 propranolol 10 mg tablet 10 mg PO TID 30 days #90 tab s 07/20/24 amoxicillin 875 mg-potassium 1 tab PO Q12H #14 tabs clavulanate 125 mg tablet Allergies Allergy/AdvReac Type Severity Reaction Status Date / Time onion Allergy Severe Vomiting Verified 07/12/24 01:00 Review of Systems Review of Systems ROS Unobtainable: unobtainable due to mental status Past Medical History Past Medical History NEUROLOGIC: Positive Migraine CARDIAC: Positive Cardiac Disorders and Atrial Fibrillation GASTROINTESTINAL: Positive Gastrointestinal Disorders and Crohn's Disease GENITOURINARY: Positive Genitourinary Disorders, Renal Disease and Kidney Stones PSYCHO/SOCIAL: Positive Depression and Anxiety OTHER HISTORY: Positive Autoimmune Disease and Down Syndrome Social History SMOKING STATUS: Current some day smoker SUBSTANCE USE: methamphetamine ED Exam Narrative Physical exam: GENERAL APPEARANCE: obtunded, not responsive to painful stimuli, bradypnea VITALS: All vitals were reviewed and the pulse ox is 100% on mechanical ventilation. HEENT: Normocephalic, atraumatic; pupils equal, round, reactive to light; EOMI; mucous membranes pink, moist; oropharynx clear NECK: Supple LUNGS: bradypnea; no rales, no rhonchi HEART: Regular rate, regular rhythm; normal S1, S2; no murmurs ABDOMEN: non distended; normal BS; soft, no tenderness, no guarding, no rebound; no masses, no organomegaly, no hernia RECTAL: Not done, but foreign object stuck in rectum which looks like a medicine bottle BACK: no CVA tenderness EXTREMITIES: atraumatic; no edema NEUROLOGIC: unobtainable, obtunded, not responsive to painful stimuli PSYCHIATRIC: unobtainable, obtunded SKIN: warm, dry, normal color; no rashes; track duran on the right arm Course Quality Measures none Orders Category Date Time Status 24 HR Medical Restraints Q2HR Care 08/05/24 13:40 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 Care 08/05/24 12:20 Active EKG (ED ONLY) *Do not use* NOW Care 08/05/24 12:00 Completed Dumont [Urinary Catheter] X1 Care 08/05/24 12:09 Active Insert IV NOW Care 08/05/24 12:00 Active Insert NG / OG tube NOW Care 08/05/24 12:12 Active Intubation NOW Care 08/05/24 12:[address] head/brain wo con Stat Exams 08/05/24 13:10 Completed EKG (ED Only) Stat Exams 08/05/24 11:59 Ordered XR chest 1V post procedure Stat Exams 08/05/24 12:53 Completed Acetaminophen Stat Lab 08/05/24 12:10 Results Arterial Blood Gas Stat Lab 08/05/24 12:42 Completed B-Type Natriuretic Peptide Stat Lab 08/05/24 12:10 Completed CBC Stat Lab 08/05/24 12:10 Completed CMP [Comprehensive Metabolic Panel] Stat Lab 08/05/24 12:10 Results Drug Screen,Urine Stat Lab 08/05/24 12:05 Completed Lactate (Lactic Acid) Stat Lab 08/05/24 12:10 Completed Lipase Stat Lab 08/05/24 12:10 Results Magnesium Stat Lab 08/05/24 12:10 Results Partial Thromboplastin Time Stat Lab 08/05/24 12:10 Completed Prothrombin Time with INR Stat Lab 08/05/24 12:10 Completed Salicylate Stat Lab 08/05/24 12:10 Results Troponin I Stat Lab 08/05/24 12:10 Results Urinalysis Stat Lab 08/05/24 12:05 Completed Dextrose 5%-Water [D5w] 498 ml Med 08/05/24 12:01 Discontinued NALOXONE INJ (Syringe) [Narcan Inj (Syringe)] 2 mg IV 10 mls/hr Etomidate Inj [Amidate Inj] Med 08/05/24 12:08 Discontinued 20 mg .ROUTE .STK-MED ONE Etomidate Inj [Amidate Inj] Med 08/05/24 12:08 Discontinued 20 mg IVP X1 ONE NALOXONE INJ (Syringe) [Narcan Inj (Syringe)] Med 08/05/24 11:50 Discontinued 2 mg IV X1 ONE NALOXONE INJ (Syringe) [Narcan Inj (Syringe)] Med 08/05/24 11:55 Discontinued 2 mg IV X1 ONE NALOXONE INJ (Syringe) [Narcan Inj (Syringe)] Med 08/05/24 11:59 Discontinued 4 mg .ROUTE .STK-MED ONE NALOXONE INJ (Syringe) [Narcan Inj (Syringe)] Med 08/05/24 12:02 Discontinued 4 mg IV X1 ONE Ondansetron Inj [Zofran Inj] Med 08/05/24 11:55 Discontinued 4 mg IV X1 ONE Propofol 1,000 mg Ivpb [Diprivan Ivpb] Med 08/05/24 12:17 Discontinued 1,000 mg in 100 ml IV .STK-MED Propofol 1,000 mg Ivpb [Diprivan Ivpb] Med 08/05/24 12:23 Discontinued 1,000 mg in 100 ml IV 5 mcg/kg/min Volume Ventilator Stat RT 08/05/24 12:24 Active Reevaluation(s) Reevaluation #1: The nurse reported that saw the patient take 30 pills of buspirone and 42 pills of gabapentin at about 1230 hours. Time: 14:15 Vital Signs Vital signs: Vital Signs Pulse Rate 84 04/28/25 12:13 Respiratory Rate 18 08/05/24 12:13 Blood Pressure 118/75 08/05/24 12:13 Pulse Oximetry (%) 100 08/05/24 12:13 Procedures -ED Intubation Time out performed: Yes sedative: Etomidate Mg Given: 20 Laryngoscope: Ying (3) Assist Device Used: other (none) ET Tube Size: 8 ET Tube Uncuffed: No Tube Secured Depth (cm): 24 Tube Secured Location: teeth Tube Placement Confirmation: visualized tube passing through cords, equal breath sounds bilaterally, no breath sounds over epigastrium and confirmation by capnometry Patient Tolerated Procedure: well and no complications Intubation Complications: none Additional Comments: OG tube placed as well Altered Mental Status MDM Narrative MDM Narrative:: IDonna, am scribing for and in the presence of Dr. Prado. Patient data External records reviewed:: EMS form Clinical information provided by:: patient and EMS Social determinants that could affect healthcare access:: substance use (Methamphetamine use, Smoking) Patient has the following chronic illnesses:: -PMHx: Migraine, Atrial Fibrillation, Crohn's Disease, Renal Disease, Kidney Stones, Depression, Anxiety, Down Syndrome, smoking and methamphetamine use -Social Hx: Methamphetamine use, Smoking How is presenting disease/condition affected by chronic disease/condition?: exacerbated by Evaluation data The following diagnostics were reviewed and interpreted by me:: lab results, radiology exam(s) and EKG tracing(s) (EKG#1: EKG at 1220 hours. Interpreted by me: sinus rhythm, rate 87, no acute ischemic changes) Lab and/or radiology exams considered but not ordered:: none Interpretation Summary: Procedure(s): CT head/brain wo con Accession Number(s): [id number] cc: Ana Tidwell; Gilson Coronado MD; Fely Prado MD~ Examination: CT brain head without contrast. 2-D sagittal coronal reconstructions Date and time of exam:August 05, 2024 1317 hours INDICATIONS: Altered mental status today CTDI: vol (mGy):46.5 DLP: (mGycm):970 Technique: Multiple CT axial sections of the brain have been obtained, 5 mm slice thickness. Contrast has not been administered. 2-D sagittal, coronal reconstructions have been obtained Low dose protocols were performed. One or more of the following dose reduction techniques were used; automated exposure control, adjustment of the mA and/or KV according to patient size, use of iterative reconstruction technique. Findings: No significant ventricular enlargement. Intra-axial or extra-axial hemorrhage density is not seen. No mass effect or midline shift Basal cisterns are not remarkable. Fourth ventricle is midline. Cranial vault intact. Impression: Negative for acute hemorrhage, mass effect or midline shift Advise clinical correlation follow-up accordingly Dictated By: Gilson Coronado MD Procedure(s): XR chest 1V post procedure Accession Number(s): [id number] cc: Ana Tidwell; Gilson Coronado MD; Fely Prado MD~ Examination: AP chest single view Technique one AP supine portable chest single view Exam date and time: August 05, 2024 1259 hours Comparison July 17, 2024 INDICATIONS: Hypoxic respiratory failure postintubation FINDINGS: Normal heart size No aspiration pneumonia. Endotracheal tube tip 6.4 cm above paola Orogastric sidehole is at the GE junction IMPRESSION: Advance the orogastric tube 4 cm Dictated By: Gilson Coronado MD Medications / Prescriptions Medications or Prescriptions considered but not ordered:: none Medication administrations:: Medication Administration History Fentanyl Citrate (Sublimaze Inj 2,500 Mcg/250 Ml Bag) 2,500 mcg in 250 mls @ 2.5 mls/hr IV .Q24H PRN; Protocol PRN Reason: PER PROTOCOL Stop: 08/10/24 15:08 Discontinued Medications Etomidate (Etomidate Inj 2 Mg/Ml Vial 10 Ml) 20 mg IVP X1 ONE Stop: 08/05/24 12:09 Last Admin: 08/05/24 12:10 Dose: 20 mg Documented By: HANSEL Comments: WALLACE GARIBAY RN Etomidate (Etomidate Inj 2 Mg/Ml Vial 10 Ml) Confirm Administered Dose 20 mg .ROUTE .STK-MED ONE Stop: 08/05/24 12:09 Last Admin: 08/05/24 12:35 Dose: Not Given Documented By: HANSEL Non-Admin Reason: Duplicate Medication on eMAR Naloxone HCl 2 mg/ Dextrose 500 mls @ 10 mls/hr IV .Q24H ONE Stop: 08/06/24 12:00 Last Admin: 08/05/24 12:07 Dose: Not Given Documented By: JENNA Non-Admin Reason: Cancelled by Provider Propofol (Diprivan Ivpb) Confirm Administered Dose 1,000 mg in 100 mls @ ud IV .STK-MED ONE Stop: 08/05/24 12:18 Last Admin: 08/05/24 12:34 Dose: Not Given Documented By: HANSEL Non-Admin Reason: Duplicate Medication on eMAR Propofol (Diprivan Ivpb) 1,000 mg in 100 mls @ 1.687 mls/hr IV .Q24H PRN; Protocol PRN Reason: PER PROTOCOL Stop: 09/04/24 12:22 Last Titration: 08/05/24 14:02 Dose: 5 mcg/kg/min, 1.687 mls/hr Documented By: Titration: 08/05/24 13:50 Dose: 5 mcg/kg/min, 1.687 mls/hr Documented By: Titration: 08/05/24 12:50 Dose: 10 mcg/kg/min, 3.375 mls/hr Documented By: Titration: 08/05/24 12:32 Dose: 10 mcg/kg/min, 3.375 mls/hr Documented By: Admin: 08/05/24 12:25 Dose: 5 mcg/kg/min, 1.687 mls/hr Documented By: HANSEL Co-signed By: ARI Naloxone HCl (Naloxone Inj 1 Mg/Ml Syringe 2 Ml) Confirm Administered Dose 4 mg .ROUTE .STK-MED ONE Stop: 08/05/24 12:00 Last Admin: 08/05/24 12:07 Dose: Not Given Documented By: JENNA Non-Admin Reason: Duplicate Medication on eMAR Naloxone HCl (Naloxone Inj 1 Mg/Ml Syringe 2 Ml) 4 mg IV X1 ONE Stop: 08/05/24 12:03 Last Admin: 08/05/24 12:07 Dose: 4 mg Documented By: JENNA Naloxone HCl (Naloxone Inj 1 Mg/Ml Syringe 2 Ml) 2 mg IV X1 ONE Stop: 08/05/24 11:51 Last Admin: 08/05/24 11:54 Dose: 2 mg Documented By: HANSEL Comments: MED TAKEN FROM CRASH CART Naloxone HCl (Naloxone Inj 1 Mg/Ml Syringe 2 Ml) 2 mg IV X1 ONE Stop: 08/05/24 11:56 Last Admin: 08/05/24 11:59 Dose: 2 mg Documented By: HANSEL Ondansetron HCl (Ondansetron Inj 2 Mg/Ml Inj 2 Ml) 4 mg IV X1 ONE; Protocol Stop: 08/05/24 11:56 Last Admin: 08/05/24 12:00 Dose: 4 mg Documented By: JENNA see above Consultations Consultation(s) initiated? (list below): Yes Consultation #1 (Physician, Specialty, Details): Discussed test HPI, PMHx, lab, radiology results and/or management with Dr. Green from ICU. Will admit for further evaluation and management. Accepts patient for admission. Time: 12:54 Diagnosis Differential diagnosis altered mental status: altered mental status and other (Acute respiratory failure, Overdose) Most likely diagnosis given after review of the tests above:: Acute respiratory failure Overdose Admission Indicated Admission indicated?: indicated Admission Request Was there a request for admission?: Yes Admission Attestation Admission request attestation: Discussed case with [] from Hospitalist service regarding admission. Discussed patients ED course, exam findings, labs, and radiology results. The Hospitalist [agrees,declines] to accept the patient for admission. Disposition Plan Disposition Plan: Admit Critical Care Time Critical Care Time Critical Care Time: Yes Total Critical Care Time (min.): 45 Attestation: The high probability of sudden, clinically significant deterioration in the patient?s condition required the highest level of my preparedness to intervene urgently. The services I provided to this patient were to treat and/or prevent clinically significant deterioration. Services included the following: chart data review, reviewing nursing notes and/or old charts, documentation time, sales development consultant collaboration regarding findings and treatment options, medication orders and management, direct patient care, vital sign assessments and ordering, interpreting and reviewing diagnostic studies and lab tests. Aggregate critical care time includes only time during which I was engaged in work directly related to the patient?s care, as described above, whether at bedside or elsewhere in the Emergency Department. It did not include time spent performing other reported procedures or the services of residents, students, nurses or physician assistants. Discharge Plan Plan Patient Disposition: Admit Acute Care w/in Hospital Problem List Clinical Impression: Acute respiratory failure, Overdose
[2024-08-05] MEDS: PROPOFOL 1,000 MG IVPB 1,000 MG/100 ML VIAL 1.687 MG IV (12:25)
[2024-08-05 12:29] LABS: Basophils % (Auto) 1 % (0-2.5); Eosinophils % (Auto) 0 % (0-10); Hematocrit 30.7 % (41.0-53.0); Hemoglobin 10.4 g/dL (13.5-16.0); Immature Granulocytes % (Auto) 0 % (0-0); Immature Granulocytes Auto 0.02 Thou/mm3 (0.00-0.00); Lymphocytes # (Auto) 0.9 Thou/mm3 (1.0-4.8); Lymphocytes % (Auto) 18 % (10-50); Mean Corpuscular HGB Conc 33.9 g/dl (31.0-37.0); Mean Corpuscular Hemoglobin 31.3 pg (25.0-35.0); Mean Corpuscular Volume 93 fL (80-100); Monocytes # (Auto) 0.4 Thou/mm3 (0.0-0.8); Monocytes % (Auto) 9 % (0-12); Neutrophils # (Auto) 3.5 Thou/mm3 (1.8-7.7); Neutrophils % (Auto) 72 % (37-80); Nucleated Red Blood Cell % 0 /100 WBC (0); Platelet Count 217 Thou/mm3 (140-440); RDW Standard Deviation 49.2 fL (35.1-43.9); Red Blood Count 3.32 Miln/mm3 (4.50-5.90); White Blood Count 4.8 Thou/mm3 (3.8-10.6)
[2024-08-05 12:31] LABS: Collection Type, Urine Clean Catch
[2024-08-05 12:40] LABS: INR 1.1 (0.9-1.3); Partial Thromboplastin Time 28.3 Seconds (22.0-36.0); Prothrombin Time 11.9 Seconds (9.0-12.2)
[2024-08-05 12:48] LABS: Base Excess -3 (-3-3); HCO3 23 mEq/L (20-26); Inspired Oxygen, FIO2 55 %; O2 Saturation 100 % (91-98); PCO2 46 mmHg (32.0-48.0); PO2 264 mmHg (83-108); pH, Arterial 7.32 (7.35-7.45)
[2024-08-05 12:51] LABS: Allen Test Performed/OK; Puncture Site Left Radial
--- NOTE | 2024-08-05 12:53 | XR_ITS ---
Examination: AP chest single view Technique one AP supine portable chest single view Exam date and time: August 05, 2024 1259 hours Comparison July 17, 2024 INDICATIONS: Hypoxic respiratory failure postintubation FINDINGS: Normal heart size No aspiration pneumonia. Endotracheal tube tip 6.4 cm above paola Orogastric sidehole is at the GE junction IMPRESSION: Advance the orogastric tube 4 cm
[2024-08-05 12:54] LABS: Amphetamine/Methamp Scrn,U Positive (Negative); Barbiturate Screen,Urine Negative (Negative); Benzodiazepines Screen,Urine Negative (Negative); Benzoylecgonine Screen, Ur Negative (Negative); Fentanyl Screen,Urine Negative (Negative); Opiate Screen,Urine Negative (Negative); THC Screen,Urine Negative (Negative)
[2024-08-05 13:06] LABS: Bilirubin,Urine Negative (Negative); Blood,Urine Trace (Negative); Color,Urine Yellow (Lt Yel-Yel); Glucose, Urine Negative (Negative); Ketones,Urine 2+ (Negative); Leukocyte Esterase,Urine Positive (Negative); Nitrite,Urine Negative (Negative); PH,Urine 5.5 (5.0-7.0); Protein,Urine Trace (Neg - Trace); RBC,Urine 12 /hpf (0-3); Specific Gravity,Urine 1.028 (1.001-1.035); Squamous Epithelial Cell,Urine < 1 /hpf (0-5); Urobilinogen,Urine Negative mg/dL (0.0-1.0); WBC,Urine 25 /hpf (0-5)
[2024-08-05 13:06] LABS: Alanine Aminotransferase 24 U/L (10-49); Albumin, Serum 4.4 gm/dL (3.5-5.0); Albumin/Globulin Ratio 1.5 (1.2-2.2); Alkaline Phosphatase 101 U/L (46-116); Anion Gap 11 (7-16); Aspartate Amino Transferase 34 U/L (0-34); BUN/Creatinine Ratio 31 Ratio (12-20); Bilirubin,Total 0.8 mg/dL (0.3-1.2); Blood Urea Nitrogen 22 mg/dL (9-23); Calcium 9.1 mg/dL (8.3-10.6); Calcium (Corrected) 9.1 mg/dL (8.5-10.1); Chloride 103 mMol/L (98-107); Creatinine (Component) 0.7 mg/dL (0.6-1.3); Estimated Creatinine Clearance 94.9 mL/min (>60); Globulin 2.9 gm/dL (2.3-3.5); Glucose 105 mg/dL (74-106); Osmolality,Calculated 277 (275-295); Potassium 3.8 mMol/L (3.4-5.1); Sodium 137 mMol/L (136-145); Total Protein 7.3 gm/dL (5.7-8.2); eGFR > 60 See Note
--- NOTE | 2024-08-05 13:10 | XR_ITS ---
Examination: CT brain head without contrast. 2-D sagittal coronal reconstructions Date and time of exam:August 05, 2024 1317 hours INDICATIONS: Altered mental status today CTDI: vol (mGy):46.5 DLP: (mGycm):970 Technique: Multiple CT axial sections of the brain have been obtained, 5 mm slice thickness. Contrast has not been administered. 2-D sagittal, coronal reconstructions have been obtained Low dose protocols were performed. One or more of the following dose reduction techniques were used; automated exposure control, adjustment of the mA and/or KV according to patient size, use of iterative reconstruction technique. Findings: No significant ventricular enlargement. Intra-axial or extra-axial hemorrhage density is not seen. No mass effect or midline shift Basal cisterns are not remarkable. Fourth ventricle is midline. Cranial vault intact. Impression: Negative for acute hemorrhage, mass effect or midline shift Advise clinical correlation follow-up accordingly
[2024-08-05 13:11] LABS: Lipase 23 U/L (12-53); Magnesium 1.9 mg/dL (1.6-2.6); Troponin I < 0.020 ng/mL (0.0-0.045)
[2024-08-05 13:18] LABS: B-Type Natriuretic Peptide 48 pg/mL (0-100)
[2024-08-05 13:33] LABS: Clarity,Urine Hazy (Clear/Hazy)
--- NOTE | 2024-08-05 13:50 | XR_ITS ---
Examination: Abdomen AP single view Technique: AP portable supine abdomen, single view Exam date and time: August 05, 2024 1409 hours INDICATIONS: Foreign body in the rectum FINDINGS: 2 linear opacities overlying the rectum clinical correlation advised Abundant stool throughout the colon IMPRESSION: Linear opacities overlie the rectum, clinical correlation advised
--- NOTE | 2024-08-05 14:34 | PC.NURSE ---
GOT A CALL FROM THIS PT [facility] WHO REPORTED THAT THIS PT TOOK BUSPIRONE 10MG X30 AND GABAPENTIN 300MG X42. PER [facility], HE WANTED TO KILL HIM SELF BECAUSE HE THOUGH THAT THE POLICE WERE GOING TO TAKE HIM TO [place]. DR. MOORE MADE AWARE, POISON CONTROL CALLED.
--- NOTE | 2024-08-05 14:39 | PC.NURSE ---
CALLED DR. GALVAN TO LET THEM KNOW THAT THIS PT LOW BP AND THAT I REDUCED THE PROPOFOL, PER DR. GALVAN, THEY WILL COME DOWN TO ASSESS PT, NO NEW ORDERS GIVEN TO THIS NURSE.
--- NOTE | 2024-08-05 15:11 | PC.SS ---
Initial assessment: this is 54 year old male BIBA on an overdose. Per EMS staff, the patient overdoses on medication and patient's contacted EMS. ASW contacted patient's , Alanna Uribe as to obtain information as the patient is unable to provide due to altered mental status. ASW spoke with patient's , Alanna who confirmed demographic information on behalf of the patient. Alanna identified herself as the patient's emergency contact and alternate medical surrogate decision maker. Per , patient is independent with ADL's and does not require use of DME in the home. Per , patient is unemployed due to disability. Patient follows with provider Ana Tidwell at [facility] in [place] for primary care. Patient is connected to [facility] with psychiatrist Dr. Adams. Patient is prescribed Ativan 2mg 3x/day. Patient has a mental health diagnosis of Major Depressive Disorder and Generalized Anxiety Disorder. Per patient's , the patient overdosed on medication this morning. Per the medications the patient took was: gabapentin, propranolol and buspirone, roughly over fifty pills taken by the patient, mixed. Per , she informs the patient was presenting with experiencing audio hallucinations, pacing in and out . Per , the patient was observed to be paranoid, believing the Police was after him . Per , the patient told her this morning, I want to say good-bye . Per , the patient was recently discharged from [facility] on 08/02/24 following discharge from our hospital [facility] on 07/22/24 as the patient was placed on a 5150 hold for danger to self. Per chart review, the patient also came into the ED yesterday, 08/04/24, for complaint of chest pain. At that time, the patient was positive for methamphetamine. Today, the patient is also positive for methamphetamine use. Per , she denies any knowledge of recent substance use by the patient. Currently, the patient is pending admission to the ICU and will need a mental health evaluation upon medical clearance. Patient's Alanna is aware of the process and has no further questions at this time. The discharge plan will remain pending at this time pending mental health evaluation to be conducted once the patient has been medically cleared. D/c plan: pending Next of kin: , Alanna Uribe
[2024-08-05 15:21] LABS: Acetaminophen < 2.0 mcg/mL (10.0-20.0); Salicylate < 3.0 mg/dL
--- NOTE | 2024-08-05 15:44 | ESHP_ITS ---
<Statement entered by Sina Grissom MD - 08/06/24 12:43> TOTAL CC TIME: 45 MIN I saw and evaluated the patient. I reviewed the resident?s note and agree with findings and plan as documented in the resident?s note. Upon my evaluation, this patient had a high probability of imminent or life- threatening deterioration due to acute hypoxic resp failure, toxic encephalopathy, which required my direct attention, intervention, and personal management. This time is exclusive of time spent on procedures, which are documented separately if performed. d/w poison control -supportive care no clinical evid of severe OD related pathophysiology - ABG acceptable - QT acceptable - no seizures - hemodynamics acceptable copd -w/o exacerbation no air trapping cont supportive care Documentation for date of: 08/05/24 HPI History of Present Illness Chief complaint: Overdose History of present illness: 54-year-old male with past medical history of chron's disease, left lower extremity DVT, depression, hydronephrosis s/p ureteral stent, and polysubstance use on suboxone was admitted to the ICU on 08/05/2024 after coming to the ED brought in by ambulance from his house after he was found unresponsive on the ground by his . Given patient was intubated and very drowsy most of the history was taken from chart review. As per chart patient overdosed on buspirone as well as gabapentin. Patient was positive to meth as well today. At the time of assessment patient was starting to wake up, but was still very sleepy. Of note patient was seen yesterday in the ER due to chest pain after meth use. Patient was also recently discharged on 07/22/2024 due to similar symptoms. ED course: Initially came in afebrile and normotensive. Initial labs were relevant for mild respiratory acidosis with a pH of 7.32 and PCO2 of 46. Patient was positive for meth. Electrolytes were unremarkable and patient's EKG was sinus rhythm with no QT prolongation. ED intubated the patient for airway protection. Patient also had pill bottle retrieved from his rectum. PMH: As above Social Hx: Meth use Review of Systems Review of Systems ROS Unobtainable: unobtainable due to mental status and due to endotracheal tube Past Medical History Past Medical History NEUROLOGIC: Positive Migraine CARDIAC: Positive Cardiac Disorders and Atrial Fibrillation GASTROINTESTINAL: Positive Gastrointestinal Disorders and Crohn's Disease GENITOURINARY: Positive Genitourinary Disorders, Renal Disease and Kidney Stones PSYCHO/SOCIAL: Positive Depression and Anxiety OTHER HISTORY: Positive Autoimmune Disease and Down Syndrome Social History SMOKING STATUS: Current some day smoker SUBSTANCE USE: methamphetamine Exam Vital Signs Temp Pulse Resp BP Pulse Ox O2 Del Method FiO2 98.6 F 69 19 91/62 100 Mechanical Ventilation 35 08/05/24 14:23 08/05/24 14:23 08/05/24 14:23 08/05/24 14:08/05/24 14:08/05/24 14:08/05/24 15:38 Narrative Exam General: Thin male, pupils equally reactive, able to follow commands, but still very drowsy Eyes: Pupils equally reactive. Ears: No visible ear discharge Nose: No visible nasal discharge Mouth/Throat: Dry mucous membranes, no redness, no lesions. Neck: Neck supple, non-tender, no cervical lymphadenopathy. Lungs: Clear BAR to auscultation and percussion, No accessory muscle use. Cardio: Normal S1/S2, regular rhythm, no murmurs, no JVD Abdomen: Soft, non-tender, no palpable masses, peristalsis present, no guarding or rebound, easy to palpate left side bowel likely due to patient body habitus. Extremities: Symmetrical, no significant deformities, no peripheral edema , non-tender, peripheral pulses presents, L LE swollen when compared to R LE. Skin: No rashes, no lesions, warm to touch. Neuro: Able to move lower extremities unable to follow commands, pupils reactive equally. Results: Labs 08/06/24 04:54 08/06/24 04:54 Labs: Short CBC 08/05/24 Range/Units 12:10 WBC 4.8 (3.8-10.6) Thou/mm3 Hgb 10.4 L (13.5-16.0) g/dL Hct 30.7 L (41.0-53.0) % Plt Count 217 (140-440) Thou/mm3 BMP 08/05/24 12:10 Sodium 137 Potassium 3.8 Chloride 103 Carbon Dioxide 23.0 BUN 22 Creatinine 0.7 Glucose 105 Calcium 9.1 Cardiac Enzymes 08/05/24 Range/Units 12:10 Troponin I < 0.020 (0.0-0.045) ng/mL Liver Function 08/05/24 Range/Units 12:10 Total Bilirubin 0.8 (0.3-1.2) mg/dL AST 34 (0-34) U/L ALT 24 (10-49) U/L Alkaline Phosphatase 101 (46-116) U/L Albumin 4.4 (3.5-5.0) gm/dL Urine 08/05/24 Range/Units 12:05 Urine Color Yellow (Lt Yel-Yel) Urine Clarity Hazy (Clear/Hazy) Urine pH 5.5 (5.0-7.0) Ur Specific [place] 1.028 (1.001-1.035) Urine Protein Trace (Neg - Trace) Urine Glucose (UA) Negative (Negative) ABG Interpretation ABG results: 08/05/24 12:42 ABG pH 7.32 L ABG pCO2 46 ABG pO2 264 H ABG HCO3 23 ABG O2 Saturation 100 H ABG Base Excess -3 Quality Measures Quality Measures none Medications Home Medications and Allergies Home Medications ?Medication ?Instructions ?Recorded ?Confirmed ?Type buspirone 10 mg tablet mg 08/05/24 History Allergies Allergy/AdvReac Type Severity Reaction Status Date / Time onion Allergy Severe Vomiting Verified 07/12/24 01:00 Visit Medications Fentanyl Citrate (Sublimaze Inj 2,500 Mcg/250 Ml Bag) 2,500 mcg in 250 mls @ 2.5 mls/hr IV .Q24H PRN; Protocol PRN Reason: PER PROTOCOL Stop: 08/10/24 15:08 Discontinued Medications Etomidate (Etomidate Inj 2 Mg/Ml Vial 10 Ml) 20 mg IVP X1 ONE Stop: 08/05/24 12:09 Last Admin: 08/05/24 12:10 Dose: 20 mg Naloxone HCl 2 mg/ Dextrose 500 mls @ 10 mls/hr IV .Q24H ONE Stop: 08/06/24 12:00 Last Admin: 08/05/24 12:07 Dose: Not Given Propofol (Diprivan Ivpb) 1,000 mg in 100 mls @ 1.687 mls/hr IV .Q24H PRN; Protocol PRN Reason: PER PROTOCOL Stop: 09/04/24 12:22 Last Titration: 08/05/24 14:02 Dose: 5 mcg/kg/min, 1.687 mls/hr Naloxone HCl (Naloxone Inj 1 Mg/Ml Syringe 2 Ml) 4 mg IV X1 ONE Stop: 08/05/24 12:03 Last Admin: 08/05/24 12:07 Dose: 4 mg Naloxone HCl (Naloxone Inj 1 Mg/Ml Syringe 2 Ml) 2 mg IV X1 ONE Stop: 08/05/24 11:51 Last Admin: 08/05/24 11:54 Dose: 2 mg Naloxone HCl (Naloxone Inj 1 Mg/Ml Syringe 2 Ml) 2 mg IV X1 ONE Stop: 08/05/24 11:56 Last Admin: 08/05/24 11:59 Dose: 2 mg Ondansetron HCl (Ondansetron Inj 2 Mg/Ml Inj 2 Ml) 4 mg IV X1 ONE; Protocol Stop: 08/05/24 11:56 Last Admin: 08/05/24 12:00 Dose: 4 mg Assessment & Plan Plan 54-year-old male with past medical history of chron's disease, left lower extremity DVT, depression, hydronephrosis s/p ureteral stent, and polysubstance use on suboxone was admitted to the ICU on 08/05/2024 after an Overdose. 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 Patient's EKG did not show any QTc prolongation or QT prolongation Poison control stated that given substances that patient ingested was only close monitor, but no need for active charcoal at this time Patient was able to follow commands, but was still very drowsy We will try and wean off sedation tomorrow to assess neurological status. CVS: No active disease Respiratory: #Mechanically ventilated Secondary to airway protection given acute encephalopathy and overdose Renal: No active disease GI: #Foreign body in rectum, resolved ED physician stated that patient had a foreign body in his rectum ED physician was able to take out the foreign body. Abdominal x-ray did not show any perforations or any foreign body. #Hx of Crohn's disease Stable MSK: #Hx of lower extremity DVT #Left lower extremity swelling Left lower extremity more swollen than the right on physical exam Given history of DVT will order venous Doppler of left lower extremity. Heme: #Normocytic normochromic anemia Hemoglobin today 10.4 Psych: #Psychosis #Intentional drug overdose #Suicidal attempt #Hx of depression This is the second time patient has been admitted to the ICU due to drug overdose this month. Patient this time took multiple gabapentin and buspirone as per chart review. Patient was positive for meth therefore could have had meth induced psychosis Poison control stated that patient only needed close monitoring and no need for activated charcoal at this time Able to follow commands, but still very drowsy. Will order EKG and cmp Hospital Maintenance: Diet: NPO DVT ppx: heparin GI ppx: Pantoprazole IV lines: PIV Valle: valle cath Code status: Full Dispo: ICU for acute encephalopathy secondary to drug overdose. Case disclosed with Attending Dr. Jaciel Tsai PGY1
[2024-08-05] MEDS: fentaNYL 2,500 MCG/250 ML BAG 2,500 MCG/250 ML BAG IV (17:14)
--- NOTE | 2024-08-05 18:06 | EKG_ITS ---
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
--- NOTE | 2024-08-05 18:10 | XR_ITS ---
Examination: Duplex scan of the lower extremity, unilateral left complete Date and time of exam: August 05, 2024 at 2023 hours INDICATIONS: Onset left leg swelling today Technique: Duplex scan of the extremity veins using B-mode/grayscale imaging and Doppler spectral analysis and color flow Attention is directed to internal echogenicity, compression and augmentation involving these veins, color flow assessment, spectral analysis Findings: Positive for occlusive DVT in the left common femoral vein. Left superficial femoral-popliteal peroneal posterior tibial and greater saphenous veins are open IMPRESSION: Positive for acute occlusive thrombus left common femoral vein
[2024-08-05] MEDS: DEXMEDETOMIDINE 400 MCG IVPB 400 MCG/100 ML BAG IV (18:41)
[2024-08-05] MEDS: PANTOPRAZOLE INJ 40 MG VIAL IV (18:53)
[2024-08-05 19:44] LABS: Alanine Aminotransferase 21 U/L (10-49); Albumin, Serum 4.1 gm/dL (3.5-5.0); Albumin/Globulin Ratio 1.6 (1.2-2.2); Alkaline Phosphatase 95 U/L (46-116); Anion Gap 12 (7-16); Aspartate Amino Transferase 32 U/L (0-34); BUN/Creatinine Ratio 27 Ratio (12-20); Bilirubin,Total 0.7 mg/dL (0.3-1.2); Blood Urea Nitrogen 16 mg/dL (9-23); Calcium 8.7 mg/dL (8.3-10.6); Calcium (Corrected) 8.7 mg/dL (8.5-10.1); Carbon Dioxide 21.1 mMol/L (20.0-31.0); Chloride 105 mMol/L (98-107); Creatinine (Component) 0.6 mg/dL (0.6-1.3); Estimated Creatinine Clearance 105.5 mL/min (>60); Globulin 2.6 gm/dL (2.3-3.5); Glucose 86 mg/dL (74-106); Osmolality,Calculated 275 (275-295); Sodium 138 mMol/L (136-145); Total Protein 6.7 gm/dL (5.7-8.2); eGFR > 60 See Note
[2024-08-05] MEDS: HEPARIN SOD INJ 5000 UNIT/ML VIAL 4300 UNIT IV (23:17)
[2024-08-05] MEDS: Heparin/D5w 25K 250 ML Ivpb 25,000 UNIT/250 ML BAG 9.648 UNIT IV (23:19)
[2024-08-06] VITALS (26 sets, daily range): BP systolic 78–107; BP diastolic 47–72; PULSE 54–598; RESP 9–24; TEMP 36.1–37.1; O2SAT 99–100
[2024-08-06] MEDS: DEXMEDETOMIDINE 400 MCG IVPB 400 MCG/100 ML BAG 10.72 MCG IV (02:56)
[2024-08-06 04:40] LABS: Base Excess -2 (-3-3); HCO3 26 mEq/L (20-26); Inspired Oxygen, FIO2 28 %; O2 Saturation 90 % (91-98); PCO2 55 mmHg (32.0-48.0); PO2 61 mmHg (83-108); pH, Arterial 7.28 (7.35-7.45)
[2024-08-06 04:57] LABS: Puncture Site Right Radial
[2024-08-06 04:58] LABS: Allen Test Performed/OK
[2024-08-06 05:41] LABS: Basophils % (Auto) 1 % (0-2.5); Eosinophils % (Auto) 0 % (0-10); Hematocrit 33.4 % (41.0-53.0); Hemoglobin 10.9 g/dL (13.5-16.0); Immature Granulocytes % (Auto) 0 % (0-0); Immature Granulocytes Auto 0.02 Thou/mm3 (0.00-0.00); Lymphocytes # (Auto) 0.7 Thou/mm3 (1.0-4.8); Lymphocytes % (Auto) 12 % (10-50); Mean Corpuscular HGB Conc 32.6 g/dl (31.0-37.0); Mean Corpuscular Hemoglobin 30.9 pg (25.0-35.0); Mean Corpuscular Volume 95 fL (80-100); Monocytes # (Auto) 0.5 Thou/mm3 (0.0-0.8); Monocytes % (Auto) 9 % (0-12); Neutrophils # (Auto) 4.1 Thou/mm3 (1.8-7.7); Neutrophils % (Auto) 77 % (37-80); Nucleated Red Blood Cell % 0 /100 WBC (0); Platelet Count 197 Thou/mm3 (140-440); RDW Standard Deviation 50.7 fL (35.1-43.9); Red Blood Count 3.53 Miln/mm3 (4.50-5.90); White Blood Count 5.3 Thou/mm3 (3.8-10.6)
[2024-08-06 06:23] LABS: Alanine Aminotransferase 18 U/L (10-49); Albumin, Serum 3.8 gm/dL (3.5-5.0); Albumin/Globulin Ratio 1.6 (1.2-2.2); Alkaline Phosphatase 93 U/L (46-116); Anion Gap 10 (7-16); Aspartate Amino Transferase 27 U/L (0-34); BUN/Creatinine Ratio 27 Ratio (12-20); Bilirubin,Total 0.6 mg/dL (0.3-1.2); Blood Urea Nitrogen 16 mg/dL (9-23); Calcium 8.5 mg/dL (8.3-10.6); Calcium (Corrected) 8.7 mg/dL (8.5-10.1); Carbon Dioxide 24.6 mMol/L (20.0-31.0); Chloride 108 mMol/L (98-107); Creatinine (Component) 0.6 mg/dL (0.6-1.3); Estimated Creatinine Clearance 101.5 mL/min (>60); Globulin 2.4 gm/dL (2.3-3.5); Glucose 92 mg/dL (74-106); Magnesium 1.9 mg/dL (1.6-2.6); Osmolality,Calculated 286 (275-295); Phosphorous 3.9 mg/dL (2.4-5.1); Potassium 4.2 mMol/L (3.4-5.1); Sodium 143 mMol/L (136-145); Total Protein 6.2 gm/dL (5.7-8.2); eGFR > 60 See Note
[2024-08-06 06:48] LABS: Partial Thromboplastin Time 57.5 Seconds (22.0-36.0)
[2024-08-06 08:21] LABS: Base Excess 0 (-3-3); HCO3 23 mEq/L (20-26); Inspired Oxygen, FIO2 28 %; O2 Saturation 100 % (91-98); PCO2 32 mmHg (32.0-48.0); PO2 140 mmHg (83-108); pH, Arterial 7.46 (7.35-7.45)
[2024-08-06 08:24] LABS: Allen Test Performed/OK; Puncture Site Left Radial
[2024-08-06] MEDS: PANTOPRAZOLE INJ 40 MG VIAL IV (09:33)
--- NOTE | 2024-08-06 10:29 | CHAP ---
Patient was visited by a spiritual care volunteer on 08/06/2024 between 902 and 929 and received comfort, encouragement and/or prayer.
--- NOTE | 2024-08-06 10:44 | ESPR_ITS ---
<Statement entered by Sina Grissom MD - 08/07/24 11:11> TOTAL TIME: 45MINUTES ON DIRECT MEDICAL CARE, MANAGEMENT - COORDINATION AND COUNSELING > 50% OF TOTAL TIME I saw and evaluated the patient. I reviewed the resident?s note and agree with findings and plan as documented in the resident?s note. Extubated without incident, stable without acute hemodynamic or respiratory compromise. Tolerated extubation and able to be transferred to the floor with a sitter. Continue care and management of chronic medical problems required. Psychiatry evaluation will be required Documentation for date of: 08/06/24 Subjective Subjective Interval history: 54-year-old male with past medical history of chron's disease, left lower extremity DVT, depression, hydronephrosis s/p ureteral stent, and polysubstance use on suboxone was admitted to the ICU on 08/05/2024 after coming to the ED brought in by ambulance from his house after he was found unresponsive on the ground by his . Given patient was intubated and very drowsy most of the history was taken from chart review. As per chart patient overdosed on buspirone as well as gabapentin. Patient was positive to meth as well today. At the time of assessment patient was starting to wake up, but was still very sleepy. Of note patient was seen yesterday in the ER due to chest pain after meth use. Patient was also recently discharged on 07/22/2024 due to similar symptoms. 08/06/2024: Patient was seen at bedside this morning. No overnight events. Turned off patient's Precedex and fentanyl today and placed him on SBT. Patient's ABG and EKG were unremarkable. Ultrasound venous Doppler of the left lower extremity did not show acute DVT therefore he was started on heparin drip. He was successfully extubated today and will be downgrade to medical floors. Exam Vital Signs Temp Pulse Resp BP Pulse Ox O2 Del Method FiO2 96.9 F 54 L 20 92/62 100 Mechanical Ventilation 08/06/24 04:01 08/06/24 07:00 08/06/24 07:00 08/06/24 07:00 08/06/24 07:00 08/05/24 18:00 08/06/24 05:55 Narrative Exam General: Thin male, pupils equally reactive, able to follow commands, more awake than yesterday. Eyes: Pupils equally reactive. Ears: No visible ear discharge Nose: No visible nasal discharge Mouth/Throat: Dry mucous membranes, no redness, no lesions. Neck: Neck supple, non-tender, no cervical lymphadenopathy. Lungs: Clear BAR to auscultation and percussion, No accessory muscle use. Cardio: Normal S1/S2, regular rhythm, no murmurs, no JVD Abdomen: Soft, non-tender, no palpable masses, peristalsis present, no guarding or rebound, easy to palpate left side bowel likely due to patient body habitus. Extremities: Symmetrical, no significant deformities, no peripheral edema , non-tender, peripheral pulses presents, L LE swollen when compared to R LE. Skin: No rashes, no lesions, warm to touch. Neuro: Able to move lower extremities able to follow commands, pupils reactive equally. Objective Labs 08/06/24 04:54 08/06/24 04:54 Labs: Laboratory Results - last 24 hr 08/05/24 08/05/24 08/05/24 12:05 12:10 12:42 WBC 4.8 RBC 3.32 L Hgb 10.4 L Hct 30.7 L MCV 93 MCH 31.3 MCHC 33.9 RDW Std Deviation 49.2 H Plt Count 217 Neut % (Auto) 72 Lymph % (Auto) 18 [place] % (Auto) 9 Eos % (Auto) 0 Baso % (Auto) 1 Neut # (Auto) 3.5 Lymph # (Auto) 0.9 L [place] # (Auto) 0.4 Eos # (Auto) 0.0 Baso # (Auto) 0.0 Immature Gran # (Auto) 0.02 H Absolute Nucleated RBC 0.00 Immature Gran % 0 Nucleated RBC % 0 PT 11.9 INR 1.1 APTT 28.3 Puncture Site Left Radial ABG pH 7.32 L ABG pCO2 46 ABG pO2 264 H ABG HCO3 23 ABG O2 Saturation 100 H ABG Base Excess -3 FiO2 55 Sodium 137 Potassium 3.8 Chloride 103 Carbon Dioxide 23.0 Anion Gap 11 BUN 22 Creatinine 0.7 Estim Creat Clear Calc 94.9 eGFR > 60 BUN/Creatinine Ratio 31 H Glucose 105 Calculated Osmolality 277 Lactic Acid 0.8 Calcium 9.1 Corrected Calcium 9.1 Phosphorus Magnesium 1.9 Total Bilirubin 0.8 AST 34 ALT 24 Alkaline Phosphatase 101 Troponin I < 0.020 B-Natriuretic Peptide 48 Total Protein 7.3 Albumin 4.4 Globulin 2.9 Albumin/Globulin Ratio 1.5 Lipase 23 Ur Collection Type Clean Catch Urine Color Yellow Urine Clarity Hazy Urine pH 5.5 Ur Specific [place] 1.028 Urine Protein Trace Urine Glucose (UA) Negative Urine Ketones 2+ A Urine Blood Trace Urine Nitrite Negative Urine Bilirubin Negative Urine Urobilinogen (Auto) Negative Ur Leukocyte Esterase Positive Urine RBC 12 H Urine WBC 25 H Ur Squamous Epith Cells < 1 Urine Bacteria None Salicylates < 3.0 Urine Opiates Screen Negative Urine Fentanyl Screen Negative Acetaminophen < 2.0 L Ur Barbiturates Screen Negative U Amphetamin/Meth Scrn Positive A U Benzodiazepines Scrn Negative U Cocaine Metab Screen Negative U Marijuana (THC) Screen Negative 08/05/24 08/06/24 08/06/24 18:58 04:21 04:54 WBC 5.3 RBC 3.53 L Hgb 10.9 L Hct 33.4 L MCV 95 MCH 30.9 MCHC 32.6 RDW Std Deviation 50.7 H Plt Count 197 Neut % (Auto) 77 Lymph % (Auto) 12 [place] % (Auto) 9 Eos % (Auto) 0 Baso % (Auto) 1 Neut # (Auto) 4.1 Lymph # (Auto) 0.7 L [place] # (Auto) 0.5 Eos # (Auto) 0.0 Baso # (Auto) 0.0 Immature Gran # (Auto) 0.02 H Absolute Nucleated RBC 0.00 Immature Gran % 0 Nucleated RBC % 0 PT INR APTT 57.5 H D Puncture Site Right Radial ABG pH 7.28 L ABG pCO2 55 H ABG pO2 61 L D ABG HCO3 26 ABG O2 Saturation 90 L ABG Base Excess -2 FiO2 28 Sodium 138 143 Potassium 4.0 4.2 Chloride 105 108 H Carbon Dioxide 21.1 24.6 Anion Gap 12 10 BUN 16 16 Creatinine 0.6 0.6 Estim Creat Clear Calc 105.5 101.5 eGFR > 60 > 60 BUN/Creatinine Ratio 27 H 27 H Glucose 86 92 Calculated Osmolality 275 286 Lactic Acid Calcium 8.7 8.5 Corrected Calcium 8.7 8.7 Phosphorus 3.9 Magnesium 1.9 Total Bilirubin 0.7 0.6 AST 32 27 ALT 21 18 Alkaline Phosphatase 95 93 Troponin I B-Natriuretic Peptide Total Protein 6.7 6.2 Albumin 4.1 3.8 Globulin 2.6 2.4 Albumin/Globulin Ratio 1.6 1.6 Lipase Ur Collection Type Urine Color Urine Clarity Urine pH Ur Specific [place] Urine Protein Urine Glucose (UA) Urine Ketones Urine Blood Urine Nitrite Urine Bilirubin Urine Urobilinogen (Auto) Ur Leukocyte Esterase Urine RBC Urine WBC Ur Squamous Epith Cells Urine Bacteria Salicylates Urine Opiates Screen Urine Fentanyl Screen Acetaminophen Ur Barbiturates Screen U Amphetamin/Meth Scrn U Benzodiazepines Scrn U Cocaine Metab Screen U Marijuana (THC) Screen 08/06/24 08:11 WBC RBC Hgb Hct MCV MCH MCHC RDW Std Deviation Plt Count Neut % (Auto) Lymph % (Auto) [place] % (Auto) Eos % (Auto) Baso % (Auto) Neut # (Auto) Lymph # (Auto) [place] # (Auto) Eos # (Auto) Baso # (Auto) Immature Gran # (Auto) Absolute Nucleated RBC Immature Gran % Nucleated RBC % PT INR APTT Puncture Site Left Radial ABG pH 7.46 H D ABG pCO2 32 D ABG pO2 140 H D ABG HCO3 23 ABG O2 Saturation 100 H ABG Base Excess 0 FiO2 28 Sodium Potassium Chloride Carbon Dioxide Anion Gap BUN Creatinine Estim Creat Clear Calc eGFR BUN/Creatinine Ratio Glucose Calculated Osmolality Lactic Acid Calcium Corrected Calcium Phosphorus Magnesium Total Bilirubin AST ALT Alkaline Phosphatase Troponin I B-Natriuretic Peptide Total Protein Albumin Globulin Albumin/Globulin Ratio Lipase Ur Collection Type Urine Color Urine Clarity Urine pH Ur Specific [place] Urine Protein Urine Glucose (UA) Urine Ketones Urine Blood Urine Nitrite Urine Bilirubin Urine Urobilinogen (Auto) Ur Leukocyte Esterase Urine RBC Urine WBC Ur Squamous Epith Cells Urine Bacteria Salicylates Urine Opiates Screen Urine Fentanyl Screen Acetaminophen Ur Barbiturates Screen U Amphetamin/Meth Scrn U Benzodiazepines Scrn U Cocaine Metab Screen U Marijuana (THC) Screen ABG Interpretation ABG results: 08/05/24 08/06/24 08/06/24 12:42 04:21 08:11 ABG pH 7.32 L 7.28 L 7.46 H D ABG pCO2 46 55 H 32 D ABG pO2 264 H 61 L D 140 H D ABG HCO3 23 26 23 ABG O2 Saturation 100 H 90 L 100 H ABG Base Excess -3 -2 0 Quality Measures Quality Measures none Assessment & Plan Assessment Current Active Medications: Generic Name Dose Route Start Last Admin Trade Name Freq PRN Reason Stop Dose Admin Acetaminophen 650 mg 08/05/24 18:06 Acetaminophen 325 Mg Tablet PO 09/04/24 18:05 Q6H PRN pain and Fever >100.4 Fentanyl Citrate 2,500 mcg in 250 mls @ 2.5 mls/hr 08/05/24 15:09 08/06/24 09:10 Sublimaze Inj 2,500 Mcg/250 Ml Bag IV 08/10/24 15:08 0 mcg/hr .Q24H PRN 0 mls/hr PER PROTOCOL Titration Protocol 25 MCG/HR Dexmedetomidine/Sodium Chloride 400 mcg in 100 mls @ 2.68 mls/hr 08/05/24 18:34 08/06/24 07:35 Precedex Ivpb IV 09/04/24 18:33 0 mcg/kg/hr .Q24H PRN 0 mls/hr Per PROTOCOL Titration Protocol 0.2 MCG/KG/HR Heparin Sodium/Dextrose 25,000 unit in 250 mls @ 9.648 mls/hr 08/05/24 22:15 08/06/24 07:00 Heparin In D5w Ivpb IV 08/19/24 22:14 18 units/kg/hr .Q24H MARILYNN 9.648 mls/hr Titration Protocol 18 UNITS/KG/HR Ondansetron HCl 4 mg 08/05/24 18:06 Ondansetron Inj 2 Mg/Ml Inj 2 Ml IV 09/04/24 18:05 Q6H PRN NAUSEA OR VOMITING Protocol Pantoprazole Sodium 40 mg 08/05/24 18:15 08/06/24 09:33 Pantoprazole Inj 40 Mg Vial IV 09/04/24 18:14 40 mg QDAY MARILYNN Administration Plan 54-year-old male with past medical history of chron's disease, left lower extremity DVT, depression, hydronephrosis s/p ureteral stent, and polysubstance use on suboxone was admitted to the ICU on 08/05/2024 after an Overdose. [employer]: #Acute encephalopathy #Overdose Patient was admitted due to possible drug overdose as he was found by his obtunded and unresponsive and she stated that patient overdosed on gabapentin and buspirone. Patient's EKG did not show any QTc prolongation or QT prolongation and repeat EKG did not show any prolongation either. Patient's ABG today that showed a pH of 7.28 with a PCO2 of 55, but since patient is a smoker we expect this as he most likely has some underlying COPD. Poison control stated that given substances that patient ingested was only close monitor, but no need for active charcoal at this time Patient able to follow commands and is more awake today therefore he was placed on SBT and successfully extubated today. CVS: No active disease Respiratory: #Mechanically ventilated Successfully extubated today Renal: No active disease GI: #Foreign body in rectum, resolved ED physician stated that patient had a foreign body in his rectum ED physician was able to take out the foreign body. Abdominal x-ray did not show any perforations or any foreign body. #Hx of Crohn's disease Stable MSK: #Hx of lower extremity DVT # Acute left lower extremity DVT Left lower extremity more swollen than the right on physical exam Venous Doppler left lower extremity that showed acute DVT Patient was discharged on 06/13/2024 from the ER with Eliquis for his DVT, unsure if patient was taking. Continue heparin drip Heme: #Normocytic normochromic anemia Hemoglobin today 10.9 Psych: #Psychosis #Intentional drug overdose #Suicidal attempt #Hx of depression This is the second time patient has been admitted to the ICU due to drug overdose this month. Patient this time took multiple gabapentin and buspirone as per chart review. Patient was positive for meth therefore could have had meth induced psychosis Poison control stated that patient only needed close monitoring and no need for activated charcoal at this time Able to follow commands and more awake Repeat EKG and CMP today look unremarkable. ABG that shows some mild acidosis with CO2 retention, this is most likely in the setting the patient is a smoker. Successfully extubated today Hospital Maintenance: Diet: regular DVT ppx: heparin drip GI ppx: Pantoprazole IV lines: PIV [place]: none Code status: Full Dispo:Downgrade to medical floors Case disclosed with Attending Dr. Jaciel Tsai PGY1
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
[2024-08-06] MEDS: HEPARIN SOD INJ 5000 UNIT/ML VIAL 2000 UNIT IVP (14:45)
[2024-08-06] MEDS: SODIUM CHLORIDE 0.9% 1000 ML 1,000 ML 999 ML IV (14:59)
--- NOTE | 2024-08-06 16:02 | PC.SS ---
Update: Patient extubated today. P.O. feeding. Patient downgraded from ICU to Med/Tele.
[2024-08-06] MEDS: RINGERS LACTATED 1000 ML 1,000 ML 999 ML IV (16:22)
[2024-08-06] MEDS: MIDODRINE 5 MG TABLET 10 MG PO (17:00)
[2024-08-06] MEDS: LORazepam 0.5 MG TABLET 2 MG PO (19:56)
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
[2024-08-06 21:45] LABS: Partial Thromboplastin Time 46.4 Seconds (22.0-36.0)
[2024-08-06] MEDS: HEPARIN SOD INJ 5000 UNIT/ML VIAL 2050 UNIT IV (22:17)
[2024-08-06] MEDS: Heparin/D5w 25K 250 ML Ivpb 25,000 UNIT/250 ML BAG 11.792 UNIT IV (22:18)
[2024-08-07] VITALS (10 sets, daily range): BP systolic 85–117; BP diastolic 57–78; PULSE 63–108; RESP 12–19; TEMP 36.1–36.5; O2SAT 99–100; BMI 18.1
[2024-08-07] MEDS: LORazepam 0.5 MG TABLET 2 MG PO (03:25)
[2024-08-07 05:39] LABS: Basophils % (Auto) 0 % (0-2.5); Eosinophils # (Auto) 0.1 Thou/mm3 (0.0-0.5); Eosinophils % (Auto) 2 % (0-10); Hematocrit 28.9 % (41.0-53.0); Hemoglobin 9.4 g/dL (13.5-16.0); Immature Granulocytes % (Auto) 0 % (0-0); Immature Granulocytes Auto 0.01 Thou/mm3 (0.00-0.00); Lymphocytes # (Auto) 1.6 Thou/mm3 (1.0-4.8); Lymphocytes % (Auto) 35 % (10-50); Mean Corpuscular HGB Conc 32.5 g/dl (31.0-37.0); Mean Corpuscular Hemoglobin 30.9 pg (25.0-35.0); Mean Corpuscular Volume 95 fL (80-100); Monocytes # (Auto) 0.6 Thou/mm3 (0.0-0.8); Monocytes % (Auto) 13 % (0-12); Neutrophils # (Auto) 2.2 Thou/mm3 (1.8-7.7); Neutrophils % (Auto) 50 % (37-80); Nucleated Red Blood Cell % 0 /100 WBC (0); Platelet Count 174 Thou/mm3 (140-440); RDW Standard Deviation 52.3 fL (35.1-43.9); Red Blood Count 3.04 Miln/mm3 (4.50-5.90); White Blood Count 4.4 Thou/mm3 (3.8-10.6)
[2024-08-07 06:00] LABS: INR 1.1 (0.9-1.3); Partial Thromboplastin Time 90.1 Seconds (22.0-36.0); Prothrombin Time 11.6 Seconds (9.0-12.2)
[2024-08-07 06:04] LABS: Alanine Aminotransferase 15 U/L (10-49); Albumin, Serum 3.2 gm/dL (3.5-5.0); Albumin/Globulin Ratio 1.5 (1.2-2.2); Alkaline Phosphatase 78 U/L (46-116); Anion Gap 6 (7-16); Aspartate Amino Transferase 20 U/L (0-34); BUN/Creatinine Ratio 14 Ratio (12-20); Bilirubin,Total 0.4 mg/dL (0.3-1.2); Blood Urea Nitrogen 10 mg/dL (9-23); Calcium 7.7 mg/dL (8.3-10.6); Calcium (Corrected) 8.3 mg/dL (8.5-10.1); Carbon Dioxide 28.5 mMol/L (20.0-31.0); Chloride 105 mMol/L (98-107); Creatinine (Component) 0.7 mg/dL (0.6-1.3); Estimated Creatinine Clearance 93.6 mL/min (>60); Globulin 2.2 gm/dL (2.3-3.5); Glucose 124 mg/dL (74-106); Magnesium 1.8 mg/dL (1.6-2.6); Osmolality,Calculated 277 (275-295); Potassium 4.1 mMol/L (3.4-5.1); Sodium 139 mMol/L (136-145); Total Protein 5.4 gm/dL (5.7-8.2); eGFR > 60 See Note
[2024-08-07] MEDS: PANTOPRAZOLE INJ 40 MG VIAL IV (08:19)
[2024-08-07] MEDS: MAGNESIUM OXIDE 400 MG TABLET PO (08:20)
[2024-08-07] MEDS: NAPH,KPH MBDB 1 PACKET (1.5 GM) PO (08:20)
--- NOTE | 2024-08-07 10:28 | PC.NURSE ---
pt. refused Lexapro dose. Dr. Blanco aware
--- NOTE | 2024-08-07 14:22 | PC.SS ---
Rounding note: blood pressure is still soft, patient is pending medical clearance for mental health evaluation.
--- NOTE | 2024-08-07 15:41 | PC.NURSE ---
Dr. Blanco aware pt. refused midodrine unless given Ativan at the same time. agrees to give one time dose.
[2024-08-07] MEDS: MIDODRINE 5 MG TABLET 10 MG PO (15:47)
[2024-08-07] MEDS: LORazepam 0.5 MG TABLET 1 MG PO ×2 (15:48→21:23)
--- NOTE | 2024-08-07 16:00 | PD.RESPRO ---
Documentation for date of: 08/07/24 Subjective Subjective Interval history: Overnight, patient required Ativan and Miratazpine. Patient is still going through paranoid psychosis concern that someone it trying to kill . Of note patient's ended in the emergency room this evening requirng transfer. Patient was updated and spoke with with family. Exam Vital Signs Temp Pulse Resp BP Pulse Ox O2 Del Method O2 Flow Rate 97.7 F 95 19 99/70 100 Nasal Cannula 4 08/07/24 12:00 08/07/24 15:47 08/07/24 12:00 08/07/24 15:47 08/07/24 12:00 08/07/24 12:00 08/07/24 12:00 FiO2 28 08/06/24 08:00 Narrative Exam General Appearance: Alert & Oriented X3, thin male who is lying in bed in anxious at baseline and concern that other are out to get him. HEENT: Skull symmetrical and atraumatic. Conjunctivae pale pink and moist. Pupils equal, round, reactive to light and accommodation (PERRL). External ear without lesion or discharge. Straight, nares patient, mucosa pink, no discharge. No thyroid nodule appreciated. No cervical lymphadenopathy. Cardio: Normal Rate and Rhythm with S1 and S2 heart sounds. No murmurs or extra heart sounds auscultated. No bruits on carotid auscultation. No peripheral edema or cyanosis. Lungs: Symmetric with good expansion. Chest and back non-tender. Breath sounds vesicular without crackles, wheezing or rhonchi Abdomen: Non-tender, Non-distended, Normal Reactive Bowel Sounds Neuro: Alert, cooperative, oriented to person, place, and time. Speech clear. CN grossly intact. Upper motor strength 5/5 and Lower motor strength 5/5. Sensation intact. Objective Labs 08/08/24 05:28 08/08/24 05:28 Labs: Laboratory Results - last 24 hr 08/06/24 08/07/24 21:05 04:05 WBC 4.4 RBC 3.04 L Hgb 9.4 L Hct 28.9 L MCV 95 MCH 30.9 MCHC 32.5 RDW Std Deviation 52.3 H Plt Count 174 Neut % (Auto) 50 Lymph % (Auto) 35 [place] % (Auto) 13 H Eos % (Auto) 2 Baso % (Auto) 0 Neut # (Auto) 2.2 Lymph # (Auto) 1.6 [place] # (Auto) 0.6 Eos # (Auto) 0.1 Baso # (Auto) 0.0 Immature Gran # (Auto) 0.01 H Absolute Nucleated RBC 0.00 Immature Gran % 0 Nucleated RBC % 0 PT 11.6 INR 1.1 APTT 46.4 H 90.1 H D Sodium 139 Potassium 4.1 Chloride 105 Carbon Dioxide 28.5 Anion Gap 6 L BUN 10 Creatinine 0.7 Estim Creat Clear Calc 93.6 eGFR > 60 BUN/Creatinine Ratio 14 Glucose 124 H Calculated Osmolality 277 Calcium 7.7 L Corrected Calcium 8.3 L Phosphorus 2.0 L Magnesium 1.8 Total Bilirubin 0.4 AST 20 ALT 15 Alkaline Phosphatase 78 Total Protein 5.4 L Albumin 3.2 L D Globulin 2.2 L Albumin/Globulin Ratio 1.5 ABG Interpretation ABG results: 08/05/24 08/06/24 08/06/24 12:42 04:21 08:11 ABG pH 7.32 L 7.28 L 7.46 H D ABG pCO2 46 55 H 32 D ABG pO2 264 H 61 L D 140 H D ABG HCO3 23 26 23 ABG O2 Saturation 100 H 90 L 100 H ABG Base Excess -3 -2 0 Quality Measures Quality Measures none Assessment & Plan Assessment Current Active Medications: Generic Name Dose Route Start Last Admin Trade Name Freq PRN Reason Stop Dose Admin Acetaminophen 650 mg 08/05/24 18:06 Acetaminophen 325 Mg Tablet PO 09/04/24 18:05 Q6H PRN pain and Fever >100.4 Apixaban 10 mg 08/07/24 21:00 Apixaban 2.5 Mg Tablet PO 08/14/24 09:01 BID MARILYNN Escitalopram Oxalate 10 mg 08/07/24 10:15 08/07/24 10:28 Escitalopram Oxalate 10 Mg Tablet PO 09/06/24 10:14 Not Given QDAY MARILYNN Lorazepam 1 mg 08/07/24 11:59 Lorazepam 0.5 Mg Tablet PO 08/12/24 11:58 BID MARILYNN Melatonin 3 mg 08/07/24 03:18 Melatonin 3 Mg Tablet PO 09/06/24 20:59 HS PRN insomnia Midodrine 10 mg 08/06/24 16:30 08/07/24 15:47 Midodrine 5 Mg Tablet PO 09/05/24 16:29 10 mg TID MARILYNN Administration Ondansetron HCl 4 mg 08/05/24 18:06 Ondansetron Inj 2 Mg/Ml Inj 2 Ml IV 09/04/24 18:05 Q6H PRN NAUSEA OR VOMITING Protocol Pantoprazole Sodium 40 mg 08/05/24 18:15 08/07/24 08:19 Pantoprazole Inj 40 Mg Vial IV 09/04/24 18:14 40 mg QDAY MARILYNN Administration Plan Patient is a 54 year old male with past medical history of substance use disorder, depression, and multiple SA attempts, who was admitted on 08/06/2024 for acute toxic encephlopathy, secondary medication overdose. #Hypotension Patient MAP in low 60s since extubation, likely secondary to side effects of medication. Less likely secondary to PE as patinet is not short of breath, no tachycardia, and saturating well. Plan -Midodrine 10 mg PO TID -pending echo #Paranoid Psychosis #Intentional drug overdose #SA, #SI #history of depression Patient attempted to SI with an attempt using Buspirone and Gabapentin. Plan -Sitter at bedside -Crisis prevention after patient is medically cleared, after improved hypotension #left lower extremity DVT Venous doppler on 08/05/2024 showed a positive for occlusive DVT in the left femoral Vein. Heparin on board. Plan -Eliquis 10 BID -consider hypercoagulable panel as outpatient #Substance Use Disorder #Meth Use Disorder Suboxone not available in pharmacy, must be patient's own medication. Patient's suboxone is considered a biohazard as he placed it into his rectum. Utox positive meth Plan -Ativan 1 mg BID, may increase to Ativan 2 mg BID as this is patient's home dose -Escitalopram 10 mg Qday -Melatonin HS -Followed up with pharmacy unable to dispense suboxone #Non-Obstructive Renal Calculi no hydronephrosis, no stent reproted on imaging #10 subcentimeter pulmonary nodules throughout the lungs, the largest 6 mm Plan -Follow up with CT #History of Crohns disease Plan no acute intervention Health Maintenance: Disp: Pt is currently admitted to floors for further management of hypotension and DVT, awaiting improved hypotension FEN: veggie diet DVT: Eliquis Code: Full code - The patient's plan was discussed with attending Dr. Yo Blanco MD PGY1 Internal Medicine Attending Provider Attestation/Addendum I, Michelle Ram DO, attest that I was physically present for the cox portions of the service and evaluated the patient with the resident and I reviewed and discussed the case with the resident and agree with the resident's findings and plans of care as documented above Patient seen and evaluated this Am. Patient states he is feeling well overall, but is anxious because he cannot reach his . Patient has no active complaints and is in no distress on room air. LLE is mildly wider than the right due to DVT and painful to palpation. BP remains low-normal. However, patient refused midodrine. Will transition heparin drip to eliquis. If BP improves and patient remains stable, anticipate DC within next 24h. Patient will need psych eval. He otherwise denies any SI or HI.
[2024-08-07] MEDS: APIXABAN 2.5 MG TABLET 10 MG PO (21:23)
[2024-08-08] VITALS (9 sets, daily range): BP systolic 96–144; BP diastolic 66–88; PULSE 73–110; RESP 12–30; TEMP 36.1–36.4; O2SAT 95–100; BMI 19.8
[2024-08-08 06:19] LABS: Basophils % (Auto) 1 % (0-2.5); Eosinophils # (Auto) 0.1 Thou/mm3 (0.0-0.5); Eosinophils % (Auto) 3 % (0-10); Hematocrit 30.9 % (41.0-53.0); Hemoglobin 10.1 g/dL (13.5-16.0); Immature Granulocytes % (Auto) 0 % (0-0); Immature Granulocytes Auto 0.01 Thou/mm3 (0.00-0.00); Lymphocytes # (Auto) 1.6 Thou/mm3 (1.0-4.8); Lymphocytes % (Auto) 36 % (10-50); Mean Corpuscular HGB Conc 32.7 g/dl (31.0-37.0); Mean Corpuscular Hemoglobin 31.3 pg (25.0-35.0); Mean Corpuscular Volume 96 fL (80-100); Monocytes # (Auto) 0.7 Thou/mm3 (0.0-0.8); Monocytes % (Auto) 16 % (0-12); Neutrophils % (Auto) 45 % (37-80); Nucleated Red Blood Cell % 0 /100 WBC (0); Platelet Count 170 Thou/mm3 (140-440); RDW Standard Deviation 52.1 fL (35.1-43.9); Red Blood Count 3.23 Miln/mm3 (4.50-5.90); White Blood Count 4.4 Thou/mm3 (3.8-10.6)
[2024-08-08 06:38] LABS: Alanine Aminotransferase 14 U/L (10-49); Albumin, Serum 3.2 gm/dL (3.5-5.0); Albumin/Globulin Ratio 1.5 (1.2-2.2); Alkaline Phosphatase 74 U/L (46-116); Anion Gap 4 (7-16); Aspartate Amino Transferase 16 U/L (0-34); BUN/Creatinine Ratio 15 Ratio (12-20); Bilirubin,Total 0.2 mg/dL (0.3-1.2); Blood Urea Nitrogen 9 mg/dL (9-23); Calcium 7.8 mg/dL (8.3-10.6); Calcium (Corrected) 8.4 mg/dL (8.5-10.1); Carbon Dioxide 31.4 mMol/L (20.0-31.0); Chloride 104 mMol/L (98-107); Creatinine (Component) 0.6 mg/dL (0.6-1.3); Estimated Creatinine Clearance 116.5 mL/min (>60); Globulin 2.2 gm/dL (2.3-3.5); Glucose 101 mg/dL (74-106); Magnesium 1.8 mg/dL (1.6-2.6); Osmolality,Calculated 276 (275-295); Potassium 4.6 mMol/L (3.4-5.1); Sodium 139 mMol/L (136-145); Total Protein 5.4 gm/dL (5.7-8.2); eGFR > 60 See Note
[2024-08-08] MEDS: Magnesium Sulfate 4 GM Ivpb 4 GM/50 ML BAG IV (09:00)
[2024-08-08] MEDS: SOD PHOS ADDITIVE 15 MMOL in SODIUM CHLORIDE 0.9% 250 ML 250 ML 62.5 MMOL IV (09:00)
[2024-08-08] MEDS: APIXABAN 2.5 MG TABLET 10 MG PO ×2 (09:47→21:49)
[2024-08-08] MEDS: LORazepam 0.5 MG TABLET 1 MG PO ×2 (09:47→12:12)
[2024-08-08] MEDS: ESCITALOPRAM OXALATE 10 MG TABLET PO (09:48)
[2024-08-08] MEDS: PANTOPRAZOLE INJ 40 MG VIAL IV (09:48)
--- NOTE | 2024-08-08 11:02 | PC.SS ---
SS follow up: per bed side nurse Renetta patient is ambulatory. Bed side nurse to follow up with poison control to ensure the patient has been cleared by them.
--- NOTE | 2024-08-08 11:33 | CHAP ---
Patient was visited by the Spiritual Care Volunteer who prayed for them. (Volunteer was in the hospital from 10:15-11:33).
--- NOTE | 2024-08-08 11:48 | PC.NURSE ---
Spoke with Jareth from Poison Control, He stated case for this pt is closed and pt has been cleared on their end
[2024-08-08] MEDS: POLYETHYLENE GLYCOL 17 GM PACKET PO (13:12)
[2024-08-08] MEDS: MIDODRINE 5 MG TABLET 10 MG PO (13:12)
[2024-08-08] MEDS: SENNA/DOCUSATE SOD 1 TAB TABLET PO (13:12)
--- NOTE | 2024-08-08 13:42 | PD.RESDS ---
Planned Discharge Date 08/08/24 DS: Providers Provider Date of admission: 08/05/24 13:46 Primary care physician: HILTON Brownlee Admitting Provider: Sina Grissom MD Attending Provider on Admission: Michelle Ram DO Consults: 08/08/24 12:19 PT [Referral Physical Therapy] Urgent Comment: Physician Instructions: Attending Provider on DC: Chiki Farley MD Discharging Provider: Chiki Farley MD Hospital Course Hospital Course Hospital course: Overnight, patient required Ativan and Miratazpine. Patient is still going through paranoid psychosis concern that someone it trying to kill . Of note patient's ended in the emergency room this evening requirng transfer. Patient was updated and spoke with with family. Time Spent with Patient Time attestation: Total time spent providing and/or coordinating discharge services: Exam Vital Signs Temp Pulse Resp BP Pulse Ox O2 Del Method O2 Flow Rate 97.6 F 85 12 103/69 98 Room Air 3 08/08/24 12:00 08/08/24 13:12 08/08/24 12:00 08/08/24 13:12 08/08/24 12:00 08/08/24 12:00 08/08/24 08:00 FiO2 28 08/06/24 08:00 Discharge Plan Plan Patient Disposition: HOME (Self Care) Care Plan Goals: Please take Eliquis dose pack as directed for the DVT (clot) in your left lower leg Continue taking your home medications as prescribed Please follow-up with your PCP within 1 week after discharge Please follow-up with Psychiatry at [facility] If your symptoms worsen or if you develop new chest pain, shortness of breath, dizziness or bleeding - please come back to the ED immediately Prescriptions/Referrals Prescriptions/Med Rec: New Eliquis DVT-PE Treat 30D Start 5 mg (74 tabs) tablets,dose pack 5 mg PO BID Qty: 74 0RF Continued naloxone [Narcan] 4 mg/actuation spray,non-aerosol 4 mg intranasal Q3M PRN (Reason: opioid overdose) Qty: 2 0RF Rx Instructions: spray 1 dose into ONE nostril; alternate nostrils w each dose until help arrives propranolol 10 mg Tablet 10 mg PO TID 30 Days Qty: 90 1RF escitalopram oxalate 10 mg Tablet 10 mg PO QDAY 30 Days Qty: 30 2RF buspirone 10 mg tablet Discontinued lorazepam 2 mg capsule,extended release 24hr 2 mg PO QDAY Qty: 3 0RF Eliquis DVT-PE Treat 30D Start 5 mg (74 tabs) tablets,dose pack 5 mg PO BID Qty: 74 0RF amoxicillin-pot clavulanate 875-125 mg tablet 1 tab PO Q12H Qty: 14 0RF Referrals: Ana Tidwell FNP [Primary Care Provider] - Patient/Caregiver Discharge Instructions Education Materials: Understanding Deep Vein Thrombosis, DVT Complications, DVT Dc Print Language: Egyptian Stand Alone Forms: [facility] Award Info., Patient Portal Info Letter Discharge Order Discharge Orders: Discharge (Routine); Ordered 08/08/24 Ordered By: Chiki Farley
--- NOTE | 2024-08-08 14:05 | ESDS_ITS ---
<Statement entered by Michelle Ram DO - 08/09/24 12:03> I, Michelle Ram DO, attest that I was physically present for the cox portions of the service and evaluated the patient with the resident and I reviewed and discussed the case with the resident and agree with the resident's findings and plans of care as documented above Planned Discharge Date 08/08/24 DS: Providers Provider Date of admission: 08/05/24 13:46 Primary care physician: HILTON Brownlee Admitting Provider: Sina Grissom MD Attending Provider on Admission: Michelle Rma DO Consults: 08/08/24 12:19 PT [Referral Physical Therapy] Urgent Comment: Physician Instructions: Attending Provider on DC: Chiki Farley MD Discharging Provider: Chiki Farley MD DS: Diagnosis Problem List Completed Was Problem List Reviewed/Reconciled?: Yes Hospital Course Hospital Course Hospital course: 54-year-old male with past medical history of Crohn's disease, left lower extremity DVT, depression, hydronephrosis status post ureteral stent, polysubstance use on Suboxone presented to the ED 05/07 after he was brought in from ambulance when he was found unresponsive by his . Patient apparently overdosed on home buspirone as well as gabapentin; moreover, he was also meth positive. In the ED, patient was afebrile, normotensive and laboratory findings were pertinent for pH of 7.32, PCO2 of 46 but electrolytes were unremarkable and EKG showed sinus rhythm with no QT prolongation. Patient was intubated for airway protection and upgraded to ICU. There was a pill bottle which was removed from his rectum; patient was downgraded to hospitalist team on 08/06 upon being extubated. Patient did have some hypotension after being extubated as a result midodrine was added to the regimen. Poison control request was made as the patient had a suicide attempt with prescription medication. During hospitalization, patient's had a medical emergency herself which prompted the patient to have some paranoid psychosis episode which was well-managed with home Ativan. Patient is medically cleared, has been ambulating effectively and understands that he will require Eliquis Dosepak for the DVT which was seen on ultrasound imaging. Patient will acquire crisis control prior to being discharged. Discharge to be completed and the patient understands the following strict instructions noted below. Please take Eliquis dose pack as directed for the DVT (clot) in your left lower leg Continue taking your home medications as prescribed Please follow-up with your PCP within 1 week after discharge Ask your PCP for a repeat CT chest for pulmonary nodules subcentimeter seen incidentally. Please follow-up with Psychiatry at [facility] If your symptoms worsen or if you develop new chest pain, shortness of breath, dizziness or bleeding - please come back to the ED immediately Hospital Diagnosis: #Paranoid Psychosis #Intentional drug overdose #Suicidal ideation #Depression/Generalized Anxiety Disorder #Left lower extremity DVT #Hypotension #Substance Use Disorder #Meth Use Disorder #Non-Obstructive Renal Calculi no hydronephrosis, no stent reproted on imaging #10 subcentimeter pulmonary nodules throughout the lungs, the largest 6 mm #History of Crohn's disease Chiki Farley, PGY-1 Status at Discharge Overall status at discharge: patient is progressing back to baseline Time Spent with Patient Time attestation: Total time spent providing and/or coordinating discharge services: 45 minutes Time spent: Greater than 30 minutes Exam Vital Signs Temp Pulse Resp BP Pulse Ox O2 Del Method O2 Flow Rate 97.6 F 85 12 103/69 98 Room Air 3 08/08/24 12:00 08/08/24 13:12 08/08/24 12:00 08/08/24 13:12 08/08/24 12:00 08/08/24 12:00 08/08/24 08:00 FiO2 28 08/06/24 08:00 Narrative Exam General Appearance: Alert & Oriented X3, thin male who is lying in bed in anxious at baseline and concern that other are out to get him. HEENT: Skull symmetrical and atraumatic. Conjunctivae pale pink and moist. Pupils equal, round, reactive to light and accommodation (PERRL). External ear without lesion or discharge. Straight, nares patient, mucosa pink, no discharge. No thyroid nodule appreciated. No cervical lymphadenopathy. Cardio: Normal Rate and Rhythm with S1 and S2 heart sounds. No murmurs or extra heart sounds auscultated. No bruits on carotid auscultation. No peripheral edema or cyanosis. Lungs: Symmetric with good expansion. Chest and back non-tender. Breath sounds vesicular without crackles, wheezing or rhonchi Abdomen: Non-tender, Non-distended, Normal Reactive Bowel Sounds Neuro: Alert, cooperative, oriented to person, place, and time. Speech clear. CN grossly intact. Upper motor strength 5/5 and Lower motor strength 5/5. Sensation intact. Discharge Plan Plan Patient Disposition: HOME (Self Care) Care Plan Goals: Please take Eliquis dose pack as directed for the DVT (clot) in your left lower leg Continue taking your home medications as prescribed Please follow-up with your PCP within 1 week after discharge Please follow-up with Psychiatry at [facility] If your symptoms worsen or if you develop new chest pain, shortness of breath, dizziness or bleeding - please come back to the ED immediately Prescriptions/Referrals Prescriptions/Med Rec: New Eliquis DVT-PE Treat 30D Start 5 mg (74 tabs) tablets,dose pack 5 mg PO BID Qty: 74 0RF Continued naloxone [Narcan] 4 mg/actuation spray,non-aerosol 4 mg intranasal Q3M PRN (Reason: opioid overdose) Qty: 2 0RF Rx Instructions: spray 1 dose into ONE nostril; alternate nostrils w each dose until help arrives propranolol 10 mg Tablet 10 mg PO TID 30 Days Qty: 90 1RF escitalopram oxalate 10 mg Tablet 10 mg PO QDAY 30 Days Qty: 30 2RF buspirone 10 mg tablet Discontinued lorazepam 2 mg capsule,extended release 24hr 2 mg PO QDAY Qty: 3 0RF Eliquis DVT-PE Treat 30D Start 5 mg (74 tabs) tablets,dose pack 5 mg PO BID Qty: 74 0RF amoxicillin-pot clavulanate 875-125 mg tablet 1 tab PO Q12H Qty: 14 0RF Referrals: Ana Tidwell FNP [Primary Care Provider] - Patient/Caregiver Discharge Instructions Education Materials: Understanding Deep Vein Thrombosis, DVT Complications, DVT Dc Print Language: Tajik Stand Alone Forms: [facility] Award Info., Patient Portal Info Letter Discharge Order Discharge Orders: Discharge (Routine); Ordered 08/08/24 Ordered By: Chiki Farley Quality Discharge Quality Measures VTE prophylaxis
--- NOTE | 2024-08-08 14:07 | PC.PT ---
As per chart patient is ambulatory. Informed resident MD. Will cancel PT evaluation.
--- NOTE | 2024-08-08 14:46 | PD.RESPRO ---
Documentation for date of: 08/08/24 Subjective Subjective Interval history: 08/08/2024: No acute overnight events to report; moreover, patient refused midodrine in the evening. Patient seen and examined this morning denies having any concerning symptoms such as chest pain, shortness of breath, palpitations, abdominal pain or dizziness. Poison control was able to clear the patient; moreover, he is medically cleared and had a bowel movement with new bowel regimen. Patient also able to ambulate effectively without assistance. Patient will require crisis control prior to being discharged; moreover, clinical social worker is currently working on the case. Patient also was made aware of the pulmonary nodules which were seen on CT imaging; moreover, he understands that he will need to follow-up with his PCP and have repeat imaging within the next 6 months. Patient will also complete Eliquis Dosepak for the left lower extremity DVT confirmed with ultrasound. Exam Vital Signs Temp Pulse Resp BP Pulse Ox O2 Del Method O2 Flow Rate 97.6 F 85 12 103/69 98 Room Air 3 08/08/24 12:00 08/08/24 13:12 08/08/24 12:00 08/08/24 13:12 08/08/24 12:00 08/08/24 12:00 08/08/24 08:00 FiO2 28 08/06/24 08:00 Narrative Exam General Appearance: Alert & Oriented X3, thin male who is lying in bed in anxious at baseline and concern that other are out to get him. HEENT: Skull symmetrical and atraumatic. Conjunctivae pale pink and moist. Pupils equal, round, reactive to light and accommodation (PERRL). External ear without lesion or discharge. Straight, nares patient, mucosa pink, no discharge. No thyroid nodule appreciated. No cervical lymphadenopathy. Cardio: Normal Rate and Rhythm with S1 and S2 heart sounds. No murmurs or extra heart sounds auscultated. No bruits on carotid auscultation. No peripheral edema or cyanosis. Lungs: Symmetric with good expansion. Chest and back non-tender. Breath sounds vesicular without crackles, wheezing or rhonchi Abdomen: Non-tender, Non-distended, Normal Reactive Bowel Sounds Neuro: Alert, cooperative, oriented to person, place, and time. Speech clear. CN grossly intact. Upper motor strength 5/5 and Lower motor strength 5/5. Sensation intact. Objective Labs 08/08/24 05:28 08/08/24 05:28 Labs: Laboratory Results - last 24 hr 08/08/24 05:28 WBC 4.4 RBC 3.23 L Hgb 10.1 L Hct 30.9 L MCV 96 MCH 31.3 MCHC 32.7 RDW Std Deviation 52.1 H Plt Count 170 Neut % (Auto) 45 Lymph % (Auto) 36 [place] % (Auto) 16 H Eos % (Auto) 3 Baso % (Auto) 1 Neut # (Auto) 2.0 Lymph # (Auto) 1.6 [place] # (Auto) 0.7 Eos # (Auto) 0.1 Baso # (Auto) 0.0 Immature Gran # (Auto) 0.01 H Absolute Nucleated RBC 0.00 Immature Gran % 0 Nucleated RBC % 0 Sodium 139 Potassium 4.6 D Chloride 104 Carbon Dioxide 31.4 H Anion Gap 4 L BUN 9 Creatinine 0.6 Estim Creat Clear Calc 116.5 eGFR > 60 BUN/Creatinine Ratio 15 Glucose 101 Calculated Osmolality 276 Calcium 7.8 L Corrected Calcium 8.4 L Phosphorus 2.0 L Magnesium 1.8 Total Bilirubin 0.2 L AST 16 ALT 14 Alkaline Phosphatase 74 Total Protein 5.4 L Albumin 3.2 L Globulin 2.2 L Albumin/Globulin Ratio 1.5 ABG Interpretation ABG results: 08/05/24 08/06/24 08/06/24 12:42 04:21 08:11 ABG pH 7.32 L 7.28 L 7.46 H D ABG pCO2 46 55 H 32 D ABG pO2 264 H 61 L D 140 H D ABG HCO3 23 26 23 ABG O2 Saturation 100 H 90 L 100 H ABG Base Excess -3 -2 0 Quality Measures Quality Measures none Assessment & Plan Assessment Current Active Medications: Generic Name Dose Route Start Last Admin Trade Name Freq PRN Reason Stop Dose Admin Acetaminophen 650 mg 08/05/24 18:06 Acetaminophen 325 Mg Tablet PO 09/04/24 18:05 Q6H PRN pain and Fever >100.4 Apixaban 10 mg 08/07/24 21:00 08/08/24 09:47 Apixaban 2.5 Mg Tablet PO 08/14/24 09:01 10 mg BID MARILYNN Administration Escitalopram Oxalate 10 mg 08/07/24 10:15 08/08/24 09:48 Escitalopram Oxalate 10 Mg Tablet PO 09/06/24 10:14 10 mg QDAY MARILYNN Administration Lorazepam 2 mg 08/08/24 21:00 Lorazepam 0.5 Mg Tablet PO 08/13/24 20:59 BID MARILYNN Melatonin 3 mg 08/07/24 03:18 Melatonin 3 Mg Tablet PO 09/06/24 20:59 HS PRN insomnia Midodrine 10 mg 08/06/24 16:30 08/08/24 13:12 Midodrine 5 Mg Tablet PO 09/05/24 16:29 10 mg TID MARILYNN Administration Ondansetron HCl 4 mg 08/05/24 18:06 Ondansetron Inj 2 Mg/Ml Inj 2 Ml IV 09/04/24 18:05 Q6H PRN NAUSEA OR VOMITING Protocol Pantoprazole Sodium 40 mg 08/09/24 09:00 Pantoprazole 40 Mg Tablet PO 09/04/24 18:14 QDAY MARILYNN Plan Patient is a 54 year old male with past medical history of substance use disorder, depression, and multiple SA attempts, who was admitted on 08/06/2024 for acute toxic encephlopathy, secondary medication overdose. #Paranoid Psychosis #Intentional drug overdose #Suicidal ideation #Depression/Generalized Anxiety Disorder Patient attempted to SI with an attempt using Buspirone and Gabapentin. Plan: Sitter at bedside; patient able to ambulate effectively Crisis prevention after patient is medically cleared, after improved hypotension #left lower extremity DVT Venous doppler on 08/05/2024 showed a positive for occlusive DVT in the left femoral Vein. Heparin on board. Plan: Eliquis dose pack for DVT ordered; patient to follow instructions as directed Consider hypercoagulable panel as outpatient #Hypotension Patient MAP in low 60s since extubation, likely secondary to side effects of medication. Less likely secondary to PE as patinet is not short of breath, no tachycardia, and saturating well - CTA Chest is negative for PE Pending echo read Plan: Midodrine 10 mg PO TID Follow-up outpatient with echo read #Substance Use Disorder #Meth Use Disorder Suboxone not available in pharmacy, must be patient's own medication. Patient's suboxone is considered a biohazard as he placed it into his rectum. Utox positive meth Plan: On Ativan 2 mg BID as this is patient's home dose; will not discharge with refill due to above Escitalopram 10 mg Qday Melatonin HS #Non-Obstructive Renal Calculi no hydronephrosis, no stent reproted on imaging Plan: Follow-up with PCP #10 subcentimeter pulmonary nodules throughout the lungs, the largest 6 mm Plan: Follow up with CT for repeat imaging within the next 6 months #History of Crohn's disease Plan: No acute intervention Hospital Management: Lines: PIV Diet: Vegetarian Bowel: Senna and polyethylene glycol GI prophylaxis: Not needed DVT prophylaxis: On Eliquis therapeutic dose for DVT Dispo: Crisis control prior to discharge Code: Full Patient seen and assessed with attending Dr. Yo Farley, PGY-1 Attending Provider Attestation/Addendum Michelle Russell DO, attest that I was physically present for the cox portions of the service and evaluated the patient with the resident and I reviewed and discussed the case with the resident and agree with the resident's findings and plans of care as documented above Patient seen and eval this a.m. He is anxious to leave. He states that he is feeling well and has no active complaints. Patient was able to have a bowel movement this morning and has been ambulatory with the nursing staff. Blood pressure has since been stable. No need for midodrine thus far. No acute events overnight. Patient has been placed on a psychiatric hold and will need placement. Patient is otherwise medically clear for discharge.
--- NOTE | 2024-08-08 16:24 | ECHO_ITS ---
Transthoracic Echo Report Ht (in): 71 Wt (lb): 109 Exam Location: Portable Status: Inpatient Roll Plugger: WILBERT Blank^^^^ Indications: Procedure Performed: BP: / HR: 94 Technical Quality: Fair MEASUREMENTS (Male / Female) Normal Values 2D ECHO LV Diastolic Diameter PLAX 4.3 cm 4.2 - 5.9 / 3.9 - 5.3 cm LV Systolic Diameter PLAX 2.4 cm IVS Diastolic Thickness 0.5 cm 0.6 - 1.0 / 0.6 - 0.9 cm LVPW Diastolic Thickness 0.8 cm 0.6 - 1.0 / 0.6 - 0.9 cm LV Relative Wall Thickness 0.3 LVOT Diameter 1.9 cm Aortic Root Diameter 3.3 cm LA Systolic Diameter LX 2.8 cm 3.0 - 4.0 / 2.7 - 3.8 cm LA Volume Index 32.9 cm?/m? 16 - 28 cm?/m? DOPPLER AV Peak Velocity 138.7 cm/s AV Peak Gradient 7.7 mmHg AV Mean Gradient 6.0 mmHg AV Velocity Time Integral 27.9 cm LVOT Peak Velocity 129.0 cm/s LVOT Peak Gradient 6.7 mmHg LVOT Velocity Time Integral 28.5 cm LVOT Cardiac Index 4900.0 cm?/min?m? AV Area Cont Eq vti 2.9 cm? AV Area Cont Eq pk 2.6 cm? MV Area PHT 5.6 cm? Mitral E Point Velocity 116.0 cm/s Mitral A Point Velocity 97.0 cm/s Mitral E to A Ratio 1.2 LV E' Lateral Velocity 16.6 cm/s Mitral E to LV E' Lateral Ratio 7.0 LV E' Septal Velocity 17.1 cm/s Mitral E to LV E' Septal Ratio 6.8 TR Peak Velocity 218.5 cm/s TR Peak Gradient 19.1 mmHg PV Peak Velocity 115.0 cm/s PV Peak Gradient 5.3 mmHg FINDINGS Left Ventricle Normal left ventricular size, wall thickness, systolic function with no obvious regional wall motion abnormalities. There is grade II diastolic dysfunction of the left ventricle (pseudonormal filling pattern). The left ventricular ejection fraction is normal, estimated at 55-60%. Right Ventricle The right ventricle is normal in size and systolic function. The estimated right ventricular systolic pressure, 20 mmHg. Left Atrium The left atrium is normal by two-dimensional, color flow and Doppler imaging with no structural abnormalities, no thrombus formation present. Right Atrium The right atrium is normal by two-dimensional imaging, color flow and Doppler imaging with no structural abnormalities, no thrombus formation present. Atrial Septum The interatrial septum appears normal with no evidence of a shunt. Aorta The aorta is normal by two-dimensional, color flow and Doppler interrogation. Mitral Valve Trace to mild mitral regurgitation. Mild mitral annular calcification. Aortic Valve Mild thickening of the aortic valve leaflets. Aortic valve sclerosis. Tricuspid Valve There is mild tricuspid valve regurgitation. Pulmonic Valve Trivial pulmonic valve regurgitation. Vessels The pulmonary artery appears normal. The inferior vena cava pulmonary and hepatic veins appear normal. Pericardium The pericardium is normal by two-dimensional imaging. There is no significant pericardial effusion. CONCLUSIONS Indication: Hypotension, meth use Normal LV size and function with an estimated EF of 60 to 65%. Normal diastolic function. Normal RV size and function with a normal RVSP of 20-25 mmHg Trace to mild TR, trace MR Rick Mora (Electronically Signed) Final Date: 09 Aug 2024 20:55
--- NOTE | 2024-08-08 16:34 | PC.SS ---
STEPHAN Remy met with the patient at bed side for mental health evaluation. Patient appears to be alert and oriented to person, place and situation. Patient appears to be rested. Patient providing appropriate eye contact. Patient able to engage in assessment. Patient reports he had a bowel movement today. Patient reports being ambulatory without any issues and does not require use of DME. Patient follows with provider Ana Tidwell at [facility] in [place] for primary care. Patient is connected to [facility] with psychiatrist Dr. Adams. Patient is prescribed Ativan 2mg 3x/day. Patient has a mental health diagnosis of Major Depressive Disorder and Generalized Anxiety Disorder. Patient was asked if he was aware of what led him to hospital admission. Patient reports he ?took a handful of pills?. Per patient he does not recall the exact medication that was taken nor the amount. Patient reports he overdosed on the medication as a ?manipulation tactic?. Patient was unable to clarify what he meant by this statement. Additionally the patient reports that his , Alanna saw him take the medication. Per patient he states, ?I?m almost convinced she wants to see me ?, referring to his when asked for clarification. Patient was asked if he consumed any substances that day. The patient informs he ?went to the store and a marcy put it in my hands? referring to ?drugs? when asked to clarify. Patient toxicology report was positive for amphetamines. Per patient he is aware and states ?I?m not a junkie?. Patient reports not being connected to substance use services. Patient was recently placed on a 5150 Hold for danger to self for overdose on medication a few weeks ago by our crisis staff. The patient was discharged to [facility] on 07/22/24. Additionally, the patient has history with suicide attempt on medication. Patient also has history of depression and anxiety. Today, the patient is denying SI and HI. Patient is also denying audio and visual hallucinations. Patient appears to be untruthful about the current circumstances that led him to the hospital. Patient does not have good coping skills and appears to be compulsive. Patient reports his , Alanna was also at our Emergency department yesterday and reports he is worried about her well-being. Patient states his is home at this time as he was been communicating with her. At this time a safety plan would not be appropriate as the patient was recently released on a safety plan last month on 07/15/24 and returned later that night on an intentional overdose. The patient then return again earlier this week on 08/05/24 on another overdose event, which led the patient to be intubated in the ICU. After clinical consultation with FIRE BOAT ENGINEER, Megan Galvin, due to the recent events that have presented, the patient meets criteria for a 5150 hold for danger to self. ASW provided patient with advisement. Attending Dr. Ram, bedside RN Renetta and patient?s Alanna aware of disposition plan. Patient is pending LPS placement at this time.
--- NOTE | 2024-08-08 17:51 | PC.CC ---
Alecia Jordan called and wanted to speak to the RN regarding clinicals for possible LPS placement. ASW made contact with KELLEN Jackson and transferred the call for clinicals.
--- NOTE | 2024-08-08 18:21 | PC.CC ---
Alvin with [facility] made telephone contact with ASW to inform her that he will be presenting patient to his medical team for placement.
--- NOTE | 2024-08-08 18:39 | PC.CC ---
Alvin with [facility] provided accepting information, Dr. Cosby accepted patient into the [facility]. ASW provided accepting information to patient and he was receptive to information. ASW provided update to bedside RN Renetta. ASW to arrange transportation.
--- NOTE | 2024-08-08 18:59 | PC.CC ---
Patient requested ASW make telephone contact with patient's , Alanna to provide accepting information. ASW made telephone contact Alanna to provide accepting information.
[2024-08-08] MEDS: LORazepam 0.5 MG TABLET 2 MG PO (20:04)
[2024-08-08] MEDS: ACETAMINOPHEN 325 MG TABLET 650 MG PO (20:05)
--- NOTE | 2024-08-08 22:13 | PC.NURSE ---
PATIENT WILL BE TRANSFERRED TO [facility].REPORT GIVEN TO KELLEN MADDOX.
== END 2024-08-08 23:15 | disposition home or self-care (01) | DRG 817 ==
LOC: SERX 13:34 → SERHOLD 14:28 → S2SX 15:16 → S2NX 08-06 18:28
PROVIDERS: Student in an Organized Health Care Education/Training Program; Admitting Provider Internal Medicine; Emergency Provider Emergency Medicine; PCP Nurse Practitioner; Visit Provider Internal Medicine
DX: T42.6X2A Poisoning by other antiepileptic and sedative-hypnotic drugs, intentional self-harm, initial encounter (principal); F15.90 Other stimulant use, unspecified, uncomplicated; Q90.9 Down syndrome, unspecified; F17.200 Nicotine dependence, unspecified, uncomplicated; G43.909 Migraine, unspecified, not intractable, without status migrainosus; I48.91 Unspecified atrial fibrillation; K50.90 Crohn's disease, unspecified, without complications; Z86.718 Personal history of other venous thrombosis and embolism; F32.A Depression, unspecified; G93.40 Encephalopathy, unspecified; D64.9 Anemia, unspecified; T18.5XXA Foreign body in anus and rectum, initial encounter; F29 Unspecified psychosis not due to a substance or known physiological condition; F41.1 Generalized anxiety disorder; G92.8 Other toxic encephalopathy; I82.412 Acute embolism and thrombosis of left femoral vein; J44.9 Chronic obstructive pulmonary disease, unspecified; N20.0 Calculus of kidney; E87.29 Other acidosis; Z79.899 Other long term (current) drug therapy; W44.9XXA Unspecified foreign body entering into or through a natural orifice, initial encounter
CPT/HCPCS: 36415; 36600; 70450; 74018; 80053; 80307; 80329; 81001; 82803; 83605; 83690; 83735; 83880; 84100; 84484; 85025; 85610; 85730; 87081; 93005; 93306; 93971; 94002; 94003; 96127; 99291; J1644; J2310; J2405; J2470; J2704; J3010; J3475; J3490; J7030; J7050; J7120; A9270; G0480

== ENCOUNTER 2024-09-04 01:45 | Emergency (ER) | payer MEDICAID, SELFPAY ==
[2024-09-04 01:46] VITALS: BMI 15.2
[2024-09-04 02:00] VITALS: BP 128/85; PULSE 76; RESP 19; TEMP 37; O2SAT 97
--- NOTE | 2024-09-04 02:13 | XR_ITS ---
Examination: CT abdomen and pelvis without contrast. Coronal 3-D reconstructions. Sagittal 2-D reconstructions. Date and time of exam:September 04, 2024 0253 hours Comparison March 18, 2024 INDICATIONS: Right flank pain, patient urinating blood one month, history removal of ureteral stents CTDI: vol (mGy): 5 DLP: (mGycm): 255 Technique: Axial images of the abdomen have been obtained, 3 mm slice thickness Intravenous contrast material has not been administered. Low dose protocols were performed. One or more of the following dose reduction techniques were used; automated exposure control, adjustment of the mA and/or KV according to patient size, use of iterative reconstruction technique. Findings: No focal liver or splenic lesion No gallstones No pancreatic mass 4 mm lower pole right renal calculus Aorta normal size The appendix is fluid filled at its tip but I do not visualize definite periappendiceal inflammatory change No bowel obstruction or diverticulitis Urinary bladder wall thickening up to 4 mm Advanced degenerative disc disease L5-S1 IMPRESSION: 4 mm lower pole right renal calculus No definite acute appendicitis, the appearance should be clinically correlated Cystitis pattern
--- NOTE | 2024-09-04 02:20 | PD.EDBACK ---
ED Back Injury Pain RME/HPI General Chief Complaint: Urogenital-Male Stated Complaint: URINATING BLOOD, HX OF KIDNEY STONES Time Seen by Provider: 09/04/24 02:12 Arrival date/time: 09/04/24 01:45 54M with history of Crohn's disease, LLE DVT (on Eliquis), depression (w/ multiple recent SI attempts), hydronephrosis status post ureteral stent, and drug use presents to ED with 2 weeks of intermittent R flank pain and hematuria. Patient denies gross dysuria, but has been passing stones. Separately, patient would like some Ativan because he ran out. He denies any current SI/HI and does not believe he needs to crisis during this ED visit. Patient states as long as he doesn't go through Ativan withdrawal, he won't have another psychotic breakdown. Limitations: no limitations Related Data Home Medications ?Medication ?Instructions ?Recorded ?Confirmed buspirone 10 mg tablet mg 08/05/24 Previous Rx's ?Medication ?Instructions ?Recorded naloxone 4 mg/actuation nasal 4 mg intranasal Q3M PRN opioid 11/30/23 spray (Narcan) overdose #2 ea escitalopram oxalate 10 mg tablet 10 mg PO QDAY 30 days #30 tabs 07/20/24 propranolol 10 mg tablet 10 mg PO TID 30 days #90 tabs 07/20/24 apixaban 5 mg (74 tabs) tablets in 5 mg PO BID #74 tabs 08/08/24 a dose pack (Eliquis DVT-PE Treat 30D Start) Allergies Allergy/AdvReac Type Severity Reaction Status Date / Time onion Allergy Severe Vomiting Verified 07/12/24 01:00 Review of Systems Review of Systems Systems Reviewed: All systems reviewed, normal except as documented Constitutional Constitutional: Reports system reviewed and no additional complaints, except as documented, Denies fever(s) and Denies headache(s) ENT Ears, Nose, Mouth, and Throat: Denies disequilibrium and Denies headache(s) Cardiovascular Cardiovascular: Reports system reviewed and no additional complaints, except as documented, Denies chest pain and Denies dyspnea Respiratory Respiratory: Reports system reviewed and no additional complaints, except as documented, Denies cough and Denies dyspnea Gastrointestinal Gastrointestinal: Reports system reviewed and no additional complaints, except as documented, Denies abdominal pain, Denies nausea and Denies vomiting Genitourinary Genitourinary: Reports as per HPI, Reports flank pain and Reports hematuria Neurologic Neurologic: Reports system reviewed and no additional complaints, except as documented, Denies confusion, Denies disequilibrium and Denies headache(s) Psychiatric Psychiatric: Denies confusion Past Medical History Past Medical History NEUROLOGIC: Positive Migraine; Negative Neurological Disorders, Transient Ischemic Attacks (TIA) or Seizures CARDIAC: Positive Cardiac Disorders and Atrial Fibrillation; Negative Congestive Heart Failure or Hypertension RESPIRATORY: Negative Chronic Obstructive Pulmonary Disease (COPD) or Asthma GASTROINTESTINAL: Positive Gastrointestinal Disorders and Crohn's Disease GENITOURINARY: Positive Genitourinary Disorders, Renal Disease and Kidney Stones MUSCULOSKELETAL: Negative Musculoskeletal Disorders ENDOCRINE: Negative Diabetes Mellitus Type 1 or Diabetes Mellitus Type 2 HEMATOLOGIC: Negative Sickle Cell Disease PSYCHO/SOCIAL: Positive Depression and Anxiety OTHER HISTORY: Positive Autoimmune Disease and Down Syndrome; Negative Falls, Blood Transfusions, Blood Transfusion Reaction, Anesthesia Reactions, Organ Transplant, MRSA or Cancer Surgical History SURGICAL: Negative Cardiac Surgery, Endocrine Surgery, Thyroidectomy, Ear Surgery, Abdominal Surgery, Nephrectomy, Joint Replacement, Neurologic Surgery, Mastectomy or Organ Transplant Social History SMOKING STATUS: Current every day smoker SUBSTANCE USE: methamphetamine ED Exam General Limitations: Present no limitations General appearance: Present alert and in no apparent distress Head Head exam: Present atraumatic Eye Eye exam: Present normal appearance, PERRL and EOMI ENT ENT exam: Present normal exam, normal oropharynx and mucous membranes moist Neck Neck exam: Present normal inspection, full ROM and trachea midline Chest Chest inspection: Present normal inspection and symmetric chest wall rise Respiratory Respiratory exam: Present normal lung sounds bilaterally Cardiovascular Cardiovascular exam: Present regular rate, normal rhythm and normal heart sounds Abdominal Exam Abdominal exam: Present soft and normal bowel sounds Extremities Exam Extremities exam: Present normal inspection and full ROM Back Exam Back exam: Present normal inspection and full ROM Neurological Exam Neurological exam: Present alert, oriented X3 and CN II-XII intact Psychiatric Psychiatric exam: Present normal affect and normal mood Skin Skin exam: Present warm, dry, intact and normal color Course Quality Measures none Orders Category Date Time Status CT abdomen pelvis wo con Stat Exams 09/04/24 02:13 Taken CBC Stat Lab 09/04/24 02:27 Completed CMP [Comprehensive Metabolic Panel] Stat Lab 09/04/24 02:27 Completed Drug Screen,Urine Stat Lab 09/04/24 02:45 Completed Lipase Stat Lab 09/04/24 02:27 Completed UA [Urinalysis] Stat Lab 09/04/24 02:45 Completed Urine Culture Stat Lab 09/04/24 02:45 Received LORazepam [Ativan] Med 09/04/24 02:13 Discontinued 2 mg PO X1 ONE Vital Signs Vital signs: Vital Signs Temperature 98.6 F 09/04/24 02:00 Pulse Rate 76 09/04/24 02:00 Respiratory Rate 19 09/04/24 02:00 Blood Pressure 128/85 H 09/04/24 02:00 Pulse Oximetry (%) 97 09/04/24 02:00 Oxygen Delivery Method Room Air 09/04/24 02:00 O2 at 97% on RA and WNLs Back Pain / Injury MDM Narrative MDM Narrative:: 54M with history of Crohn's disease, LLE DVT (on Eliquis), depression (w/ multiple recent SI attempts), hydronephrosis status post ureteral stent, and drug use presents to ED with 2 weeks of intermittent R flank pain and hematuria. Patient denies gross dysuria, but has been passing stones. Separately, patient would like some Ativan because he ran out. He denies any current SI/HI and does not believe he needs to crisis during this ED visit. Patient states as long as he doesn't go through Ativan withdrawal, he won't have another psychotic breakdown. Physical exam reveals well-appearing male. Patient is afebrile, calm, and alert. No leukocytosis. CMP unremarkable. UA clean except for mild blood, likely from recently passed stones. CT no kidney stones. Appendix appears thickened, but no inflammation. Also no RLQ tenderness. Patient data External records reviewed:: [facility] previous records Clinical information provided by:: patient Social determinants that could affect healthcare access:: substance use Patient has the following chronic illnesses:: Crohn's disease, LLE DVT (on Eliquis), depression (w/ multiple recent SI attempts), hydronephrosis status post ureteral stent, and drug use How is presenting disease/condition affected by chronic disease/condition?: exacerbated by Evaluation data The following diagnostics were reviewed and interpreted by me:: lab results and radiology exam(s) Lab and/or radiology exams considered but not ordered:: ordered Interpretation Summary: above Medications / Prescriptions Medications or Prescriptions considered but not ordered:: ordered Medication administrations:: Medication Administration History Discontinued Medications Lorazepam (Lorazepam 0.5 Mg Tablet) 2 mg PO X1 ONE Stop: 09/04/24 02:14 Last Admin: 09/04/24 03:46 Dose: 2 mg Documented By: EDIL above Consultations Consultation(s) initiated? (list below): No Diagnosis Differential diagnosis back pain/injury: lumbar radiculopathy, sciatica, strain of lumbar region, renal colic, pyelonephritis, thoracic back pain, AAA, discitis and other (kidney stone, hematuria, DVT) Most likely diagnosis given after review of the tests above:: hematuria and DVT Admission Indicated Admission indicated?: not indicated Admission Request Was there a request for admission?: No Disposition Plan Disposition Plan: Discharge Discharge Attestation Discharge Attestation: The patient and all family members were given an opportunity to ask questions and understood the discharge instructions. Discharge instructions specifically effects, indications for sooner follow up or return to the emergency department, and the expected course of current diagnosis. Patient condition: Stable Discharge Plan Plan Patient Disposition: HOME (Self Care) Discharge Disposition comment: Stable Prescriptions/Referrals Prescriptions/Med Rec: No Action naloxone [Narcan] 4 mg/actuation spray,non-aerosol 4 mg intranasal Q3M PRN (Reason: opioid overdose) Qty: 2 0RF Rx Instructions: spray 1 dose into ONE nostril; alternate nostrils w each dose until help arrives propranolol 10 mg Tablet 10 mg PO TID 30 Days Qty: 90 1RF escitalopram oxalate 10 mg Tablet 10 mg PO QDAY 30 Days Qty: 30 2RF buspirone 10 mg tablet Eliquis DVT-PE Treat 30D Start 5 mg (74 tabs) tablets,dose pack 5 mg PO BID Qty: 74 0RF Problem List Clinical Impression: DVT, lower extremity, Hematuria Patient/Caregiver Discharge Instructions Education Materials: ED Abdominal Pain Appendx Poss, ED Hematuria Additional Instructions: Please follow-up with PCP within 24-48 hours and return immediately if symptoms worsen. Need to follow-up with PCP for Eliquis monitoring. Standard treatment for DVT is 3 months of treatment. Also ask about Ativan refill. Print Language: Nicaraguan Stand Alone Forms: Patient Portal Info Letter PA/DRAPERY SUPERVISOR Supervising Physician KAREN/FERNANDO Supervising Physician: Dr. Randall
[2024-09-04 02:35] LABS: Basophils % (Auto) 1 % (0-2.5); Eosinophils # (Auto) 0.2 Thou/mm3 (0.0-0.5); Eosinophils % (Auto) 3 % (0-10); Hematocrit 37.5 % (41.0-53.0); Hemoglobin 12.7 g/dL (13.5-16.0); Immature Granulocytes % (Auto) 0 % (0-0); Immature Granulocytes Auto 0.01 Thou/mm3 (0.00-0.00); Lymphocytes # (Auto) 2.4 Thou/mm3 (1.0-4.8); Lymphocytes % (Auto) 29 % (10-50); Mean Corpuscular HGB Conc 33.9 g/dl (31.0-37.0); Mean Corpuscular Hemoglobin 31.1 pg (25.0-35.0); Mean Corpuscular Volume 92 fL (80-100); Monocytes # (Auto) 0.7 Thou/mm3 (0.0-0.8); Monocytes % (Auto) 8 % (0-12); Neutrophils # (Auto) 5.1 Thou/mm3 (1.8-7.7); Neutrophils % (Auto) 60 % (37-80); Nucleated Red Blood Cell % 0 /100 WBC (0); Platelet Count 200 Thou/mm3 (140-440); RDW Standard Deviation 49.5 fL (35.1-43.9); Red Blood Count 4.08 Miln/mm3 (4.50-5.90); White Blood Count 8.4 Thou/mm3 (3.8-10.6)
[2024-09-04 02:53] LABS: Alanine Aminotransferase 15 U/L (10-49); Albumin, Serum 4.7 gm/dL (3.5-5.0); Albumin/Globulin Ratio 1.9 (1.2-2.2); Alkaline Phosphatase 89 U/L (46-116); Anion Gap 5 (7-16); Aspartate Amino Transferase 18 U/L (0-34); BUN/Creatinine Ratio 16 Ratio (12-20); Bilirubin,Total 0.4 mg/dL (0.3-1.2); Blood Urea Nitrogen 13 mg/dL (9-23); Calcium 9.1 mg/dL (8.3-10.6); Calcium (Corrected) 9.1 mg/dL (8.5-10.1); Carbon Dioxide 29.6 mMol/L (20.0-31.0); Chloride 106 mMol/L (98-107); Creatinine (Component) 0.8 mg/dL (0.6-1.3); Globulin 2.5 gm/dL (2.3-3.5); Glucose 111 mg/dL (74-106); Lipase 35 U/L (12-53); Osmolality,Calculated 282 (275-295); Potassium 4.4 mMol/L (3.4-5.1); Sodium 141 mMol/L (136-145); Total Protein 7.2 gm/dL (5.7-8.2); eGFR > 60 See Note
[2024-09-04 03:02] LABS: Collection Type, Urine Clean Catch
[2024-09-04 03:16] LABS: Amphetamine/Methamp Scrn,U Negative (Negative); Barbiturate Screen,Urine Negative (Negative); Benzodiazepines Screen,Urine Negative (Negative); Benzoylecgonine Screen, Ur Negative (Negative); Fentanyl Screen,Urine Negative (Negative); Opiate Screen,Urine Negative (Negative); THC Screen,Urine Negative (Negative)
[2024-09-04 03:31] LABS: Bilirubin,Urine Negative (Negative); Blood,Urine 3+ (Negative); Clarity,Urine Clear (Clear/Hazy); Color,Urine Lt-Yellow (Lt Yel-Yel); Glucose, Urine Negative (Negative); Ketones,Urine Negative (Negative); Leukocyte Esterase,Urine Negative (Negative); Nitrite,Urine Negative (Negative); PH,Urine 5.5 (5.0-7.0); Protein,Urine Negative (Neg - Trace); RBC,Urine 51 /hpf (0-3); Squamous Epithelial Cell,Urine < 1 /hpf (0-5); Urobilinogen,Urine Negative mg/dL (0.0-1.0); WBC,Urine 5 /hpf (0-5)
[2024-09-04] MEDS: LORazepam 0.5 MG TABLET 2 MG PO (03:46)
--- NOTE | 2024-09-04 03:51 | PRELIM_ITS ---
CT scan of the abdomen and pelvis without intravenous contrast (axial sections with sagittal and coronal reformats). September 04, 2024 at 0253 hours Clinical History: Right flank pain. Comparison: No prior study is available for comparison. Findings: The lung bases are clear. The liver, gallbladder, pancreas, spleen, kidneys and adrenals are unremarkable on this noncontrast study. No evidence of bowel obstruction. Thickening of the distal tip of the appendix measuring up to 0.9 cm without peripheral fat stranding, no perforation, no collections. Here is no mesenteric or retroperitoneal adenopathy. The urinary bladder is nondistended, limited evaluation. There is no free fluid or free air. Degenerative changes of the imaged portions of the spine. No acute fractures. Fecal loading. Impression: 1. Findings suspicious for early acute appendicitis. 2. No evidence of kidney or ureteral stones. 3. Fecal loading. Discussion Details: Results verbally communicated to : Dr. Bronson at 03:48 AM 09/04/2024 Report Electronically Signed By: Anthony Cueto 09/04/2024 3:51:14 AM [EST]
== END 2024-09-04 04:17 | disposition home or self-care (01) ==
LOC: SERX 04:07
PROVIDERS: Physician Assistant; Emergency Provider Emergency Medicine; PCP Nurse Practitioner
DX: R31.9 Hematuria, unspecified (principal); I82.402 Acute embolism and thrombosis of unspecified deep veins of left lower extremity; F32.A Depression, unspecified; K50.90 Crohn's disease, unspecified, without complications; Z87.442 Personal history of urinary calculi
CPT/HCPCS: 36415; 74176; 80053; 80307; 81001; 83690; 85025; 87086; 87186; 99284; A9270

== ENCOUNTER 2024-09-09 04:36 | Emergency (ER) | payer MEDICAID, SELFPAY ==
[2024-09-09 04:38] VITALS: BP 136/84; PULSE 96; RESP 19; TEMP 36.6; O2SAT 98; BMI 16.0
--- NOTE | 2024-09-09 04:50 | XR_ITS ---
Examination: PA chest single view TECHNIQUE: Upright PA chest single view Date and time: September 09, 2024 at 1654 hours INDICATIONS: Chest pain today FINDINGS: The patient has been extubated compared with August 05, 2024 Normal heart size No lobar pneumonia or pulmonary edema Moderate thoracic dextroscoliosis IMPRESSION: No pneumonia or pulmonary edema
--- NOTE | 2024-09-09 04:51 | PD.EDRME ---
Rapid Medical Screening Exam RME Arrival date/time: 09/09/24 04:36 This is a case of a 54-year-old male who came into the emergency room due to chest pain and shortness of breath for 1 day patient states that he has history of arrhythmia no palpitation Chief Complaint: Chest Pain Time Seen by Provider: 09/09/24 04:50 Vital signs: Vital Signs Temperature 97.8 F 09/09/24 04:38 Pulse Rate 96 09/09/24 04:38 Respiratory Rate 19 09/09/24 04:38 Blood Pressure 136/84 H 09/09/24 04:38 Pulse Oximetry (%) 98 09/09/24 04:38 Oxygen Delivery Method Room Air 09/09/24 04:38
[2024-09-09 06:15] LABS: Basophils % (Auto) 1 % (0-2.5); Eosinophils # (Auto) 0.2 Thou/mm3 (0.0-0.5); Eosinophils % (Auto) 4 % (0-10); Hemoglobin 12.3 g/dL (13.5-16.0); Immature Granulocytes % (Auto) 0 % (0-0); Immature Granulocytes Auto 0.01 Thou/mm3 (0.00-0.00); Lymphocytes # (Auto) 2.1 Thou/mm3 (1.0-4.8); Lymphocytes % (Auto) 32 % (10-50); Mean Corpuscular HGB Conc 35.1 g/dl (31.0-37.0); Mean Corpuscular Hemoglobin 31.1 pg (25.0-35.0); Mean Corpuscular Volume 88 fL (80-100); Monocytes # (Auto) 0.6 Thou/mm3 (0.0-0.8); Monocytes % (Auto) 9 % (0-12); Neutrophils # (Auto) 3.6 Thou/mm3 (1.8-7.7); Neutrophils % (Auto) 55 % (37-80); Nucleated Red Blood Cell % 0 /100 WBC (0); Platelet Count 159 Thou/mm3 (140-440); RDW Standard Deviation 45.5 fL (35.1-43.9); Red Blood Count 3.96 Miln/mm3 (4.50-5.90); White Blood Count 6.5 Thou/mm3 (3.8-10.6)
[2024-09-09 06:33] LABS: B-Type Natriuretic Peptide < 20 pg/mL (0-100)
[2024-09-09 06:34] LABS: Alanine Aminotransferase 11 U/L (10-49); Albumin, Serum 4.5 gm/dL (3.5-5.0); Alkaline Phosphatase 91 U/L (46-116); Anion Gap 8 (7-16); Aspartate Amino Transferase 18 U/L (0-34); BUN/Creatinine Ratio 14 Ratio (12-20); Bilirubin,Total 0.6 mg/dL (0.3-1.2); Blood Urea Nitrogen 11 mg/dL (9-23); Calcium 8.9 mg/dL (8.3-10.6); Calcium (Corrected) 8.9 mg/dL (8.5-10.1); Carbon Dioxide 27.8 mMol/L (20.0-31.0); Chloride 106 mMol/L (98-107); Creatinine (Component) 0.8 mg/dL (0.6-1.3); Globulin 2.3 gm/dL (2.3-3.5); Glucose 109 mg/dL (74-106); Osmolality,Calculated 283 (275-295); Potassium 4.2 mMol/L (3.4-5.1); Sodium 142 mMol/L (136-145); Total Protein 6.8 gm/dL (5.7-8.2); Troponin I < 0.002 ng/mL (0.0-0.045); eGFR > 60 See Note
[2024-09-09 07:30] VITALS: BP 116/76; PULSE 82; RESP 16; TEMP 36.7; O2SAT 95
[2024-09-09 09:59] LABS: Troponin I < 0.002 ng/mL (0.0-0.045)
[2024-09-09 10:39] VITALS: BP 122/94; PULSE 89; RESP 16; TEMP 36.6; O2SAT 99
--- NOTE | 2024-09-09 12:03 | PD.EDCHEST ---
ED Chest Pain RME/HPI General Chief Complaint: Chest Pain Stated Complaint: CHEST PAIN Time Seen by Provider: 09/09/24 04:50 Arrival date/time: 09/09/24 04:36 RME / HPI RME / HPI narrative: 09/09/24 04:36 This is a case of a 54-year-old male who came into the emergency room due to chest pain and shortness of breath for 1 day patient states that he has history of arrhythmia no palpitation DR. PAZ MAIN ED EVALUATION: 54 year old male with history of cardiac arrhythmias, DVT on Eliquis, kidney stones, previous ureteral stent, anxiety, crohn's disease presents to the ED for evaluation of chest pain beginning at midnight today. Described as sharp stabbing in nature located most to the left side, rating as moderate. Patient additionally reports feeling anxious and says he ran out of his Ativan 4 days ago. Has an upcoming appointment with PCP on 09/24/2024 for refill. No other associated symptoms or complaints reported. Denies fevers, chills, sweats, cough, shortness of breath, abdominal pain, n/v/d, or urinary symptoms. Related Data Home Medications ?Medication ?Instructions ?Recorded ?Confirmed buspirone 10 mg tablet mg 08/05/24 Previous Rx's ?Medication ?Instructions ?Recorded naloxone 4 mg/actuation nasal 4 mg intranasal Q3M PRN opioid 11/30/23 spray (Narcan) overdose #2 ea escitalopram oxalate 10 mg tablet 10 mg PO QDAY 30 days #30 tabs 07/20/24 propranolol 10 mg tablet 10 mg PO TID 30 days #90 tabs 07/20/24 apixaban 5 mg (74 tabs) tablets in 5 mg PO BID #74 tabs 08/08/24 a dose pack (Eliquis DVT-PE Treat 30D Start) Allergies Allergy/AdvReac Type Severity Reaction Status Date / Time onion Allergy Severe Vomiting Verified 09/09/24 04:43 Review of Systems Review of Systems Narrative Review of Systems: Gen: No fever, no chills, no weight loss, +anxious EYES: No discharge, no visual changes, no pain HEENT: No ear pain, no congestion, no sore throat PULM: no shortness of breath, no cough, no congestion CV: +chest pain, no palpitations, no chest tightness GI: No nausea, no vomiting, no diarrhea, no pain, no constipation : No frequency, no urgency,? no dysuria Musc/skel: No joint pain, no back pain Skin: No rash, no ecchymosis, no lesions Neuro: No weakness, no headache Past Medical History Past Medical History NEUROLOGIC: Positive Migraine CARDIAC: Positive Cardiac Disorders and Atrial Fibrillation GASTROINTESTINAL: Positive Gastrointestinal Disorders and Crohn's Disease GENITOURINARY: Positive Genitourinary Disorders, Renal Disease and Kidney Stones PSYCHO/SOCIAL: Positive Depression and Anxiety OTHER HISTORY: Positive Autoimmune Disease and Down Syndrome Surgical History SURGICAL: Negative Cardiac Surgery, Endocrine Surgery, Thyroidectomy, Ear Surgery, Abdominal Surgery, Nephrectomy, Joint Replacement, Neurologic Surgery or Mastectomy Social History SMOKING STATUS: Current some day smoker SUBSTANCE USE: methamphetamine ED Exam Narrative Physical exam: GENERAL APPEARANCE: AxOx4, no obvious distress, nontoxic appearing HEENT: NC, AT. MMM. EOMI, clear conjunctiva, oropharynx clear. NECK: Supple without lymphadenopathy. No stiffness or restricted ROM. HEART: Normal rate and regular rhythm, normal S1/S1, no m/r/g LUNGS: CTAB, moving air well. No crackles or wheezes are heard. ABDOMEN: Soft, nontender, nondistended with good bowel sounds heard. BACK: No midline C/T/L spine pain or deformity, No CVAT, no obvious deformity. EXTREMITIES: Without cyanosis, clubbing or edema. MUSCULOSKELETAL: FROM of all major joints, no chest tenderness NEUROLOGICAL: Grossly nonfocal. Alert and oriented, moving all 4 extremities. CN not formally tested but appear grossly intact. Skin: Warm and dry without any rash. Course Quality Measures none Orders Category Date Time Status EKG (ED ONLY) *Do not use* NOW Care 09/09/24 04:44 Completed EKG (ED Only) Stat Exams 09/09/24 04:44 Ordered XR chest 1V portable Stat Exams 09/09/24 04:50 Completed BNP [B-Type Natriuretic Peptide] Stat Lab 09/09/24 05:48 Completed CBC Stat Lab 09/09/24 05:48 Completed CMP [Comprehensive Metabolic Panel] Stat Lab 09/09/24 05:48 Completed Troponin I Stat Lab 09/09/24 05:48 Completed Troponin I Stat Lab 09/09/24 09:17 Completed Vital Signs Vital signs: Vital Signs Temperature 97.8 F 09/09/24 04:38 Pulse Rate 96 09/09/24 04:38 Respiratory Rate 19 09/09/24 04:38 Blood Pressure 136/84 H 09/09/24 04:38 Pulse Oximetry (%) 98 09/09/24 04:38 Oxygen Delivery Method Room Air 09/09/24 04:38 Pulse ox is 98% on room air which is adequate. Chest Pain MDM Narrative MDM Narrative:: IEliana, am scribing for and in the presence of Dr. Paz. 54 year old male with history of cardiac arrhythmias, DVT on Eliquis, history of kidney stones with previous ureteral stent placement, anxiety, and Crohn?s disease, who presents with chest pain that began around midnight. The pain is described as sharp and stabbing, localized to the left side. An EKG showed no acute ischemic changes. Serial troponins were negative. CBC and CMP were within normal limits. The patient also reports increased anxiety, which may be contributory to his symptoms. He states he ran out of his Ativan 4 days ago. He has a follow-up appointment with his PCP on 09/24/2024 for medication refill. Patient remains clinically stable throughout the emergency department visit. We reviewed all the results, analysis, and treatment plans. Patient is amenable to discharge. Strict return precautions were outlined. Patient was discharged in stable condition. Patient data External records reviewed:: [facility] previous records (I reviewed admission from 08/05/2024 through 08/08/2024 ) Clinical information provided by:: patient Social determinants that could affect healthcare access:: mental health Patient has the following chronic illnesses:: cardiac arrhythmias, DVT on Eliquis, kidney stones, previous ureteral stent, anxiety, crohn's disease How is presenting disease/condition affected by chronic disease/condition?: exacerbated by Evaluation data The following diagnostics were reviewed and interpreted by me:: lab results, radiology exam(s) and EKG tracing(s) (09/09/2024 @ 0419 sinus rhythm, rate 94, no STEMI, MO 149, QRS 78, QT/QTc 338/389) Lab and/or radiology exams considered but not ordered:: None Interpretation Summary: Ordering Physician: Isaura Romero Date of Service: 09/09/24 Procedure(s): XR chest 1V portable Accession Number(s): [id number] cc: Gilson Coronado MD; NO PRIMARY/FAMILY,PHYSICIAN; Isaura Romero HEALTH SCREENER~ Examination: PA chest single view TECHNIQUE: Upright PA chest single view Date and time: September 09, 2024 at 1654 hours INDICATIONS: Chest pain today FINDINGS: The patient has been extubated compared with August 05, 2024 Normal heart size No lobar pneumonia or pulmonary edema Moderate thoracic dextroscoliosis IMPRESSION: No pneumonia or pulmonary edema Dictated By: Gilson Coronado MD Signed By: <Electronically signed by Gilson Coronado MD in OV> 09/09/24 0709 Medications / Prescriptions Medications or Prescriptions considered but not ordered:: None Medication administrations:: None Consultations Consultation(s) initiated? (list below): No Diagnosis Chest Pain Differential Diagnosis: stable angina, unstable angina pectoris, atypical chest pain, st elevation myocardial infarction, costochondritis, chest pain and other (Anxiety ) Most likely diagnosis given after review of the tests above:: Chest pain Admission Indicated Admission indicated?: not indicated Admission Request Was there a request for admission?: No Disposition Plan Disposition Plan: Discharge Discharge Attestation Discharge Attestation: The patient and all family members were given an opportunity to ask questions and understood the discharge instructions. Discharge instructions specifically effects, indications for sooner follow up or return to the emergency department, and the expected course of current diagnosis. Patient condition: Stable Discharge Plan Plan Patient Disposition: HOME (Self Care) Prescriptions/Referrals Prescriptions/Med Rec: No Action naloxone [Narcan] 4 mg/actuation spray,non-aerosol 4 mg intranasal Q3M PRN (Reason: opioid overdose) Qty: 2 0RF Rx Instructions: spray 1 dose into ONE nostril; alternate nostrils w each dose until help arrives propranolol 10 mg Tablet 10 mg PO TID 30 Days Qty: 90 1RF escitalopram oxalate 10 mg Tablet 10 mg PO QDAY 30 Days Qty: 30 2RF buspirone 10 mg tablet Eliquis DVT-PE Treat 30D Start 5 mg (74 tabs) tablets,dose pack 5 mg PO BID Qty: 74 0RF Referrals: No Primary/Family,Physician [Primary Care Provider] - In 1 week Problem List Clinical Impression: Chest pain Patient/Caregiver Discharge Instructions Education Materials: ED Chest Pain, Uncertain Cause Additional Instructions: Follow-up with your primary doctor in 2-3 days for recheck. You can return to the emergency department sooner. Print Language: Greek Stand Alone Forms: [facility]ena Award Info., Patient Portal Info Letter
== END 2024-09-09 10:40 | disposition home or self-care (01) ==
PROVIDERS: Nurse Practitioner Family; Emergency Provider Emergency Medicine
DX: R07.9 Chest pain, unspecified (principal); Z86.718 Personal history of other venous thrombosis and embolism; F41.9 Anxiety disorder, unspecified
CPT/HCPCS: 36415; 71045; 80053; 83880; 84484; 85025; 93005; 99283

== ENCOUNTER 2025-01-08 08:31 | Inpatient (IN) | payer MEDICAID, SELFPAY ==
[2025-01-08] VITALS (13 sets, daily range): BP systolic 90–154; BP diastolic 58–96; PULSE 42–74; RESP 12–18; TEMP 36.1–36.8; O2SAT 93–100; BMI 16.5
[2025-01-08] MEDS: GLUCAGON INJ 1 MG VIAL IVP ×2 (08:45→10:10)
--- NOTE | 2025-01-08 08:47 | EKG_ITS ---
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
--- NOTE | 2025-01-08 08:50 | XR_ITS ---
Examination: CT brain head without contrast. 2-D sagittal coronal reconstructions Date and time of exam:January 08, 2025, 1701 hrs. Indications: Altered mental status today CTDI: vol (mGy):45.6 DLP: (mGycm):1020 Technique: Multiple CT axial sections of the brain have been obtained, 5 mm slice thickness. Contrast has not been administered. 2-D sagittal, coronal reconstructions have been obtained Low dose protocols were performed. One or more of the following dose reduction techniques were used; automated exposure control, adjustment of the mA and/or KV according to patient size, use of iterative reconstruction technique. Findings: No significant ventricular enlargement. Intra-axial or extra-axial hemorrhage density is not seen. No mass effect or midline shift Basal cisterns are not remarkable. Fourth ventricle is midline. Cranial vault intact. Impression: Negative for acute hemorrhage, mass effect or midline shift Advise clinical correlation and follow-up accordingly
--- NOTE | 2025-01-08 08:51 | XR_ITS ---
Examination: AP chest single view Technique one AP semiupright portable chest single view Date and time: January 08, 2025, 0907 hours, comparison September 09, 2024 INDICATIONS: Overdose today. FINDINGS: Normal heart size No aspiration pneumonia. Prominent osteopenia IMPRESSION: No aspiration pneumonia
--- NOTE | 2025-01-08 08:51 | PD.EDOVER ---
ED Overdose RME/HPI General Chief Complaint: Overdose Stated Complaint: OVERDOSE Time Seen by Provider: 01/08/25 08:45 Arrival date/time: 01/08/25 08:31 Limitations: altered mental status RME / HPI RME / HPI Narrative: 54-year-old male brought in by EMS for evaluation of overdose. Reportedly there was a police search of his house earlier this morning, patient became quite nervous, reportedly took two thirds of a bottle of propranolol 40 mg tablets - possibly 20 tablets or more - unknown exact amount. Bottle contained 120 tabs of 40mg propranolol dispensed 11/12/24. Patient was brought in by EMS for evaluation. They note that en route, his GCS was 15 though as he got to the emergency department he became more sleepy and diaphoretic. On initial evaluation, he is diaphoretic, not answering questions, appearing presyncopal. Per EMS he has known history of overdose in the past. Medications that he has with him include propranolol, alprazolam, and Suboxone. Note: On initial exam, he is noted to have a pill bottle with Suboxone and alprazolam within his rectum. MD complaint: intentional overdose Related Data Home Medications ?Medication ?Instructions ?Recorded ?Confirmed buspirone 10 mg tablet mg 08/05/24 Previous Rx's ?Medication ?Instructions ?Recorded naloxone 4 mg/actuation nasal 4 mg intranasal Q3M PRN opioid 11/30/23 spray (Narcan) overdose #2 ea escitalopram oxalate 10 mg tablet 10 mg PO QDAY 30 days #30 tabs 07/20/24 propranolol 10 mg tablet 10 mg PO TID 30 days #90 tabs 07/20/24 apixaban 5 mg (74 tabs) tablets in 5 mg PO BID #74 tabs 08/08/24 a dose pack (Eliquis DVT-PE Treat 30D Start) Allergies Allergy/AdvReac Type Severity Reaction Status Date / Time onion Allergy Severe Vomiting Verified 09/09/24 04:43 Review of Systems Review of Systems ROS Unobtainable: unobtainable due to mental status Past Medical History Past Medical History NEUROLOGIC: Positive Migraine CARDIAC: Positive Cardiac Disorders and Atrial Fibrillation GASTROINTESTINAL: Positive Gastrointestinal Disorders and Crohn's Disease GENITOURINARY: Positive Genitourinary Disorders, Renal Disease and Kidney Stones PSYCHO/SOCIAL: Positive Depression and Anxiety OTHER HISTORY: Positive Autoimmune Disease and Down Syndrome Social History SMOKING STATUS: Current some day smoker SUBSTANCE USE: methamphetamine ED Exam Narrative Physical exam: Constitutional: Lethargic, eyes open, diaphoretic, not responding to verbal stimuli. HEENT: Normocephalic, atraumatic, pupils equal bilaterally. Neck: Supple CV: Tachycardic rate and regular rhythm, no murmurs/rubs/gallops Lungs: Clear to auscultation BL, initially hypoventilating on exam - improved with interventions. Maintaining airway. Abd: Soft, NT, ND, no HSM noted to palpation Rectal: Noted to have a pill bottle as well as 2 wads of gauze up his rectum which were removed on exam. Extremities: No deformities, no edema noted Neuro: GCS E4 V2 M4 Skin: Diaphoretic General Limitations: Present altered mental status Course Course Course Narrative: 0935h: Checked on patient, blood pressure had initially improved to low 100s though now is back down to 70s over 50s with heart rate in the 50s. First liter LR is completed, will add second liter pressure bagged in as well, received dose of glucagon, giving additional dose of glucagon and atropine. Received dose of Narcan by EMS [employer]. Will give additional dose of Narcan 1mg now as well. Mentation remains unchanged. 1050h: Blood pressure dipping down to the 80s again. Third liter of crystalloids ordered, additional calcium and glucagon ordered as well. Heart rate remains in the 50s. Respiratory rate dipping to about 10 currently, additional dose of Narcan 2 mg IV given and drip ordered. Will d/w ICU for admit. 1150h: ICU evaluated the patient and recommend medicine to see patient for admission first as vitals have improved currently. I spoke with team A residents, they will be down to evaluate the patient for admission. The patient is currently vitally stable after interventions mentioned above (Glucagon x3, IV LR x3, Narcan x2, Calcium gluconate x2, Atropine x1, Naloxone gtt). 1215h: The patient is becoming more responsive since initiation of Narcan drip, b/p currently stable. Per nursing staff, he has at times placed gauze soaked in an unknown substance up his rectum. He did have two wads of gauze present in rectum that were removed on initial eval. Quality Measures none Orders Category Date Time Status Admit to Inpatient Status Routine Admission 01/08/25 12:28 Active Patient Condition Routine Admission 01/08/25 12:28 Ordered 24 HR Medical Restraints Q2HR Care 01/08/25 09:09 Active Activity as Tolerated Routine Care 01/08/25 12:30 Ordered Aspiration precautions NOW Care 01/08/25 12:30 Active Bedside Blood Glucose NOW Care 01/08/25 08:47 Active Bedside Blood Glucose Q1HR Care 01/08/25 09:54 Completed Skiver Uppers Or Linings NOW Care 01/08/25 08:47 Active Central Line Insertion Set Up NOW Care 01/08/25 10:51 Active Continuous Pulse Oximetry NOW Care 01/08/25 08:47 Completed Continuous Pulse Oximetry NOW Care 01/08/25 12:27 Completed EKG (ED ONLY) *Do not use* NOW Care 01/08/25 08:48 Completed Dumont [Urinary Catheter] X1 Care 01/08/25 09:09 Active Insert IV NOW Care 01/08/25 08:48 Active Intake and Output Routine Care 01/08/25 12:30 Ordered NPO NOW Care 01/08/25 08:47 Active NPO NOW Care 01/08/25 12:30 Active Neuro Check Q4H Care 01/08/25 12:27 Active Notify provider NEEDED Care 01/08/25 12:28 Active Seizure precautions NOW Care 01/08/25 12:30 Active Strict Intake and Output Routine Care 01/08/25 12:30 Ordered Diet NPO (NOW) Diet 01/08/25 12:[address] head/brain wo con Stat Exams 01/08/25 08:50 Ordered EKG (ED Only) Stat Exams 01/08/25 08:47 Draft XR chest 1V portable Stat Exams 01/08/25 08:51 Completed XR chest 1V post procedure Stat Exams 01/08/25 11:19 Completed ABG [Arterial Blood Gas] Stat Lab 01/08/25 10:51 Ordered Acetaminophen Stat Lab 01/08/25 09:00 Completed Alcohol, Blood Medical Stat Lab 01/08/25 09:00 Completed Alcohol, Urine Stat Lab 01/08/25 09:13 Completed Blood Culture (Lab) Routine Lab 01/08/25 13:34 Received CBC AM DRAW Lab 01/09/25 05:00 Ordered CBC AM DRAW Lab 01/10/25 05:00 Ordered CBC AM DRAW Lab 01/11/25 05:00 Ordered CBC Stat Lab 01/08/25 09:00 Completed Comprehensive Metabolic Panel AM DRAW Lab 01/09/25 05:00 Ordered Comprehensive Metabolic Panel AM DRAW Lab 01/10/25 05:00 Ordered Comprehensive Metabolic Panel AM DRAW Lab 01/11/25 05:00 Ordered Comprehensive Metabolic Panel Stat Lab 01/08/25 09:00 Completed Drug Screen,Urine Stat Lab 01/08/25 09:13 Completed Lactate (Lactic Acid) Stat Lab 01/08/25 12:31 Results Magnesium AM DRAW Lab 01/09/25 05:00 Ordered Magnesium AM DRAW Lab 01/10/25 05:00 Ordered Magnesium AM DRAW Lab 01/11/25 05:00 Ordered Phosphorous AM DRAW Lab 01/09/25 05:00 Ordered Phosphorous AM DRAW Lab 01/10/25 05:00 Ordered Phosphorous AM DRAW Lab 01/11/25 05:00 Ordered Tricyclic Screen,Urine Stat Lab 01/08/25 09:13 Completed Urinalysis, C/S if Indicated Stat Lab 01/08/25 09:28 Completed Urine Culture Stat Lab 01/08/25 09:28 Received Atropine Inj SYR Med 01/08/25 10:00 Discontinued 1 mg IV X1 ONE Atropine Inj Vial Med 01/08/25 09:34 Discontinued 1 mg IV X1 ONE Calcium Gluconate 10% Inj Med 01/08/25 09:34 Discontinued 1 gm IV X1 ONE Calcium Gluconate 10% Inj Med 01/08/25 10:43 Discontinued 1 gm IV X1 ONE Dextrose 5%-Water [D5w] 498 ml Med 01/08/25 09:19 Discontinued NALOXONE INJ (Syringe) [Narcan Inj (Syringe)] 1 mg IV 10 mls/hr Dextrose 5%-Water [D5w] 498 ml Med 01/08/25 09:00 Discontinued NALOXONE INJ (Vial) [Narcan Inj (Vial)] 1 mg IV 10 mls/hr Glucagon Inj Med 01/08/25 08:35 Discontinued 1 mg .ROUTE .STK-MED ONE Glucagon Inj Med 01/08/25 08:47 Discontinued 1 mg IVP X1 ONE Glucagon Inj Med 01/08/25 09:54 Discontinued 1 mg IVP X1 ONE Glucagon Inj Med 01/08/25 10:44 Discontinued 2 mg IVP X1 ONE Heparin Inj Med 01/08/25 21:00 Active 5,000 unit SC Q12HR NALOXONE INJ (Syringe) [Narcan Inj (Syringe)] Med 01/08/25 09:20 Discontinued 1 mg IV X1 ONE NALOXONE INJ (Syringe) [Narcan Inj (Syringe)] Med 01/08/25 09:38 Discontinued 1 mg IV X1 ONE NALOXONE INJ (Syringe) [Narcan Inj (Syringe)] Med 01/08/25 10:45 Discontinued 1 mg IV X1 ONE NALOXONE INJ (Syringe) [Narcan Inj (Syringe)] 2 mg Med 01/08/25 10:46 Discontinued Dextrose 5%-Water [D5w] 498 ml IV X1 Ringers Lactated 1000 ml [Lactated Ringers] 1,000 ml Med 01/08/25 08:47 Discontinued IV 999 mls/hr Ringers Lactated 1000 ml [Lactated Ringers] 1,000 ml Med 01/08/25 09:34 Discontinued IV 999 mls/hr Ringers Lactated 1000 ml [Lactated Ringers] 1,000 ml Med 01/08/25 10:43 Discontinued IV 999 mls/hr Code Status Routine Oth 01/08/25 12:27 Ordered Oxygen Delivery NOW RT 01/08/25 08:47 Active Vital Signs Vital signs: Vital Signs Temperature 97.6 F 01/08/25 08:54 Pulse Rate 60 01/08/25 08:54 Respiratory Rate 16 01/08/25 08:54 Blood Pressure 104/69 01/08/25 08:54 Pulse Oximetry (%) 100 01/08/25 08:54 Oxygen Delivery Method Nasal Cannula 01/08/25 08:54 Oxygen Flow Rate 5 01/08/25 08:54 PROCEDURES: Central Line Placement Left IJ: Time Out Performed: Yes Patient Placed on Monitor/Pulse Ox: Yes Hand Hygiene: alcohol-based hand rub Max Sterile Barrier Techniques used: cap, mask, sterile gown and sterile gloves Central Line Prep: Chlorhexidine scrub and sterile drapes applied Local Anesthetic: lidocaine 1% Amount of anesthesia used (mL): 5 Ultrasound Used for Placement: Yes Sterile Technique if Ultrasound used, including sterile gel: yes Central Line Lumen Inserted: triple Post Procedure: sutured in place, good blood return, all ports aspirated, flushed, capped and sterile dressing applied Patient Tolerated Procedure: well and no complications Complications: none Overdose Patient data External records reviewed:: [facility] previous records and EMS form Clinical information provided by:: EMS Social determinants that could affect healthcare access:: substance use Patient has the following chronic illnesses:: Crohn's disease, h/o left lower extremity DVT, depression, anxiety, polysubstance use on Suboxone How is presenting disease/condition affected by chronic disease/condition?: exacerbated by Evaluation data The following diagnostics were reviewed and interpreted by me:: lab results, radiology exam(s) and EKG tracing(s) (EKG @ 09:06AM. Sinus rhythm with occasional PVCs, rate 60, no STEMI. ) Lab and/or radiology exams considered but not ordered:: None Interpretation Summary: Laboratory Results WBC 9.7 Thou/mm3 (3.8-10.6) 01/08/25 09:00 RBC 2.75 Miln/mm3 (4.50-5.90) L 01/08/25 09:00 Hgb 8.6 g/dL (13.5-16.0) L 01/08/25 09:00 Hct 26.2 % (41.0-53.0) L 01/08/25 09:00 MCV 95 fL (80-100) 01/08/25 09:00 MCH 31.3 pg (25.0-35.0) 01/08/25 09:00 MCHC 32.8 g/dl (31.0-37.0) 01/08/25 09:00 RDW Std Deviation 48.2 fL (35.1-43.9) H 01/08/25 09:00 Plt Count 139 Thou/mm3 (140-440) L 01/08/25 09:00 Neut % (Auto) 81 % (37-80) H 01/08/25 09:00 Lymph % (Auto) 11 % (10-50) 01/08/25 09:00 Davie % (Auto) 7 % (0-12) 01/08/25 09:00 Eos % (Auto) 1 % (0-10) 01/08/25 09:00 Baso % (Auto) 0 % (0-2.5) 01/08/25 09:00 Neut # (Auto) 7.8 Thou/mm3 (1.8-7.7) H 01/08/25 09:00 Lymph # (Auto) 1.1 Thou/mm3 (1.0-4.8) 01/08/25 09:00 Davie # (Auto) 0.6 Thou/mm3 (0.0-0.8) 01/08/25 09:00 Eos # (Auto) 0.1 Thou/mm3 (0.0-0.5) 01/08/25 09:00 Baso # (Auto) 0.0 Thou/mm3 (0.0-0.2) 01/08/25 09:00 Immature Gran # (Auto) 0.04 Thou/mm3 (0.00-0.00) H 01/08/25 09:00 Absolute Nucleated RBC 0.00 Thou/mm3 (0.00-0.00) 01/08/25 09:00 Immature Gran % 0 % (0-0) 01/08/25 09:00 Nucleated RBC % 0 /100 WBC (0) 01/08/25 09:00 Sodium 140 mMol/L (136-145) 01/08/25 09:00 Potassium 3.9 mMol/L (3.4-5.1) 01/08/25 09:00 Chloride 107 mMol/L (98-107) 01/08/25 09:00 Carbon Dioxide 17.3 mMol/L (20.0-31.0) L 01/08/25 09:00 Anion Gap 16 (7-16) 01/08/25 09:00 BUN 6 mg/dL (9-23) L 01/08/25 09:00 Creatinine 0.3 mg/dL (0.6-1.3) L 01/08/25 09:00 Estim Creat Clear Calc 217.8 mL/min (>60) 01/08/25 09:00 eGFR > 60 See Note (60-) 01/08/25 09:00 BUN/Creatinine Ratio 20 Ratio (12-20) 01/08/25 09:00 Glucose 80 mg/dL (74-106) 01/08/25 09:00 Calculated Osmolality 276 (275-295) 01/08/25 09:00 Calcium 7.1 mg/dL (8.3-10.6) L 01/08/25 09:00 Corrected Calcium 9.0 mg/dL (8.5-10.1) 01/08/25 09:00 Total Bilirubin 0.2 mg/dL (0.3-1.2) L 01/08/25 09:00 AST 25 U/L (0-34) 01/08/25 09:00 ALT 30 U/L (10-49) 01/08/25 09: Alkaline Phosphatase 48 U/L (46-116) 01/08/25 09: Total Protein 2.5 gm/dL (5.7-8.2) L 01/08/25 09:00 Albumin 1.6 gm/dL (3.5-5.0) L 01/08/25 09: Globulin 0.9 gm/dL (2.3-3.5) L 01/08/25: Albumin/Globulin Ratio 1.8 (1.2-2.2) 01/08/25 09: Ur Collection Type Catheter 01/08/25 Urine Color Yellow (Lt Yel-Yel) 01/08/25 Urine Clarity Clear (Clear/Hazy) 01/08/25 Urine pH 6.0 (5.0-7.0) 01/08/25 Ur Specific Mitchell[place] 1.036 (1.001-1.035) H 01/08/25 Urine Protein 1+ (Neg - Trace) A 01/08/25 Urine Glucose (UA) Negative (Negative) 01/08/25 Urine Ketones Negative (Negative) 01/08/25 Urine Blood 1+ (Negative) A 01/08/25 Urine Nitrite Positive (Negative) 01/08/25 Urine Bilirubin Negative (Negative) 01/08/25 Urine Urobilinogen (Auto) 3.0 mg/dL (0.0-1.0) 01/08/25 Ur Leukocyte Esterase Positive (Negative) 01/08/25 Urine RBC 10 /hpf (0-3) H 01/08/25: Urine WBC 27 /hpf (0-5) H 01/08/25 Ur Squamous Epith Cells < 1 /hpf (0-5) 01/08/25 Calcium Oxalate Crystal Rare (None) 01/08/25 Urine Bacteria None (None) 01/08/25: Urine Sperm Present (None) A 01/08/25 Ur Culture Indicated? Yes 01/08/25 Urine Opiates Screen Positive (Negative) A 01/08/25 09:13 Urine Fentanyl Screen Positive (Negative) A 01/08/25 09:13 Acetaminophen 5.9 mcg/mL (10.0-20.0) L 01/08/25 09:00 Ur Barbiturates Screen Negative (Negative) 01/08/25 09:13 U Tricyclic Antidepress Negative (Negative) 01/08/25 09:13 U Amphetamin/Meth Scrn Positive (Negative) A 01/08/25 09:13 U Benzodiazepines Scrn Positive (Negative) A 01/08/25 09:13 U Cocaine Metab Screen Negative (Negative) 01/08/25 09:13 U Marijuana (THC) Screen Negative (Negative) 01/08/25 09:13 Urine Alcohol Negative (Negative) 01/08/25 09:13 Ethyl Alcohol < 3.0 mg/dL (0-10.0) 01/08/25 09:00 CXR INDICATIONS: Post central line placement FINDINGS: Left internal jugular central line tip SVC No pneumothorax Normal heart size Mild accentuation basilar bronchovascular markings. No lobar pneumonia or pulmonary edema Prominent osteopenia IMPRESSION: Left internal jugular central line tip SVC satisfactory position, no pneumothorax AXR FINDINGS: Moderate to large amounts of stool throughout the colon No free air. No obstruction. No opaque foreign bodies depicted Prominent lumbar levoscoliosis Prominent osteopenia IMPRESSION: No opaque foreign bodies noted Medications / Prescriptions Medications or Prescriptions considered but not ordered:: None Medication administrations:: Medication Administration History Atropine Sulfate (Atropine Sulf Inj 0.1 Mg/Ml Syr 10 Ml) 1 mg IV PRN PRN PRN Reason: heart rate <30 Haloperidol Lactate (Haloperidol Lact Inj 5 Mg/Ml Vial) 0.5 mg IV Q6HR PRN PRN Reason: AGITATION (SEVERE) Stop: 01/13/25 12:33 Last Admin: 01/08/25 12:55 Dose: 0.5 mg Documented By: BY Heparin Sodium (Porcine) (Heparin Sod Inj 5000 Unit/Ml Vial) 5,000 unit SC Q12HR [facility] Stop: 01/22/25 20:59 Lactated Ringer's (Lactated Ringers) 1,000 mls @ 80 mls/hr IV .[id number] MARILYNN Stop: 01/09/25 03:29 Discontinued Medications Atropine Sulfate (Atropine Sulf Inj 1 Mg/Ml Vial) 1 mg IV X1 ONE Stop: 01/08/25 09:35 Last Admin: 01/08/25 09:58 Dose: Not Given Documented By: BY Non-Admin Reason: Medication Not Available Atropine Sulfate (Atropine Sulf Inj 0.1 Mg/Ml Syr 10 Ml) 1 mg IV X1 ONE Stop: 01/08/25 10:01 Last Admin: 01/08/25 09:57 Dose: 1 mg Documented By: BY Calcium Gluconate (Calcium Gluconate 10% Inj 1 Gm/10 Ml Vial) 1 gm IV X1 ONE Stop: 01/08/25 09:35 Last Admin: 01/08/25 09:45 Dose: 1 gm Documented By: BY Calcium Gluconate (Calcium Gluconate 10% Inj 1 Gm/10 Ml Vial) 1 gm IV X1 ONE Stop: 01/08/25 10:44 Last Admin: 01/08/25 10:54 Dose: 1 gm Documented By: BY Glucagon (Glucagon Inj 1 Mg Vial) Confirm Administered Dose 1 mg .ROUTE .STK-MED ONE Stop: 01/08/25 08:36 Last Admin: 01/08/25 09:18 Dose: Not Given Documented By: BY Non-Admin Reason: Duplicate Medication on eMAR Glucagon (Glucagon Inj 1 Mg Vial) 1 mg IVP X1 ONE Stop: 01/08/25 08:48 Last Admin: 01/08/25 08:45 Dose: 1 mg Documented By: BY Glucagon (Glucagon Inj 1 Mg Vial) 1 mg IVP X1 ONE Stop: 01/08/25 09:55 Last Admin: 01/08/25 10:10 Dose: 1 mg Documented By: BY Glucagon (Glucagon Inj 1 Mg Vial) 2 mg IVP X1 ONE Stop: 01/08/25 10:45 Last Admin: 01/08/25 10:54 Dose: 2 mg Documented By: BY Lactated Ringer's (Lactated Ringers) 1,000 mls @ 999 mls/hr IV .Q1H1M ONE Stop: 01/08/25 09:47 Last Infusion: 01/08/25 10:21 Dose: Infused Documented By: Admin: 01/08/25 09:20 Dose: 999 mls/hr Documented By: BY Naloxone HCl 1 mg/ Dextrose 500.5 mls @ 10 mls/hr IV .Q24H ONE Stop: 01/09/25 08:59 Last Admin: 01/08/25 09:25 Dose: Not Given Documented By: BY Non-Admin Reason: Cancelled by Provider Naloxone HCl 1 mg/ Dextrose 499 mls @ 10 mls/hr IV .Q24H ONE Stop: 01/09/25 09:18 Last Admin: 01/08/25 09:25 Dose: Not Given Documented By: BY Non-Admin Reason: Cancelled by Provider Lactated Ringer's (Lactated Ringers) 1,000 mls @ 999 mls/hr IV .Q1H1M ONE Stop: 01/08/25 10:34 Last Infusion: 01/08/25 10:51 Dose: Infused Documented By: Admin: 01/08/25 09:50 Dose: 999 mls/hr Documented By: BY Lactated Ringer's (Lactated Ringers) 1,000 mls @ 999 mls/hr IV .Q1H1M ONE Stop: 01/08/25 11:43 Last Infusion: 01/08/25 12:05 Dose: Infused Documented By: Admin: 01/08/25 10:59 Dose: 999 mls/hr Documented By: BY Naloxone HCl 2 mg/ Dextrose 500 mls @ 62.5 mls/hr IV X1 ONE Stop: 01/08/25 18:45 Last Admin: 01/08/25 11:31 Dose: 0.25 mg/hr, 62.5 mls/hr Documented By: BY Naloxone HCl (Naloxone Inj 1 Mg/Ml Syringe 2 Ml) 1 mg IV X1 ONE Stop: 01/08/25 09:21 Last Admin: 01/08/25 09:25 Dose: 1 mg Documented By: BY Naloxone HCl (Naloxone Inj 1 Mg/Ml Syringe 2 Ml) 1 mg IV X1 ONE Stop: 01/08/25 09:39 Last Admin: 01/08/25 09:44 Dose: 1 mg Documented By: BY Naloxone HCl (Naloxone Inj 1 Mg/Ml Syringe 2 Ml) 1 mg IV X1 ONE Stop: 01/08/25 10:46 Last Admin: 01/08/25 11:02 Dose: 1 mg Documented By: BY See above Consultations Consultation(s) initiated? (list below): Yes Consultation #1 (Physician, Specialty, Details): See course Diagnosis Overdose Differential Diagnosis: suicide attempt by multiple drug overdose, poisoning by opiate or related narcotic and drug overdose Most likely diagnosis given after review of the tests above:: Beta-katlyn overdose polysubstance abuse Opiate overdose hypotension Admission Indicated Admission indicated?: indicated Admission Request Was there a request for admission?: Yes Admission Attestation Admission request attestation: Discussed case with [] from Hospitalist service regarding admission. Discussed patients ED course, exam findings, labs, and radiology results. The Hospitalist [agrees,declines] to accept the patient for admission. Disposition Plan Disposition Plan: Admit Critical Care Time Critical Care Time Critical Care Time: Yes Total Critical Care Time (min.): 60 Attestation: The high probability of sudden, clinically significant deterioration in the patient's condition required the highest level of my preparedness to intervene urgently. The services I provided to this patient were to treat and/or prevent clinically significant deterioration. Services included the following: chart data review, reviewing nursing notes and/or old charts, documentation time, customer sales consultant collaboration regarding findings and treatment options, medication orders and management, direct patient care, vital sign assessments and ordering, interpreting and reviewing diagnostic studies and lab tests. Aggregate critical care time includes only time during which I was engaged in work directly related to the patient's care, as described above, whether at bedside or elsewhere in the Emergency Department. It did not include time spent performing other reported procedures or the services of residents, students, nurses or physician assistants. Discharge Plan Plan Patient Disposition: Admit Acute Care w/in Hospital Problem List Clinical Impression: Beta katlyn toxicity, Opiate overdose, Polysubstance abuse, Hypotension
[2025-01-08] MEDS: RINGERS LACTATED 1000 ML 1,000 ML 999 ML IV ×3 (09:20→10:59)
--- NOTE | 2025-01-08 09:23 | PC.NURSE ---
patient was noted to have i bottle of pillls in rectum, bottle contanied 22 blue pills possibly xanax, and 11 suboxone ', pulled out by provider , along with some tissues
[2025-01-08 09:25] LABS: Basophils # (Auto) 0.0 Thou/mm3 (0.0-0.2); Basophils % (Auto) 0 % (0-2.5); Eosinophils # (Auto) 0.1 Thou/mm3 (0.0-0.5); Eosinophils % (Auto) 1 % (0-10); Hematocrit 26.2 % (41.0-53.0); Immature Granulocytes Auto 0.04 Thou/mm3 (0.00-0.00); Lymphocytes # (Auto) 1.1 Thou/mm3 (1.0-4.8); Lymphocytes % (Auto) 11 % (10-50); Mean Corpuscular HGB Conc 32.8 g/dl (31.0-37.0); Mean Corpuscular Hemoglobin 31.3 pg (25.0-35.0); Mean Corpuscular Volume 95 fL (80-100); Monocytes # (Auto) 0.6 Thou/mm3 (0.0-0.8); Monocytes % (Auto) 7 % (0-12); Neutrophils # (Auto) 7.8 Thou/mm3 (1.8-7.7); Neutrophils % (Auto) 81 % (37-80); Nucleated Red Blood Cell # 0.00 Thou/mm3 (0.00-0.00); Nucleated Red Blood Cell % 0 /100 WBC (0); Platelet Count 139 Thou/mm3 (140-440); RDW Standard Deviation 48.2 fL (35.1-43.9); Red Blood Count 2.75 Miln/mm3 (4.50-5.90); White Blood Count 9.7 Thou/mm3 (3.8-10.6)
[2025-01-08] MEDS: NALOXONE INJ 1 MG/ML SYRINGE 2 ML IV ×3 (09:25→11:02)
[2025-01-08 09:26] LABS: Hemoglobin 8.6 g/dL (13.5-16.0)
[2025-01-08] MEDS: CALCIUM GLUCONATE 10% INJ 1 GM/10 ML VIAL IV ×2 (09:45→10:54)
[2025-01-08] MEDS: ATROPINE SULF INJ 0.1 MG/ML SYR 10 ML 1 MG IV (09:57)
[2025-01-08 10:09] LABS: Acetaminophen 5.9 mcg/mL (10.0-20.0); Alanine Aminotransferase 30 U/L (10-49); Albumin, Serum 1.6 gm/dL (3.5-5.0); Albumin/Globulin Ratio 1.8 (1.2-2.2); Alcohol, Blood Medical < 3.0 mg/dL (0-10.0); Alkaline Phosphatase 48 U/L (46-116); Anion Gap 16 (7-16); Aspartate Amino Transferase 25 U/L (0-34); BUN/Creatinine Ratio 20 Ratio (12-20); Bilirubin,Total 0.2 mg/dL (0.3-1.2); Blood Urea Nitrogen 6 mg/dL (9-23); Calcium 7.1 mg/dL (8.3-10.6); Calcium (Corrected) 9.0 mg/dL (8.5-10.1); Carbon Dioxide 17.3 mMol/L (20.0-31.0); Chloride 107 mMol/L (98-107); Creatinine (Component) 0.3 mg/dL (0.6-1.3); Estimated Creatinine Clearance 217.8 mL/min (>60); Globulin 0.9 gm/dL (2.3-3.5); Glucose 80 mg/dL (74-106); Osmolality,Calculated 276 (275-295); Potassium 3.9 mMol/L (3.4-5.1); Sodium 140 mMol/L (136-145); Total Protein 2.5 gm/dL (5.7-8.2); eGFR > 60 See Note
[2025-01-08 10:14] LABS: Collection Type, Urine Catheter
[2025-01-08 10:28] LABS: Bilirubin,Urine Negative (Negative); Blood,Urine 1+ (Negative); Calcium Oxalate Crystals,Urine Rare; Clarity,Urine Clear (Clear/Hazy); Color,Urine Yellow (Lt Yel-Yel); Glucose, Urine Negative (Negative); Ketones,Urine Negative (Negative); Leukocyte Esterase,Urine Positive (Negative); Nitrite,Urine Positive (Negative); PH,Urine 6.0 (5.0-7.0); Protein,Urine 1+ (Neg - Trace); RBC,Urine 10 /hpf (0-3); Specific Gravity,Urine 1.036 (1.001-1.035); Squamous Epithelial Cell,Urine < 1 /hpf (0-5); Urobilinogen,Urine 3.0 mg/dL (0.0-1.0); WBC,Urine 27 /hpf (0-5)
[2025-01-08 10:37] LABS: Alcohol, Urine Negative (Negative); Amphetamine/Methamp Scrn,U Positive (Negative); Barbiturate Screen,Urine Negative (Negative); Benzodiazepines Screen,Urine Positive (Negative); Benzoylecgonine Screen, Ur Negative (Negative); Fentanyl Screen,Urine Positive (Negative); Opiate Screen,Urine Positive (Negative); THC Screen,Urine Negative (Negative)
[2025-01-08] MEDS: GLUCAGON INJ 1 MG VIAL 2 MG IVP (10:54)
--- NOTE | 2025-01-08 11:02 | PC.NURSE ---
md at bedside , central line to be done at this time respiratory at side
[2025-01-08 11:09] LABS: Culture Indicated,Urine Yes
--- NOTE | 2025-01-08 11:09 | PC.CC ---
Patient was BIBA from home for intentional overdose will require a mental health evaluation upon being medically cleared.
[2025-01-08 11:10] LABS: Sperm,Urine Present
[2025-01-08 11:18] LABS: Tricyclic Screen,Urine Negative (Negative)
--- NOTE | 2025-01-08 11:19 | XR_ITS ---
Examination: AP chest single view TECHNIQUE: AP portable supine chest single view Date and time: January 08, 2025 1125 hours, comparison January 08, 2025 0911 hours INDICATIONS: Post central line placement FINDINGS: Left internal jugular central line tip SVC No pneumothorax Normal heart size Mild accentuation basilar bronchovascular markings. No lobar pneumonia or pulmonary edema Prominent osteopenia IMPRESSION: Left internal jugular central line tip SVC satisfactory position, no pneumothorax
[2025-01-08] MEDS: NALOXONE INJ (Syringe) 2 MG in DEXTROSE 5%-WATER 498 ML 62.5 MG IV (11:31)
--- NOTE | 2025-01-08 12:33 | PC.NURSE ---
admiting md at [facility] to see patient
--- NOTE | 2025-01-08 12:36 | XR_ITS ---
Examination: Abdomen AP single view Technique: AP portable supine abdomen, single view Exam date and time: January 08 2025 1338 hours INDICATIONS: Assess for foreign bodies FINDINGS: Moderate to large amounts of stool throughout the colon No free air. No obstruction. No opaque foreign bodies depicted Prominent lumbar levoscoliosis Prominent osteopenia IMPRESSION: No opaque foreign bodies noted
[2025-01-08 12:44] LABS: Lactate (Lactic Acid) 3.3 mMol/L (0.4-2.0)
[2025-01-08] MEDS: HALOPERIDOL LACT INJ 5 MG/ML VIAL IV (12:55)
--- NOTE | 2025-01-08 13:33 | PC.NURSE ---
patient taken to ct , unable to perform test , patient was uncooperative
--- NOTE | 2025-01-08 14:38 | PC.NURSE ---
report given to beth
--- NOTE | 2025-01-08 14:45 | ESHP_ITS ---
Documentation for date of: 01/08/25 Patient is a 54-year-old male with a past medical history of Crohn's disease, history of DVT, history of hydronephrosis status post urethral stent, history of SI, history of pulmonary nodule on CT, and history of polysubstance use disorder on Suboxone who presented to the emergency room on 01/08/2025 who was brought in via EMS with a chief complaint of overdose, concern for beta-katlyn. Patient was recently prescribed propranolol 40 mg for anxiety on 12/13/2024 with total of 120 pills dispensed and only 4 pills left. In the ER, patient was given 3 Liter bolus and Glucagon 4 mg total and Calcium Gluconate 2 mg IV. Additionally patient was started briefly on Naloxone drip and subsequently d/c. Urine toxicology positive for opioid, fentanyl, Methamphetamine, and Benzodiazepines. Patient was admitted for acute metabolic encephalopathy secondary to beta katlyn over dose. Atropine PRN if HR <30 or unstable vitals, If Atropine fails, please push Glucagon 5 mg IV. Current Florence score 11-12 during time of admission. Follow up on CT head. EKG noted sinus arrhythmia. Trending EKG q6HR to d/c tomorrow morning at 6 am. Seizure precautions given beta katlyn intoxication. Diazepam PRN if seizure. Given risk of SI and SA-sitter requested and outreach and education social worker updated. Metabolic Acidosis, anion gap secondary to lactic acid of 3.3. Repeat Lactic Acid 1.1. LR @ 80, stop after two bags. 1 AMP given. Normocytic Anemia, FOBT, Iron studies. Soft Tissue Infection, start Cefazolin 01/08/2025 for the next 5 days. Wound care added. Rectal foreign body noted during time of admission, medication pill bottles found and removed. follow up KUB negative. - The patient's plan was discussed with attending Dr. Yo Blanco MD PGY2 Internal Medicine HPI History of Present Illness Chief complaint: Overdose History of present illness: Mr Wharton is a 54 yom with a h/o polysubstance use on suboxone, depression, prior suicidal ideation, crohn's disease, who was BIBA on 01/08 after intentional overdose of propranolol . Most of the history was gathered by his who was at bedside. Patient had been becoming increasingly paranoid over the last week, stating that somebody had been planting methamphetamines around the house. He became increasingly fixated on this, until he eventually phoned the police to report it. While the police were searching the house, he ingested a handful of his propranolol perscription in an attempt to avoid incarceration. There was apparently about 1/3 of the bottle left. The patient's does not believe this was an attempt at his own life. Additionally, the patient attempted to crush up his perscription of alprazolam and inject it yesterday, however he was not able to gain access to the vein. PMHx: As listed above, additionally had renal stones and hydronephrosis PSHx: Ureteral stent placement Meds: Please see med rec. Social: Lives at home with , denies alcohol use, tobacco and meth use endorsed by . ED Course: -Patient presented to the ED with BP 104/69, HR 60, Temp 97.6, RR 16, O2 100 % on 5L NC. But BPs would fluctuate down to the 70s/50s. Per ED Note: 0935h: Checked on patient, blood pressure had initially improved to low 100s though now is back down to 70s over 50s with heart rate in the 50s. First liter LR is completed, will add second liter pressure bagged in as well, received dose of glucagon, giving additional dose of glucagon and atropine. Received dose of Narcan by EMS [employer]. Will give additional dose of Narcan 1mg now as well. Mentation remains unchanged. 1050h: Blood pressure dipping down to the 80s again. Third liter of crystalloids ordered, additional calcium and glucagon ordered as well. Heart rate remains in the 50s. Respiratory rate dipping to about 10 currently, additional dose of Narcan 2 mg IV given and drip ordered. Will d/w ICU for admit. 1150h: ICU evaluated the patient and recommend medicine to see patient for admission first as vitals have improved currently. I spoke with team A residents, they will be down to evaluate the patient for admission. The patient is currently vitally stable after interventions mentioned above (Glucagon x3, IV LR x3, Narcan x2, Calcium gluconate x2, Atropine x1, Naloxone gtt). 1215h: The patient is becoming more responsive since initiation of Narcan drip, b/p currently stable. Per nursing staff, he has at times placed gauze soaked in an unknown substance up his rectum. He did have two wads of gauze present in rectum that were removed on initial eval. Additionally, the patient had 2 pill bottles present in his rectum that were removed in the ED. Exam Vital Signs Temp Pulse Resp BP Pulse Ox O2 Del Method O2 Flow Rate 97.6 F 59 L 12 127/86 H 93 L Room Air 4 01/08/25 14:10 01/08/25 14:10 01/08/25 14:10 01/08/25 14:10 01/08/25 14:10 01/08/25 14:10 01/08/25 12:36 Narrative Exam General: Patient appears older than stated age, appears malnurished with bitemporal wasting, somnolent. HEENT: Dry oral mucosa, thick oral secretions. Pupils are equal and reactive to light bilaterally, not overtly miotic or mydriatic. Cardiovascular: Normal S1 and S2. Regular rate and rhythm. No murmur appreciated Respiratory: Clear to auscultation bilaterally without wheezes or crackles. Abdomen: Soft, mild tenderness to palpation in the left lower quadrant. not distended, Skin: Dry, there is a psoriatic appearing rash along the back of the neck, erythematous with overlying scale. Varicose veins noted the BL lower extremities. Musculoskeletal: No gross injuries. Able to move all 4 extremities. Non edematous lower extremities. Lower extremities are cool but pedal pulses intact bilaterally. Neuro: GCS 12, E3, V3, M6. Results: Labs 01/10/25 05:40 01/10/25 05:40 Labs: Short CBC 01/08/25 Range/Units 09:00 WBC 9.7 (3.8-10.6) Thou/mm3 Hgb 8.6 L (13.5-16.0) g/dL Hct 26.2 L (41.0-53.0) % Plt Count 139 L (140-440) Thou/mm3 BMP 01/08/25 09:00 Sodium 140 Potassium 3.9 Chloride 107 Carbon Dioxide 17.3 L BUN 6 L Creatinine 0.3 L Glucose 80 Calcium 7.1 L Liver Function 01/08/25 Range/Units 09:00 Total Bilirubin 0.2 L (0.3-1.2) mg/dL AST 25 (0-34) U/L ALT 30 (10-49) U/L Alkaline Phosphatase 48 (46-116) U/L Albumin 1.6 L (3.5-5.0) gm/dL Urine 01/08/25 Range/Units 09:28 Urine Color Yellow (Lt Yel-Yel) Urine Clarity Clear (Clear/Hazy) Urine pH 6.0 (5.0-7.0) Ur Specific [place] 1.036 H (1.001-1.035) Urine Protein 1+ A (Neg - Trace) Urine Glucose (UA) Negative (Negative) Quality Measures Quality Measures none Medications Home Medications and Allergies Home Medications ?Medication ?Instructions ?Recorded ?Confirmed ?Type buprenorphine 12 mg-naloxone 3 mg 1 film buccal BID 01/09/25 History sublingual film Allergies Allergy/AdvReac Type Severity Reaction Status Date / Time onion Allergy Severe Vomiting Verified 09/09/24 04:43 Visit Medications Atropine Sulfate (Atropine Sulf Inj 0.1 Mg/Ml Syr 10 Ml) 1 mg IV PRN PRN PRN Reason: heart rate <30 Haloperidol Lactate (Haloperidol Lact Inj 5 Mg/Ml Vial) 0.5 mg IV Q6HR PRN PRN Reason: AGITATION (SEVERE) Stop: 01/13/25 12:33 Last Admin: 01/08/25 12:55 Dose: 0.5 mg Heparin Sodium (Porcine) (Heparin Sod Inj 5000 Unit/Ml Vial) 5,000 unit SC Q12HR [facility] Stop: 01/22/25 20:59 Lactated Ringer's (Lactated Ringers) 1,000 mls @ 80 mls/hr IV .[id number] [facility] Stop: 01/09/25 03:29 Sennosides (Senna/Docusate Sod 1 Tab Tablet) 1 tab PO QDAY PRN; Protocol PRN Reason: CONSTIPATION Stop: 02/07/25 14:04 Discontinued Medications Atropine Sulfate (Atropine Sulf Inj 1 Mg/Ml Vial) 1 mg IV X1 ONE Stop: 01/08/25 09:35 Last Admin: 01/08/25 09:58 Dose: Not Given Atropine Sulfate (Atropine Sulf Inj 0.1 Mg/Ml Syr 10 Ml) 1 mg IV X1 ONE Stop: 01/08/25 10:01 Last Admin: 01/08/25 09:57 Dose: 1 mg Calcium Gluconate (Calcium Gluconate 10% Inj 1 Gm/10 Ml Vial) 1 gm IV X1 ONE Stop: 01/08/25 09:35 Last Admin: 01/08/25 09:45 Dose: 1 gm Calcium Gluconate (Calcium Gluconate 10% Inj 1 Gm/10 Ml Vial) 1 gm IV X1 ONE Stop: 01/08/25 10:44 Last Admin: 01/08/25 10:54 Dose: 1 gm Glucagon (Glucagon Inj 1 Mg Vial) 1 mg IVP X1 ONE Stop: 01/08/25 08:48 Last Admin: 01/08/25 08:45 Dose: 1 mg Glucagon (Glucagon Inj 1 Mg Vial) 1 mg IVP X1 ONE Stop: 01/08/25 09:55 Last Admin: 01/08/25 10:10 Dose: 1 mg Glucagon (Glucagon Inj 1 Mg Vial) 2 mg IVP X1 ONE Stop: 01/08/25 10:45 Last Admin: 01/08/25 10:54 Dose: 2 mg Lactated Ringer's (Lactated Ringers) 1,000 mls @ 999 mls/hr IV .Q1H1M ONE Stop: 01/08/25 09:47 Last Infusion: 01/08/25 10:21 Dose: Infused Naloxone HCl 1 mg/ Dextrose 500.5 mls @ 10 mls/hr IV .Q24H ONE Stop: 01/09/25 08:59 Last Admin: 01/08/25 09:25 Dose: Not Given Naloxone HCl 1 mg/ Dextrose 499 mls @ 10 mls/hr IV .Q24H ONE Stop: 01/09/25 09:18 Last Admin: 01/08/25 09:25 Dose: Not Given Lactated Ringer's (Lactated Ringers) 1,000 mls @ 999 mls/hr IV .Q1H1M ONE Stop: 01/08/25 10:34 Last Infusion: 01/08/25 10:51 Dose: Infused Lactated Ringer's (Lactated Ringers) 1,000 mls @ 999 mls/hr IV .Q1H1M ONE Stop: 01/08/25 11:43 Last Infusion: 01/08/25 12:05 Dose: Infused Naloxone HCl 2 mg/ Dextrose 500 mls @ 62.5 mls/hr IV X1 ONE Stop: 01/08/25 18:45 Last Admin: 01/08/25 11:31 Dose: 0.25 mg/hr, 62.5 mls/hr Naloxone HCl (Naloxone Inj 1 Mg/Ml Syringe 2 Ml) 1 mg IV X1 ONE Stop: 01/08/25 09:21 Last Admin: 01/08/25 09:25 Dose: 1 mg Naloxone HCl (Naloxone Inj 1 Mg/Ml Syringe 2 Ml) 1 mg IV X1 ONE Stop: 01/08/25 09:39 Last Admin: 01/08/25 09:44 Dose: 1 mg Naloxone HCl (Naloxone Inj 1 Mg/Ml Syringe 2 Ml) 1 mg IV X1 ONE Stop: 01/08/25 10:46 Last Admin: 01/08/25 11:02 Dose: 1 mg Assessment & Plan Plan This is a 54 yom with a h/o Crohn's disease, LLE DVT, depression, and polysubstance used disorder, who was BIBA after intentional overdose of propranolol, possible suboxone, and alprazolam, and subsequently admitted for beta katlyn overdose management. #Acute Encephalopathy 2/ #Intentional Beta katlyn overdose Encephalopathy most likely secondary to toxic ingestion of propranolol. Unclear how much propranolol was consumed, possibly up to 20 of the 40mg pills. Initially bradycardic in the 50s and hypotensive with systolics in 90s. Given a total of 4 mg Glucagon in the ED, 3L of LR, 1mg Atropine, Nalaxone 3mg. VSS now stable. Poison control contacted, recommendations listed below. Poisen control recommendations: -Admit tele, continuous cardiac monitering -Glucagon 5 mg push if unstable bradycardia -Atropine 1 mg push -1 amp Na Bicarb for QRS >120 -Trend EKG q6hrs -Seizure Precautions -head of bed >30 degrees -diazepam if seizure activity. -1-1 sitter -Swallow Screen -Follow up CT Head #Anion Gap Metabolic Acidosis Either secondary to hypoperfusion from unstable bradycardia vs propronolol overdose. Lactate elevated at 3.3. Ethanol and tylenol levels were WNL. Will also measure salicyclates and ask patient about ethylene glycol injestion. -trend lactate -Salicyclate -Follow up questioning once patient has better mentation. #History of Suicidal Ideation #Polysubstance use disorder Meth positive. Will assess patient for SI/HI when mentation improves. #Anemia New finding, hgb of 8.6, baseline between 10 and 11. May be due to malnutrion, as patient seems to have failure to thrive. However, cannot rule out possible bleed. -FOBT -B12/Folate -Fe panel #Concern for soft tissue infection Inflamed lesion at the site where patient attempted to inject his crushed up alprazolam. Most likely not a clean needle. Concern for possible soft tissue infection. His hepatitis panel was negative in July 2024. Will ask patient if he would be interested in HIV testing once mentation improves. -Cefazolin started 01/08 -Wound care on board # History of DVT In the setting of possible GI bleed, will hold home eloquis for now. -heparin for DVT prophylaxis. Health Maintenance: DVT prophylaxis: Heparin Diet: NPO Dum[place]: Yes placed 01/08 Lines: PIV, left sided central line placed 01/08 CODE STATUS: Full code Disposition: Pending management of beta katlyn overdose. Patient's plan and care discussed with my attending, Dr. Ram and my senior Dr Blanco. Wai Mckeon DO PGY-1 ([facility] Resident) Attending Provider Attestation/Addendum Drew, Michelle Ram DO, attest that I was physically present for the cox portions of the service and evaluated the patient with the resident and I reviewed and discussed the case with the resident and agree with the resident's findings and plans of care as documented above Patient is a 54-year-old male with past medical history of polysubstance abuse, substance overdose, prior suicidal attempts, DVT, nephrolithiasis, panic disorder, anxiety who was brought in by ambulance secondary to propranolol overdose. Patient is obtunded at time of evaluation and history was obtained from chart review and resident interview with patient's . Per chart review, patient was brought in by ambulance after police raid of his house. Patient was nervous and had reportedly taking two thirds of a bottle of propranolol 40 mg tablets. The bottle of propranolol was noted at bedside and was dispensed on 12/13/2024 with 120 tablets. There are currently 4 tablets left. Patient was a GCS of 15 at time of transportation, but patient was progressively more lethargic and diaphoretic upon evaluation in the ED. Patient was found to have a bottle of Suboxone and alprazolam in his rectum as well. He was noted to be hypotensive with heart rate in the 50s on presentation. Patient received glucagon and 2 L of fluid. He was also given atropine due to bradycardia. Patient was also given 2 doses of calcium gluconate. He received Narcan by EMS and received a second dose upon presentation in the ED. Due to no change in mentation, patient was subsequently placed on a Narcan drip. Mentation slowly improved after Narcan drip was given. Patient was seen and eval by ICU and recommended admission to the floors as patient is hemodynamically stable. At time of my evaluation, patient remained very somnolent, but will open eyes to verbal and tactile stimuli.Patient has been in bilateral upper extremity restraints and will occasionally try to aggressively break out of them and scream. Patient attempts to respond to questions, but speech is unintelligible. He is able to protect airway. Patient is to be admitted to telemetry for further workup and medical management of suspected propranolol overdose. Blood pressure is currently stable and heart rate remains in the 50s. Will contact poison control and follow with serial EKGs. Pending ABG due to metabolic acidosis. Lacitic acidosis likely secondary to hypotension, Will continue IV fluids and repeat lactic acid. Will give one dose of sodium bicarb. Continue cardiac monitoring.
[2025-01-08] MEDS: RINGERS LACTATED 1000 ML 1,000 ML 80 ML IV (15:14)
[2025-01-08 15:41] LABS: Reflex Lactate? Y
[2025-01-08 15:54] LABS: Lactate (Lactic Acid) 1.1 mMol/L (0.4-2.0)
[2025-01-08 16:19] LABS: Salicylate < 3.0 mg/dL
[2025-01-08] MEDS: SODIUM BICARB INJ 8.4% 1 mEq/ML 50 ML VIAL 50 MEQ IV (16:36)
[2025-01-08 16:46] LABS: Ferritin 34 ng/mL (10.5-307.3); Folate 10.81 ng/mL (>5.38); Iron 14 mcg/dL (65-175); Percent Iron Saturation 7 % (20-55); Total Iron Binding Capacity 177 mcg/dL (250-425); Unsaturated Iron Binding 163 (225-295); Vitamin B12 190 pg/mL (211-911)
--- NOTE | 2025-01-08 18:00 | EKG_ITS ---
[facility] Test Date: 2025-01-08 Pat Name: LIONEL GARZA [facility] Air And Hydronic Balancing Technician: JAMES : 1970 Requested By: Wai Mckeon Order Number: [id number] Reading MD: Wai Mckeon Measurements Intervals [place] Rate: 43 P: 61 SC: 177 QRS: 69 QRSD: 87 T: 62 QT: 488 QTc: 414 Interpretive Statements SINUS BRADYCARDIA LOW QRS VOLTAGE IN PRECORDIAL LEADS Compared to ECG 01/08/2025 09:06:55 Low QRS voltage now present Sinus rhythm no longer present /store/S0/[id number].pdf
[2025-01-08 18:25] LABS: Base Excess 3 (-3-3); HCO3 28 mEq/L (20-26); Inspired Oxygen, FIO2 21 %; O2 Saturation 93 % (91-98); PCO2 44 mmHg (32.0-48.0); PO2 60 mmHg (83-108); pH, Arterial 7.41 (7.35-7.45)
[2025-01-08 18:28] LABS: Allen Test Performed/OK; Puncture Site Right Radial
[2025-01-08] MEDS: DEXTROSE 5%-NS 1,000 ML 80 ML IV (18:57)
--- NOTE | 2025-01-08 19:33 | PC.NURSE ---
x2 medicine bottles given to Ricardo in pharmacy for count. Per Ricardo, I will deal with the suboxone with my boss tomorrow.
[2025-01-08] MEDS: ceFAZolin/D5W 1 GM IVPB 1 GM/50 ML BAG IV (22:05)
[2025-01-09] VITALS: BP 125/88; PULSE 40; PULSE 80; RESP 17; TEMP 36.2; O2SAT 96
--- NOTE | 2025-01-09 | EKG_ITS ---
[facility] Test Date: 2025-01-09 Pat Name: LIONEL GARZA [facility] Requirements Analyst: MASHA : 1970 Requested By: Wai Mckeon Order Number: [id number] Reading MD: Wai Mckeon Measurements Intervals [place] Rate: 42 P: 42 MA: 121 QRS: 41 QRSD: 80 T: 39 QT: 476 QTc: 400 Interpretive Statements SINUS BRADYCARDIA WITH OCCASIONAL SUPRAVENTRICULAR PREMATURE COMPLEXES LOW QRS VOLTAGE Compared to ECG 01/09/2025 01:32:27 No significant changes /store/S0/[id number].pdf
[2025-01-09 04:00] VITALS: BP 119/78; PULSE 40; PULSE 47; RESP 18; TEMP 36.2; O2SAT 96
[2025-01-09 05:38] LABS: Basophils # (Auto) 0.0 Thou/mm3 (0.0-0.2); Basophils % (Auto) 1 % (0-2.5); Eosinophils # (Auto) 0.1 Thou/mm3 (0.0-0.5); Eosinophils % (Auto) 1 % (0-10); Hematocrit 34.1 % (41.0-53.0); Hemoglobin 11.3 g/dL (13.5-16.0); Immature Granulocytes Auto 0.02 Thou/mm3 (0.00-0.00); Lymphocytes # (Auto) 1.8 Thou/mm3 (1.0-4.8); Lymphocytes % (Auto) 22 % (10-50); Mean Corpuscular HGB Conc 33.1 g/dl (31.0-37.0); Mean Corpuscular Hemoglobin 31.2 pg (25.0-35.0); Mean Corpuscular Volume 94 fL (80-100); Monocytes # (Auto) 0.9 Thou/mm3 (0.0-0.8); Monocytes % (Auto) 11 % (0-12); Neutrophils # (Auto) 5.1 Thou/mm3 (1.8-7.7); Neutrophils % (Auto) 65 % (37-80); Nucleated Red Blood Cell # 0.00 Thou/mm3 (0.00-0.00); Nucleated Red Blood Cell % 0 /100 WBC (0); Platelet Count 161 Thou/mm3 (140-440); RDW Standard Deviation 47.4 fL (35.1-43.9); Red Blood Count 3.62 Miln/mm3 (4.50-5.90); White Blood Count 7.9 Thou/mm3 (3.8-10.6)
--- NOTE | 2025-01-09 06:00 | EKG_ITS ---
[facility] Test Date: 2025-01-09 Pat Name: LIONEL GARZA [facility] Rheostat Assembler: JAMES : 1970 Requested By: Wai Mckeon Order Number: [id number] Reading MD: Wai Mckeon Measurements Intervals [place] Rate: 43 P: 54 PA: 162 QRS: 61 QRSD: 87 T: 52 QT: 477 QTc: 406 Interpretive Statements SINUS BRADYCARDIA LOW QRS VOLTAGE IN PRECORDIAL LEADS Compared to ECG 01/08/2025 18:32:02 No significant changes /store/S0/[id number]
[2025-01-09 06:28] LABS: Alanine Aminotransferase 85 U/L (10-49); Albumin, Serum 3.2 gm/dL (3.5-5.0); Albumin/Globulin Ratio 1.6 (1.2-2.2); Alkaline Phosphatase 113 U/L (46-116); Anion Gap 9 (7-16); Aspartate Amino Transferase 71 U/L (0-34); BUN/Creatinine Ratio 16 Ratio (12-20); Bilirubin,Total 0.5 mg/dL (0.3-1.2); Blood Urea Nitrogen 13 mg/dL (9-23); Calcium 8.2 mg/dL (8.3-10.6); Calcium (Corrected) 8.8 mg/dL (8.5-10.1); Carbon Dioxide 27.3 mMol/L (20.0-31.0); Chloride 108 mMol/L (98-107); Creatinine (Component) 0.8 mg/dL (0.6-1.3); Estimated Creatinine Clearance 81.7 mL/min (>60); Globulin 2.0 gm/dL (2.3-3.5); Glucose 93 mg/dL (74-106); Magnesium 1.7 mg/dL (1.6-2.6); Osmolality,Calculated 286 (275-295); Phosphorous 3.5 mg/dL (2.4-5.1); Potassium 3.8 mMol/L (3.4-5.1); Sodium 144 mMol/L (136-145); Total Protein 5.2 gm/dL (5.7-8.2); eGFR > 60 See Note
[2025-01-09 08:00] VITALS: BP 111/73; PULSE 44; PULSE 57; RESP 15; TEMP 36.3; O2SAT 94
[2025-01-09] MEDS: Magnesium Sulfate 4 GM Ivpb 4 GM/50 ML BAG IV (09:22)
[2025-01-09] MEDS: POTASSIUM CHL 10 mEq IVPB 10 MEQ/100 ML BAG 100 MEQ IV ×2 (09:23→12:06)
--- NOTE | 2025-01-09 09:58 | ESPR_ITS ---
Documentation for date of: 01/09/25 No overnight events. Patient examined at bedside. Patient is alert and oriented x 3. Patient stated overdose was non-intentional as patient woke up in the middle of the night and grabbed the wrong bottom of medication off the night stand. Vitals stable and bradycardia improving. Electrolytes repleted. Acute encephalopathy, improved. Patient likely will be medically cleared within the next 24 hours for psych evaluation. Continue Cefazolin day two for soft tissue infection. - The patient's plan was discussed with attending Dr. Yo Blanco MD PGY2 Internal Medicine Subjective Subjective Interval history: This is a 54 yom with a h/o Crohn's disease, LLE DVT, depression, hydronephrosis s/p urethral stent and polysubstance used disorder, who was BIBA on 01/08 after overdose of propranolol, possible suboxone, and alprazolam, and subsequently admitted for beta katlyn overdose management. Patient had unstable bradycardia in the ED, given a total of 4 mg Glucagon in the ED, 3L of LR, 1mg Atropine, Nalaxone 3mg. Vitals improved, patient was admitted, and poison control contacted. 01/09: Patient examined at bedside, NAOE, telemtry noted significant bradycardia at 33BPM but BP was stable. Patient's mentation significantly improved today. He stated that he has 3 different propranolol doses in 3 different pill bottles, 10mg, 20 mg, and 40 mg pills. He accidentally ingested the 40 mg pills thinking they were the 20 mg pills. He also states that he takes the propranolol for ?a- fib. He does not see a regular PCP. When asked about his attempted benzo injection, he states that he was nervous that he was running low on his benzos, so he attempted to make it last longer by crushing it up and injecting it. States the needle was bought new. He does not have a perscription for the benzos, he purchases them from an outside dealer. He also uses suboxone chronically. It is unclear if he has a prescription for this or if this is also purchased from an outside dealer. He last used meth a few days ago. Also reports that he feels like somebody is breaking into their house and vandelizing their property. He denies being diagnosed with psychiatric illness and also denies SI/HI -Will continue to moniter overnight. -Will continue home suboxone once it can be verified by pharmacy. Exam Vital Signs Temp Pulse Resp BP Pulse Ox O2 Del Method O2 Flow Rate 97.3 F 57 L 15 111/73 94 L Room Air 4 01/09/25 08:00 01/09/25 08:00 01/09/25 08:00 01/09/25 08:00 01/09/25 08:00 01/09/25 08:00 01/08/25 12:36 Narrative Exam General: Patient appears older than stated age, appears malnurished with bitemporal wasting, sitting upright in bed, soft spoken but conversational, no acute distress. HEENT: Moist mucosa, secretions no longer present. Pupils are equal and reactive to light bilaterally, not overtly miotic or mydriatic. Cardiovascular: Normal S1 and S2. Regular rate and rhythm. No murmur appreciated Respiratory: Clear to auscultation bilaterally without wheezes or crackles. Abdomen: Soft, mild tenderness to palpation in the left lower quadrant. not distended, Skin: Dry, there is a psoriatic appearing rash along the back of the neck, erythematous with overlying scale. Varicose veins noted the BL lower extremities. There is a approximately 3 cm erythematous elevated lesion on the right forearm. Scant serosanguinous drainage, but does not look necrotic. Musculoskeletal: No gross injuries. Able to move all 4 extremities. Non edematous lower extremities. Lower extremities are warm with pedal pulses intact bilaterally. Neuro: Alert and oriented x3, no focal neuro deficits. Objective Labs 01/10/25 05:40 01/10/25 05:40 Labs: Laboratory Results - last 24 hr 01/08/25 01/08/25 01/08/25 09:00 09:13 09:28 WBC RBC Hgb Hct MCV MCH MCHC RDW Std Deviation Plt Count Neut % (Auto) Lymph % (Auto) Morrill % (Auto) Eos % (Auto) Baso % (Auto) Neut # (Auto) Lymph # (Auto) Morrill # (Auto) Eos # (Auto) Baso # (Auto) Immature Gran # (Auto) Absolute Nucleated RBC Immature Gran % Nucleated RBC % Puncture Site ABG pH ABG pCO2 ABG pO2 ABG HCO3 ABG O2 Saturation ABG Base Excess Oxygen Liter Flow FiO2 Sodium 140 Potassium 3.9 Chloride 107 Carbon Dioxide 17.3 L Anion Gap 16 BUN 6 L Creatinine 0.3 L Estim Creat Clear Calc 217.8 eGFR > 60 BUN/Creatinine Ratio 20 Glucose 80 Calculated Osmolality 276 Lactic Acid Calcium 7.1 L Corrected Calcium 9.0 Phosphorus Magnesium Iron 14 L TIBC 177 L Iron Saturation 7 L Unsat Iron Binding 163 L Ferritin 34 Total Bilirubin 0.2 L AST 25 ALT 30 Alkaline Phosphatase 48 Total Protein 2.5 L Albumin 1.6 L Globulin 0.9 L Albumin/Globulin Ratio 1.8 Vitamin B12 190 L Folate 10.81 Ur Collection Type Catheter Urine Color Yellow Urine Clarity Clear Urine pH 6.0 Ur Specific [place] 1.036 H Urine Protein 1+ A Urine Glucose (UA) Negative Urine Ketones Negative Urine Blood 1+ A Urine Nitrite Positive Urine Bilirubin Negative Urine Urobilinogen (Auto) 3.0 Ur Leukocyte Esterase Positive Urine RBC 10 H Urine WBC 27 H Ur Squamous Epith Cells < 1 Calcium Oxalate Crystal Rare Urine Bacteria None Urine Sperm Present A Ur Culture Indicated? Yes Salicylates Urine Opiates Screen Positive A Urine Fentanyl Screen Positive A Acetaminophen 5.9 L Ur Barbiturates Screen Negative U Tricyclic Antidepress Negative U Amphetamin/Meth Scrn Positive A U Benzodiazepines Scrn Positive A U Cocaine Metab Screen Negative U Marijuana (THC) Screen Negative Urine Alcohol Negative Ethyl Alcohol < 3.0 01/08/25 01/08/25 01/08/25 12:31 14:02 15:42 WBC RBC Hgb Hct MCV MCH MCHC RDW Std Deviation Plt Count Neut % (Auto) Lymph % (Auto) Morrill % (Auto) Eos % (Auto) Baso % (Auto) Neut # (Auto) Lymph # (Auto) Morrill # (Auto) Eos # (Auto) Baso # (Auto) Immature Gran # (Auto) Absolute Nucleated RBC Immature Gran % Nucleated RBC % Puncture Site Cancelled ABG pH Cancelled ABG pCO2 Cancelled ABG pO2 Cancelled ABG HCO3 Cancelled ABG O2 Saturation Cancelled ABG Base Excess Cancelled Oxygen Liter Flow Cancelled FiO2 Cancelled Sodium Potassium Chloride Carbon Dioxide Anion Gap BUN Creatinine Estim Creat Clear Calc eGFR BUN/Creatinine Ratio Glucose Calculated Osmolality Lactic Acid 3.3 H 1.1 Calcium Corrected Calcium Phosphorus Magnesium Iron TIBC Iron Saturation Unsat Iron Binding Ferritin Total Bilirubin AST ALT Alkaline Phosphatase Total Protein Albumin Globulin Albumin/Globulin Ratio Vitamin B12 Folate Ur Collection Type Urine Color Urine Clarity Urine pH Ur Specific [place] Urine Protein Urine Glucose (UA) Urine Ketones Urine Blood Urine Nitrite Urine Bilirubin Urine Urobilinogen (Auto) Ur Leukocyte Esterase Urine RBC Urine WBC Ur Squamous Epith Cells Calcium Oxalate Crystal Urine Bacteria Urine Sperm Ur Culture Indicated? Salicylates < 3.0 Urine Opiates Screen Urine Fentanyl Screen Acetaminophen Ur Barbiturates Screen U Tricyclic Antidepress U Amphetamin/Meth Scrn U Benzodiazepines Scrn U Cocaine Metab Screen U Marijuana (THC) Screen Urine Alcohol Ethyl Alcohol 01/08/25 01/09/25 18:17 04:40 WBC 7.9 RBC 3.62 L Hgb 11.3 L D Hct 34.1 L MCV 94 MCH 31.2 MCHC 33.1 RDW Std Deviation 47.4 H Plt Count 161 Neut % (Auto) 65 Lymph % (Auto) 22 Morrill % (Auto) 11 Eos % (Auto) 1 Baso % (Auto) 1 Neut # (Auto) 5.1 Lymph # (Auto) 1.8 Morrill # (Auto) 0.9 H Eos # (Auto) 0.1 Baso # (Auto) 0.0 Immature Gran # (Auto) 0.02 H Absolute Nucleated RBC 0.00 Immature Gran % 0 Nucleated RBC % 0 Puncture Site Right Radial ABG pH 7.41 ABG pCO2 44 ABG pO2 60 L ABG HCO3 28 H ABG O2 Saturation 93 ABG Base Excess 3 Oxygen Liter Flow FiO2 21 Sodium 144 Potassium 3.8 Chloride 108 H Carbon Dioxide 27.3 Anion Gap 9 BUN 13 Creatinine 0.8 D Estim Creat Clear Calc 81.7 eGFR > 60 BUN/Creatinine Ratio 16 Glucose 93 Calculated Osmolality 286 Lactic Acid Calcium 8.2 L Corrected Calcium 8.8 Phosphorus 3.5 Magnesium 1.7 Iron TIBC Iron Saturation Unsat Iron Binding Ferritin Total Bilirubin 0.5 AST 71 H ALT 85 H Alkaline Phosphatase 113 D Total Protein 5.2 L Albumin 3.2 L D Globulin 2.0 L Albumin/Globulin Ratio 1.6 Vitamin B12 Folate Ur Collection Type Urine Color Urine Clarity Urine pH Ur Specific [place] Urine Protein Urine Glucose (UA) Urine Ketones Urine Blood Urine Nitrite Urine Bilirubin Urine Urobilinogen (Auto) Ur Leukocyte Esterase Urine RBC Urine WBC Ur Squamous Epith Cells Calcium Oxalate Crystal Urine Bacteria Urine Sperm Ur Culture Indicated? Salicylates Urine Opiates Screen Urine Fentanyl Screen Acetaminophen Ur Barbiturates Screen U Tricyclic Antidepress U Amphetamin/Meth Scrn U Benzodiazepines Scrn U Cocaine Metab Screen U Marijuana (THC) Screen Urine Alcohol Ethyl Alcohol ABG Interpretation ABG results: 01/08/25 01/08/25 14:02 18:17 ABG pH Cancelled 7.41 ABG pCO2 Cancelled 44 ABG pO2 Cancelled 60 L ABG HCO3 Cancelled 28 H ABG O2 Saturation Cancelled 93 ABG Base Excess Cancelled 3 Quality Measures Quality Measures none Assessment & Plan Assessment Current Active Medications: Generic Name Dose Route Start Last Admin Trade Name Freq PRN Reason Stop Dose Admin Atropine Sulfate 1 mg 01/08/25 12:32 Atropine Sulf Inj 0.1 Mg/Ml Syr 10 Ml IV PRN PRN heart rate <30 Dextrose 25 ml 01/08/25 16:47 Dextrose 50%-Water Inj 50 Ml Syringe IV 02/07/25 16:46 Q15MIN PRN BG 50-70 responsive npo pt Dextrose 50 ml 01/08/25 16:47 Dextrose 50%-Water Inj 50 Ml Syringe IV 02/07/25 16:46 Q15MIN PRN BG <50 OR BG <70 & pt unresponsive Diazepam 2.5 mg 01/08/25 15:14 Diazepam Inj 5 Mg/Ml Vial 2 Ml IVP X1 PRN Seizure >3min Glucagon 1 mg 01/08/25 16:47 Glucagon Inj 1 Mg Vial IM Q15MIN PRN BG <70, and no IV access Haloperidol Lactate 0.5 mg 01/08/25 12:34 01/08/25 12:55 Haloperidol Lact Inj 5 Mg/Ml Vial IV 01/13/25 12:33 0.5 mg Q6HR PRN Administration AGITATION (SEVERE) Heparin Sodium (Porcine) 5,000 unit 01/08/25 21:00 01/09/25 09:33 Heparin Sod Inj 5000 Unit/Ml Vial SC 01/22/25 20:59 Not Given Q12HR MARILYNN Cefazolin Sodium/Dextrose 1 gm in 50 mls @ 100 mls/hr 01/08/25 22:00 01/09/25 05:08 Ancef Ivpb IV 01/13/25 21:59 Not Given Q8HR MARILYNN Magnesium Sulfate 4 gm in 50 mls @ 12.5 mls/hr 01/09/25 07:38 01/09/25 09:22 Magnesium Sulfate Ivpb IV 01/09/25 11:37 12.5 mls/hr X1 ONE Administration Ondansetron HCl 4 mg 01/08/25 15:05 Ondansetron Inj 2 Mg/Ml Inj 2 Ml IVP 02/07/25 15:04 Q6HR PRN NAUSEA OR VOMITING Protocol Sennosides 1 tab 01/08/25 14:05 Senna/Docusate Sod 1 Tab Tablet PO 02/07/25 14:04 QDAY PRN CONSTIPATION Protocol Plan This is a 54 yom with a h/o Crohn's disease, LLE DVT, depression, and polysubstance used disorder, who was BIBA after intentional overdose of propranolol, possible suboxone, and alprazolam, and subsequently admitted for beta katlyn overdose management. #Acute Encephalopathy 2/, improving #Unintentional Beta katlyn overdose Encephalopathy most likely secondary to toxic ingestion of propranolol. Unclear how much propranolol was consumed, possibly up to 20 of the 40mg pills. Initially bradycardic in the 50s and hypotensive with systolics in 90s. Given a total of 4 mg Glucagon in the ED, 3L of LR, 1mg Atropine, Nalaxone 3mg. VSS now stable. Poison control contacted, recommendations listed below. Repeat EKG showed sinus tyler with improved QRS duration. On 01/09, patient's mentation markedly improved, states he has multiple dosage forms of propanolol, accidentally ingested the 40mg pills that he thought were the 10 mg pills. States he took between 8 to 12 of them. Asked his to call 911 after he realized his error. Poisen control recommendations: -Admit tele, continuous cardiac monitering -Glucagon 5 mg push if unstable bradycardia -Atropine 1 mg push -1 amp Na Bicarb for QRS >120, -Seizure Precautions -head of bed >30 degrees -diazepam if seizure activity. -1-1 sitter -Passed Swallow Screen, regular vegetarian diet. - CT Head negative -DC Dumont. DC fluids. -Observation for 1 more night. #Anion Gap Metabolic Acidosis-resolved Either secondary to hypoperfusion from unstable bradycardia vs propronolol overdose. Lactate elevated at 3.3. Ethanol and tylenol levels were WNL. Will also measure salicyclates and ask patient about ethylene glycol injestion. -trend lactate -Salicyclate -Follow up questioning once patient has better mentation. #History of Suicidal Ideation #Polysubstance use disorder Meth positive. Will assess patient for SI/HI when mentation improves. Patient on suboxone chronically, bringing in his home suboxone as this institution does not carry this medication. - Patient denies SI or HI. -Does not have a proper perscription for his benzodiazepines. Purchases them from the street. #Anemia-improving New finding, hgb of 8.6, baseline between 10 and 11. May be due to malnutrion, as patient seems to have failure to thrive. Hgb improved to 11 from 8.6 yesterday, may have been dilutional. Ferritin normal but iron panel low. B12 low, Folate normal. -continue to moniter #Concern for soft tissue infection Inflamed lesion at the site where patient attempted to inject his crushed up alprazolam. Most likely not a clean needle. Concern for possible soft tissue infection. His hepatitis panel was negative in July 2024. Will ask patient if he would be interested in HIV testing once mentation improves. Raised lesion appears well perfused, no necrosis noted. -Cefazolin started 01/08 -Wound care on board # History of DVT In the setting of possible GI bleed, will hold home eloquis for now. -heparin for DVT prophylaxis. Health Maintenance: DVT prophylaxis: Heparin Diet: Vegetarian diet. Dumont: Yes placed 01/08, DC 01/09 Lines: PIV, left sided central line placed 01/08 CODE STATUS: Full code Disposition: Observation 1 more night. Patient's plan and care discussed with my attending, Dr. Ram and my senior Dr Blanco. Wai Mckeon DO PGY-1 ([facility] Resident) Attending Provider Attestation/Addendum Michelle Russell DO, attest that I was physically present for the cox portions of the service and evaluated the patient with the resident and I reviewed and discussed the case with the resident and agree with the resident's findings and plans of care as documented above Patient seen and eval this a.m. He appears to be at baseline at this time. Patient has just passed swallow evaluation. Patient does not recall coming to the hospital, but remembers the events prior to arrival to the ER. Patient states that he takes 3 different doses of propranolol including 10 mg, 20 mg of 40 mg tablets. He states that he suffers from an arrhythmia and that he had been taking 8 pills of the 10 mg tab. However, he had accidentally taken his 40 mg tablets instead. He immediately started feeling woozy and got nervous and told his to call 911. However, when asked why patient had his pills placed in his rectum he states that he was scared that he was [facility]. 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 Patient states that he started taking methamphetamine since he had a kidney stone about 6 months ago that led to a psychotic break and for him to start injecting methamphetamine. Patient states that he does not do it anymore. However, his last use of methamphetamine was about 2 days ago. Patient denies any suicidal or homicidal allegation. He states that this overdose was strictly an accident. Patient's history has been inconsistent as he has stated to other staff members that he was nervous about the police knowing that he had methamphetamine in the house. Patient has been bradycardic throughout the night. However, he states that he is feeling well. He does have a history of suicidal attempts, but has no thoughts or plans at this time. Will continue to monitor for next 24 hours. Patient will need a psych evaluation prior to discharge. Patient states that he needs a Suboxone and is currently withdrawing. However, on exam, patient is in no acute distress and calm. He states that he also recently tried to inject dissolved Xanax in a syringe into his forearms, but could not find the vein. He is currently on Keflex for prophylaxis of cellulitis as he had 2 welts on his proximal forearm. They do not look purulent, but erythematous, no discharge noted.
[2025-01-09 12:00] VITALS: BP 96/53; PULSE 58; PULSE 60; RESP 18; TEMP 36.3; O2SAT 96
[2025-01-09 13:22] VITALS: BMI 16.5
[2025-01-09] MEDS: ceFAZolin/D5W 1 GM IVPB 1 GM/50 ML BAG IV ×2 (13:40→21:31)
--- NOTE | 2025-01-09 15:12 | PC.SS ---
Patient Karishma Wharton is a 54 yr old male admitted for Beta Anastacio Overdose. SS met with patient at bedside to complete initial assessment. Patient reports he lives at home with his , Alanna Uribe who he reports is his surrogate decision maker, [phone]. Patient's address is from [address] Pt lives in the home with his spouse. Patient is independent with ambulation and with ADLs. Pt does not require supplemental O2 in the home. Pt is followed by [facility] for primary care. Pt is also followed by Dr. Rice in [place] for pain management. SS inquired about any Mental health HX. Patient reported he does have hx of anxiety and depression. Patient reports he was placed at [facility] facility before in the past. Patient is pending medically clearance to be evaluated by SS to determine if patient wuill be placed on a 5150 hold. Discharg plan: Pending Discharge plan Next of kin: , Alanna Uribe
[2025-01-09 16:00] VITALS: BP 111/74; PULSE 55; PULSE 64; RESP 18; TEMP 36.6; O2SAT 100
--- NOTE | 2025-01-09 19:46 | PC.NURSE ---
Dr. Pugh made aware of patient home medication Suboxone route buccal. RN brought patient medication to pharmacy.
[2025-01-09 20:00] VITALS: BP 111/78; PULSE 55; PULSE 62; RESP 16; TEMP 36.1; O2SAT 100
[2025-01-09] MEDS: BUPRENORPHINE SL (20:42)
[2025-01-09] MEDS: NALOXONE SL (20:42)
[2025-01-10] VITALS (8 sets, daily range): BP systolic 114–150; BP diastolic 75–86; PULSE 46–75; RESP 14–20; TEMP 36.2–36.6; O2SAT 94–99; BMI 17.2
[2025-01-10] MEDS: IBUPROFEN TAB 400 MG TABLET PO ×2 (05:26→19:30)
[2025-01-10] MEDS: ceFAZolin/D5W 1 GM IVPB 1 GM/50 ML BAG IV ×3 (05:26→22:15)
[2025-01-10 06:01] LABS: Basophils # (Auto) 0.0 Thou/mm3 (0.0-0.2); Basophils % (Auto) 1 % (0-2.5); Eosinophils # (Auto) 0.2 Thou/mm3 (0.0-0.5); Eosinophils % (Auto) 3 % (0-10); Hematocrit 33.8 % (41.0-53.0); Hemoglobin 11.1 g/dL (13.5-16.0); Immature Granulocytes Auto 0.01 Thou/mm3 (0.00-0.00); Lymphocytes # (Auto) 2.2 Thou/mm3 (1.0-4.8); Lymphocytes % (Auto) 44 % (10-50); Mean Corpuscular HGB Conc 32.8 g/dl (31.0-37.0); Mean Corpuscular Hemoglobin 30.9 pg (25.0-35.0); Mean Corpuscular Volume 94 fL (80-100); Monocytes # (Auto) 0.5 Thou/mm3 (0.0-0.8); Monocytes % (Auto) 9 % (0-12); Neutrophils # (Auto) 2.2 Thou/mm3 (1.8-7.7); Neutrophils % (Auto) 43 % (37-80); Nucleated Red Blood Cell # 0.00 Thou/mm3 (0.00-0.00); Nucleated Red Blood Cell % 0 /100 WBC (0); Platelet Count 152 Thou/mm3 (140-440); RDW Standard Deviation 48.6 fL (35.1-43.9); Red Blood Count 3.59 Miln/mm3 (4.50-5.90); White Blood Count 5.0 Thou/mm3 (3.8-10.6)
[2025-01-10 06:18] LABS: Alanine Aminotransferase 69 U/L (10-49); Albumin, Serum 3.1 gm/dL (3.5-5.0); Albumin/Globulin Ratio 1.6 (1.2-2.2); Alkaline Phosphatase 102 U/L (46-116); Anion Gap 5 (7-16); Aspartate Amino Transferase 52 U/L (0-34); BUN/Creatinine Ratio 10 Ratio (12-20); Bilirubin,Total 0.2 mg/dL (0.3-1.2); Blood Urea Nitrogen 8 mg/dL (9-23); Calcium 8.0 mg/dL (8.3-10.6); Calcium (Corrected) 8.7 mg/dL (8.5-10.1); Carbon Dioxide 31.3 mMol/L (20.0-31.0); Chloride 106 mMol/L (98-107); Creatinine (Component) 0.8 mg/dL (0.6-1.3); Estimated Creatinine Clearance 84.9 mL/min (>60); Globulin 2.0 gm/dL (2.3-3.5); Glucose 104 mg/dL (74-106); Magnesium 2.1 mg/dL (1.6-2.6); Osmolality,Calculated 281 (275-295); Phosphorous 3.5 mg/dL (2.4-5.1); Potassium 3.9 mMol/L (3.4-5.1); Sodium 142 mMol/L (136-145); Total Protein 5.1 gm/dL (5.7-8.2); eGFR > 60 See Note
[2025-01-10] MEDS: BUPRENORPHINE SL ×2 (09:19→20:36)
[2025-01-10] MEDS: NALOXONE SL ×2 (09:19→20:36)
--- NOTE | 2025-01-10 10:00 | PC.SS ---
SS follow up note; SS ws notified by Dr. Blanco that patient was medically cleared. SS notified, Catherine ROTHMAN.
--- NOTE | 2025-01-10 10:51 | PC.CC ---
Addendum entered by Nasrin Bowser 01/10/25 15:37: packet is in chart . SS or processing clerk will need to arrange transport as ASW is off at 1530. Addendum entered by Nasrin Bowser 01/10/25 15:36: ASW confirmed with Dr. Fleming that pt is medically cleared. ASW met with pt at bedside and addressed the concerns and reason for the MH consult. Pt stated he undertstood. Pt understood the reasons as to why he was admitted to the hosptial and denies SI/HI. Pt presented as delusional with very slow speech and low tone. Pt reported that he took only 7-8 pills of his medication, which was conflicting as to what he reported upon entering the ED. Pt admitted to taking 2/3 of his bottle of alopzaprham which containted 100 pills at 40 mg. Pt stated he was scared because he accidentatley took too many pills so he wanted to get check out. ASW staffed with RAHUL Hare and it was decided that the pt will be palced on a 5150 Hold DTS and ASW will search for LPS placement, due to the degree of medications he ingested and prior h/o of attempted SI by OD. Pt is aware. Dr. Fleming and attendign are aware of the hold. ASW uploaded pts packet to [employer] and faxed to facillities who do not use [employer] such as [facility], [place], [facility] and [facility]. Original Note: [id number] received a call from Erica stating pt is medically cleared. ASW contacted Dr. Marquez and stated pt will be cleared possibly later today. Dr. Marquez will call ASW if pt is cleared later this afternoon, so ASW can conduct an MH eval.
--- NOTE | 2025-01-10 11:57 | ESPR_ITS ---
<Statement entered by Sanford Marquez MD - 01/10/25 14:25> I saw and examined patient personally and supervised PGY 1 resident, Dr. Mckeon with formulating a management plan. I agree with the documentation with the exceptions as listed below. This is a 54 yom with a h/o Crohn's disease, LLE DVT, depression, hydronephrosis s/p urethral stent and polysubstance used disorder, who was BIBA on 01/08 after overdose of propranolol, possible suboxone, and alprazolam, and subsequently admitted for beta katlyn overdose management. Problem list: 1. Acute metabolic encephalopathy secondary to unintentional beta-katlyn overdose in setting of polysubstance abuse?resolved 2. History of suicidal ideation and polysubstance use disorder 3. Right arm cellulitis 4. History of DVT [June 2024] 5. History of opioid abuse on Suboxone 6. Medically cleared Patient was initially admitted after an unintentional beta-katlyn overdose with propranolol. In the ED he received calcium gluconate, glucagon and Narcan infusion after which his mental status improved. Poison control was also contacted who recommended to trend EKGs Q6 hourly for the first 24 hours, one-on-one sitter, atropine as needed for symptomatic bradycardia, sodium bicarb if QRS becomes >120 and seizure precautions. His most recent EKG at 24 hours showed a QTc 400 with normal QRS. After patient's mental status improved he confessed that the day prior to admission he used methamphetamine and then woke up the following day feeling extremely paranoid and took the wrong dose of his propranolol for his agitation. After he realized what he had done he tried to induce vomiting, but by the time he arrived he began to feel symptomatic and dizzy. The last thing he remembers is telling his to call EMS. Last night patient's brought in his home medication, Suboxone which was resumed. This morning patient says he feels restless and thinks that he is withdrawing from benzodiazepines. His benzodiazepines were not prescribed and he was getting them from the streets. At this point we will not prescribe any benzodiazepines. For patient's soft tissue skin infection and UTI currently he is on treatment with cefazolin 1 g IV every 8 hourly. His urine culture grew Staph epidermidis resistant to beta-lactamase. Upon discharge will transition him to oral Bactrim to complete a total of a 14-day course of antibiotics. At this point in time patient is cleared from a medical standpoint. Once patient passes crisis evaluation by social services counselor he can be discharged. Plan of care discussed with Attending Dr. Bernadette Marquez MD PGY 2 Disclaimer: This note was dictated by speech recognition. Minor errors in vascular sonographer may be present due to voice recognition software. Documentation for date of: 01/10/25 Subjective Subjective Interval history: This is a 54 yom with a h/o Crohn's disease, LLE DVT, depression, hydronephrosis s/p urethral stent and polysubstance used disorder, who was BIBA on 01/08 after overdose of propranolol, possible suboxone, and alprazolam, and subsequently admitted for beta katlyn overdose management. Patient had unstable bradycardia in the ED, given a total of 4 mg Glucagon in the ED, 3L of LR, 1mg Atropine, Nalaxone 3mg. Vitals improved, patient was admitted, and poison control contacted. 01/09: Patient examined at bedside, NAOE, telemtry noted significant bradycardia at 33BPM but BP was stable. Patient's mentation significantly improved today. He stated that he has 3 different propranolol doses in 3 different pill bottles, 10mg, 20 mg, and 40 mg pills. He accidentally ingested the 40 mg pills thinking they were the 20 mg pills. He also states that he takes the propranolol for ?a- fib. He does not see a regular PCP. When asked about his attempted benzo injection, he states that he was nervous that he was running low on his benzos, so he attempted to make it last longer by crushing it up and injecting it. States the needle was bought new. He does not have a perscription for the benzos, he purchases them from an outside dealer. He also uses suboxone chronically. It is unclear if he has a prescription for this or if this is also purchased from an outside dealer. has brought his regular home supply of suboxone, cleared by pharmacy. He last used meth a few days ago. Also reports that he feels like somebody is breaking into their house and vandelizing their property. He denies being diagnosed with psychiatric illness and also denies SI/HI 01/10: Patient examined at bedside, NAOE, still mild bradycardia down to the 40s but no hypotension. Patient conversational, endorses having used meth during the week, slept heavily, and upon waking up, felt incredibly anxious and tried to treat this with the propranolol and a few benzodiazepines. Still denies SI/AI. Right forarm wound examined, much less erythematous and swelling improved. Will likely discharge the patient with home doxycyline PO. At this point, patient has been stable, bradycardia improving, mentation significantly improved, he is medically cleared for social work evaluation. Exam Vital Signs Temp Pulse Resp BP Pulse Ox O2 Del Method O2 Flow Rate 97.2 F 53 L 17 124/75 98 Room Air 4 01/10/25 08:00 01/10/25 08:00 01/10/25 08:00 01/10/25 08:00 01/10/25 08:00 01/10/25 08:00 01/10/25 08:00 Narrative Exam General: Patient appears older than stated age, appears malnurished with bitemporal wasting, sitting upright in bed, soft spoken but conversational, no acute distress. HEENT: Moist mucosa, secretions no longer present. No tongue fasciculations. Pupils are equal and reactive to light bilaterally, not overtly miotic or mydriatic. Cardiovascular: Normal S1 and S2. Regular rate and rhythm. No murmur appreciated Respiratory: Clear to auscultation bilaterally without wheezes or crackles. Abdomen: Soft, mild tenderness to palpation in the left lower quadrant. not distended, Skin: Dry, there is a psoriatic appearing rash along the back of the neck, erythematous with overlying scale. Varicose veins noted the BL lower extremities. 2.5 cm right forarm wound improving, erythema and edema have decreased markedly, eccymosis present, scant clear drainage without evidence of pus. Musculoskeletal: No gross injuries. Able to move all 4 extremities. Non edematous lower extremities. Lower extremities are warm with pedal pulses intact bilaterally. Neuro: Alert and oriented x3, no focal neuro deficits. Objective Labs 01/10/25 05:40 01/10/25 05:40 Labs: Laboratory Results - last 24 hr 01/10/25 05:40 WBC 5.0 RBC 3.59 L Hgb 11.1 L Hct 33.8 L MCV 94 MCH 30.9 MCHC 32.8 RDW Std Deviation 48.6 H Plt Count 152 Neut % (Auto) 43 Lymph % (Auto) 44 [place] % (Auto) 9 Eos % (Auto) 3 Baso % (Auto) 1 Neut # (Auto) 2.2 Lymph # (Auto) 2.2 [place] # (Auto) 0.5 Eos # (Auto) 0.2 Baso # (Auto) 0.0 Immature Gran # (Auto) 0.01 H Absolute Nucleated RBC 0.00 Immature Gran % 0 Nucleated RBC % 0 Sodium 142 Potassium 3.9 Chloride 106 Carbon Dioxide 31.3 H Anion Gap 5 L BUN 8 L Creatinine 0.8 Estim Creat Clear Calc 84.9 eGFR > 60 BUN/Creatinine Ratio 10 L Glucose 104 Calculated Osmolality 281 Calcium 8.0 L Corrected Calcium 8.7 Phosphorus 3.5 Magnesium 2.1 Total Bilirubin 0.2 L AST 52 H ALT 69 H Alkaline Phosphatase 102 Total Protein 5.1 L Albumin 3.1 L Globulin 2.0 L Albumin/Globulin Ratio 1.6 ABG Interpretation ABG results: 01/08/25 01/08/25 14:02 18:17 ABG pH Cancelled 7.41 ABG pCO2 Cancelled 44 ABG pO2 Cancelled 60 L ABG HCO3 Cancelled 28 H ABG O2 Saturation Cancelled 93 ABG Base Excess Cancelled 3 Quality Measures Quality Measures none Assessment & Plan Assessment Current Active Medications: Generic Name Dose Route Start Last Admin Trade Name Freq PRN Reason Stop Dose Admin Atropine Sulfate 1 mg 01/08/25 12:32 Atropine Sulf Inj 0.1 Mg/Ml Syr 10 Ml IV PRN PRN heart rate <30 Buprenorphine/ 0 ea 01/09/25 21:00 01/10/25 09:19 Naloxone 12mg/3mg SL 02/08/25 20:59 1 dose Sublingual Film BID MARILYNN Administration Dextrose 25 ml 01/08/25 16:47 Dextrose 50%-Water Inj 50 Ml Syringe IV 02/07/25 16:46 Q15MIN PRN BG 50-70 responsive npo pt Dextrose 50 ml 01/08/25 16:47 Dextrose 50%-Water Inj 50 Ml Syringe IV 02/07/25 16:46 Q15MIN PRN BG <50 OR BG <70 & pt unresponsive Diazepam 2.5 mg 01/08/25 15:14 Diazepam Inj 5 Mg/Ml Vial 2 Ml IVP X1 PRN Seizure >3min Glucagon 1 mg 01/08/25 16:47 Glucagon Inj 1 Mg Vial IM Q15MIN PRN BG <70, and no IV access Haloperidol Lactate 0.5 mg 01/08/25 12:34 01/08/25 12:55 Haloperidol Lact Inj 5 Mg/Ml Vial IV 01/13/25 12:33 0.5 mg Q6HR PRN Administration AGITATION (SEVERE) Heparin Sodium (Porcine) 5,000 unit 01/08/25 21:00 01/10/25 09:19 Heparin Sod Inj 5000 Unit/Ml Vial SC 01/22/25 20:59 Not Given Q12HR MARILYNN Cefazolin Sodium/Dextrose 1 gm in 50 mls @ 100 mls/hr 01/08/25 22:00 01/10/25 05:26 Ancef Ivpb IV 01/13/25 21:59 100 mls/hr Q8HR MARILYNN Administration Ibuprofen 400 mg 01/10/25 05:02 01/10/25 05:26 Ibuprofen Tab 400 Mg Tablet PO 02/09/25 05:01 400 mg Q6HR PRN Administration Pain Or Fever > 100.3 Ondansetron HCl 4 mg 01/08/25 15:05 Ondansetron Inj 2 Mg/Ml Inj 2 Ml IVP 02/07/25 15:04 Q6HR PRN NAUSEA OR VOMITING Protocol Sennosides 1 tab 01/08/25 14:05 Senna/Docusate Sod 1 Tab Tablet PO 02/07/25 14:04 QDAY PRN CONSTIPATION Protocol Plan This is a 54 yom with a h/o Crohn's disease, LLE DVT, depression, and polysubstance used disorder, who was BIBA after intentional overdose of propranolol, possible suboxone, and alprazolam, and subsequently admitted for beta katlyn overdose management. #Acute Encephalopathy 2/,- resolved #Unintentional Beta katlyn overdose-resolved Encephalopathy most likely secondary to toxic ingestion of propranolol. Unclear how much propranolol was consumed, possibly up to 20 of the 40mg pills. Initially bradycardic in the 50s and hypotensive with systolics in 90s. Given a total of 4 mg Glucagon in the ED, 3L of LR, 1mg Atropine, Nalaxone 3mg. VSS now stable. Poison control contacted, recommendations listed below. Repeat EKG showed sinus tyler with improved QRS duration. On 01/09, patient's mentation markedly improved, states he has multiple dosage forms of propanolol, accidentally ingested the 40mg pills that he thought were the 10 mg pills. States he took between 8 to 12 of them. Also states that he took few benzodiazepines. Asked his to call 911 after he realized his error. Poisen control recommendations: -Admit tele, continuous cardiac monitering -Glucagon 5 mg push if unstable bradycardia -Atropine 1 mg push -1 amp Na Bicarb for QRS >120, -Seizure Precautions -head of bed >30 degrees -diazepam if seizure activity. -1-1 sitter -Passed Swallow Screen, regular vegetarian diet. - CT Head negative -DC Dumont. DC fluids. -Medically cleared. #Anion Gap Metabolic Acidosis-resolved Either secondary to hypoperfusion from unstable bradycardia vs propronolol overdose. Lactate elevated at 3.3. Ethanol and tylenol levels were WNL. Will also measure salicyclates and ask patient about ethylene glycol injestion. -lactate improved from 3.3 to 1.1 -Salicyclate normal. -Follow up questioning once patient has better mentation. #History of Suicidal Ideation #Polysubstance use disorder Meth positive. Will assess patient for SI/HI when mentation improves. Patient on suboxone chronically, bringing in his home suboxone as this institution does not carry this medication. - Patient denies current SI or HI. -Does not have a proper perscription for his benzodiazepines. Purchases them from the street. -Patient is currently taking home supply of suboxone. #Anemia-improving New finding, hgb of 8.6, baseline between 10 and 11. May be due to malnutrion, as patient seems to have failure to thrive. Hgb improved to 11 from 8.6 yesterday, may have been dilutional. Ferritin normal but iron panel low. B12 low, Folate normal. -continue to moniter #Concern for soft tissue infection-improving Inflamed lesion at the site where patient attempted to inject his crushed up alprazolam. Most likely not a clean needle. Concern for possible soft tissue infection. His hepatitis panel was negative in July 2024. Will ask patient if he would be interested in HIV testing once mentation improves. Raised lesion appears well perfused, no necrosis noted. -Cefazolin started 01/08- -Wound care on board -Will discharge home with augmentin, cefalexin consdiered but augmentin preferred for BID dosing and concern for possible patient non-adherence with QID dosing. # History of DVT In the setting of possible GI bleed, will hold home eloquis for now. -heparin for DVT prophylaxis. Health Maintenance: DVT prophylaxis: Heparin Diet: Vegetarian diet. Dumont: Yes placed 01/08, DC 01/09 Lines: PIV, left sided central line placed 01/08 CODE STATUS: Full code Disposition: Medically cleared, pending social work evaluation. Patient's plan and care discussed with my attending, Dr. Fleming, and my senior Dr. Marquez. Wai Mckoen DO PGY-1 ([facility] Resident) Attending Provider Attestation/Addendum I have discussed and was present for the essential components of the history, physical examination, diagnosis, and treatment plan with the resident. I agree with the patient's care as documented by the resident and amended herein by me. Son Fleming DO. Although this document has been carefully reviewed, there may still be some phonetic and other typographical errors. These errors are purely grammatical due to imperfections in the software program and should not be construed in any way to compromise the substance of the patient's medical care during this visit. Patient seen and evaluated this AM. No acute events overnight, the patient feels much better today, denies palpitations or chest pain this morning. Patient only a mild bradycardic overnight which may be his normal physiology. Blood cultures negative, urine cultures likely contamination. Patient will remain on cefazolin for now until discharge for left upper extremity cellulitis which looks to be resolving well. Crisis team did evaluate the patient today in setting of his overdose and drug use, the determination was made to hold the patient for now until arrangements can be made for inpatient psychiatric facility.
--- NOTE | 2025-01-10 13:45 | PC.NURSE ---
Dr. Mckeon aware pt. refusing stool softener. Pt. reports BM yesterday.
[2025-01-10] MEDS: MELATONIN 3 MG TABLET PO (22:15)
[2025-01-11] VITALS (9 sets, daily range): BP systolic 114–158; BP diastolic 70–93; PULSE 51–92; RESP 13–19; TEMP 36.2–36.9; O2SAT 94–100; BMI 17.2
[2025-01-11] MEDS: IBUPROFEN TAB 400 MG TABLET PO ×3 (01:52→17:47)
[2025-01-11] MEDS: ceFAZolin/D5W 1 GM IVPB 1 GM/50 ML BAG IV ×3 (05:26→21:30)
[2025-01-11] MEDS: MELATONIN 3 MG TABLET 10 MG PO (05:40)
[2025-01-11 05:50] LABS: Basophils # (Auto) 0.1 Thou/mm3 (0.0-0.2); Basophils % (Auto) 1 % (0-2.5); Eosinophils # (Auto) 0.2 Thou/mm3 (0.0-0.5); Eosinophils % (Auto) 3 % (0-10); Hematocrit 35.7 % (41.0-53.0); Hemoglobin 11.8 g/dL (13.5-16.0); Immature Granulocytes Auto 0.02 Thou/mm3 (0.00-0.00); Lymphocytes # (Auto) 2.4 Thou/mm3 (1.0-4.8); Lymphocytes % (Auto) 42 % (10-50); Mean Corpuscular HGB Conc 33.1 g/dl (31.0-37.0); Mean Corpuscular Hemoglobin 30.8 pg (25.0-35.0); Mean Corpuscular Volume 93 fL (80-100); Monocytes # (Auto) 0.5 Thou/mm3 (0.0-0.8); Monocytes % (Auto) 8 % (0-12); Neutrophils # (Auto) 2.6 Thou/mm3 (1.8-7.7); Neutrophils % (Auto) 46 % (37-80); Nucleated Red Blood Cell # 0.00 Thou/mm3 (0.00-0.00); Nucleated Red Blood Cell % 0 /100 WBC (0); Platelet Count 166 Thou/mm3 (140-440); RDW Standard Deviation 46.4 fL (35.1-43.9); Red Blood Count 3.83 Miln/mm3 (4.50-5.90); White Blood Count 5.7 Thou/mm3 (3.8-10.6)
[2025-01-11 06:05] LABS: Alanine Aminotransferase 44 U/L (10-49); Albumin, Serum 3.2 gm/dL (3.5-5.0); Albumin/Globulin Ratio 1.5 (1.2-2.2); Alkaline Phosphatase 99 U/L (46-116); Anion Gap 6 (7-16); Aspartate Amino Transferase 29 U/L (0-34); BUN/Creatinine Ratio 13 Ratio (12-20); Bilirubin,Total 0.3 mg/dL (0.3-1.2); Blood Urea Nitrogen 9 mg/dL (9-23); Calcium 8.4 mg/dL (8.3-10.6); Calcium (Corrected) 9.0 mg/dL (8.5-10.1); Carbon Dioxide 32.1 mMol/L (20.0-31.0); Chloride 105 mMol/L (98-107); Creatinine (Component) 0.7 mg/dL (0.6-1.3); Estimated Creatinine Clearance 97.0 mL/min (>60); Globulin 2.2 gm/dL (2.3-3.5); Glucose 99 mg/dL (74-106); Magnesium 2.1 mg/dL (1.6-2.6); Osmolality,Calculated 283 (275-295); Phosphorous 4.2 mg/dL (2.4-5.1); Potassium 4.0 mMol/L (3.4-5.1); Sodium 143 mMol/L (136-145); Total Protein 5.4 gm/dL (5.7-8.2); eGFR > 60 See Note
[2025-01-11] MEDS: NALOXONE SL ×2 (09:43→21:29)
[2025-01-11] MEDS: BUPRENORPHINE SL ×2 (09:43→21:29)
--- NOTE | 2025-01-11 10:57 | EKG_ITS ---
[facility] Test Date: 2025-01-11 Pat Name: LIONEL GARZA Department: Room: [facility] Gender: Male Security Ambassador: EVONNE : 1970 Requested By: mOari Felton Order Number: [id number] Reading MD: Omari Felton Measurements Intervals [place] Rate: 47 P: 15 TX: 121 QRS: 64 QRSD: 79 T: 55 QT: 430 QTc: 381 Interpretive Statements SINUS BRADYCARDIA Compared to ECG 01/09/2025 06:25:46 No significant changes /store/S0/[id number]
--- NOTE | 2025-01-11 10:57 | XR_ITS ---
Examination: AP chest single view Technique: Portable semiupright AP chest single view Date and time: January 11, 2025, 1131 hrs., Comparison January 08, 2025 Indications: Chest pain today. Findings: Significant hyperexpansion. Normal heart size. Prominent osteopenia. No pneumonia or pulmonary edema Impression: COPD No pneumonia or pulmonary edema
--- NOTE | 2025-01-11 11:08 | PD.RESEVENT ---
Documentation for date of: 01/11/25 Event Note Event Note: Rapid response called at approximately 1053 a.m. Rapid response was initiated secondary to chief complaint of chest pain. Patient is alert and oriented. Patient is able to protect airway and saturating well on room air. Overnight patient did receive single dose of haloperidol. Patient stated he is experience sharp stabbing pain in center of his heart not radiating. Prior to experiencing symptoms patient was talking to his over the phone and became anxious. Physical exam unremarkable. Interventions: CBC, CMP, troponins, EKG, chest x-ray EKG sinus tyler Patient was started on hydroxyzine 25 mg p.o. twice daily. Attending Dr. Gamboa made aware and will continue to monitor the patient as well. Tacho Crabtree MD PGY-1 - The patient's plan was discussed with attending Dr. Cooper Blanco MD PGY2 Internal Medicine Patient seen and examined with resident physician Dr. Crabtree. Note reviewed, agree with findings and recommendations. I was present for the rapid response
[2025-01-11] MEDS: ONDANSETRON INJ 2 MG/ML INJ 2 ML 4 MG IVP (11:10)
[2025-01-11 11:18] LABS: Basophils # (Auto) 0.0 Thou/mm3 (0.0-0.2); Basophils % (Auto) 1 % (0-2.5); Eosinophils # (Auto) 0.1 Thou/mm3 (0.0-0.5); Eosinophils % (Auto) 2 % (0-10); Hematocrit 38.1 % (41.0-53.0); Hemoglobin 12.6 g/dL (13.5-16.0); Immature Granulocytes Auto 0.02 Thou/mm3 (0.00-0.00); Lymphocytes # (Auto) 1.9 Thou/mm3 (1.0-4.8); Lymphocytes % (Auto) 32 % (10-50); Mean Corpuscular HGB Conc 33.1 g/dl (31.0-37.0); Mean Corpuscular Hemoglobin 30.7 pg (25.0-35.0); Mean Corpuscular Volume 93 fL (80-100); Monocytes # (Auto) 0.4 Thou/mm3 (0.0-0.8); Monocytes % (Auto) 7 % (0-12); Neutrophils # (Auto) 3.3 Thou/mm3 (1.8-7.7); Neutrophils % (Auto) 58 % (37-80); Nucleated Red Blood Cell # 0.00 Thou/mm3 (0.00-0.00); Nucleated Red Blood Cell % 0 /100 WBC (0); Platelet Count 181 Thou/mm3 (140-440); RDW Standard Deviation 45.9 fL (35.1-43.9); Red Blood Count 4.10 Miln/mm3 (4.50-5.90); White Blood Count 5.7 Thou/mm3 (3.8-10.6)
[2025-01-11 11:51] LABS: Alanine Aminotransferase 45 U/L (10-49); Albumin, Serum 3.5 gm/dL (3.5-5.0); Albumin/Globulin Ratio 1.5 (1.2-2.2); Alkaline Phosphatase 108 U/L (46-116); Anion Gap 8 (7-16); Aspartate Amino Transferase 29 U/L (0-34); BUN/Creatinine Ratio 9 Ratio (12-20); Bilirubin,Total 0.4 mg/dL (0.3-1.2); Blood Urea Nitrogen 7 mg/dL (9-23); Calcium 8.7 mg/dL (8.3-10.6); Calcium (Corrected) 9.1 mg/dL (8.5-10.1); Carbon Dioxide 29.1 mMol/L (20.0-31.0); Chloride 105 mMol/L (98-107); Creatinine (Component) 0.8 mg/dL (0.6-1.3); Estimated Creatinine Clearance 84.9 mL/min (>60); Globulin 2.4 gm/dL (2.3-3.5); Glucose 105 mg/dL (74-106); Osmolality,Calculated 281 (275-295); Potassium 4.2 mMol/L (3.4-5.1); Sodium 142 mMol/L (136-145); Total Protein 5.9 gm/dL (5.7-8.2); Troponin I < 0.002 ng/mL (0.0-0.045); eGFR > 60 See Note
--- NOTE | 2025-01-11 13:38 | ESPR_ITS ---
Documentation for date of: 01/11/25 -------- Overnight events, patient refused haloperidol but excepted melatonin. Patient continues to be on a psychiatric hold, possibly pending admission to psych facility, follow-up with social work. Rapid response on 01/11/2025, secondary to chest pain. Imagings and labs unremarkable during rapid. Patient was started on hydroxyzine twice daily, melatonin at bedtime, and escitalopram 10 mg p.o. daily. Transition patient from cefazolin to Bactrim to complete a total of 14 days of antibiotics for soft tissue infection and antibiotic coverage for possible UTI. - The patient's plan was discussed with attending Dr. Gamboa. 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 Patient examined bedside labs reviewed. He was circumferential in his responses focusing on nonexistent akathisia. Eventually he is able to be redirected and endorsed his only symptom of anxiety. Exam Vital Signs Temp Pulse Resp BP Pulse Ox O2 Del Method O2 Flow Rate 97.3 F 57 L 16 114/70 94 L Room Air 4 01/11/25 11:31 01/11/25 11:31 01/11/25 11:31 01/11/25 11:31 01/11/25 11:31 01/11/25 11:31 01/10/25 08:00 Narrative Exam General: Patient appears older than stated age, appears malnurished with bitemporal wasting, sitting upright in bed, soft spoken but conversational, no acute distress. HEENT: Moist mucosa, secretions no longer present. No tongue fasciculations. Pupils are equal and reactive to light bilaterally, not overtly miotic or mydriatic. Cardiovascular: Normal S1 and S2. Regular rate and rhythm. No murmur appreciated Respiratory: Clear to auscultation bilaterally without wheezes or crackles. Abdomen: Soft, mild tenderness to palpation in the left lower quadrant. not distended, Skin: Dry, there is a psoriatic appearing rash along the back of the neck, erythematous with overlying scale. Varicose veins noted the BL lower extremities. 2.5 cm right forarm wound improving, erythema and edema have decreased markedly, eccymosis present, scant clear drainage without evidence of pus. Musculoskeletal: No gross injuries. Able to move all 4 extremities. Non edematous lower extremities. Lower extremities are warm with pedal pulses intact bilaterally. Neuro: Alert and oriented x3, no focal neuro deficits. Objective Labs 01/12/25 05:27 01/12/25 05:27 Labs: Laboratory Results - last 24 hr 01/11/25 01/11/25 05:21 11:04 WBC 5.7 5.7 RBC 3.83 L 4.10 L Hgb 11.8 L 12.6 L Hct 35.7 L 38.1 L MCV 93 93 MCH 30.8 30.7 MCHC 33.1 33.1 RDW Std Deviation 46.4 H 45.9 H Plt Count 166 181 Neut % (Auto) 46 58 Lymph % (Auto) 42 32 Lipscomb % (Auto) 8 7 Eos % (Auto) 3 2 Baso % (Auto) 1 1 Neut # (Auto) 2.6 3.3 Lymph # (Auto) 2.4 1.9 Lipscomb # (Auto) 0.5 0.4 Eos # (Auto) 0.2 0.1 Baso # (Auto) 0.1 0.0 Immature Gran # (Auto) 0.02 H 0.02 H Absolute Nucleated RBC 0.00 0.00 Immature Gran % 0 0 Nucleated RBC % 0 0 Sodium 143 142 Potassium 4.0 4.2 Chloride 105 105 Carbon Dioxide 32.1 H 29.1 Anion Gap 6 L 8 BUN 9 7 L Creatinine 0.7 0.8 Estim Creat Clear Calc 97.0 84.9 eGFR > 60 > 60 BUN/Creatinine Ratio 13 9 L Glucose 99 105 Calculated Osmolality 283 281 Calcium 8.4 8.7 Corrected Calcium 9.0 9.1 Phosphorus 4.2 Magnesium 2.1 Total Bilirubin 0.3 0.4 AST 29 29 ALT 44 45 Alkaline Phosphatase 99 108 Troponin I < 0.002 Total Protein 5.4 L 5.9 Albumin 3.2 L 3.5 Globulin 2.2 L 2.4 Albumin/Globulin Ratio 1.5 1.5 ABG Interpretation ABG results: 01/08/25 01/08/25 14:02 18:17 ABG pH Cancelled 7.41 ABG pCO2 Cancelled 44 ABG pO2 Cancelled 60 L ABG HCO3 Cancelled 28 H ABG O2 Saturation Cancelled 93 ABG Base Excess Cancelled 3 Quality Measures Quality Measures none Assessment & Plan Assessment Current Active Medications: Generic Name Dose Route Start Last Admin Trade Name Freq PRN Reason Stop Dose Admin Atropine Sulfate 1 mg 01/08/25 12:32 Atropine Sulf Inj 0.1 Mg/Ml Syr 10 Ml IV PRN PRN heart rate <30 Buprenorphine/ 0 ea 01/09/25 21:00 01/11/25 09:43 Naloxone 12mg/3mg SL 02/08/25 20:59 1 dose Sublingual Film BID MARILYNN Administration Dextrose 25 ml 01/08/25 16:47 Dextrose 50%-Water Inj 50 Ml Syringe IV 02/07/25 16:46 Q15MIN PRN BG 50-70 responsive npo pt Dextrose 50 ml 01/08/25 16:47 Dextrose 50%-Water Inj 50 Ml Syringe IV 02/07/25 16:46 Q15MIN PRN BG <50 OR BG <70 & pt unresponsive Diazepam 2.5 mg 01/08/25 15:14 Diazepam Inj 5 Mg/Ml Vial 2 Ml IVP X1 PRN Seizure >3min Escitalopram Oxalate 10 mg 01/11/25 12:00 Escitalopram Oxalate 10 Mg Tablet PO 02/10/25 11:59 QDAY MARILYNN Glucagon 1 mg 01/08/25 16:47 Glucagon Inj 1 Mg Vial IM Q15MIN PRN BG <70, and no IV access Haloperidol Lactate 0.5 mg 01/08/25 12:34 01/08/25 12:55 Haloperidol Lact Inj 5 Mg/Ml Vial IV 01/13/25 12:33 0.5 mg Q6HR PRN Administration AGITATION (SEVERE) Heparin Sodium (Porcine) 5,000 unit 01/08/25 21:00 01/11/25 11:11 Heparin Sod Inj 5000 Unit/Ml Vial SC 01/22/25 20:59 Not Given Q12HR MARILYNN Hydroxyzine HCl 25 mg 01/11/25 11:00 01/11/25 11:10 Hydroxyzine Hcl 25 Mg Tablet PO 02/10/25 10:59 25 mg BID MARILYNN Administration Cefazolin Sodium/Dextrose 1 gm in 50 mls @ 100 mls/hr 01/08/25 22:00 01/11/25 05:26 Ancef Ivpb IV 01/13/25 21:59 100 mls/hr Q8HR MARILYNN Administration Ibuprofen 400 mg 01/10/25 05:02 01/11/25 09:48 Ibuprofen Tab 400 Mg Tablet PO 02/09/25 05:01 400 mg Q6HR PRN Administration Pain Or Fever > 100.3 Ondansetron HCl 4 mg 01/08/25 15:05 01/11/25 11:10 Ondansetron Inj 2 Mg/Ml Inj 2 Ml IVP 02/07/25 15:04 4 mg Q6HR PRN Administration NAUSEA OR VOMITING Protocol Sennosides 1 tab 01/10/25 13:30 01/11/25 11:11 Senna/Docusate Sod 1 Tab Tablet PO 02/09/25 13:29 Not Given QDAY [facility] Protocol Plan This is a 54 yom with a h/o Crohn's disease, LLE DVT, depression, and polysubstance used disorder, who was BIBA after intentional overdose of propranolol, possible suboxone, and alprazolam, and subsequently admitted for beta katlyn overdose management. On hold for psychiatric placement. 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 #Acute Encephalopathy 05/12,- resolved #Unintentional Beta katlyn overdose-resolved Encephalopathy most likely secondary to toxic ingestion of propranolol. Unclear how much propranolol was consumed, possibly up to 20 of the 40mg pills. Initially bradycardic in the 50s and hypotensive with systolics in 90s. Given a total of 4 mg Glucagon in the ED, 3L of LR, 1mg Atropine, Nalaxone 3mg. VSS now stable. Poison control contacted, recommendations listed below. Repeat EKG showed sinus tyler with improved QRS duration. On 01/09, patient's mentation markedly improved, states he has multiple dosage forms of propanolol, accidentally ingested the 40mg pills that he thought were the 10 mg pills. States he took between 8 to 12 of them. Also states that he took few benzodiazepines. Asked his to call 911 after he realized his error. Poison control recommendations: -Admit tele, continuous cardiac monitering -Glucagon 5 mg push if unstable bradycardia -Atropine 1 mg push -1 amp Na Bicarb for QRS >120, -Seizure Precautions -head of bed >30 degrees -diazepam if seizure activity. -1-1 sitter -Passed Swallow Screen, regular vegetarian diet. - CT Head negative -DC Dumont. DC fluids. -Medically cleared. #Anion Gap Metabolic Acidosis-resolved Either secondary to hypoperfusion from unstable bradycardia vs propronolol overdose. Lactate elevated at 3.3. Ethanol and tylenol levels were WNL. Will also measure salicyclates and ask patient about ethylene glycol injestion. -lactate improved from 3.3 to 1.1 -Salicyclate normal. -Follow up questioning once patient has better mentation. #Depression #Anxiety #History of Suicidal Ideation #Polysubstance use disorder Meth positive. Will assess patient for SI/HI when mentation improves. Patient on suboxone chronically, bringing in his home suboxone as this institution does not carry this medication. Endorses feelings of depression and anxiety. - Patient denies current SI or HI. -Does not have a proper perscription for his benzodiazepines. Purchases them from the street. -Patient is currently taking home supply of suboxone. - Hydroxyzine 25mg PO BID - Escitalopram 10 mg PO QD #Anemia-improving New finding, hgb of 8.6, baseline between 10 and 11. May be due to malnutrion, as patient seems to have failure to thrive. Hgb improved to 11 from 8.6 yesterday, may have been dilutional. Ferritin normal but iron panel low. B12 low, Folate normal. -continue to monitor #Concern for soft tissue infection-improving Inflamed lesion at the site where patient attempted to inject his crushed up alprazolam. Most likely not a clean needle. Concern for possible soft tissue infection. His hepatitis panel was negative in July 2024. Will ask patient if he would be interested in HIV testing once mentation improves. Raised lesion appears well perfused, no necrosis noted. -Cefazolin started 01/08- -Wound care on board -Will discharge home with augmentin, cefalexin consdiered but augmentin preferred for BID dosing and concern for possible patient non-adherence with QID dosing. # History of DVT In the setting of possible GI bleed, will hold home eloquis for now. -heparin for DVT prophylaxis. Health Maintenance: DVT prophylaxis: Heparin Diet: Vegetarian diet. Dumont: Yes placed 01/08, DC 01/09 Lines: PIV, left sided central line placed 01/08 CODE STATUS: Full code Disposition: Medically cleared, pending social work evaluation. Patient's plan and care discussed with my attending, Dr. Gamboa, and my senior Dr. Servin. Tacho Crabtree MD PGY-1 Attending Provider Attestation/Addendum Patient seen and examined with resident physician Dr. Crabtree/ Dr. servin. Note reviewed, agree with findings and recommendations.
[2025-01-11] MEDS: ESCITALOPRAM OXALATE 10 MG TABLET PO (14:16)
--- NOTE | 2025-01-11 14:58 | PC.SS ---
Or Nurse Manager (GUSTABO) Veronique sent LPS packets through [employer].
[2025-01-12] VITALS (9 sets, daily range): BP systolic 103–125; BP diastolic 63–86; PULSE 59–82; RESP 13–19; TEMP 36.4–37.1; O2SAT 95–99; BMI 17.2
[2025-01-12] MEDS: ceFAZolin/D5W 1 GM IVPB 1 GM/50 ML BAG IV (05:19)
[2025-01-12 05:58] LABS: Basophils # (Auto) 0.1 Thou/mm3 (0.0-0.2); Basophils % (Auto) 1 % (0-2.5); Eosinophils # (Auto) 0.1 Thou/mm3 (0.0-0.5); Eosinophils % (Auto) 2 % (0-10); Hematocrit 36.2 % (41.0-53.0); Hemoglobin 12.2 g/dL (13.5-16.0); Immature Granulocytes Auto 0.02 Thou/mm3 (0.00-0.00); Lymphocytes # (Auto) 2.5 Thou/mm3 (1.0-4.8); Lymphocytes % (Auto) 40 % (10-50); Mean Corpuscular HGB Conc 33.7 g/dl (31.0-37.0); Mean Corpuscular Hemoglobin 31.1 pg (25.0-35.0); Mean Corpuscular Volume 92 fL (80-100); Monocytes # (Auto) 0.4 Thou/mm3 (0.0-0.8); Monocytes % (Auto) 7 % (0-12); Neutrophils # (Auto) 3.1 Thou/mm3 (1.8-7.7); Neutrophils % (Auto) 51 % (37-80); Nucleated Red Blood Cell # 0.00 Thou/mm3 (0.00-0.00); Nucleated Red Blood Cell % 0 /100 WBC (0); Platelet Count 182 Thou/mm3 (140-440); RDW Standard Deviation 46.0 fL (35.1-43.9); Red Blood Count 3.92 Miln/mm3 (4.50-5.90); White Blood Count 6.2 Thou/mm3 (3.8-10.6)
[2025-01-12 06:32] LABS: Alanine Aminotransferase 27 U/L (10-49); Albumin, Serum 3.1 gm/dL (3.5-5.0); Albumin/Globulin Ratio 1.5 (1.2-2.2); Alkaline Phosphatase 94 U/L (46-116); Anion Gap 7 (7-16); Aspartate Amino Transferase 19 U/L (0-34); BUN/Creatinine Ratio 10 Ratio (12-20); Bilirubin,Total 0.3 mg/dL (0.3-1.2); Blood Urea Nitrogen 7 mg/dL (9-23); Calcium 8.1 mg/dL (8.3-10.6); Calcium (Corrected) 8.8 mg/dL (8.5-10.1); Carbon Dioxide 29.9 mMol/L (20.0-31.0); Chloride 104 mMol/L (98-107); Creatinine (Component) 0.7 mg/dL (0.6-1.3); Estimated Creatinine Clearance 97.0 mL/min (>60); Globulin 2.1 gm/dL (2.3-3.5); Glucose 98 mg/dL (74-106); Magnesium 1.9 mg/dL (1.6-2.6); Osmolality,Calculated 279 (275-295); Phosphorous 4.0 mg/dL (2.4-5.1); Potassium 4.1 mMol/L (3.4-5.1); Sodium 141 mMol/L (136-145); Total Protein 5.2 gm/dL (5.7-8.2); eGFR > 60 See Note
[2025-01-12] MEDS: NALOXONE SL ×2 (08:31→20:05)
[2025-01-12] MEDS: BUPRENORPHINE SL ×2 (08:31→20:05)
--- NOTE | 2025-01-12 09:12 | PC.SS ---
Chimney Sweeper (GUSTABO) Veronique received a phone call from Trisha at [facility] who reported that patient was declined due to multiple medical diagnosis and concerns.
--- NOTE | 2025-01-12 12:07 | ESPR_ITS ---
<Statement entered by Brook Cintron MD - 01/19/25 12:10> I reviewed above note and agree with findings and plans. I have also personally examined the patient with medicine team and went over assessment and plan with medical team including internal controls consultant and resident physician. <Statement entered by Sanford Marquez MD - 01/12/25 14:31> I saw and examined patient personally and supervised PGY 1 resident, Dr. Crabtree with formulating a management plan. I agree with the documentation with the exceptions as listed below. Patient remains medically clear. He continues to ask for benzodiazepines and beta-blockers. We will not prescribe any due to his history of overdose. At this point in time currently awaiting acceptance to a psychiatric facility for evaluation. Plan of care discussed with Attending Dr. Abdulaziz Marquez MD PGY 2 Disclaimer: This note was dictated by speech recognition. Minor errors in store team leader may be present due to voice recognition software. Documentation for date of: 01/12/25 Subjective Subjective Interval history: Patient examined bedside. Per nursing he refused all of his medications other than lorazepam and his buprenorphine. Patient reports sleeping well last night due to ativan, says today he is having panic feelings and that only ativan would help. Also is requesting more beta blockers. Patient is currently on hold pending dispo to psych facility. Addendum: All central lines removed. Dumont catheter removed as well. Exam Vital Signs Temp Pulse Resp BP Pulse Ox O2 Del Method O2 Flow Rate 98.5 F 77 19 122/80 95 Room Air 4 01/12/25 11:56 01/12/25 11:56 01/12/25 11:56 01/12/25 11:56 01/12/25 11:56 01/12/25 11:56 01/10/25 08:00 Narrative Exam General: Patient appears older than stated age, appears malnurished with bitemporal wasting, sitting upright in bed, soft spoken but conversational, no acute distress. HEENT: Moist mucosa, secretions no longer present. No tongue fasciculations. Pupils are equal and reactive to light bilaterally, not overtly miotic or mydriatic. Cardiovascular: Normal S1 and S2. Regular rate and rhythm. No murmur appreciated Respiratory: Clear to auscultation bilaterally without wheezes or crackles. Abdomen: Soft, mild tenderness to palpation in the left lower quadrant. Not distended, Skin: Dry, there is a psoriatic appearing rash along the back of the neck, erythematous with overlying scale. Varicose veins noted the BL lower extremities. 2.5 cm right forearm wound improving, erythema and edema have decreased markedly, appears pink and dry without any weeping or drainage, healing appropriately. Musculoskeletal: No gross injuries. Able to move all 4 extremities. Non edematous lower extremities. Lower extremities are warm with pedal pulses intact bilaterally. Neuro: Alert and oriented x3, no focal neuro deficits. Objective Labs 01/12/25 05:27 01/12/25 05:27 Labs: Laboratory Results - last 24 hr 01/12/25 05:27 WBC 6.2 RBC 3.92 L Hgb 12.2 L Hct 36.2 L MCV 92 MCH 31.1 MCHC 33.7 RDW Std Deviation 46.0 H Plt Count 182 Neut % (Auto) 51 Lymph % (Auto) 40 Seneca % (Auto) 7 Eos % (Auto) 2 Baso % (Auto) 1 Neut # (Auto) 3.1 Lymph # (Auto) 2.5 [place] # (Auto) 0.4 Eos # (Auto) 0.1 Baso # (Auto) 0.1 Immature Gran # (Auto) 0.02 H Absolute Nucleated RBC 0.00 Immature Gran % 0 Nucleated RBC % 0 Sodium 141 Potassium 4.1 Chloride 104 Carbon Dioxide 29.9 Anion Gap 7 BUN 7 L Creatinine 0.7 Estim Creat Clear Calc 97.0 eGFR > 60 BUN/Creatinine Ratio 10 L Glucose 98 Calculated Osmolality 279 Calcium 8.1 L Corrected Calcium 8.8 Phosphorus 4.0 Magnesium 1.9 Total Bilirubin 0.3 AST 19 ALT 27 Alkaline Phosphatase 94 Total Protein 5.2 L Albumin 3.1 L Globulin 2.1 L Albumin/Globulin Ratio 1.5 ABG Interpretation ABG results: 01/08/25 01/08/25 14:02 18:17 ABG pH Cancelled 7.41 ABG pCO2 Cancelled 44 ABG pO2 Cancelled 60 L ABG HCO3 Cancelled 28 H ABG O2 Saturation Cancelled 93 ABG Base Excess Cancelled 3 Quality Measures Quality Measures none Assessment & Plan Assessment Current Active Medications: Generic Name Dose Route Start Last Admin Trade Name Freq PRN Reason Stop Dose Admin Acetaminophen 650 mg 01/12/25 08:30 Acetaminophen 325 Mg Tablet PO 02/11/25 08:29 Q4HR PRN Fever >100 or pain 1-3 Atropine Sulfate 1 mg 01/08/25 12:32 Atropine Sulf Inj 0.1 Mg/Ml Syr 10 Ml IV PRN PRN heart rate <30 Buprenorphine/ 0 ea 01/09/25 21:00 01/12/25 08:31 Naloxone 12mg/3mg SL 02/08/25 20:59 1 dose Sublingual Film BID MARILYNN Administration Dextrose 25 ml 01/08/25 16:47 Dextrose 50%-Water Inj 50 Ml Syringe IV 02/07/25 16:46 Q15MIN PRN BG 50-70 responsive npo pt Dextrose 50 ml 01/08/25 16:47 Dextrose 50%-Water Inj 50 Ml Syringe IV 02/07/25 16:46 Q15MIN PRN BG <50 OR BG <70 & pt unresponsive Diazepam 2.5 mg 01/08/25 15:14 Diazepam Inj 5 Mg/Ml Vial 2 Ml IVP X1 PRN Seizure >3min Escitalopram Oxalate 10 mg 01/11/25 12:00 01/12/25 08:05 Escitalopram Oxalate 10 Mg Tablet PO 02/10/25 11:59 Not Given QDAY MARILYNN Glucagon 1 mg 01/08/25 16:47 Glucagon Inj 1 Mg Vial IM Q15MIN PRN BG <70, and no IV access Haloperidol Lactate 0.5 mg 01/08/25 12:34 01/08/25 12:55 Haloperidol Lact Inj 5 Mg/Ml Vial IV 01/13/25 12:33 0.5 mg Q6HR PRN Administration AGITATION (SEVERE) Heparin Sodium (Porcine) 5,000 unit 01/08/25 21:00 01/12/25 08:05 Heparin Sod Inj 5000 Unit/Ml Vial SC 01/22/25 20:59 Not Given Q12HR MARILYNN Hydroxyzine HCl 25 mg 01/11/25 11:00 01/12/25 08:06 Hydroxyzine Hcl 25 Mg Tablet PO 02/10/25 10:59 Not Given BID MARILYNN Cefazolin Sodium/Dextrose 1 gm in 50 mls @ 100 mls/hr 01/08/25 22:00 01/12/25 05:19 Ancef Ivpb IV 01/13/25 21:59 100 mls/hr Q8HR MARILYNN Administration Melatonin 3 mg 01/11/25 21:00 01/11/25 21:20 Melatonin 3 Mg Tablet PO 02/10/25 20:59 Not Given HS [facility] Ondansetron HCl 4 mg 01/08/25 15:05 01/11/25 11:10 Ondansetron Inj 2 Mg/Ml Inj 2 Ml IVP 02/07/25 15:04 4 mg Q6HR PRN Administration NAUSEA OR VOMITING Protocol Sennosides 1 tab 01/10/25 13:30 01/12/25 08:07 Senna/Docusate Sod 1 Tab Tablet PO 02/09/25 13:29 Not Given QDAY [facility] Protocol Plan This is a 54 yom with a h/o Crohn's disease, LLE DVT, depression, and polysubstance used disorder, who was BIBA after intentional overdose of propranolol, possible suboxone, and alprazolam, and subsequently admitted for beta katlyn overdose management. On hold for psychiatric placement. 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 Patient is medically cleared. Addendum: All central lines removed. Dumont catheter removed as well. #Unintentional Beta katlyn overdose-resolved #Acute Encephalopathy 05/12,- resolved Encephalopathy most likely secondary to toxic ingestion of propranolol. Unclear how much propranolol was consumed, possibly up to 20 of the 40mg pills. Initially bradycardic in the 50s and hypotensive with systolics in 90s. Given a total of 4 mg Glucagon in the ED, 3L of LR, 1mg Atropine, Nalaxone 3mg. VSS now stable. Poison control contacted, recommendations listed below. Repeat EKG showed sinus tyler with improved QRS duration. On 01/09, patient's mentation markedly improved, states he has multiple dosage forms of propanolol, accidentally ingested the 40mg pills that he thought were the 10 mg pills. States he took between 8 to 12 of them. Also states that he took few benzodiazepines. Asked his to call 911 after he realized his error. Patient is tangential and unable to be redirected about restarting beta blockers. All vitals are normal. Poison control recommendations: -Admit tele, continuous cardiac monitering -Glucagon 5 mg push if unstable bradycardia -Atropine 1 mg push -1 amp Na Bicarb for QRS >120, -Seizure Precautions -head of bed >30 degrees -diazepam if seizure activity. -1-1 sitter -Passed Swallow Screen, regular vegetarian diet. - CT Head negative -DC Dumont. DC fluids. -Medically cleared. #Medically cleared #Placed on psych hold Patient is medically cleared pending disposition to psych facility. #Anion Gap Metabolic Acidosis-resolved Either secondary to hypoperfusion from unstable bradycardia vs propronolol overdose. Lactate elevated at 3.3. Ethanol and tylenol levels were WNL. Will also measure salicyclates and ask patient about ethylene glycol injestion. -lactate improved from 3.3 to 1.1 -Salicyclate normal. -Follow up questioning once patient has better mentation. #Depression #Anxiety #History of Suicidal Ideation #Polysubstance use disorder Meth positive. Will assess patient for SI/HI when mentation improves. Patient on suboxone chronically, bringing in his home suboxone as this institution does not carry this medication. Endorses feelings of depression and anxiety. - Patient superficially denies current SI or HI. -Does not have a proper perscription for his benzodiazepines. Purchases them from the street. -Patient is currently taking home supply of suboxone. - Hydroxyzine 25mg PO BID - Patient refuses - Escitalopram 10 mg PO QD - Patient refuses #Anemia-improving New finding, hgb of 8.6, baseline between 10 and 11. May be due to malnutrition, as patient seems to have failure to thrive. Hgb improved to 11 from 8.6 yesterday, may have been dilutional. Ferritin normal but iron panel low. B12 low, Folate normal. -continue to monitor #Concern for soft tissue infection-improving Inflamed lesion at the site where patient attempted to inject his crushed up alprazolam. Most likely not a clean needle. Concern for possible soft tissue infection. His hepatitis panel was negative in July 2024. Will ask patient if he would be interested in HIV testing once mentation improves. Raised lesion appears well perfused, no necrosis noted. -Cefazolin started 01/08- -Wound care on board -Will discharge home with augmentin, cefalexin consdiered but augmentin preferred for BID dosing and concern for possible patient non-adherence with QID dosing. # History of DVT In the setting of possible GI bleed, will hold home eloquis for now. -heparin for DVT prophylaxis. #IRONWORKER APPRENTICE 01/12 #Panic attack IRONWORKER APPRENTICE called for chest pain. Work up was benign (Chest xray, ekg, labs). Patient refusing all other medication other than benzodiazepines or suboxone. Plan: -Continue to monitor for worsening anxiety. Health Maintenance: DVT prophylaxis: Heparin Diet: Vegetarian diet. Dumont: Yes placed 01/08, DC 01/09 Lines: PIV, left sided central line placed 01/08 CODE STATUS: Full code Disposition: Medically cleared, pending social work evaluation. Patient's plan and care discussed with my attending, Dr. Cintron, and my senior Dr. Marquez. Tacho Crabtree MD PGY-1 Attending Provider Attestation/Addendum Patient seen and examined with resident physician Dr. Crabtree/ Dr. servin. Note reviewed, agree with findings and recommendations. Addendum: All central lines removed. Dumont catheter removed as well.
[2025-01-12] MEDS: LEVOFLOXACIN 250 MG TABLET 750 MG PO (14:22)
[2025-01-12] MEDS: ONDANSETRON INJ 2 MG/ML INJ 2 ML 4 MG IVP (14:23)
--- NOTE | 2025-01-12 15:00 | PC.SS ---
SS sent Clincial Packet to all [facility] facilities via [employer].
--- NOTE | 2025-01-12 16:17 | PC.SS ---
area field worker (SW) resend updated MH packet to [facility] facilities through [employer]. SW called: [facility], filled. [facility], full. [facility], no answer. [facility], full. [facility], at capacity. [facility], [facility], no answer. [facility], no open beds for [facility]. [facility], no answer. [facility]+, full. No beds available. SS to continue to search for placement. [id number] hold for DTS was started on 01/10/2025 and will on 01/13/2025 @3:40pm; SW to reevaluate after.
--- NOTE | 2025-01-12 16:17 | PC.SS ---
SS sent contacted the following [facility] facilities: [facility], [facility]-No bed availability [facility]-Reviewing packet [facility] ? Reviewing packet [facility]-Not admitting at the time [facility]- No beds available at the time [facility]-No Beds at the time [facility]-No male bed available [facility]- In Queue [facility]- Left Voicemail with Nurses station contact number [facility]- No available beds
--- NOTE | 2025-01-12 16:19 | PC.SS ---
SS contacted the following [facility] facilities: [facility]-No bed availability [facility]-Reviewing packet [facility] ? Reviewing packet [facility]-Not admitting at the time [facility]- No beds available at the time [facility]-No Beds at the time [facility]No male bed available [facility]- In Queue [facility]- Left Voicemail with Nurses station contact number [facility]- No available beds
[2025-01-12] MEDS: ACETAMINOPHEN 325 MG TABLET 650 MG PO (18:15)
[2025-01-13] VITALS (9 sets, daily range): BP systolic 102–141; BP diastolic 67–89; PULSE 72–101; RESP 16–18; TEMP 36.1–37.1; O2SAT 96–98; BMI 16.4
[2025-01-13] MEDS: NALOXONE SL ×2 (08:45→20:40)
[2025-01-13] MEDS: BUPRENORPHINE SL ×2 (08:45→20:40)
--- NOTE | 2025-01-13 09:45 | PC.SS ---
Addendum entered by Erica Augustine 01/13/25 10:47: SS follow up note; SS contacted [facility] and they informed SS they are reviewing clinicals at the time and would contact SS. Addendum entered by Erica Augustine 01/13/25 10:39: SS follow up note; SS sent updated Progress note to [facility] [employer]. Original Note: SS follow up note; SS was contacted by Nasrin ROTHMAN advising SS to inform the doctors if they are able to update the progress note indicating that the patient's neck catheter was removed. [facility] requested an updated note once available. SS contacted Dr. Blanco and provided the update. Dr. Blanco verbalized understanding and informed SS that she would be inputting note.
--- NOTE | 2025-01-13 10:53 | PC.CC ---
Addendum entered by Nasrin Bowser 01/13/25 13:05: [id number]-ASW attempted to contact the several times, but she does not respond. ASW also attempted to text pts but no rsponse. Addendum entered by Nasrin Bowser 01/13/25 12:50: 1236-Updates on the following facilities: [facility]-no male beds [facility]-no beds available. [facility]-have not had a chance to review it yet [facility]-have not had a chance to review packet. Facility asked to resend it again. ASW will resend. [facility]-Pt in Q. Intake stated they have a long Q and it will take a while to get to him. [facility]-No beds available. Will review when a bed becomes open. [facility]-pt is Q and have not had a chance to review yet. Will call back once pt reaches their top of the list. Original Note: [id number]-ASW contacted Erica Perez and Dr. Blanco to request an update regarding the valle that was placed on the pt and if it has been removed. Erica Mares and Dr. Blanco confirmed that Valle has been removed. ASW received a decline from [facility] due to the valle and that is the only reason for the decline. ASW asked Dr. Swanson to please update the Note stating valle has been removed and she agreed. Updated note has been uploaded to [employer] packet and refaxed to all facililties.
--- NOTE | 2025-01-13 11:33 | PC.SS ---
SS contacted the following [facility] facilities: [facility]- have not received packet, SS resent packet [facility]-Reviewing packet [facility] ? Reviewing packet [facility]- Reviewing packet [facility]-Requested SS to resend packet. SS resent packet [facility]-No Male beds available [facility]- SS Resent packet
--- NOTE | 2025-01-13 14:56 | ESPR_ITS ---
<Statement entered by Brook Cintron MD - 01/19/25 12:11> I reviewed above note and agree with findings and plans. I have also personally examined the patient with medicine team and went over assessment and plan with medical team including management intern and resident physician. <Statement entered by Sanford Marquez MD - 01/13/25 16:35> I saw and examined patient personally and supervised PGY 1 resident, Dr. Crabtree with formulating a management plan. I agree with the documentation with the exceptions as listed below. Patient remains medically clear. He continues to ask for benzodiazepines and beta-blockers. We will not prescribe any due to his history of overdose. At this point in time currently awaiting acceptance to a psychiatric facility for evaluation. Patient does not have any central lines or Dumont catheters. He is on oral levofloxacin for UTI to complete a 14-day course on 01/19. Plan of care discussed with Attending Dr. Abdulaziz Marquez MD PGY 2 Disclaimer: This note was dictated by speech recognition. Minor errors in mds coordinator may be present due to voice recognition software. Documentation for date of: 01/13/25 Subjective Subjective Interval history: NAEON. Patient examined bedside. Patient is currently on hold pending dispo to psych facility. He has no changes to his symptomatology or requests for medication. Will continue to monitor. All central lines removed. Dumont catheter removed as well. Exam Vital Signs Temp Pulse Resp BP Pulse Ox O2 Del Method O2 Flow Rate 97.6 F 82 18 137/68 H 98 Room Air 4 01/13/25 12:00 01/13/25 12:00 01/13/25 12:00 01/13/25 12:00 01/13/25 12:00 01/13/25 12:00 01/10/25 08:00 Narrative Exam General: Patient appears older than stated age, appears malnurished with bitemporal wasting, sitting upright in bed, soft spoken but conversational, no acute distress. HEENT: Moist mucosa, secretions no longer present. No tongue fasciculations. Pupils are equal and reactive to light bilaterally, not overtly miotic or mydriatic. Cardiovascular: Normal S1 and S2. Regular rate and rhythm. No murmur appreciated Respiratory: Clear to auscultation bilaterally without wheezes or crackles. Abdomen: Soft, mild tenderness to palpation in the left lower quadrant. Not distended, Skin: Dry, there is a psoriatic appearing rash along the back of the neck, erythematous with overlying scale. Varicose veins noted the BL lower extremities. 2.5 cm right forearm wound improving, erythema and edema have decreased markedly, appears pink and dry without any weeping or drainage, healing appropriately. Musculoskeletal: No gross injuries. Able to move all 4 extremities. Non edematous lower extremities. Lower extremities are warm with pedal pulses intact bilaterally. Neuro: Alert and oriented x3, no focal neuro deficits. Objective Labs 01/12/25 05:27 01/12/25 05:27 ABG Interpretation ABG results: 01/08/25 01/08/25 14:02 18:17 ABG pH Cancelled 7.41 ABG pCO2 Cancelled 44 ABG pO2 Cancelled 60 L ABG HCO3 Cancelled 28 H ABG O2 Saturation Cancelled 93 ABG Base Excess Cancelled 3 Quality Measures Quality Measures none Assessment & Plan Assessment Current Active Medications: Generic Name Dose Route Start Last Admin Trade Name Freq PRN Reason Stop Dose Admin Acetaminophen 650 mg 01/12/25 08:30 01/12/25 18:15 Acetaminophen 325 Mg Tablet PO 02/11/25 08:29 650 mg Q4HR PRN Administration Fever >100 or pain 1-3 Atropine Sulfate 1 mg 01/08/25 12:32 Atropine Sulf Inj 0.1 Mg/Ml Syr 10 Ml IV PRN PRN heart rate <30 Buprenorphine/ 0 ea 01/09/25 21:00 01/13/25 08:45 Naloxone 12mg/3mg SL 02/08/25 20:59 1 dose Sublingual Film BID MARILYNN Administration Dextrose 25 ml 01/08/25 16:47 Dextrose 50%-Water Inj 50 Ml Syringe IV 02/07/25 16:46 Q15MIN PRN BG 50-70 responsive npo pt Dextrose 50 ml 01/08/25 16:47 Dextrose 50%-Water Inj 50 Ml Syringe IV 02/07/25 16:46 Q15MIN PRN BG <50 OR BG <70 & pt unresponsive Diazepam 2.5 mg 01/08/25 15:14 Diazepam Inj 5 Mg/Ml Vial 2 Ml IVP X1 PRN Seizure >3min Escitalopram Oxalate 10 mg 01/11/25 12:00 01/13/25 08:43 Escitalopram Oxalate 10 Mg Tablet PO 02/10/25 11:59 Not Given QDAY MARILYNN Glucagon 1 mg 01/08/25 16:47 Glucagon Inj 1 Mg Vial IM Q15MIN PRN BG <70, and no IV access Heparin Sodium (Porcine) 5,000 unit 01/08/25 21:00 01/13/25 08:43 Heparin Sod Inj 5000 Unit/Ml Vial SC 01/22/25 20:59 Not Given Q12HR MARILYNN Hydroxyzine HCl 25 mg 01/11/25 11:00 01/13/25 08:46 Hydroxyzine Hcl 25 Mg Tablet PO 02/10/25 10:59 25 mg BID MARILYNN Administration Levofloxacin 750 mg 01/12/25 13:15 01/13/25 08:43 Levofloxacin 250 Mg Tablet PO 01/19/25 13:14 Not Given QDAY MARILYNN Melatonin 3 mg 01/11/25 21:00 01/12/25 21:00 Melatonin 3 Mg Tablet PO 02/10/25 20:59 Not Given HS MARILYNN Ondansetron HCl 4 mg 01/08/25 15:05 01/12/25 14:23 Ondansetron Inj 2 Mg/Ml Inj 2 Ml IVP 02/07/25 15:04 4 mg Q6HR PRN Administration NAUSEA OR VOMITING Protocol Sennosides 1 tab 01/10/25 13:30 01/13/25 08:43 Senna/Docusate Sod 1 Tab Tablet PO 02/09/25 13:29 Not Given QDAY [facility] Protocol Plan This is a 54 yom with a h/o Crohn's disease, LLE DVT, depression, and polysubstance used disorder, who was BIBA after intentional overdose of propranolol, possible suboxone, and alprazolam, and subsequently admitted for beta katlyn overdose management. On hold for psychiatric placement. HYDROCRANE OPERATOR 01/11 for chest pain, workup was negative, most likely etiology was a panic attack. Patient is medically cleared. All central lines removed. Dumont catheter removed as well. #Medically cleared #Placed on psych hold Patient is medically cleared pending disposition to psych facility. #Unintentional Beta katlyn overdose-resolved #Acute Encephalopathy 2/2,- resolved Encephalopathy most likely secondary to toxic ingestion of propranolol. Unclear how much propranolol was consumed, possibly up to 20 of the 40mg pills. Initially bradycardic in the 50s and hypotensive with systolics in 90s. Given a total of 4 mg Glucagon in the ED, 3L of LR, 1mg Atropine, Nalaxone 3mg. VSS now stable. Poison control contacted, recommendations listed below. Repeat EKG showed sinus tyler with improved QRS duration. On 01/09, patient's mentation markedly improved, states he has multiple dosage forms of propanolol, accidentally ingested the 40mg pills that he thought were the 10 mg pills. States he took between 8 to 12 of them. Also states that he took few benzodiazepines. Asked his to call 911 after he realized his error. Patient is tangential and unable to be redirected about restarting beta blockers. All vitals are normal. Poison control recommendations: -Admit tele, continuous cardiac monitering -Glucagon 5 mg push if unstable bradycardia -Atropine 1 mg push -1 amp Na Bicarb for QRS >120, -Seizure Precautions -head of bed >30 degrees -diazepam if seizure activity. -1-1 sitter -Passed Swallow Screen, regular vegetarian diet. - CT Head negative -DC Dumont. DC fluids. -Medically cleared. #Anion Gap Metabolic Acidosis-resolved Either secondary to hypoperfusion from unstable bradycardia vs propronolol overdose. Lactate elevated at 3.3. Ethanol and tylenol levels were WNL. Will also measure salicyclates and ask patient about ethylene glycol injestion. -lactate improved from 3.3 to 1.1 -Salicyclate normal. -Follow up questioning once patient has better mentation. #Depression #Anxiety #History of Suicidal Ideation #Polysubstance use disorder Meth positive. Will assess patient for SI/HI when mentation improves. Patient on suboxone chronically, bringing in his home suboxone as this institution does not carry this medication. Endorses feelings of depression and anxiety. - Patient superficially denies current SI or HI. -Does not have a proper perscription for his benzodiazepines. Purchases them from the street. -Patient is currently taking home supply of suboxone. - Hydroxyzine 25mg PO BID - Patient refuses - Escitalopram 10 mg PO QD - Patient refuses #Anemia-improving New finding, hgb of 8.6, baseline between 10 and 11. May be due to malnutrition, as patient seems to have failure to thrive. Hgb improved to 11 from 8.6 yesterday, may have been dilutional. Ferritin normal but iron panel low. B12 low, Folate normal. -continue to monitor #Concern for soft tissue infection-improving Inflamed lesion at the site where patient attempted to inject his crushed up alprazolam. Most likely not a clean needle. Concern for possible soft tissue infection. His hepatitis panel was negative in July 2024. Will ask patient if he would be interested in HIV testing once mentation improves. Raised lesion appears well perfused, no necrosis noted. -Cefazolin started 01/08- DC'd - Levaquin 750mg PO QD -Wound care on board -Will discharge home with augmentin, cefalexin consdiered but augmentin preferred for BID dosing and concern for possible patient non-adherence with QID dosing. # History of DVT In the setting of possible GI bleed, will hold home eloquis for now. -heparin for DVT prophylaxis. #HYDROCRANE OPERATOR 01/12 #Panic attack HYDROCRANE OPERATOR called for chest pain. Work up was benign (Chest xray, ekg, labs). Patient refusing all other medication other than benzodiazepines or suboxone. Plan: -Continue to monitor for worsening anxiety. Health Maintenance: DVT prophylaxis: Heparin Diet: Vegetarian diet. Dumont: Yes placed 01/08, DC 01/09 Lines: PIV, left sided central line placed 01/08 CODE STATUS: Full code Disposition: Medically cleared, pending psych placement Patient's plan and care discussed with my attending, Dr. Cintron, and my senior Dr. Marquez. Tacho Crabtree MD PGY-1 Attending Provider Attestation/Addendum Patient seen and examined with resident physician Dr. Crabtree/ Dr. servin. Note reviewed, agree with findings and recommendations. Addendum: All central lines removed. Dumont catheter removed as well.
[2025-01-13] MEDS: MELATONIN 3 MG TABLET PO (20:38)
[2025-01-14] VITALS (7 sets, daily range): BP systolic 99–116; BP diastolic 64–71; PULSE 63–107; RESP 15–18; TEMP 36–36.3; O2SAT 94–98; BMI 15.5
[2025-01-14 06:07] LABS: Basophils # (Auto) 0.1 Thou/mm3 (0.0-0.2); Basophils % (Auto) 1 % (0-2.5); Eosinophils # (Auto) 0.2 Thou/mm3 (0.0-0.5); Eosinophils % (Auto) 4 % (0-10); Hematocrit 39.3 % (41.0-53.0); Hemoglobin 13.0 g/dL (13.5-16.0); Immature Granulocytes Auto 0.03 Thou/mm3 (0.00-0.00); Lymphocytes # (Auto) 2.5 Thou/mm3 (1.0-4.8); Lymphocytes % (Auto) 43 % (10-50); Mean Corpuscular HGB Conc 33.1 g/dl (31.0-37.0); Mean Corpuscular Hemoglobin 30.5 pg (25.0-35.0); Mean Corpuscular Volume 92 fL (80-100); Monocytes # (Auto) 0.5 Thou/mm3 (0.0-0.8); Monocytes % (Auto) 9 % (0-12); Neutrophils # (Auto) 2.6 Thou/mm3 (1.8-7.7); Neutrophils % (Auto) 43 % (37-80); Nucleated Red Blood Cell # 0.00 Thou/mm3 (0.00-0.00); Nucleated Red Blood Cell % 0 /100 WBC (0); Platelet Count 212 Thou/mm3 (140-440); RDW Standard Deviation 46.8 fL (35.1-43.9); Red Blood Count 4.26 Miln/mm3 (4.50-5.90); White Blood Count 5.9 Thou/mm3 (3.8-10.6)
[2025-01-14 06:35] LABS: Alanine Aminotransferase 18 U/L (10-49); Albumin, Serum 3.6 gm/dL (3.5-5.0); Albumin/Globulin Ratio 1.5 (1.2-2.2); Alkaline Phosphatase 91 U/L (46-116); Anion Gap 6 (7-16); Aspartate Amino Transferase 15 U/L (0-34); BUN/Creatinine Ratio 14 Ratio (12-20); Bilirubin,Total 0.3 mg/dL (0.3-1.2); Blood Urea Nitrogen 10 mg/dL (9-23); Calcium 8.6 mg/dL (8.3-10.6); Calcium (Corrected) 8.9 mg/dL (8.5-10.1); Carbon Dioxide 29.8 mMol/L (20.0-31.0); Chloride 103 mMol/L (98-107); Creatinine (Component) 0.7 mg/dL (0.6-1.3); Estimated Creatinine Clearance 92.7 mL/min (>60); Globulin 2.4 gm/dL (2.3-3.5); Glucose 96 mg/dL (74-106); Magnesium 2.2 mg/dL (1.6-2.6); Osmolality,Calculated 276 (275-295); Phosphorous 4.1 mg/dL (2.4-5.1); Potassium 4.4 mMol/L (3.4-5.1); Sodium 139 mMol/L (136-145); Total Protein 6.0 gm/dL (5.7-8.2); eGFR > 60 See Note
[2025-01-14] MEDS: ACETAMINOPHEN 325 MG TABLET 650 MG PO (07:23)
--- NOTE | 2025-01-14 08:55 | EKG_ITS ---
[facility] Test Date: 2025-01-14 Pat Name: LIONEL GARZA Department: Room: [facility] [[email or web address] Gender: Male Meatman: NELSON : 1970 Requested By: Rakel Blanco Order Number: [id number] Reading MD: Rakel Blanco Measurements Intervals Dyke Rate: 92 P: 46 NH: 101 QRS: 77 QRSD: 82 T: 65 QT: 352 QTc: 436 Interpretive Statements SINUS RHYTHM WITH SHORT NH INTERVAL Compared to ECG 01/11/2025 11:00:08 Short NH interval now present Sinus bradycardia no longer present /store/S0/[id number]
[2025-01-14] MEDS: BUPRENORPHINE SL (09:07)
[2025-01-14] MEDS: NALOXONE SL (09:07)
--- NOTE | 2025-01-14 10:22 | PC.SS ---
SS follow up note; SS contacted [facility] to follow up on acceptance follow up. SS spoke to Lauren and she informed SS that at the time they have no beds available.
--- NOTE | 2025-01-14 11:40 | PC.CC ---
Addendum entered by Nasrin Bowser 01/14/25 12:22: 1213-STEPHAN received a call from Henry Toney at [facility] and she provided acceptance for this pt. Dr. Woodard is the accepting provider, pt will go to [facility], pt arrival time is 1999 and nurse to nurse [phone] is set for 1900- Original Note: 1140-STEPHAN Bowser sent the [id number] Notice to the Patients Rights Advocate and the Hearing Ofifcer via email on 01/13/25 and on 01/14/25 with the corrected 2nd hold (as the 2nd hold date was incorrect). The corrected 2nd was also faxed and emailed to Dawna Vasquez from [facility]. Dawna stated that once she received the corrected hold, she will call back with acceptance. DISPOSAL PLANT OPERATOR [employer] Professional Katherine Mena contacted Dawna to ask if they received the 2nd Hold and Jaz stated that once it is reviewed and received the corrected hold, she will call STEPHAN Bowser. EOC.
--- NOTE | 2025-01-14 12:01 | ESDS_ITS ---
<Statement entered by Brook Cintron MD - 01/19/25 12:11> I reviewed above note and agree with findings and plans. I have also personally examined the patient with medicine team and went over assessment and plan with medical team including r d internship and resident physician. <Statement entered by Sanford Marquez MD - 01/15/25 13:24> I saw and examined patient personally and supervised PGY 1 resident, Dr. Crabtree with formulating a management plan. I agree with the documentation with the exceptions as listed below. Patient was admitted for beta-katlyn overdose and treated with glucagon IV, calcium gluconate and symptomatic management after which his condition improved. He was also on levofloxacin p.o. for UTI secondary to kidney stone. Upon discharge we will completely discontinue beta-blockers and benzodiazepine. At this point patient clinically stable for transfer to mental health facility. Plan of care discussed with Attending Dr. Abdulaziz Marquez MD PGY 2 Disclaimer: This note was dictated by speech recognition. Minor errors in research program intern may be present due to voice recognition software. Planned Discharge Date 01/14/25 DS: Providers Provider Date of admission: 01/08/25 12:28 Primary care physician: Physician No Primary/Family Admitting Provider: Michelle Ram DO Attending Provider on Admission: Brook Cintron MD Consults: 01/09/25 10:23 Referral Registered Dietitian Routine Comment: anorexia, chron's disease 01/09/25 20:17 Referral Wound Care Routine Comment: Attending Provider on DC: Brook Cintron MD Discharging Provider: Brook Cintron MD DS: Diagnosis Problem List Completed Was Problem List Reviewed/Reconciled?: Yes Hospital Course Hospital Course Hospital course: This is a 54 yom with a h/o Crohn's disease, LLE DVT, depression, and polysubstance used disorder, who was BIBA after intentional overdose of propranolol, possible suboxone, and alprazolam, and subsequently admitted for beta katlyn overdose management. Patient presented to the ED with two pill bottles present in his rectum that were subsequently removed. His vitals were BP 104/69, HR 60, Temp 97.6, RR 16, O2 100 % on 5L NC. But BPs would fluctuate down to the 70s/50s. Vitals stabilized with Glucagon x3, IV LR x3, Narcan x2, Calcium gluconate x2, Atropine x1, Naloxone gtt). Upon admission poison control was called for BB overdose. Vitals stabilized with glucagon, atropine, and NaBicarb. His vitals stabilized. He was placed on hold for psychiatric placement. GAS COMPRESSOR OPERATOR 01/11 for chest pain, workup was negative, most likely etiology was a panic attack. Patient is medically cleared and safe for psych transfer. Discharge Instructions: -Continue all medication as prescribed -HOLD lorazepam and propranolol until you follow up with your primary care provider -Follow up with your primary care physician within 1 week of discharge. If you do not have a primary care physician, please follow up with the [facility] Residents clinic ([phone]) ?If you experience any new, worsening or persistent symptoms either call your primary doctor, or dial 911 or present to the emergency department. #Medically cleared #Placed on psych hold #Unintentional Beta katlyn overdose #Acute Encephalopathy #Anion Gap Metabolic Acidosis #Depression #Anxiety #History of Suicidal Ideation #Polysubstance use disorder #Anemia #Concern for soft tissue infection-improving # History of DVT #GAS COMPRESSOR OPERATOR 01/12 #Panic attack Patient's plan and care discussed with my attending, Dr. Cintron, and supervising resident MD Tacho Ponce MD Internal Medicine PGY-1 Status at Discharge Functional status at discharge: independent ambulation Overall status at discharge: patient is back to baseline Time Spent with Patient Time attestation: Total time spent providing and/or coordinating discharge services: Time spent: Greater than 30 minutes Exam Vital Signs Temp Pulse Resp BP Pulse Ox O2 Del Method O2 Flow Rate 97.4 F 77 15 99/64 97 Room Air 4 01/14/25 04:00 01/14/25 08:00 01/14/25 08:00 01/14/25 08:00 01/14/25 08:00 01/14/25 08:00 01/10/25 08:00 Narrative Exam General: Patient appears older than stated age, appears malnurished with bitemporal wasting, sitting upright in bed, soft spoken but conversational, no acute distress. HEENT: Moist mucosa, secretions no longer present. No tongue fasciculations. Pupils are equal and reactive to light bilaterally, not overtly miotic or mydriatic. Cardiovascular: Normal S1 and S2. Regular rate and rhythm. No murmur appreciated Respiratory: Clear to auscultation bilaterally without wheezes or crackles. Abdomen: Soft, mild tenderness to palpation in the left lower quadrant. Not distended, Skin: Dry, there is a psoriatic appearing rash along the back of the neck, erythematous with overlying scale. Varicose veins noted the BL lower extremities. 2.5 cm right forearm wound improving, erythema and edema have decreased markedly, appears pink and dry without any weeping or drainage, healing appropriately. Musculoskeletal: No gross injuries. Able to move all 4 extremities. Non edematous lower extremities. Lower extremities are warm with pedal pulses intact bilaterally. Neuro: Alert and oriented x3, no focal neuro deficits. Discharge Plan Plan Patient Disposition: [facility] Patient condition on transfer: Stable Care Plan Goals: Instructions: -Continue all medication as prescribed -HOLD lorazepam and propranolol until you follow up with your primary care provider -Follow up with your primary care physician within 1 week of discharge. If you do not have a primary care physician, please follow up with the [facility] Residents clinic ([phone]) ?If you experience any new, worsening or persistent symptoms either call your primary doctor, or dial 911 or present to the emergency department. Prescriptions/Referrals Prescriptions/Med Rec: Continued naloxone [Narcan] 4 mg/actuation spray,non-aerosol 4 mg intranasal Q3M PRN (Reason: opioid overdose) Qty: 2 0RF Rx Instructions: spray 1 dose into ONE nostril; alternate nostrils w each dose until help arrives escitalopram oxalate 10 mg Tablet 10 mg PO QDAY 30 Days Qty: 30 2RF buprenorphine-naloxone 12-3 mg film 1 film BUCCAL BID Held propranolol 10 mg Tablet 10 mg PO TID 30 Days Qty: 90 1RF Hold Instructions: Resume on 01/27/25. hold due to your Overdose until you see your PCP lorazepam 2 mg tablet 1.5 mg PO Q6H PRN (Reason: anxiety) Hold Instructions: Resume on 01/27/25. hold until you see your PCP Marcelle Buckley DVT-PE Treat 30D Start 5 mg (74 tabs) tablets,dose pack 5 mg PO BID Qty: 74 0RF Referrals: No Primary/Family,Physician [Primary Care Provider] Patient/Caregiver Discharge Instructions Education Materials: Addiction Ask These Questions, ED Overdose, Intentional (Adult) Print Language: Georgian Stand Alone Forms: [facility]ena Award Info., Patient Portal Info Letter Discharge Order Discharge Orders: Discharge (Routine); Ordered 01/14/25 Ordered By: Rakel Blanco Quality Discharge Quality Measures VTE prophylaxis
--- NOTE | 2025-01-14 12:10 | PC.SS ---
SS contacted [facility] in [facility] and they informed SS they are able to accept patient. Intake informed SS they are able to accept patient and would be contacting SS with acceptance information.
--- NOTE | 2025-01-14 12:22 | PC.CC ---
LATE NOTE: (01/13/25) On 01/13/25, ASW-Nasrin Bowser met with patient [id number] to complete assessment to evaluate for a possible 2nd Hold or safety plan. The initial hold was created on 01/10/25 for DTS for SI by OD, as pt ingested 2/3 of his medications which contained 100 pills/40mg each of propanolol. . ASW introduced self, role, and reason for assessment. ASW disclosed limits of confidentiality as well. Patient appeared alert and oriented to self, place, and situation. Patient was pleasant; his mood appeared depressed; his behavior appeared disinhibited with flat affect. Patient?s thought process was linear and organized. No signs of delusions, paranoid or AVH. ASW asked pt what led him to the hospital and to be admitted. Pt reported that on said evening, he had woken up from a long nap and he woke up in a panic. Pt reported that he reached for his medications (propanolol) and stated he ingested about 6-7 pills accidentally and stated he meant to take another set of medications. Pt denied SI /HI. Pt stated he did not ingest the pills as a an act of attempting to end his life. Pt reports that he was high on methamphetamine for the past few days and had not slept well. Pt admits that he usually over takes, his medications as an attempt to get as high as he can along with methamphetamine use. Pt reports he resides with his and reports she is a therapist and that is the reason why he does not see a need to seek therapy. Pt reports he has safety planned many times in the past and according to the pt, he reports he is compliant with the safety plan details, which includes f/u with psychiatric services. It should be known that pt has significant h/o of attempted SI by OD of his medications, that required ICU/intubating and surgery. Pt has h/o of MH hospitalizations all within this year. Pt reports he feels he can safety plan. ASW contacted pts and supports the a safety plan. ASW explained that a safety plan may not be best route but I do have to at least offer the plan if a decision is made for a safety plan. It should be known that all safety plans in the past, that have been made with the [facility], pt has not been compliant and [facility] is unable to keep the pt safe. There is high risk that pt will harm himself if a safety plan were to be in place, as pts only support is his who is unable to provide adequate safety for this pt. ASW staffed this case with Cherelle Galvin, Director and SCHOOL [employer]GE PROGRAM TEACHER and it was determined that the pt will go on a 2nd hold 5150 for DTS. ASW spoke with Dr. Blanco who is the attending provider and informed her that pt will go on a 2nd Hold, Dr. Cintron is aware and assigned RN is aware. Pt is aware of the 2nd Hold and ASW will search for LPS placement. It should be known that prior to this assessment, ASW received confirmation from Dr. Cintron and Dr. Fleming that pt is medically cleared.
--- NOTE | 2025-01-14 13:11 | PC.SS ---
SS set up transportation to [facility] for 1900 with [facility]. [facility] requested for patient to arrive by 1999. SS updated patient's nurse and provided contact number for report. SS also me with patient and updated as well.
--- NOTE | 2025-01-14 14:31 | PC.NURSE ---
Dr. Marquez aware pt. is complaining of anxiety. states I will review the chart and enter something.
--- NOTE | 2025-01-14 14:47 | PC.NURSE ---
Provided pt. wtih Atarax ordered PRN for anxiety, pt. refusing stating that doesn't help, it makes it worse. pt. states this medication gives him a paradoxal reaction. Pt. has stated this same reason for denying all other medications ordered that pt. does not want to take. Pt. is upset and asking specifically for ativan. Explained to pt. that the Dr. offered Atarax only. Called back to Dr. Blanco per pt. request to ensure Ativan was denied. Dr. Blanco states no we will not prescribe ativan, we are trying to keep pt. away from benzodiazapines. RN explained to pt. reasoning behind denying request for ativan and pt. became more and more agitated and started to say insults towards RN. Pt. then self removed IV and refused to allow RN to cover site. Dr. Blanco aware and states I will come see the patient at bedside.
--- NOTE | 2025-01-14 19:00 | PC.NURSE ---
Report given to Juan Jose FOREMAN at [facility]. Pt. vitals stable and medically cleared but pt. psych hold renewed as of 01/13.
--- NOTE | 2025-01-14 19:12 | PC.NURSE ---
pt. home med was recieved from pharmacy and counted with KELLEN Riley and Pharmacist Ricardo, 11 doses counted and confirmed. At time of DC at 1912, medication was again counted with KELLEN Riley, Charge Nurse Karen, and recieving EMT Anabell Johnson. Again, 11 doses were counted and confirmed, and medication handed over to DAYANA Johnson for transfer as these are pt. home medications. One pharmacy pink sheet was signed by Rosemary FOREMAN and Ricardo Pharmcist, another [place] sheet was signed by Rosemary FOREMAN, Karen FOREMAN and DAYANA Johnson and put into pt. paper chart.
== END 2025-01-14 19:12 | DRG 817 ==
LOC: SERX 09:04 → SERHOLD 12:50 → S2NX 14:56 → S3NX 01-10 04:37
PROVIDERS: Admitting Provider Internal Medicine; Emergency Provider Family Medicine; Visit Provider Internal Medicine
DX: T44.7X2A Poisoning by beta-adrenoreceptor antagonists, intentional self-harm, initial encounter (principal); G92.8 Other toxic encephalopathy; F17.200 Nicotine dependence, unspecified, uncomplicated; K50.90 Crohn's disease, unspecified, without complications; E87.20 Acidosis, unspecified; D64.9 Anemia, unspecified; Z86.718 Personal history of other venous thrombosis and embolism; Z79.01 Long term (current) use of anticoagulants; F32.A Depression, unspecified; F41.0 Panic disorder [episodic paroxysmal anxiety]; G93.41 Metabolic encephalopathy; I48.91 Unspecified atrial fibrillation; L03.113 Cellulitis of right upper limb; N39.0 Urinary tract infection, site not specified; F15.10 Other stimulant abuse, uncomplicated; B95.7 Other staphylococcus as the cause of diseases classified elsewhere; F11.10 Opioid abuse, uncomplicated; R62.7 Adult failure to thrive; N20.0 Calculus of kidney; Z79.899 Other long term (current) drug therapy; Z87.442 Personal history of urinary calculi; Z91.51 Personal history of suicidal behavior; Z91.52 Personal history of nonsuicidal self-harm; R07.9 Chest pain, unspecified
CPT/HCPCS: 36415; 36600; 70450; 71045; 74018; 80053; 80307; 80320; 80329; 81001; 82607; 82728; 82746; 82803; 83540; 83550; 83605; 83735; 84100; 84484; 85025; 87040; 87077; 87081; 87086; 87186; 92610; 93005; 96127; 96361; 96374; 96376; 99285; J0461; J0612; J0689; J1200; J1611; J1630; J1644; J2312; J2405; J3475; J3480; J7042; J7060; J7120; A9270; G0480

== ENCOUNTER 2025-01-21 09:55 | Emergency (ER) | payer MEDICAID, SELFPAY ==
[2025-01-21] VITALS (7 sets, daily range): BP systolic 101–115; BP diastolic 70–76; PULSE 55–98; RESP 8–22; TEMP 36.2–36.9; O2SAT 96–100; BMI 16.0
--- NOTE | 2025-01-21 09:57 | EKG_ITS ---
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
--- NOTE | 2025-01-21 10:00 | PC.NURSE ---
PT ARRIVED AT 0955 BY AMBULANCE WITH C/O CHEST PAIN AND HEADACHE THAT WOKE HIM FROM SLEEP ABOUT 0900 TODAY. 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 PT STATES WAS JUST DISCHARGED FROM THE HOSPITAL 01/19 AFTER BEING ADMITTED FOR OVERDOSE
--- NOTE | 2025-01-21 10:38 | PD.EDARRY ---
ED Arrhythmia Palp. RME/HPI General Chief Complaint: Chest Pain Stated Complaint: CHEST PAIN AND HEADACHE SINCE 0900 TODAY Time Seen by Provider: 01/21/25 10:07 Arrival date/time: 01/21/25 09:55 Limitations: no limitations RME / HPI RME / HPI narrative: 54 year old male with history of Crohn's disease, h/o left lower extremity DVT, depression, anxiety, polysubstance use on Suboxone, and tachy arrhythmia since 1996 and on beta blockers presents to the ED BIBA from home for evaluation of palpitations, chest pain, and headache today. Patient reportedly slept holding his guitar last night and feels that is what caused him to wake with a headache. Does not know the cause of palpitations though does admit to using meth at midnight. States using meth in the past has not elevated his heart rate and does not feel that is the cause today. Per medics, patient was given 162mg Aspirin and refused the SL nitro and nitro paste. No other associated symptoms reported. Denies headache, abdominal pain, nausea, vomiting, diarrhea, or urinary symptoms. Related Data Home Medications ?Medication ?Instructions ?Recorded ?Confirmed buprenorphine 12 mg-naloxone 3 mg 1 film buccal BID 01/09/25 01/09/25 sublingual film lorazepam 2 mg tablet 1.5 mg PO Q6H PRN anxiety 01/11/25 01/11/25 Held on 01/12/25. Instructions: Resume on 01/27/25. hold until you see your PCP Previous Rx's ?Medication ?Instructions ?Recorded naloxone 4 mg/actuation nasal 4 mg intranasal Q3M PRN opioid 11/30/23 spray (Narcan) overdose #2 ea escitalopram oxalate 10 mg tablet 10 mg PO QDAY 30 days #30 tabs 07/20/24 propranolol 10 mg tablet 10 mg PO TID 30 days #90 tabs 07/20/24 Held on 01/12/25. Instructions: Resume on 01/27/25. hold due to your Overdose until you see your PCP Allergies Allergy/AdvReac Type Severity Reaction Status Date / Time onion Allergy Severe Vomiting Verified 01/21/25 10:06 Review of Systems Review of Systems Systems Reviewed: All systems reviewed, normal except as documented Past Medical History Past Medical History NEUROLOGIC: Positive Migraine CARDIAC: Positive Cardiac Disorders and Atrial Fibrillation GASTROINTESTINAL: Positive Gastrointestinal Disorders and Crohn's Disease GENITOURINARY: Positive Genitourinary Disorders, Renal Disease and Kidney Stones PSYCHO/SOCIAL: Positive Depression, Anxiety and Post Traumatic Stress Disorder OTHER HISTORY: Positive Autoimmune Disease and Down Syndrome Family History FAMILY HISTORY: Positive Family Cancer (parents had cancer) Social History SMOKING STATUS: Current every day smoker SUBSTANCE USE: methamphetamine ED Exam General Limitations: Present no limitations General appearance: Present alert, cachectic and other (pale, speaking full sentences ) Head Head exam: Present atraumatic, normocephalic and normal inspection Eye Eye exam: Present normal appearance, PERRL and EOMI ENT ENT exam: Present normal exam, normal oropharynx and mucous membranes dry Neck Neck exam: Present normal inspection, full ROM and trachea midline Chest Chest inspection: Present normal inspection and symmetric chest wall rise Respiratory Respiratory exam: Present normal lung sounds bilaterally Cardiovascular Cardiovascular exam: Present regular rate, normal rhythm and normal heart sounds Abdominal Exam Abdominal exam: Present soft (and flat) and normal bowel sounds; Absent distention, tenderness, guarding, rebound or rigidity Extremities Exam Extremities exam: Present normal inspection and full ROM Back Exam Back exam: Present normal inspection and full ROM Neurological Exam Neurological exam: Present alert, oriented X3 and CN II-XII intact Psychiatric Psychiatric exam: Present normal affect and normal mood Skin Skin exam: Present warm, dry, intact and normal color; Absent rash Course Quality Measures none Orders Category Date Time Status EKG (ED ONLY) *Do not use* NOW Care 01/21/25 09:57 Active EKG (ED Only) Stat Exams 01/21/25 09:57 Draft Vital Signs Vital signs: Vital Signs Temperature 98.2 F 01/21/25 09:55 Pulse Rate 81 01/21/25 09:55 Respiratory Rate 18 01/21/25 09:55 Blood Pressure 115/76 01/21/25 09:55 Pulse Oximetry (%) 96 01/21/25 09:55 Oxygen Delivery Method Room Air 01/21/25 09:55 Arrhythmia/Palpitations MDM Narrative MDM Narrative:: Eliana Russell am scribing for and in the presence of Dr. Roque. 1540p: Patient remains clinically stable throughout the emergency department visit. We reviewed all the results, analysis, and treatment plans. Patient is amenable to discharge. Strict return precautions were outlined. Patient data External records reviewed:: [facility] previous records and EMS form Clinical information provided by:: patient and EMS Social determinants that could affect healthcare access:: none Patient has the following chronic illnesses:: Crohn's disease, h/o left lower extremity DVT, depression, anxiety, polysubstance use on Suboxone, and tachy arrhythmia since 1996 and on beta blockers How is presenting disease/condition affected by chronic disease/condition?: exacerbated by Evaluation data The following diagnostics were reviewed and interpreted by me:: lab results and EKG tracing(s) (EKG at 10:05am. NSR, rate 87, no STEMI, AL interval 142ms, QTc 443ms. ) Lab and/or radiology exams considered but not ordered:: None Interpretation Summary: See above Medications / Prescriptions Medications or Prescriptions considered but not ordered:: None Medication administrations:: None Consultations Consultation(s) initiated? (list below): No Diagnosis Most likely diagnosis given after review of the tests above:: Palpitations Admission Indicated Admission indicated?: not indicated Admission Request Was there a request for admission?: No Disposition Plan Disposition Plan: Discharge Discharge Attestation Discharge Attestation: The patient and all family members were given an opportunity to ask questions and understood the discharge instructions. Discharge instructions specifically effects, indications for sooner follow up or return to the emergency department, and the expected course of current diagnosis. Patient condition: Stable Discharge Plan Plan Patient Disposition: HOME (Self Care) Patient condition on transfer: Stable Prescriptions/Referrals Prescriptions/Med Rec: No Action naloxone [Narcan] 4 mg/actuation spray,non-aerosol 4 mg intranasal Q3M PRN (Reason: opioid overdose) Qty: 2 0RF Rx Instructions: spray 1 dose into ONE nostril; alternate nostrils w each dose until help arrives propranolol 10 mg Tablet 10 mg PO TID 30 Days Qty: 90 1RF escitalopram oxalate 10 mg Tablet 10 mg PO QDAY 30 Days Qty: 30 2RF buprenorphine-naloxone 12-3 mg film 1 film BUCCAL BID lorazepam 2 mg tablet 1.5 mg PO Q6H PRN (Reason: anxiety) Referrals: Paramjit Alcantara([facility])MD [Primary Care Provider, Family Practice] - In 1 week Problem List Clinical Impression: Palpitations Patient/Caregiver Discharge Instructions Education Materials: ED Palpitations Additional Instructions: Today your blood test are reassuring. Please stop using drugs because this could be causing your palpitations. Stay hydrated with Pedialyte and or Gatorade. Return to emergency department for any worsening symptoms, or any other concerns. Print Language: [place]ight Stand Alone Forms: [facility] Award Info., Patient Portal Info Letter
[2025-01-21] MEDS: SODIUM CHLORIDE 0.9% 1000 ML 1,000 ML 999 ML IV (11:10)
[2025-01-21 11:15] LABS: Basophils # (Auto) 0.0 Thou/mm3 (0.0-0.2); Basophils % (Auto) 0 % (0-2.5); Eosinophils # (Auto) 0.1 Thou/mm3 (0.0-0.5); Eosinophils % (Auto) 1 % (0-10); Hematocrit 32.1 % (41.0-53.0); Hemoglobin 10.8 g/dL (13.5-16.0); Immature Granulocytes Auto 0.04 Thou/mm3 (0.00-0.00); Lymphocytes # (Auto) 1.3 Thou/mm3 (1.0-4.8); Lymphocytes % (Auto) 12 % (10-50); Mean Corpuscular HGB Conc 33.6 g/dl (31.0-37.0); Mean Corpuscular Hemoglobin 31.2 pg (25.0-35.0); Mean Corpuscular Volume 93 fL (80-100); Monocytes # (Auto) 0.9 Thou/mm3 (0.0-0.8); Monocytes % (Auto) 8 % (0-12); Neutrophils # (Auto) 8.6 Thou/mm3 (1.8-7.7); Neutrophils % (Auto) 78 % (37-80); Nucleated Red Blood Cell # 0.00 Thou/mm3 (0.00-0.00); Nucleated Red Blood Cell % 0 /100 WBC (0); Platelet Count 168 Thou/mm3 (140-440); RDW Standard Deviation 46.2 fL (35.1-43.9); Red Blood Count 3.46 Miln/mm3 (4.50-5.90); White Blood Count 11.1 Thou/mm3 (3.8-10.6)
[2025-01-21 11:37] LABS: Anion Gap 8 (7-16); BUN/Creatinine Ratio 13 Ratio (12-20); Blood Urea Nitrogen 9 mg/dL (9-23); Calcium 9.1 mg/dL (8.3-10.6); Carbon Dioxide 27.3 mMol/L (20.0-31.0); Chloride 103 mMol/L (98-107); Creatinine (Component) 0.7 mg/dL (0.6-1.3); Estimated Creatinine Clearance 88.0 mL/min (>60); Glucose 101 mg/dL (74-106); Magnesium 1.9 mg/dL (1.6-2.6); Osmolality,Calculated 274 (275-295); Potassium 4.0 mMol/L (3.4-5.1); Sodium 138 mMol/L (136-145); eGFR > 60 See Note
[2025-01-21 13:05] LABS: Troponin I < 0.002 ng/mL (0.0-0.045)
--- NOTE | 2025-01-21 13:39 | PC.NURSE ---
PT AWARE OF NEED FOR URINE AND GIVEN URINAL
[2025-01-21 15:39] LABS: Amphetamine/Methamp Scrn,U Positive (Negative); Barbiturate Screen,Urine Negative (Negative); Benzodiazepines Screen,Urine Positive (Negative); Benzoylecgonine Screen, Ur Negative (Negative); Fentanyl Screen,Urine Negative (Negative); Opiate Screen,Urine Positive (Negative); THC Screen,Urine Negative (Negative)
== END 2025-01-21 15:57 | disposition home or self-care (01) ==
PROVIDERS: Emergency Provider Emergency Medicine; PCP Family Medicine
DX: R00.2 Palpitations (principal)
CPT/HCPCS: 36415; 80048; 80307; 83735; 84484; 85025; 93005; 96360; 99283; J7030